=== PATIENT | male | born 1985 | race Caucasian/White ===

== ENCOUNTER 2016-09-19 02:38 | Observation (INO) | payer OTHER ==
[2016-09-19] VITALS (11 sets, daily range): BP systolic 92–140; BP diastolic 59–79
[~2016-09-19] VITALS: Ht 175.3 cm; Wt 128.5 kg
[~2016-09-19 02:38] MED LIST: ALBU8.5H6 INH; ASPI-482 PO; CEPH-263 PO; CEPH500C PO; CYAN10002 IM; CYCL10TA2 PO; DOXY100T PO; FLUT1DIS5 IH; FURO20TA3 PO; HYDR-2666 PO; HYDR-2762 PO; HYDR-965 PO; HYDR-971 PO; IBUP-1060 PO; LEVE250T30 PO; LEVO500T38 PO; LINE600T PO; MECL25TA3 PO; MELO-150 PO; MESA0.37 PO; METOPROLOL PO; MINO100C42 PO; NAPR500T3 PO; NORT25CA PO; NORT75CA PO; ONDA4TAB10 SL; OXYC-323 PO; OXYC10TA32 PO; OXYC5TAB88 PO; PANT40TA3 PO; PREG75CA PO; TOPI100T39 PO; TOPI15CA4 PO; ZOLP5TAB PO
[2016-09-19] MEDS ORDERED: NITROGLYCERIN SUBLINGUAL 0.4 MG BOTTLE OF 25. SL PRN (02:45)
[2016-09-19] MEDS ORDERED: MORPHINE SULFATE 2 MG/ML DISP.SYRIN. IV PRN (02:45)
[2016-09-19] MEDS ORDERED: ASPIRIN 81 MG TAB.CHEW PO ONE (03:00)
[2016-09-19 03:42] LABS: BASO # 0.1 x10^3/uL (0.0-0.2); BASO % 1 % (0-3); EOS % 2 % (0-3); HEMATOCRIT 41.5 % (39.0-53.0); HEMOGLOBIN 13.6 g/dL (13.0-17.5); LYMPH # 3.1 x10^3/uL (1.0-4.8); LYMPH % 21 % (24-48); MEAN CORPUSCULAR HEMOGLOBIN 29 pg (25-35); MEAN CORPUSCULAR HGB CONC 33 g/dL (31-37); MEAN CORPUSCULAR VOLUME 90 fL (79-100); MONO % 6 % (0-9); NEUT % 70 % (31-73); PLATELET COUNT 302 x10^3/uL (140-400); RED BLOOD COUNT 4.62 x10^6/uL (4.30-5.70); WHITE BLOOD COUNT 14.8 x10^3/uL (4.0-11.0)
[2016-09-19 03:53] LABS: ANION GAP 13 (6-14); BLOOD UREA NITROGEN 19 mg/dL (8-26); CALCIUM 8.9 mg/dL (8.5-10.1); CARBON DIOXIDE 22 mmol/L (21-32); CHLORIDE 108 mmol/L (98-107); CREATININE 1.3 mg/dL (0.7-1.3); GFR 64.4; GLUCOSE 95 mg/dL (70-99); POTASSIUM 3.8 mmol/L (3.5-5.1); SODIUM 143 mmol/L (136-145)
[2016-09-19 03:58] LABS: ALBUMIN 3.4 g/dL (3.4-5.0); ALK PHOS 92 U/L (46-116); ALT (SGPT) 26 U/L (16-63); AST (SGOT) 13 U/L (15-37); DIRECT BILIRUBIN < 0.1 mg/dL (0.0-0.2); TOTAL BILIRUBIN 0.2 mg/dL (0.2-1.0); TOTAL PROTEIN 6.7 g/dL (6.4-8.2)
[2016-09-19] MEDS ORDERED: ONDANSETRON PF 4 MG/2 ML VIAL. IV PRN (04:00)
--- NOTE | 2016-09-19 04:04 | PHYS DOC ---
Past Medical History Past Medical History: Anxiety, CHF, COPD, CVA, Depression, GERD, Hypertension, Seizure, TIA Additional Past Medical Histor: pericarditis Crohns partial blind L eye pyloric stenosis Past Surgical History: Other Additional Past Surgical Histo: left knee sx stomach sx Alcohol Use: None Drug Use: None Adult General Chief Complaint Chief Complaint: CHEST PAIN HPI HPI 31-year-old male presenting to the emergency department today with 7 out of 10 sharp sternal chest pain for the last hour. Radiates down left arm. He was given nitroglycerin and aspirin prior to arrival. Mildly alleviated by aspirin and nitroglycerin. He has a history of CHF TIA Crohn's. He denies fevers chills. She denies shortness of breath. Review of Systems Review of Systems ROS negative for abdominal pain nausea vomiting diaphoresis. All other review of systems is negative unless otherwise noted in history of present illness. Current Medications Current Medications Current Medications Medications (Trade) Dose Ordered Sig/Linda Start Time Stop Time Status Last Admin Dose Admin Aspirin (Children'S Aspirin) 324 mg 1X ONCE 09/19/16 03:00 09/19/16 03:01 DC Morphine Sulfate 2 mg PRN Q1HR PRN 09/19/16 02:45 09/19/16 04:04 DC Nitroglycerin (Nitrostat) 0.4 mg PRN Q5MIN PRN 09/19/16 02:45 Allergies Allergies Allergies Coded Allergies Type Severity Reaction Last Updated Verified Penicillins Allergy Intermediate Takes Keflex at home chronically 05/24/16 Yes Sulfa (Sulfonamide Antibiotics) Allergy Intermediate 05/24/16 Yes Physical Exam Physical Exam Constitutional: Well developed, well nourished, no acute distress, non-toxic appearance. HENT: Normocephalic, atraumatic, bilateral external ears normal, oropharynx moist, no oral exudates, nose normal. [] Eyes: PERRLA, EOMI, conjunctiva normal, no discharge. Neck: Normal range of motion, no tenderness, supple, no stridor. [] Cardiovascular:Heart rate regular rhythm, no murmur Lungs & Thorax: Bilateral breath sounds clear to auscultation [] Abdomen: Bowel sounds normal, soft, no tenderness, no masses, no pulsatile masses. Skin: Warm, dry, no erythema, no rash. [] Back: No tenderness, no CVA tenderness. Extremities: No tenderness, no cyanosis, no clubbing, ROM intact, no edema. [] Neurologic: Alert and oriented X 3, normal motor function, normal sensory function, no focal deficits noted. Psychologic: Affect normal, judgement normal, mood normal. [] Current Patient Data Vital Signs Vital Signs Date Time Temp Pulse Resp B/P Pulse Ox O2 Delivery O2 Flow Rate FiO2 09/19/16 03:00 98 18 109/56 95 Nasal Cannula 09/19/16 02:38 98.0 98.0 EKG EKG [] EKG shows sinus tachycardia. Prosser normal. Intervals normal. ST segments congruent. Radiology/Procedures Radiology/Procedures Chest x-ray shows cardiomegaly. No acute obvious infiltrate or pneumothorax present. Course & Med Decision Making Course & Med Decision Making Pertinent Labs and Imaging studies reviewed. (See chart for details) 31-year-old male presenting to the emergency department with chest pain. Aspirin and nitroglycerin given prior to arrival. Vital signs showed tachycardia otherwise unremarkable. Physical exam unremarkable. EKG showed tachycardia. Chest x-ray similar to prior with chronic conditions. Blood work was obtained which showed a increased white blood cell count. Chemistry panel within normal limits. Troponin negative. Patient was then admitted to our hospital for serial blood work and cardiology consultation. Dragon Disclaimer Dragon Disclaimer This electronic medical record was generated, in whole or in part, using a voice recognition dictation system. Departure Departure Impression: Primary Impression: Chest pain Disposition: ADMITTED INPATIENT Admitting Physician: Nicky Higginbotham Condition: STABLE Referrals: SHERRON MALONE MD (PCP) NAOMI MALIK MD Sep 19, 2016 04:04
[2016-09-19] MEDS: MORPHINE SULFATE 2 MG/ML DISP.SYRIN. IV PRN ×2 (04:34→09:17)
--- NOTE | 2016-09-19 06:14 | EKG ---
[facility] [address] [place] [id number] Test Date: 2016-09-19 Test Time: 02:42:36 Pat Name: LAUREANO JONES Department: Room: [facility] Gender: M Studio Director: : 1985 Requested By: NAOMI MALIK Order Number: [id number] Reading MD: Sony Serna Measurements Intervals [place] Rate: 103 P: 38 GA: 150 QRS: 22 QRSD: 96 T: 20 QT: 336 QTc: 442 Interpretive Statements SINUS TACHYCARDIA Electronically Signed On 09-19-2016 15:48:42 MMI TEACHER by Sony Serna
--- NOTE | 2016-09-19 07:58 | RAD ---
EXAM: Chest, single view. HISTORY: Chest pain. COMPARISON: 09/04/2016. FINDINGS: A frontal view of the chest is obtained. There is stable left lower lobe atelectasis or pleural-parenchymal scarring. There is no consolidation, effusion or pneumothorax. The heart is normal in size. IMPRESSION: Stable left lower lobe atelectasis or scarring. No acute pulmonary finding.
--- NOTE | 2016-09-19 09:38 | PDOC2 ---
BRANDY EVANS VESSEL SLAGMAN 09/19/16 0938: CARDIAC CONSULT DATE OF CONSULT Date of Consult DATE: 09/19/16 TIME: 09:27 REASON FOR CONSULT Reason for Consult: Chest Pain REFERRING PHYSICIAN Referring Physician: Dr. Tai SOURCE Source: Chart review, Patient HISTORY OF PRESENT ILLNESS HISTORY OF PRESENT ILLNESS This is a 31 yo male, with a history of CHF, pericarditis, HTN, HLP, hemorrhagic CVA, TIA, seizures, and Crohn's Dx, who presented with complaints of chest pain. Patient reports that pain began yesterday evening when he was watching television. Located in his left chest and radiated to his left shoulder. Stabbing and constant in nature. Improve with nitropaste and morphine. No exacerbating factors. Previous admissions for CP. Underwent MPI in May of 2016, which did not reveal any evidence of ischemia or infarct. Most recently, patient was evaluated in August of 2016 and describes pain was thought to be MSK in origin. Has been chest pain free for the last 2-3 weeks. Reports history of TIA; most recent with left sided weakness that he is receiving PT/OT 5 x per weeks. Additional history of seizures; last 5 days ago. Reports compliance with medications. 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, Seizures, TIA GI: GERD, Other (Crohn's; pyloric stenosis with surgical repair as an infant) Heme/Onc: No pertinent hx Hepatobiliary: No pertinent hx Psych: anxiety, depression Musculoskeletal: Osteoarthritis Rheumatologic: No pertinent hx Infectious disease: Other (MRSA) ENT: No pertinent hx, Other (blind in left eye since stroke) Endocrine: Other (thyroid nodules) Dermatology: Cellulitis PAST SURGICAL HISTORY Past Surgical History left knee arthroscopy; polypectomy FAMILY HISTORY Family History Coronary Artery Disease, HTN, DM, thyroid CA SOCIAL HISTORY Social History Smoke: Quit (2009) ALCOHOL: other (quit 2009) Drugs: None Lives: with Family CURRENT MEDICATIONS CURRENT MEDICATIONS Current Medications Medications (Trade) Dose Ordered Sig/Linda Route PRN Reason Start Time Stop Time Status Last Admin Dose Admin Morphine Sulfate 2 mg PRN Q2HR PRN IV SEVERE PAIN 09/19/16 04:00 09/20/16 03:59 09/19/16 09:17 ALLERGIES ALLERGIES: Coded Allergies: Penicillins (Verified Allergy, Intermediate, Takes Keflex at home chronically, 05/24/16) Sulfa (Sulfonamide Antibiotics) (Verified Allergy, Intermediate, 05/24/16) ROS Review of System 14 point ROS conducted with pertinent positives noted above in HPI PHYSICAL EXAM General: Alert, Oriented X3, Cooperative, No acute distress HEENT: Atraumatic, Mucous membr. moist/pink Lungs: Clear to auscultation, Normal air movement Heart: Regular rate, Normal S1, Normal S2, No murmurs Abdomen: Normal bowel sounds, Soft Extremities: Normal pulses, Other (trace LE edema bilaterally) Skin: No breakdown, No significant lesion Neuro: Normal speech, Sensation intact, Other (left arm strength 4/5) Psych/Mental Status: Mental status NL, Mood NL MUSCULOSKELETAL: Full range of motion without pain VITALS VITALS Vital Signs Date Time Temp Pulse Resp B/P Pulse Ox O2 Delivery O2 Flow Rate FiO2 09/19/16 09:17 20 95 Room Air 09/19/16 07:10 96.4 95 92/59 96.4 LABS Lab: Laboratory Tests Test 09/19/16 03:10 White Blood Count 14.8x10^3/uL (4.0-11.0) Red Blood Count 4.62x10^6/uL (4.30-5.70) Hemoglobin 13.6g/dL (13.0-17.5) Hematocrit 41.5% (39.0-53.0) Mean Corpuscular Volume 90fL (79-100) Mean Corpuscular Hemoglobin 29pg (25-35) Mean Corpuscular Hemoglobin Concent 33g/dL (31-37) Red Cell Distribution Width 13.0% (11.5-14.5) Platelet Count 302x10^3/uL (140-400) Neutrophils (%) (Auto) 70% (31-73) Lymphocytes (%) (Auto) 21% (24-48) Monocytes (%) (Auto) 6% (0-9) Eosinophils (%) (Auto) 2% (0-3) Basophils (%) (Auto) 1% (0-3) Neutrophils # (Auto) 10.3x10^3uL (1.8-7.7) Lymphocytes # (Auto) 3.1x10^3/uL (1.0-4.8) Monocytes # (Auto) 0.9x10^3/uL (0.0-1.1) Eosinophils # (Auto) 0.3x10^3/uL (0.0-0.7) Basophils # (Auto) 0.1x10^3/uL (0.0-0.2) Sodium Level 143mmol/L (136-145) Potassium Level 3.8mmol/L (3.5-5.1) Chloride Level 108mmol/L (98-107) Carbon Dioxide Level 22mmol/L (21-32) Anion Gap 13 (6-14) Blood Urea Nitrogen 19mg/dL (8-26) Creatinine 1.3mg/dL (0.7-1.3) Estimated GFR (Cockcroft-Gault) 64.4 Glucose Level 95mg/dL (70-99) Calcium Level 8.9mg/dL (8.5-10.1) Total Bilirubin 0.2mg/dL (0.2-1.0) Direct Bilirubin < 0.1mg/dL (0.0-0.2) Aspartate Amino Transf (AST/SGOT) 13U/L (15-37) Alanine Aminotransferase (ALT/SGPT) 26U/L (16-63) Alkaline Phosphatase 92U/L (46-116) Troponin I Quantitative < 0.017ng/mL (0.000-0.055) IM-Wvu-G-Type Natriuretic Peptide 6pg/mL (0-124) Total Protein 6.7g/dL (6.4-8.2) Albumin 3.4g/dL (3.4-5.0) Lipase 202U/L (73-393) STRESS TEST STRESS TEST Conclusion 1. Regadenoson cardioisotope stress test did not show any evidence of ischemia or infarct. 2. Normal left ventricular systolic function with ejection fraction calculated at 64%. 3. Low risk for cardiac events. DATE: 05/12/16 1328 ASSESSMENT/PLAN ASSESSMENT/PLAN 1. Chest pain, with typical and atypical features 2. Hyperlipidemia 3. h/o TIA 4. Seizures 5. Crohn's Dx 6. COPD 7. GERD Recommendations ASA, check lipids Given multiple recent admissions for chest pain and history/risk factors, despite having recent normal MPI, will proceed with cardiac catheterization to r /o ischemic etiology. Risks/benefits/alternatives options discussed with patient; would like to proceed with cardiac cath. D/w primary cardiology. GERD possible differential Problems: ISIAH BRIGHT MD 09/19/16 1305: CARDIAC CONSULT ALLERGIES ALLERGIES: Coded Allergies: Penicillins (Verified Allergy, Intermediate, Takes Keflex at home chronically, 05/24/16) Sulfa (Sulfonamide Antibiotics) (Verified Allergy, Intermediate, 05/24/16) ASSESSMENT/PLAN ASSESSMENT/PLAN Pt. seen and examined. Agree with above ROCK BREAKER note. 31 y.o male with now his 4th admission to his facility for chest pain. Previous medical therapy and MPI did not reveal significant pathology. No significant cardiac abn on exam labs wnl Will plan for coronary angiography for definitive evaluation. Problems: BRANDY EVANS APRN Sep 19, 2016 09:38 ISIAH BRIGHT MD Sep 19, 2016 13:05
--- NOTE | 2016-09-19 10:17 | ACF ---
Admission Forms Criteria CARDIOLOGY GRG Clinical Indications for Admission to Inpatient Care ( Place 'X' for any and all applicable criteria): Hospital admission is needed for appropriate care of the patient because of ANY ONE of the following (1): [ ] I. Hemodynamic instability as indicated by ALL of the following (1)(2)(3) (4)(5) [ ]a) Vital signs or other findings not as expected for chronic patient condition or baseline [ ]b) Instability indicated by ANY ONE of the following: [ ]i) Hypotension [ ]ii) Symptomatic Tachycardia unresponsive to treatment ( e.g., analgesia, fluids, sedation as indicated) [ ]iii) Inadequate perfusion indicated by ANY ONE of the following: [ ] 1) Lactic acidosis (> 2 mmol/L) [ ] 2) New abnormal capillary refill (> 3 seconds) [ ] 3) Reduced urine output [ ] 4) New altered mental status [ ]iv) Orthostatic vital sign changes unresponsive to treatment (e.g., fluids) [ ]v) IV inotropic or vasopressor medication required to maintain adequate blood pressure or perfusion [ ] II. Severe heart failure as indicated by ANY ONE of the following(17)(18) [ ]a) Respiratory distress [ ]b) Hypotension [ ]c) Anasarca (refractory to outpatient therapy) [ ]d) Cardiac arrhythmias of immediate concern [ ]e) Myocardial ischemia [ ] III. Cardiac arrhythmias or findings of immediate concern indicated by ANY ONE of the following (19)(20): [ ] a) Heart rhythms that are inherently dangerous or unstable indicated by ANY ONE of the following (21)(22)(23): [ ] i) Resuscitated ventricular fibrillation or cardiac arrest [ ] ii) Ventricular escape rhythm [ ] iii) Sustained ventricular tachycardia (30 seconds or more of ventricular rhythm at greater than 100 beats per minute) [ ] iv) Nonsustained ventricular tachycardia and ANY ONE of the following: [ ] 1) Suspected cardiac ischemia as cause or consequence of ventricular tachycardia [ ] 2) In setting of acute myocarditis [ ] b) Unstable cardiac conduction defects indicated by ANY ONE of the following(23)(24)(25) [ ] i) Type II second-degree atrioventricular block [ ]ii) Third-degree atrioventricular block [ ]iii) New-onset left bundle branch block with suspected myocardial ischemia [ ]c) Any heart rhythm and ANY ONE of the following (21)(22)(26)(27) (28) [ ] i) Continuous long-term ECG monitoring needed (e.g., initiation of drug requiring monitoring for more than 24 hours) [ ] ii) Patient has automatic implanted cardioverter defibrillator that is repeatedly firing, malfunctioning, or in need of immediate adjustment of settings beyond the scope of ambulatory or observation care [ ]d) Heart rhythms of concern due to ANY ONE of the following: [ ] i) Hypotension [ ] ii) Respiratory distress [ ] iii) Association with other significant symptoms (e.g., bradycardia with syncope or ongoing dizziness, supraventricular tachycardia with chest pain (14)(15)(17) [ ] IV. Monitoring for cardiac contusion beyond the scope of observation care needed [A](30)(31)(32) [ ] V. Surgical or device complication (e.g., valve replacement complication , pacemaker dysfunction) (35)(41)(44)(45)(46) [ ] . Inpatient palliative care needed. [B](49) Also use Inpatient Palliative Care Criteria [ ] VII. Nonbacterial thrombotic (marantic) endocarditis (36)(43)(47)(48) [X ] VIII. Cardiology condition, symptom, or finding for which emergency and observation care has failed or are not considered appropriate. [ ] IX. Acute valvular disease requiring inpatient as indicated by ANY ONE of the following (41) [ ]a) Acute valvular regurgitation (42) [ ]b) Noninfectious valvulitis (43) [ ]c) Obstructive valve thrombosis [ ]d) Paravalvular leak [ ]e) Other significant valvular disorder remaining after emergency or observation level of care (as appropriate) [ ]X. Pericardial disease requiring inpatient treatment as indicated by ANY ONE of the following (33)(34)(35)(36)(37) [ ]a) Suspected tamponade (38)(39)(40) [ ]b) Hemopericardium [ ]c) Other significant pericardial disorder remaining after emergency or observation level of care (as appropriate) [ ] XI. Cardiac ischemia beyond scope of emergency and observation care. [ ] XII. Hypertension requiring inpatient treatment as indicated by ANY ONE of the following (6)(7)(8) [ ]a) SBP greater than 220 mm Hg or DBP greater than 120 mmHg despite treatment [ ]b) SBP greater than 140 mm Hg or DBP greater than 100 mm Hg with evidence of acute end organ damage as indicated by ANY ONE of the following [ ] i) Encephalopathy [ ] ii) Acute renal failure as indicated by new onset of ANY ONE of the following (9)(10)(11)(12)(13) [ ]1) 3-fold rise in serum creatinine from baseline [ ]2) Serum creatinine greater than 4 mg/dL ( 354 micromoles/L) with acute rise greater than 0.5 mg/dL (44.2 micromoles/L) [ ]3) Reduction of more than 75% in estimated glomerular filtration rate from baseline [ ]4) Estimated glomerular filtration rate less than 35 mL/min/1.73m2 (0.59 mL/sec/1.73m2) in child up to 18 years of age [ ]5) Cessation of urine output indicated by ALL of the following [ ]A. Adequate volume status [ ]B. Inadequate urine output as indicated by ANY ONE of the following [ ]a. Urine output less than 0.3 mL/kg/hr for 24 hours [ ]b. Anuria (urine output less than 0.1 mL/kg/hr) for 12 hours [ ] iii) Aortic dissection [ ] iv) Myocardial Ischemia [ ] v) Left ventricular heart failure [ ]vi) Retinal Hemorrhage [ ]vii) Other significant finding [ ]c) Hypertension in child requiring inpatient treatment as indicated by ALL of the following(14)(15)(16) [ ] i) Outpatient treatment not effective, not available, or not appropriate [ ]ii) SBP or DBP greater than 95th percentile for age [ ]iii) Evidence of acute end organ damage as indicated by ANY ONE of the following [ ]1) Altered mental status [ ]2) Acute renal failure as indicated by new onset of ANY ONE of the following(9)(10)(11)(12)(13) [ ]A. 3-fold rise in serum creatinine from baseline [ ]B. Serum creatinine greater than 4 mg/dL (354 micromoles/L) with acute rise greater than 0.5 mg/dL (44.2 micromoles/L) [ ]C. Reduction of more than 75% in estimated glomerular filtration rate from baseline [ ]D. Estimated glomerular filtration rate less than 35 mL/min/1.73m2 (0.59 mL/sec/1.73m2) in child up to 18 years of age [ ]E. Cessation of urine output indicated by ALL of the following [ ]a. Adequate volume status [ ]b. Inadequate urine output as indicated by ANY ONE of the following [ ]i) Urine output less than 0.3 mL/kg/hr for 24 hours [ ]ii) Anuria ( urine output less than 0.1 mL/kg/hr) for 12 hours [ ]3) Severe headache [ ]4) Visual disturbance [ ]5) Retinal hemorrhage [ ]6) Other significant finding [ ]XIII. Complications of transplanted heart indicated by ANY ONE of the following(61): [ ]a) Acute graft rejection requiring inpatient management (eg, intravenous immunosuppression)(62)(63) [ ]b) Acute graft heart failure indicated by ANY ONE of the following(64): [ ]i) Hemodynamic instability [ ]ii) Cardiac arrhythmias of immediate concern [ ]iii) Pulmonary edema that is very severe (eg, mechanical ventilation needed, imminent or likely, need for 100% oxygen to keep oxygen saturation above 90%) [ ]iv) Pulmonary edema that is persistent as indicated by ALL of the following: [ ]1) New need for oxygen therapy to keep oxygen saturation above 90% (or increased FiO2 need from baseline) [ ]2) Has not improved sufficiently with emergency department or observation care IV diuretics or other heart failure treatments[E] [ ]v) Altered mental status that is severe or persistent [ ]vi) Increased creatinine (new on laboratory test) with reduction of more than 50% in estimated glomerular filtration rate from baseline [ ]vii) Progressively (ongoing) rising creatinine (known from past laboratory test) with reduction of more than 25% in estimated glomerular filtration rate from baseline [ ]viii) Acute renal failure [ ]ix) Acute peripheral ischemia (eg, examination shows pulseless, cool, mottled, or cyanotic extremity) [ ]x) Pulmonary artery catheter monitoring needed [ ]xi) Other sign or symptom of heart failure requiring inpatient treatment (ie, too severe or not responsive to outpatient and observation care treatment) [ ]c) Infection requiring inpatient management (eg, Hemodynamic instability, need for intravenous antimicrobial treatment)(66)(67)(68)(69)(70) [ ]d) Cardiac allograft vasculopathy requiring inpatient management ( eg evidence of cardiac ischemia)(71) [ ]e) Other complication of transplanted heart (eg, stroke, severe pulmonary hypertension, severe valvular dysfunction) requiring inpatient management(72) The original [facility] content created by [facility] has been revised. The portions of the content which have been revised are identified through the use of italic text or in bold, and [facility] has neither reviewed nor approved the modified material. All other unmodified content is copyright [facility]. Please see references footnoted in the original [facility] edition 2016 Admission Criteria Met?: Yes ALBINO GAMING Sep 19, 2016 10:17
[2016-09-19] MEDS ORDERED: NITROGLYCERIN 200 MCG/2 ML SYRINGE FOR CATH/VASC LAB. ONE (12:43)
[2016-09-19] MEDS ORDERED: LIDOCAINE 2% 20 ML VIAL. ONE (12:44)
[2016-09-19] MEDS ORDERED: MIDAZOLAM HCL 2 MG/2 ML VIAL. ONE (12:44)
[2016-09-19] MEDS ORDERED: FENTANYL PF 100 MCG/2 ML VIAL. ONE (12:44)
[2016-09-19] MEDS ORDERED: VERAPAMIL 5 MG/2 ML VIAL. ONE (12:44)
[2016-09-19] MEDS ORDERED: IODIXANOL 320 MG/ML 100 ML VIAL. ONE (12:44)
[2016-09-19] MEDS ORDERED: HEPARIN for IV BOLUS 10,000 UNIT/10 ML VIAL. ONE (12:44)
--- NOTE | 2016-09-19 12:48 | PDOC1 ---
History and Physical Date of Admission Date of Admission DATE: 09/19/16 TIME: 12:44 Identification/Chief Complaint Chief Complaint chest pain Source Source: Chart review, Patient History of Present Illness History of Present Illness Mr. Rivera is a 31-year-old male admitted with recurrent chest pain, 7 out of 10 sharp sternal chest pain. Radiates down left arm. Prior CV eval here, MPI neg He has Chrons disease, history of prior TIA, with residual left leg weakness, no true hx of CVA documentd nitro helped his pain yesterday Past Medical History Cardiovascular: No pertinent hx, CHF Pulmonary: Asthma GI: GERD, Other Heme/Onc: No pertinent hx Hepatobiliary: No pertinent hx Psych: No pertinent hx Musculoskeletal: Osteoarthritis Rheumatologic: No pertinent hx Infectious disease: Other Renal/: No pertinent hx Endocrine: Other Past Surgical History Past Surgical History: Other Family History Family History: Coronary Artery Disease Social History Smoke: No ALCOHOL: none Drugs: None Current Problem List Problem List Problems Medical Problems: (1) Chest pain Status: Acute Problems: Current Medications Current Medications Current Medications Aspirin (Children'S Aspirin) 324 mg 1X ONCE PO ; Start 09/19/16 at 03:00; Stop 09/19/16 at 03:01; Status DC Nitroglycerin (Nitrostat) 0.4 mg PRN Q5MIN PRN SL CHEST PAIN; Start 09/19/16 at 02:45 Morphine Sulfate 2 mg PRN Q1HR PRN IV SEVERE PAIN; Start 09/19/16 at 02:45; Stop 09/19/16 at 04:04; Status DC Ondansetron HCl (Zofran) 4 mg PRN Q8HRS PRN IV NAUSEA/VOMITING Last administered on 09/19/16 09:41; Start 09/19/16 at 04:00; Stop 09/20/16 at 03:59 Morphine Sulfate 2 mg PRN Q2HR PRN IV SEVERE PAIN Last administered on 09:17; Start 09/19/16 at 04:00; Stop 09/20/16 at 03:59 Nitroglycerin (Nitroglycerin) 200 mcg STK-MED ONCE .ROUTE ; Start 09/19/16 at 12 :43; Stop 09/19/16 at 12:44; Status DC Active Scripts Active Zofran Odt (Ondansetron) 4 Mg Tab.rapdis 1 Tab SL Q8HRS Reported Cephalexin 500 Mg Capsule 1 Cap PO TID Apriso (Mesalamine) 0.375 Gm Cap.er.24h 2 Cap PO HS Keppra (Levetiracetam) 250 Mg Tablet 500 Mg PO BID Cyanocobalamin Injection (Cyanocobalamin (Vitamin B-12)) 1,000 Mcg/1 Ml Vial 1 Ml IM WEEKLY Hydrocodone-Apap 7.5-325 (Hydrocodone Bit/Acetaminophen) 1 Each Tablet 1 Tab PO PRN Q6HRS PRN Topamax (Topiramate) 100 Mg Tablet 1 Tab PO TID Meloxicam 15 Mg Tablet 1 Tab PO DAILY Nortriptyline Hcl 75 Mg Capsule 75 Mg PO HS Cyclobenzaprine Hcl 10 Mg Tablet 10 Mg PO TID Lyrica (Pregabalin) 75 Mg Capsule 1 Cap PO BID Advair 500-50 Diskus (Fluticasone/Salmeterol) 1 Each Disk.w.dev 1 Puff IH BID Albuterol Sulfate Hfa Inhaler (Albuterol Sulfate) 8.5 Gm Hfa.aer.ad 2 Puff INH QID Protonix (Pantoprazole Sodium) 40 Mg Tablet.dr 40 Mg PO Aspir 81 (Aspirin) 81 Mg Tablet.dr 81 Mg PO DAILY Allergies Allergies: Coded Allergies: Penicillins (Verified Allergy, Intermediate, Takes Keflex at home chronically, 05/24/16) Sulfa (Sulfonamide Antibiotics) (Verified Allergy, Intermediate, 05/24/16) ROS General: YES: Fatigue, Malaise, No: Appetite, Chills, Night Sweats, Other PSYCHOLOGICAL ROS: No: Anxiety, Behavioral Disorder, Concentration difficultie , Decreased libido, Depression, Disorientation, Hallucinations, Hostility, Irritablity, Memory difficulties, Mood Swings, Obsessive thoughts, Other, Physical abuse, Sexual abuse, Sleep disturbances, Suicidal ideation Eyes: No Blurry vision, No Decreased vision, No Double vision, No Dry eyes, No Excessive tearing, No Eye Pain, No Itchy Eyes, No Loss of vision, No Other, No Photophobia, No Scotomata, No Uses contacts, No Uses glasses Cardiovascular: yes Chest Pain Gastrointestinal: Yes Constipation, Yes Diarrhea, Yes Nausea, No Abdominal Pain, No Hematochezia, No Melena, No Other, No Vomiting Genitourinary: No , No , No , No , No , No , No , No Discharge, No Dysuria, No Flank Pain, No Frequency, No Hematuria, No Incontinence, No Other, No Pain, No Retention, No Urgency Musculoskeletal: Yes Gait Disturbance, Yes Muscular Weakness, No Joint Pain, No Joint Stiffness, No Joint Swelling, No Muscle Pain, No Other, No Pain In:, No Swelling In: Neurological: Yes Gait Disturbance, Yes Numbness/Tingling, No Behavorial Changes, No Bowel/Bladder ControlChng, No Confusion, No Dizziness, No Headaches, No Impaired Coord/balance, No Memory Loss, No Other, No Seizures, No Speech Problems, No Tremors, No Visual Changes, No Weakness Skin: No Acne, No Dry Skin, No Eczema, No Hair Changes, No Lumps, No Mole Changes, No Mottling, No Nail Changes, No Other, No Pruritus, No Rash, No Skin Lesion Changes Physical Exam General: Alert, Oriented X3, Cooperative HEENT: Atraumatic, PERRLA Lungs: Clear to auscultation Heart: S1S2 Abdomen: Normal bowel sounds, Soft (obese,) Rectal Exam: not examined PELVIC: Nml ext uterus Extremities: No cyanosis, No edema, Normal pulses Neuro: Normal tone, Sensation intact, Other (left leg weakness ) Psych/Mental Status: Mood NL (flat affect) Vitals Vitals Vital Signs Date Time Temp Pulse Resp B/P Pulse Ox O2 Delivery O2 Flow Rate FiO2 09/19/16 11:00 97.7 109 18 140/65 93 Room Air 97.7 Labs Labs Laboratory Tests Test 09/19/16 03:10 09/19/16 10:09 White Blood Count 14.8x10^3/uL (4.0-11.0) Red Blood Count 4.62x10^6/uL (4.30-5.70) Hemoglobin 13.6g/dL (13.0-17.5) Hematocrit 41.5% (39.0-53.0) Mean Corpuscular Volume 90fL (79-100) Mean Corpuscular Hemoglobin 29pg (25-35) Mean Corpuscular Hemoglobin Concent 33g/dL (31-37) Red Cell Distribution Width 13.0% (11.5-14.5) Platelet Count 302x10^3/uL (140-400) Neutrophils (%) (Auto) 70% (31-73) Lymphocytes (%) (Auto) 21% (24-48) Monocytes (%) (Auto) 6% (0-9) Eosinophils (%) (Auto) 2% (0-3) Basophils (%) (Auto) 1% (0-3) Neutrophils # (Auto) 10.3x10^3uL (1.8-7.7) Lymphocytes # (Auto) 3.1x10^3/uL (1.0-4.8) Monocytes # (Auto) 0.9x10^3/uL (0.0-1.1) Eosinophils # (Auto) 0.3x10^3/uL (0.0-0.7) Basophils # (Auto) 0.1x10^3/uL (0.0-0.2) Sodium Level 143mmol/L (136-145) Potassium Level 3.8mmol/L (3.5-5.1) Chloride Level 108mmol/L (98-107) Carbon Dioxide Level 22mmol/L (21-32) Anion Gap 13 (6-14) Blood Urea Nitrogen 19mg/dL (8-26) Creatinine 1.3mg/dL (0.7-1.3) Estimated GFR (Cockcroft-Gault) 64.4 Glucose Level 95mg/dL (70-99) Calcium Level 8.9mg/dL (8.5-10.1) Total Bilirubin 0.2mg/dL (0.2-1.0) Direct Bilirubin < 0.1mg/dL (0.0-0.2) Aspartate Amino Transf (AST/SGOT) 13U/L (15-37) Alanine Aminotransferase (ALT/SGPT) 26U/L (16-63) Alkaline Phosphatase 92U/L (46-116) Troponin I Quantitative < 0.017ng/mL (0.000-0.055) < 0.017ng/mL (0.000-0.055) FI-Snp-B-Type Natriuretic Peptide 6pg/mL (0-124) Total Protein 6.7g/dL (6.4-8.2) Albumin 3.4g/dL (3.4-5.0) Lipase 202U/L (73-393) Laboratory Tests Test 09/19/16 03:10 09/19/16 10:09 White Blood Count 14.8x10^3/uL (4.0-11.0) Red Blood Count 4.62x10^6/uL (4.30-5.70) Hemoglobin 13.6g/dL (13.0-17.5) Hematocrit 41.5% (39.0-53.0) Mean Corpuscular Volume 90fL (79-100) Mean Corpuscular Hemoglobin 29pg (25-35) Mean Corpuscular Hemoglobin Concent 33g/dL (31-37) Red Cell Distribution Width 13.0% (11.5-14.5) Platelet Count 302x10^3/uL (140-400) Neutrophils (%) (Auto) 70% (31-73) Lymphocytes (%) (Auto) 21% (24-48) Monocytes (%) (Auto) 6% (0-9) Eosinophils (%) (Auto) 2% (0-3) Basophils (%) (Auto) 1% (0-3) Neutrophils # (Auto) 10.3x10^3uL (1.8-7.7) Lymphocytes # (Auto) 3.1x10^3/uL (1.0-4.8) Monocytes # (Auto) 0.9x10^3/uL (0.0-1.1) Eosinophils # (Auto) 0.3x10^3/uL (0.0-0.7) Basophils # (Auto) 0.1x10^3/uL (0.0-0.2) Sodium Level 143mmol/L (136-145) Potassium Level 3.8mmol/L (3.5-5.1) Chloride Level 108mmol/L (98-107) Carbon Dioxide Level 22mmol/L (21-32) Anion Gap 13 (6-14) Blood Urea Nitrogen 19mg/dL (8-26) Creatinine 1.3mg/dL (0.7-1.3) Estimated GFR (Cockcroft-Gault) 64.4 Glucose Level 95mg/dL (70-99) Calcium Level 8.9mg/dL (8.5-10.1) Total Bilirubin 0.2mg/dL (0.2-1.0) Direct Bilirubin < 0.1mg/dL (0.0-0.2) Aspartate Amino Transf (AST/SGOT) 13U/L (15-37) Alanine Aminotransferase (ALT/SGPT) 26U/L (16-63) Alkaline Phosphatase 92U/L (46-116) Troponin I Quantitative < 0.017ng/mL (0.000-0.055) < 0.017ng/mL (0.000-0.055) CF-Ryk-I-Type Natriuretic Peptide 6pg/mL (0-124) Total Protein 6.7g/dL (6.4-8.2) Albumin 3.4g/dL (3.4-5.0) Lipase 202U/L (73-393) VTE Prophylaxis Ordered VTE Prophylaxis Devices: Yes VTE Pharmacological Prophylaxi: Yes Assessment/Plan Assessment/Plan chest pain, angina, prior MPI neg, CV consult, eval to do cardiac cath chrons left hemiparesis from prior TIA, unknown why residual persists morbid obesity, BMI 41.8 EMANI DIXON MD Sep 19, 2016 12:48
[2016-09-19] MEDS ORDERED: VERAPAMIL 5 MG/2 ML VIAL. IART ONE (13:30)
[2016-09-19] MEDS ORDERED: HEPARIN for IV BOLUS 10,000 UNIT/10 ML VIAL. IART ONE (13:30)
[2016-09-19] MEDS ORDERED: FENTANYL PF 100 MCG/2 ML VIAL. IV ONE (13:30)
[2016-09-19] MEDS ORDERED: IODIXANOL 320 MG/ML 100 ML VIAL. IART ONE (13:30)
[2016-09-19] MEDS ORDERED: NITROGLYCERIN 200 MCG/2 ML SYRINGE FOR CATH/VASC LAB. IART ONE (13:30)
[2016-09-19] MEDS ORDERED: LIDOCAINE 2% 20 ML VIAL. IJ ONE (13:30)
[2016-09-19] MEDS ORDERED: MIDAZOLAM HCL 2 MG/2 ML VIAL. IV ONE (13:30)
--- NOTE | 2016-09-19 14:00 | CARD ---
APPROVED REPORT Procedure(s) performed: Left Heart Catheterization + Coronary angiography HISTORY The patient is a year-old male with a history of : peripheral vascular disease. 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 . CASE TECHNIQUE During this case, Fluoroscopy and Iso-osmolar contrast were used for imaging. PROCEDURE NARRATIVE The patient was brought electively to the cardiac catheterization lab. A timeout was performed confi rming the patient's name, date of , procedure, and site of procedure. All necessary personnel w ere wearing the appropriate protective equipment and radiation monitor devices. After explaining the risks and benefits of the procedure and alternatives, informed consent was obtained. (See nursing no birgit for medications administered). The right wrist was sterilely prepped and draped in the usual fas hion. The right wrist was infiltrated with 1 mL of 2% lidocaine for subcutaneous anesthesia. A 6 Fr ench Terumo glide sheath was inserted into the right radial artery without difficulty. Right and lef t coronary angiography was performed using a 6Fr TIG 4.0 catheter. Left ventricular end diastolic pr essure was obtained with a pigtail catheter and pullback was performed after left ventriculography. All catheter exchanges and advancements were performed over a guidewire. At case completion the righ t radial sheath was removed and a Terumo radial band was applied with 15 ml of air. The patient tole rated the procedure well and there were no immediate complications. HEMODYNAMICS: LVEDP 25 mm Hg No gradient on LV to aortic pullback. LEFT VENTRICULOGRAM: EF 55% Anterobasal: Normal. Anterolateral: Normal Apical: Normal Diaphragmatic: Normal Posterobasal: Normal *No mitral regurgitation. *No significant aortic insufficiency. CORONARY ANGIOGRAPHY: LM is a large caliber vessel with normal angiographic appearance. LAD is a large caliber vessel with normal angiographic appearance. D1 is a moderate caliber vessel with normal angiographic apeparance. LCx is a moderate caliber non-dominant vessel with normal angiographic appearance. OM1 is a moderate caliber vessel with normal angiographic appearance. RCA is a large caliber dominant vessel with normal angiographic appearance. RPDA and RPL are moderate caliber vessels with normal angiographic appearance. Conclusion 1. Mildly elevated left sided filling pressures. 2. Normal angiographic appearance of the coronary arteries. Recommendations Aggressive Medical Therapy
[2016-09-19] MEDS ORDERED: HYDR-2762 PO (15:12)
--- NOTE | 2016-09-19 22:08 | PDOC3 ---
Discharge Summary Visit Information Date of Admission: Sep 19, 2016 Date of Discharge: Sep 19, 2016 Admitting Diagnosis: chest pain Final Diagnosis CHF, pericarditis, HTN, HLP, hemorrhagic CVA, TIA, seizures, and Crohn's Dx Problems Medical Problems: (1) Chest pain Status: Acute Brief Hospital Course Allergies Allergies Coded Allergies Type Severity Reaction Last Updated Verified Penicillins Allergy Intermediate Takes Keflex at home chronically 05/24/16 Yes Sulfa (Sulfonamide Antibiotics) Allergy Intermediate 05/24/16 Yes Vital Signs Vital Signs Date Time Temp Pulse Resp B/P Pulse Ox O2 Delivery O2 Flow Rate FiO2 09/19/16 15:51 92 09/19/16 15:00 Lab Results Laboratory Tests Test 09/19/16 03:10 09/19/16 10:09 White Blood Count 14.8x10^3/uL (4.0-11.0) Red Blood Count 4.62x10^6/uL (4.30-5.70) Hemoglobin 13.6g/dL (13.0-17.5) Hematocrit 41.5% (39.0-53.0) Mean Corpuscular Volume 90fL (79-100) Mean Corpuscular Hemoglobin 29pg (25-35) Mean Corpuscular Hemoglobin Concent 33g/dL (31-37) Red Cell Distribution Width 13.0% (11.5-14.5) Platelet Count 302x10^3/uL (140-400) Neutrophils (%) (Auto) 70% (31-73) Lymphocytes (%) (Auto) 21% (24-48) Monocytes (%) (Auto) 6% (0-9) Eosinophils (%) (Auto) 2% (0-3) Basophils (%) (Auto) 1% (0-3) Neutrophils # (Auto) 10.3x10^3uL (1.8-7.7) Lymphocytes # (Auto) 3.1x10^3/uL (1.0-4.8) Monocytes # (Auto) 0.9x10^3/uL (0.0-1.1) Eosinophils # (Auto) 0.3x10^3/uL (0.0-0.7) Basophils # (Auto) 0.1x10^3/uL (0.0-0.2) Sodium Level 143mmol/L (136-145) Potassium Level 3.8mmol/L (3.5-5.1) Chloride Level 108mmol/L (98-107) Carbon Dioxide Level 22mmol/L (21-32) Anion Gap 13 (6-14) Blood Urea Nitrogen 19mg/dL (8-26) Creatinine 1.3mg/dL (0.7-1.3) Estimated GFR (Cockcroft-Gault) 64.4 Glucose Level 95mg/dL (70-99) Calcium Level 8.9mg/dL (8.5-10.1) Total Bilirubin 0.2mg/dL (0.2-1.0) Direct Bilirubin < 0.1mg/dL (0.0-0.2) Aspartate Amino Transf (AST/SGOT) 13U/L (15-37) Alanine Aminotransferase (ALT/SGPT) 26U/L (16-63) Alkaline Phosphatase 92U/L (46-116) Troponin I Quantitative < 0.017ng/mL (0.000-0.055) < 0.017ng/mL (0.000-0.055) AN-Riz-Z-Type Natriuretic Peptide 6pg/mL (0-124) Total Protein 6.7g/dL (6.4-8.2) Albumin 3.4g/dL (3.4-5.0) Lipase 202U/L (73-393) Laboratory Tests Test 09/19/16 03:10 09/19/16 10:09 White Blood Count 14.8x10^3/uL (4.0-11.0) Red Blood Count 4.62x10^6/uL (4.30-5.70) Hemoglobin 13.6g/dL (13.0-17.5) Hematocrit 41.5% (39.0-53.0) Mean Corpuscular Volume 90fL (79-100) Mean Corpuscular Hemoglobin 29pg (25-35) Mean Corpuscular Hemoglobin Concent 33g/dL (31-37) Red Cell Distribution Width 13.0% (11.5-14.5) Platelet Count 302x10^3/uL (140-400) Neutrophils (%) (Auto) 70% (31-73) Lymphocytes (%) (Auto) 21% (24-48) Monocytes (%) (Auto) 6% (0-9) Eosinophils (%) (Auto) 2% (0-3) Basophils (%) (Auto) 1% (0-3) Neutrophils # (Auto) 10.3x10^3uL (1.8-7.7) Lymphocytes # (Auto) 3.1x10^3/uL (1.0-4.8) Monocytes # (Auto) 0.9x10^3/uL (0.0-1.1) Eosinophils # (Auto) 0.3x10^3/uL (0.0-0.7) Basophils # (Auto) 0.1x10^3/uL (0.0-0.2) Sodium Level 143mmol/L (136-145) Potassium Level 3.8mmol/L (3.5-5.1) Chloride Level 108mmol/L (98-107) Carbon Dioxide Level 22mmol/L (21-32) Anion Gap 13 (6-14) Blood Urea Nitrogen 19mg/dL (8-26) Creatinine 1.3mg/dL (0.7-1.3) Estimated GFR (Cockcroft-Gault) 64.4 Glucose Level 95mg/dL (70-99) Calcium Level 8.9mg/dL (8.5-10.1) Total Bilirubin 0.2mg/dL (0.2-1.0) Direct Bilirubin < 0.1mg/dL (0.0-0.2) Aspartate Amino Transf (AST/SGOT) 13U/L (15-37) Alanine Aminotransferase (ALT/SGPT) 26U/L (16-63) Alkaline Phosphatase 92U/L (46-116) Troponin I Quantitative < 0.017ng/mL (0.000-0.055) < 0.017ng/mL (0.000-0.055) CR-Jkl-F-Type Natriuretic Peptide 6pg/mL (0-124) Total Protein 6.7g/dL (6.4-8.2) Albumin 3.4g/dL (3.4-5.0) Lipase 202U/L (73-393) Brief Hospital Course Mr. Rivera is a 31 old , who presented with complaints of chest pain. at rest to left shoulder. Stabbing and constant in nature. recent MPI neg, pain better with nitro and morphine taken for cardiac cath 1. Mildly elevated left sided filling pressures. 2. Normal angiographic appearance of the coronary arteries. Discharge Information Condition at Discharge: Improved Follow Up: Weeks Disposition/Orders: D/C to Home Scheduled Albuterol Sulfate (Albuterol Sulfate Hfa Inhaler) 2 PUFF INH QID (Reported) Aspirin (Aspir 81) 81 MG PO DAILY (Reported) Cephalexin (Cephalexin) 1 CAP PO TID (Reported) Cyanocobalamin (Vitamin B-12) (Cyanocobalamin Injection) 1 ML IM WEEKLY ( Reported) Cyclobenzaprine Hcl (Cyclobenzaprine Hcl) 10 MG PO TID (Reported) Fluticasone/Salmeterol (Advair 500-50 Diskus) 1 PUFF IH BID (Reported) Levetiracetam (Keppra) 500 MG PO BID (Reported) Meloxicam (Meloxicam) 1 TAB PO DAILY (Reported) Mesalamine (Apriso) 2 CAP PO HS (Reported) Nortriptyline Hcl (Nortriptyline Hcl) 75 MG PO HS (Reported) Ondansetron (Zofran Odt) 1 TAB SL Q8HRS Pregabalin (Lyrica) 1 CAP PO BID (Reported) Topiramate (Topamax) 1 TAB PO TID (Reported) Scheduled PRN Hydrocodone Bit/Acetaminophen (Hydrocodone-Apap 7.5-325 ) 1 TAB PO PRN Q6HRS PRN PRN PAIN Miscellaneous Medications Pantoprazole Sodium (Protonix) 40 MG PO (Reported) EMANI DIXON MD Sep 19, 2016 22:08
== END 2016-09-19 17:30 | disposition home health service (06) ==
LOC: ER 02:38 → 6 SOUTH 03:02
PROVIDERS: ADMIT Internal Medicine; ATTEND Internal Medicine
DX: R07.9 Chest pain, unspecified (principal); K50.90 Crohn's disease, unspecified, without complications; F41.9 Anxiety disorder, unspecified; J45.909 Unspecified asthma, uncomplicated; K21.9 Gastro-esophageal reflux disease without esophagitis; M19.90 Unspecified osteoarthritis, unspecified site; G81.94 Hemiplegia, unspecified affecting left nondominant side; E66.01 Morbid (severe) obesity due to excess calories; E78.5 Hyperlipidemia, unspecified; I50.9 Heart failure, unspecified; I10 Essential (primary) hypertension; R56.9 Unspecified convulsions; F32.9 Major depressive disorder, single episode, unspecified; J44.9 Chronic obstructive pulmonary disease, unspecified; H54.42 Blindness, left eye, normal vision right eye; Z68.41 Body mass index [BMI] 40.0-44.9, adult; Z86.79 Personal history of other diseases of the circulatory system; Z86.73 Personal history of transient ischemic attack (TIA), and cerebral infarction without residual deficits; Z82.49 Family history of ischemic heart disease and other diseases of the circulatory system; Z83.3 Family history of diabetes mellitus; Z80.8 Family history of malignant neoplasm of other organs or systems
CPT/HCPCS: 36415; 71010; 80048; 80076; 83690; 83880; 84484; 85027; 93005; 93458; 96374; 96375; 96376; 99285; C1769; C1892; G0378; J2250; J2270; J2405; J3010; J3490; C1882; C1895; C1898; G0379

== ENCOUNTER 2016-11-06 14:12 | Emergency (ER) | payer OTHER ==
[~2016-11-06] VITALS: Ht 180.3 cm; Wt 140.6 kg
[2016-11-06] MEDS ORDERED: HYDROCODONE/APAP 5/325MG TABLET. PO ONE (15:00)
--- NOTE | 2016-11-06 15:00 | EKG ---
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 Electronically Signed On 11-13-2016 10:36:19 [employer] by Ravindra Chua
--- NOTE | 2016-11-06 15:18 | PHYS DOC ---
Past Medical History Past Medical History: Anxiety, CHF, COPD, CVA, Depression, GERD, Hypertension, Seizure, TIA Additional Past Medical Histor: pericarditis Crohns partial blind L eye pyloric stenosis Past Surgical History: Other Additional Past Surgical Histo: LEFT KNEE SX, PYLORIC STENOSIS SX Alcohol Use: None Drug Use: None Adult General Chief Complaint Chief Complaint: SYNCOPE HPI HPI Patient is a 31 year old male who presents for right posterior head pain and right lateral neck since episode of syncope just prior to arrival. He bent over and stood up, became lightheaded and passed out. He woke in the bathroom next to the wall. He denies eye pain, vision changes, current dizziness, chest pain, dyspnea, cough, f/c, n/c, diarrhea, numbness, tingling, weakness. Review of Systems Review of Systems Constitutional: Denies fever or chills [] Eyes: Denies change in visual acuity, redness, or eye pain [] HENT: Denies nasal congestion or sore throat [] Respiratory: Denies cough or shortness of breath [] Cardiovascular: No additional information not addressed in HPI [] GI: Denies abdominal pain, nausea, vomiting, bloody stools or diarrhea [] : Denies dysuria or hematuria [] Musculoskeletal: Denies back pain or joint pain [] Integument: Denies rash or skin lesions [] Neurologic: Denies focal weakness or sensory changes [] Endocrine: Denies polyuria or polydipsia [] Current Medications Current Medications Current Medications Medications (Trade) Dose Ordered Sig/Linda Start Time Stop Time Status Last Admin Dose Admin Acetaminophen/ Hydrocodone Bitart (Lortab 5/325) 2 tab 1X ONCE 11/06/16 15:00 11/06/16 15:01 DC 11/06/16 15:11 2 TAB Allergies Allergies Allergies Coded Allergies Type Severity Reaction Last Updated Verified Penicillins Allergy Intermediate Takes Keflex at home chronically 05/24/16 Yes Sulfa (Sulfonamide Antibiotics) Allergy Intermediate 05/24/16 Yes Physical Exam Physical Exam Constitutional: Well developed, well nourished, no acute distress, non-toxic appearance. [] HENT: Normocephalic, atraumatic, bilateral external ears normal, oropharynx moist, no oral exudates, nose normal. Has some right occipital tenderness with no palpable or visual abnormality [] Eyes: PERRLA, EOMI, conjunctiva normal, no discharge. [] Neck: Normal range of motion, no midline spinal tenderness, supple. Has right cervical paraspinal tenderness with no palpable or visual abnormality [] Cardiovascular:Heart rate regular rhythm [] Lungs & Thorax: Bilateral breath sounds clear to auscultation [] Abdomen: Bowel sounds normal, soft, no tenderness. [] Skin: Warm, dry, no erythema, no rash. [] Back: Normal ROM. [] Extremities: No tenderness, ROM intact, no edema. [] Neurologic: Alert and oriented X 3, normal motor function, normal sensory function, no focal deficits noted, cranial nerves II-XII intact. [] Psychologic: Affect normal, judgement normal, mood normal. [] Current Patient Data Vital Signs Vital Signs Date Time Temp Pulse Resp B/P Pulse Ox O2 Delivery O2 Flow Rate FiO2 11/06/16 17:20 78 20 108/76 99 Room Air 11/06/16 14:26 98.6 98.6 Lab Values Laboratory Tests Test 11/06/16 14:59 11/06/16 15:40 Troponin I Quantitative < 0.017ng/mL (0.000-0.055) Sodium Level 146mmol/L (136-145) H Potassium Level 4.1mmol/L (3.5-5.1) Chloride Level 111mmol/L (98-107) H Carbon Dioxide Level 23mmol/L (21-32) Anion Gap 12 (6-14) Blood Urea Nitrogen 10mg/dL (8-26) Creatinine 1.3mg/dL (0.7-1.3) Estimated GFR (Cockcroft-Gault) 64.4 Glucose Level 101mg/dL (70-99) H Calcium Level 8.9mg/dL (8.5-10.1) Laboratory Tests 11/06/16 15:40 EKG EKG EKG as interpreted by me as normal sinus rhythm, rate 91, no ST-T changes, normal intervals, no ectopy Radiology/Procedures Radiology/Procedures CT head and cervical spine without contrast Impression: 1. Normal non-contrast CT of the brain. End impression. CT cervical spine findings: Impression: No acute abnormality seen in the CT scan cervical spine. DICTATED and SIGNED BY: GINO ROBISON MD DATE: 11/06/16 2690 Course & Med Decision Making Course & Med Decision Making Pertinent Labs and Imaging studies reviewed. (See chart for details) Workup is unremarkable. Return precautions given. He and family understand and agree with plan. Dragon Disclaimer Dragon Disclaimer This electronic medical record was generated, in whole or in part, using a voice recognition dictation system. Departure Departure Impression: Primary Impression: Syncope and collapse Additional Impression: Closed head injury Disposition: HOME, SELF-CARE Condition: STABLE Referrals: SHERRON MALONE MD (PCP) Patient Instructions: Syncope, [id number] Additional Instructions: Follow-up with your primary care doctor. Return for any concerns. Problem Qualifiers Additional Impression: Closed head injury Encounter type: initial encounter Qualified Code: S09.90XA - Unspecified injury of head, initial encounter Katherine HENDERSON MD Nov 06, 2016 15:18
[2016-11-06 15:57] LABS: CALCIUM 8.9 mg/dL (8.5-10.1); CREATININE 1.3 mg/dL (0.7-1.3); GFR 64.4; POTASSIUM 4.1 mmol/L (3.5-5.1)
--- NOTE | 2016-11-06 16:26 | RAD ---
Exam performed: CT scan of the head and cervical spine without contrast. Date of Service: 11/06/16 Comparison:CT head and c spine from 09/14/16 Clinical History: Head and neck pain status post fall Technique: Helical acquisitions are obtained from the foramen magnum to the vertex without intravenous administration of contrast. In addition helical acquisitions are obtained through the cervical spine. Sagittal and coronal reformatted images are obtained and reviewed. CT scan head findings: The ventricular system is midline without evidence of dilatation. Normal costa-white differentiation is maintained. There is no extra axial fluid collection, intraparenchymal hemorrhage or mass lesion. The visualized orbits, paranasal sinuses and the mastoid air cells are clear. The calvarium is intact. Impression: 1. Normal non-contrast CT of the brain. End impression. CT cervical spine findings: Straightening of the cervical curvature, likely positional. The vertebral body heights and intravertebral disc spaces are maintained. There is no roosevelt or retrolisthesis. No prevertebral soft tissue swelling is identified. There are no fractures. No definite lymphadenopathy or masses are seen within the neck. The visualized thyroid and salivary glands appears preserved. Impression: No acute abnormality seen in the CT scan cervical spine. PQRS Compliance Statement: One or more of the following individualized dose reduction techniques were utilized for this examination: 1. Automated exposure control 2. Adjustment of the mA and/or kV according to patient size 3. Use of iterative reconstruction technique
[2016-11-06 17:20] VITALS: BP 108/76
== END 2016-11-06 17:23 | disposition home or self-care (01) ==
LOC: ER 14:12
DX: S09.90XA Unspecified injury of head, initial encounter (principal); R55 Syncope and collapse; F41.9 Anxiety disorder, unspecified; I11.0 Hypertensive heart disease with heart failure; I50.9 Heart failure, unspecified; J44.9 Chronic obstructive pulmonary disease, unspecified; K21.9 Gastro-esophageal reflux disease without esophagitis; F32.9 Major depressive disorder, single episode, unspecified; H54.42 Blindness, left eye, normal vision right eye; K31.1 Adult hypertrophic pyloric stenosis; Z88.2 Allergy status to sulfonamides; Z86.73 Personal history of transient ischemic attack (TIA), and cerebral infarction without residual deficits; Z88.0 Allergy status to penicillin; X58.XXXA Exposure to other specified factors, initial encounter; Y93.89 Activity, other specified; Y92.89 Other specified places as the place of occurrence of the external cause; Y99.8 Other external cause status
CPT/HCPCS: 36415; 70450; 72125; 80048; 84484; 93005; 99285-25

== ENCOUNTER 2016-11-13 11:10 | Emergency (ER) | payer OTHER ==
[~2016-11-13] VITALS: Ht 180.3 cm; Wt 139.3 kg
--- NOTE | 2016-11-13 13:22 | PHYS DOC ---
Past Medical History Past Medical History: Anxiety, CHF, COPD, CVA, Depression, GERD, Hypertension, Seizure, TIA, Other Additional Past Medical Histor: pericarditis, Crohns, partial blind L eye, pyloric stenosis,MULT HEAD INJURY Past Surgical History: Other Additional Past Surgical Histo: LEFT KNEE SX, PYLORIC STENOSIS SX Alcohol Use: None Drug Use: None Adult General Chief Complaint Chief Complaint: HEADACHE HPI HPI Patient is a 31 year old male with history of anxiety, hypertension,CVA, CAD, TIA, with head injury after falling. Patient states he was sitting on the toilet stood up and fell face forward, patient denies any loss of consciousness. He states last week he also felt and has had dizziness since last week intermittently. Patient denies any vision less nausea vomiting. Review of Systems Review of Systems Constitutional: Denies fever or chills [] Eyes: Denies change in visual acuity, redness, or eye pain [] HENT: Denies nasal congestion or sore throat [] Respiratory: Denies cough or shortness of breath [] Cardiovascular: No additional information not addressed in HPI [] GI: Denies abdominal pain, nausea, vomiting, bloody stools or diarrhea [] : Denies dysuria or hematuria [] Musculoskeletal: Denies back pain or joint pain [] Integument: Denies rash or skin lesions [] Neurologic: Head injury post falling, dizziness Endocrine: Denies polyuria or polydipsia [] Allergies Allergies Allergies Coded Allergies Type Severity Reaction Last Updated Verified Penicillins Allergy Intermediate Takes Keflex at home chronically 05/24/16 Yes Sulfa (Sulfonamide Antibiotics) Allergy Intermediate 05/24/16 Yes Physical Exam Physical Exam Constitutional: Well developed, well nourished, no acute distress, non-toxic appearance. [] HENT: Normocephalic, atraumatic, bilateral external ears normal, oropharynx moist, no oral exudates, nose normal. [] Eyes: PERRLA, EOMI, conjunctiva normal, no discharge. [] Neck: Normal range of motion, no tenderness, supple, no stridor. [] Cardiovascular:Heart rate regular rhythm, no murmur [] Lungs & Thorax: Bilateral breath sounds clear to auscultation [] Abdomen: Bowel sounds normal, soft, no tenderness, no masses, no pulsatile masses. [] Skin: Warm, dry, no erythema, no rash. [] Back: No tenderness, no CVA tenderness. [] Extremities: No tenderness, no cyanosis, no clubbing, ROM intact, no edema. [] Neurologic: Alert and oriented X 3, normal motor function, normal sensory function, no focal deficits noted. Cranial nerves II through XII intact Psychologic: Affect normal, judgement normal, mood normal. [] Current Patient Data Vital Signs Vital Signs Date Time Temp Pulse Resp B/P Pulse Ox O2 Delivery O2 Flow Rate FiO2 11/13/16 12:44 96 14 147/75 97 Room Air 11/13/16 11:12 98.7 98.7 EKG EKG [] Radiology/Procedures Radiology/Procedures []REASON: pain,fell hit head PROCEDURE: HEAD WO CONTRAST EXAM: CT head without contrast. HISTORY: Headache after a fall. TECHNIQUE: Computed tomography of the head was performed without intravenous contrast. COMPARISON: 11/06/2016. FINDINGS: There is no intracranial hemorrhage. Dolan-white differentiation is preserved. The ventricles are normal in size and position. The visualized paranasal sinuses appear clear. The orbits are unremarkable. The temporal bones are unremarkable. The calvarium reveals no suspicious lesions. IMPRESSION: 1. No acute intracranial findings. *One or more of the following individualized dose reduction techniques were utilized for this examination: 1. Automated exposure control. 2. Adjustment of the mA and/or kV according to patient size. 3. Use of iterative reconstruction technique. DICTATED and SIGNED BY: SETH GREEN MD DATE: 11/13/16 3273 CC: SHERRON MALONE MD; DEION HOWARD APRN ~ Course & Med Decision Making Course & Med Decision Making Pertinent Labs and Imaging studies reviewed. (See chart for details) Patient is in the ED with head injury, is complaining of a headache and dizziness after falling head first from a toilet. Does not loss of consciousness. He did have another head injury last week and has had intermittent dizziness since then. Patient denies any nausea vomiting or vision changes. CT of the head is negative for any acute findings. Patient was discharged with return precautions related to concussion and head injuries. He is to follow-up with his PCP next week. He was discharged in stable condition. Dragon Disclaimer Dragon Disclaimer This electronic medical record was generated, in whole or in part, using a voice recognition dictation system. Departure Departure Impression: Primary Impression: Closed head injury Additional Impression: Concussion Disposition: 01 HOME, SELF-CARE Condition: STABLE Referrals: SHERRON MALONE MD (PCP) Follow-up with your doctor in the next one to 7 days. Patient Instructions: Concussion and Brain Injury, Head Injury, Adult Additional Instructions: You have closed head injury with concussion symptoms. Please return to the ED at any point symptoms worsen, or you have uncontrolled pain, uncontrolled dizziness, uncontrolled nausea vomiting, excessive sleepiness or confusion. Follow-up with your doctor in the next one to 7 days. Problem Qualifiers Primary Impression: Closed head injury Encounter type: initial encounter Qualified Code: S09.90XA - Unspecified injury of head, initial encounter Additional Impression: Concussion Encounter type: initial encounter Loss of consciousness presence/duration: without LOC Qualified Code: S06.0X0A - Concussion without loss of consciousness, initial encounter DEION HOWARD APRN Nov 13, 2016 13:21
--- NOTE | 2016-11-13 13:32 | RAD ---
EXAM: CT head without contrast. HISTORY: Headache after a fall. TECHNIQUE: Computed tomography of the head was performed without intravenous contrast. COMPARISON: 11/06/2016. FINDINGS: There is no intracranial hemorrhage. Dolan-white differentiation is preserved. The ventricles are normal in size and position. The visualized paranasal sinuses appear clear. The orbits are unremarkable. The temporal bones are unremarkable. The calvarium reveals no suspicious lesions. IMPRESSION: 1. No acute intracranial findings. *One or more of the following individualized dose reduction techniques were utilized for this examination: 1. Automated exposure control. 2. Adjustment of the mA and/or kV according to patient size. 3. Use of iterative reconstruction technique.
[2016-11-13 14:35] VITALS: BP 132/86
[2016-11-13] MEDS ORDERED: HYDROCODONE/APAP 5/325MG TABLET. PO ONE (14:45)
== END 2016-11-13 15:02 | disposition home or self-care (01) ==
LOC: ER 11:10
DX: S06.0X0A Concussion without loss of consciousness, initial encounter (principal); F41.9 Anxiety disorder, unspecified; I11.0 Hypertensive heart disease with heart failure; I50.9 Heart failure, unspecified; J44.9 Chronic obstructive pulmonary disease, unspecified; F32.9 Major depressive disorder, single episode, unspecified; K21.9 Gastro-esophageal reflux disease without esophagitis; H54.42 Blindness, left eye, normal vision right eye; I25.10 Atherosclerotic heart disease of native coronary artery without angina pectoris; Z88.0 Allergy status to penicillin; Z88.2 Allergy status to sulfonamides; Z86.73 Personal history of transient ischemic attack (TIA), and cerebral infarction without residual deficits; W18.11XA Fall from or off toilet without subsequent striking against object, initial encounter; Y93.89 Activity, other specified; Y92.89 Other specified places as the place of occurrence of the external cause; Y99.8 Other external cause status
CPT/HCPCS: 70450; 99284-25

== ENCOUNTER 2016-12-03 00:52 | Emergency (ER) | payer OTHER ==
[~2016-12-03] VITALS: Ht 180.3 cm; Wt 137.4 kg
--- NOTE | 2016-12-03 01:20 | PHYS DOC ---
Past Medical History Past Medical History: Anxiety, CHF, COPD, CVA, Depression, GERD, Hypertension, Seizure, TIA, Other Additional Past Medical Histor: pericarditis, Crohns, partial blind L eye, pyloric stenosis,MULT HEAD INJURY Past Surgical History: Other Additional Past Surgical Histo: LEFT KNEE SX, PYLORIC STENOSIS SX Alcohol Use: None Drug Use: None Adult General Chief Complaint Chief Complaint: SEIZURE HPI HPI Patient is a 31 year old male who presents with complaint of head neck pain after suffering a breakthrough seizure. Patient has history of seizures. Patient is currently on Keppra, Lyrica, and Topamax. Patient also Dr. Ovalles of neurology. Patient states his current regimen has lessened his seizures however he still has occasional breakthrough seizures. The patient states that he was standing at the time of the seizure and fell to the ground. Patient states that he may have been unconscious for 5-10 minutes. Patient states he awoke spontaneously and he called his father who found him on the floor. Patient was brought to the emergency department by EMS. Patient was placed in a c-collar prior to arrival. Patient rates his pain as 9 out of 10. Denies any loss of feeling or inability to move his extremities. Patient denies any other injuries. Review of Systems Review of Systems Constitutional: Denies fever or chills [] Eyes: Denies change in visual acuity, redness, or eye pain [] HENT: Denies nasal congestion or sore throat [] Respiratory: Denies cough or shortness of breath [] Cardiovascular: Denies chest pain or edema [] GI: Denies abdominal pain, nausea, vomiting, bloody stools or diarrhea [] : Denies dysuria or hematuria [] Musculoskeletal: Neck pain [] Integument: Denies rash or skin lesions [] Neurologic: Headache, denies focal weakness or sensory changes [] Current Medications Current Medications Current Medications Medications (Trade) Dose Ordered Sig/Linda Start Time Stop Time Status Last Admin Dose Admin Fentanyl Citrate (Fentanyl 2ml Vial) 50 mcg PRN Q15MIN PRN 12/03/16 01:30 12/04/16 01:29 12/03/16 01:56 50 MCG Ondansetron HCl (Zofran) 4 mg 1X ONCE 12/03/16 01:30 12/03/16 01:31 DC 12/03/16 01:55 4 MG Sodium Chloride (Iv Sodium Chloride 0.9% 1000ml Bag) 1,000 ml @ 1,000 mls/hr Q1H 12/03/16 01:30 12/03/16 02:29 12/03/16 02:00 1,000 MLS/HR Allergies Allergies Allergies Coded Allergies Type Severity Reaction Last Updated Verified Penicillins Allergy Intermediate Takes Keflex at home chronically 05/24/16 Yes Sulfa (Sulfonamide Antibiotics) Allergy Intermediate 05/24/16 Yes Physical Exam Physical Exam Constitutional: Alert, afebrile, appears in mild discomfort. [] HENT: Normocephalic, tenderness palpation along right parietal scalp, bilateral external ears normal, oropharynx moist, no oral exudates, nose normal. [] Eyes: PERRLA, EOMI, conjunctiva normal, no discharge. [] Neck: C-collar in place, midline tenderness to palpation, supple, no stridor. [ ] Cardiovascular:Heart rate regular rhythm, no murmur [] Lungs & Thorax: Bilateral breath sounds clear to auscultation [] Abdomen: Bowel sounds normal, soft, no tenderness, no masses, no pulsatile masses. [] Skin: Warm, dry, no erythema, no rash. [] Back: No tenderness, no CVA tenderness. [] Extremities: No tenderness, no cyanosis, no clubbing, ROM intact, no edema. [] Neurologic: Alert and oriented X 3, normal motor function, normal sensory function, no focal deficits noted. [] Current Patient Data Vital Signs Vital Signs Date Time Temp Pulse Resp B/P Pulse Ox O2 Delivery O2 Flow Rate FiO2 12/03/16 01:56 18 96 Room Air 12/03/16 00:52 97.5 91 149/85 97.5 EKG EKG Not performed [] Radiology/Procedures Radiology/Procedures [facility] [address] [place] [address] IMAGING REPORT Signed PATIENT: LAUREANO JONES ACCOUNT: [id number] : 1985 LOCATION: ER AGE: 31 SEX: M EXAM STATUS: REG ER ORD. PHYSICIAN: KAREN KONG MD REASON: fall, head and neck pain PROCEDURE: HEAD AND CERVICAL SPINE WO Examination: CT head and cervical spine without contrast History: History of fall, hit head, neck pain, headache. COMPARISON 09/14/2016. TECHNIQUE Axial CT images of the head was performed without contrast. Axial CT images of the cervical spine was performed without contrast. Exposure: One or more of the following dose reduction technique were utilized for this examination: 1. Automated exposure control. 2.Adjustment of MA and /or KV according to patient size. 3. Use of iterative reconstruction technique. Findings: There is no evidence of midline shift. There is no acute intracranial bleed or extra-axial fluid collection identified. The costa-white matter differentiation is maintained. The visualized lateral ventricles, 3rd ventricle, 4th ventricle appropriate for age. The basal cisterns are not effaced. The visualized paranasal sinuses, mastoid air cells are clear. The vertebral body heights are maintained. No evidence of listhesis identified. The bilateral facets are well aligned. Examination is somewhat limited due to mild motion artifact. No evidence of prevertebral soft tissue swelling identified. The lateral masses of C1 are aligned with C2 vertebra. The C2 dens appears intact. There is no obvious acute fracture identified. The apical lungs grossly appears unremarkable . IMPRESSION 1. No acute intracranial findings. 2. No acute fracture of the cervical spine. Electronically signed by: Yong Alamo (Dec 03, 2016 02:10:09) DICTATED and SIGNED BY: YONG ALAMO MD DATE: 12/03/16209 CC: KAREN KONG MD; SHERRON MALONE MD ~ [] Course & Med Decision Making Course & Med Decision Making Pertinent Labs and Imaging studies reviewed. (See chart for details) Patient's c-collar was cleared after results of CT imaging were negative for intracranial hemorrhage or for fracture. Advised patient follow-up with his primary doctor in 3-5 days for reevaluation. Advised return emergency department for seizures lasting longer than 10 minutes or for continued altered mental status after suffering a seizure. Patient voiced understanding and in agreement with treatment plan. Dragon Disclaimer Dragon Disclaimer This electronic medical record was generated, in whole or in part, using a voice recognition dictation system. Departure Departure Impression: Primary Impression: Seizure Additional Impressions: Closed head injury Neck contusion Disposition: HOME, SELF-CARE Condition: IMPROVED Referrals: SHERRON MALONE MD (PCP) Patient Instructions: Contusion, Head Injury, Adult, Seizure, Adult Additional Instructions: Follow-up with your primary doctor in the next 3-5 days. Return to emergency department for any worsening symptoms. Problem Qualifiers Additional Impressions: Closed head injury Encounter type: initial encounter Qualified Code: S09.90XA - Unspecified injury of head, initial encounter KAREN KONG MD Dec 03, 2016 01:20
[2016-12-03] MEDS ORDERED: IV NORMAL SALINE 1000ML BAG 1,000 ML IV SCH (01:30)
[2016-12-03] MEDS ORDERED: FENTANYL PF 100 MCG/2 ML VIAL. IV PRN (01:30)
[2016-12-03] MEDS ORDERED: ONDANSETRON PF 4 MG/2 ML VIAL. IV ONE (01:30)
--- NOTE | 2016-12-03 02:12 | RAD ---
Examination: CT head and cervical spine without contrast History: History of fall, hit head, neck pain, headache. COMPARISON 09/14/2016. TECHNIQUE Axial CT images of the head was performed without contrast. Axial CT images of the cervical spine was performed without contrast. Exposure: One or more of the following dose reduction technique were utilized for this examination: 1. Automated exposure control. 2.Adjustment of MA and /or KV according to patient size. 3. Use of iterative reconstruction technique. Findings: There is no evidence of midline shift. There is no acute intracranial bleed or extra-axial fluid collection identified. The costa-white matter differentiation is maintained. The visualized lateral ventricles, 3rd ventricle, 4th ventricle appropriate for age. The basal cisterns are not effaced. The visualized paranasal sinuses, mastoid air cells are clear. The vertebral body heights are maintained. No evidence of listhesis identified. The bilateral facets are well aligned. Examination is somewhat limited due to mild motion artifact. No evidence of prevertebral soft tissue swelling identified. The lateral masses of C1 are aligned with C2 vertebra. The C2 dens appears intact. There is no obvious acute fracture identified. The apical lungs grossly appears unremarkable . IMPRESSION 1. No acute intracranial findings. 2. No acute fracture of the cervical spine. Electronically signed by: Yong Alamo (Dec 03, 2016 02:10:09)
[2016-12-03 02:30] VITALS: BP 143/69
--- NOTE | 2016-12-03 12:00 | EKG ---
[facility] [address] [place] [address] Test Date: 2016-12-03 Test Time: 00:53:31 Pat Name: LAUREANO JONES Department: Room: Gender: M [place] Man: : 1985 Requested By: KAREN KONG Order Number: [id number] Reading MD: Measurements Intervals George Rate: 91 P: 47 ND: 156 QRS: 37 QRSD: 98 T: 38 QT: 368 QTc: 454 Interpretive Statements SINUS RHYTHM NO SPECIFIC ECG ABNORMALITIES RI6.01 No previous ECG available for comparison
== END 2016-12-03 03:00 | disposition home or self-care (01) ==
LOC: ER 00:52
DX: R56.9 Unspecified convulsions (principal); S09.90XA Unspecified injury of head, initial encounter; S10.93XA Contusion of unspecified part of neck, initial encounter; J44.9 Chronic obstructive pulmonary disease, unspecified; I11.0 Hypertensive heart disease with heart failure; I50.9 Heart failure, unspecified; K21.9 Gastro-esophageal reflux disease without esophagitis; K50.90 Crohn's disease, unspecified, without complications; Z86.73 Personal history of transient ischemic attack (TIA), and cerebral infarction without residual deficits; Z88.0 Allergy status to penicillin; Z88.2 Allergy status to sulfonamides; W19.XXXA Unspecified fall, initial encounter; Y93.89 Activity, other specified; Y92.89 Other specified places as the place of occurrence of the external cause; Y99.8 Other external cause status
CPT/HCPCS: 70450; 72125; 93005; 96361; 96374; 96375; 99284; J2405; J3010; J7030

== ENCOUNTER 2016-12-10 03:55 | Emergency (ER) | payer OTHER ==
[~2016-12-10] VITALS: Ht 180.3 cm; Wt 139.3 kg
[2016-12-10 03:55] VITALS: BP 123/74
[2016-12-10 04:37] LABS: BASO # 0.1 x10^3/uL (0.0-0.2); BASO % 0 % (0-3); EOS % 2 % (0-3); LYMPH # 2.7 x10^3/uL (1.0-4.8); LYMPH % 21 % (24-48); MEAN CORPUSCULAR HEMOGLOBIN 30 pg (25-35); MEAN CORPUSCULAR HGB CONC 33 g/dL (31-37); MEAN CORPUSCULAR VOLUME 91 fL (79-100); MONO % 7 % (0-9); NEUT % 70 % (31-73); PLATELET COUNT 258 x10^3/uL (140-400); RED BLOOD COUNT 5.06 x10^6/uL (4.30-5.70); RED CELL DISTRIBUTION WIDTH 13.7 % (11.5-14.5); WHITE BLOOD COUNT 12.7 x10^3/uL (4.0-11.0)
[2016-12-10 04:44] LABS: CREATININE 1.5 mg/dL (0.7-1.3); GFR 54.6
[2016-12-10] MEDS ORDERED: FENTANYL PF 100 MCG/2 ML VIAL. IV ONE (05:00)
[2016-12-10] MEDS ORDERED: IV NORMAL SALINE 1000ML BAG 1,000 ML IV ONE (05:00)
--- NOTE | 2016-12-10 05:10 | RAD ---
PROCEDURE CT head and C-spine without contrast HISTORY Head and neck pain TECHNIQUE Noncontrast axial cross sectional CT scanning of the head was performed. Axial helical images the C-spine obtained and axial coronal sagittal reconstruction was performed. COMPARISON December 03, 2016 CT HEAD WITHOUT CONTRAST No acute intracranial hemorrhage or midline shift or mass-effect or hydrocephalus or extra-axial fluid collection is seen. No focal hypodense area is seen to indicate an acute infarct or edema radiographically. No skull fracture or pneumocephalus is seen. No opacification of the mastoid sinuses or the paranasal sinuses is seen. The maxillary sinuses are not completely seen in this study. IMPRESSION No acute intracranial abnormality is seen. CT C-spine without contrast: The vertebral bodies are aligned. There is no loss of vertebral body stature. There is no prevertebral soft tissue swelling. The visualized osseous structures appear intact. Evaluation of the central canal is limited without contrast however there does not appear to be significant central or neural foraminal stenosis. Impression No acute findings. PQRS Statement: One or more of the following individualized dose reduction techniques were utilized for this study: 1. Automated exposure control. 2. Adjustment of the mA and/or kV according to patient size. 3. Use of iterative reconstruction technique. Electronically signed by: Dc Leone MD (Dec 10, 2016 05:08:55)
--- NOTE | 2016-12-10 06:06 | PHYS DOC ---
Past Medical History Past Medical History: Anxiety, CHF, COPD, CVA, Depression, GERD, Hypertension, Seizure, TIA, Other Additional Past Medical Histor: pericarditis, Crohns, partial blind L eye, pyloric stenosis,MULT HEAD INJURY Past Surgical History: Other Additional Past Surgical Histo: LEFT KNEE SX, PYLORIC STENOSIS SX Alcohol Use: None Drug Use: None Adult General Chief Complaint Chief Complaint: MECHANICAL FALL HPI HPI This is a 31-year-old male who has significant past medical history of CHF, seizure disorder and COPD as well as previous stroke that had an episode in the night in which he states he tried to arise from his bed and use the bathroom and had a syncopal episode and laid on the floor for approximately 1 hour. She does not believe he had a seizure and was not confused after his syncopal episode. He is fully alert and oriented this time. He arrives via EMS with a c- collar in place. He has significant neck pain and mild headache. He denies any chest pain or shortness of breath. Review of Systems Review of Systems Constitutional: Denies fever or chills [] Eyes: Denies change in visual acuity, redness, or eye pain [] HENT: Denies nasal congestion or sore throat [] Respiratory: Denies cough or shortness of breath [] Cardiovascular: No additional information not addressed in HPI [] GI: Denies abdominal pain, nausea, vomiting, bloody stools or diarrhea [] : Denies dysuria or hematuria [] Musculoskeletal: Denies back pain or joint pain [] Integument: Denies rash or skin lesions [] Neurologic: Denies headache, focal weakness or sensory changes [] Endocrine: Denies polyuria or polydipsia [] Current Medications Current Medications Current Medications Medications (Trade) Dose Ordered Sig/Linda Start Time Stop Time Status Last Admin Dose Admin Fentanyl Citrate 50 mcg 50 mcg 1X ONCE 12/10/16 05:00 12/10/16 05:01 DC 12/10/16 05:12 50 MCG Sodium Chloride (Iv Sodium Chloride 0.9% 1000ml Bag) 1,000 ml @ 1,000 mls/hr 1X ONCE 12/10/16 05:00 12/10/16 05:59 DC 12/10/16 05:10 1,000 MLS/HR Allergies Allergies Allergies Coded Allergies Type Severity Reaction Last Updated Verified Penicillins Allergy Intermediate Takes Keflex at home chronically 9/14/16 Yes Sulfa (Sulfonamide Antibiotics) Allergy Intermediate 05/24/16 Yes Physical Exam Physical Exam Constitutional: Well developed, well nourished, no acute distress, non-toxic appearance. [] HENT: Normocephalic, atraumatic, bilateral external ears normal, oropharynx moist, no oral exudates, nose normal. [] Eyes: PERRLA, EOMI, conjunctiva normal, no discharge. [] Neck: Normal range of motion, midline tenderness, supple, no stridor, c-collar in place. [] Cardiovascular:Heart rate regular rhythm, no murmur [] Lungs & Thorax: Bilateral breath sounds clear to auscultation [] Abdomen: Bowel sounds normal, soft, no tenderness, no masses, no pulsatile masses. [] Skin: Warm, dry, no erythema, no rash. [] Back: No tenderness, no CVA tenderness. [] Extremities: No tenderness, no cyanosis, no clubbing, ROM intact, no edema. [] Neurologic: Alert and oriented X 3, normal motor function, normal sensory function, no focal deficits noted. [] Psychologic: Affect normal, judgement normal, mood normal. [] Current Patient Data Vital Signs Vital Signs Date Time Temp Pulse Resp B/P Pulse Ox O2 Delivery O2 Flow Rate FiO2 12/10/16 05:12 23 93 Room Air 12/10/16 03:55 97.3 86 123/74 97.3 Lab Values Laboratory Tests Test 12/10/16 04:13 White Blood Count 12.7x10^3/uL (4.0-11.0) H Red Blood Count 5.06x10^6/uL (4.30-5.70) Hemoglobin 15.0g/dL (13.0-17.5) Hematocrit 46.0% (39.0-53.0) Mean Corpuscular Volume 91fL (79-100) Mean Corpuscular Hemoglobin 30pg (25-35) Mean Corpuscular Hemoglobin Concent 33g/dL (31-37) Red Cell Distribution Width 13.7% (11.5-14.5) Platelet Count 258x10^3/uL (140-400) Neutrophils (%) (Auto) 70% (31-73) Lymphocytes (%) (Auto) 21% (24-48) L Monocytes (%) (Auto) 7% (0-9) Eosinophils (%) (Auto) 2% (0-3) Basophils (%) (Auto) 0% (0-3) Neutrophils # (Auto) 8.9x10^3uL (1.8-7.7) H Lymphocytes # (Auto) 2.7x10^3/uL (1.0-4.8) Monocytes # (Auto) 0.9x10^3/uL (0.0-1.1) Eosinophils # (Auto) 0.2x10^3/uL (0.0-0.7) Basophils # (Auto) 0.1x10^3/uL (0.0-0.2) Sodium Level 142mmol/L (136-145) Potassium Level 4.0mmol/L (3.5-5.1) Chloride Level 105mmol/L (98-107) Carbon Dioxide Level 24mmol/L (21-32) Anion Gap 13 (6-14) Blood Urea Nitrogen 19mg/dL (8-26) Creatinine 1.5mg/dL (0.7-1.3) H Estimated GFR (Cockcroft-Gault) 54.6 Glucose Level 97mg/dL (70-99) Calcium Level 9.0mg/dL (8.5-10.1) Troponin I Quantitative < 0.017ng/mL (0.000-0.055) Laboratory Tests 12/10/16 04:13 Laboratory Tests 12/10/16 04:13 EKG EKG EKG as interpreted by ks demonstrates a sinus tachycardia with a rate of 101 bpm. There are no obvious ST findings. Intervals are normal. Radiology/Procedures Radiology/Procedures EXAM: Chest, single view. HISTORY: Chest pain status post fall. COMPARISON: 09/19/2016. FINDINGS: A frontal view of the chest is obtained. There is no infiltrate, effusion or pneumothorax. The heart is normal in size. There is lingular atelectasis or scarring. IMPRESSION: No acute pulmonary finding. Noncontrast axial cross sectional CT scanning of the head was performed. Axial helical images the C-spine obtained and axial coronal sagittal reconstruction was performed. COMPARISON December 03, 2016 CT HEAD WITHOUT CONTRAST No acute intracranial hemorrhage or midline shift or mass-effect or hydrocephalus or extra-axial fluid collection is seen. No focal hypodense area is seen to indicate an acute infarct or edema radiographically. No skull fracture or pneumocephalus is seen. No opacification of the mastoid sinuses or the paranasal sinuses is seen. The maxillary sinuses are not completely seen in this study. IMPRESSION No acute intracranial abnormality is seen. CT C-spine without contrast: The vertebral bodies are aligned. There is no loss of vertebral body stature. There is no prevertebral soft tissue swelling. The visualized osseous structures appear intact. Evaluation of the central canal is limited without contrast however there does not appear to be significant central or neural foraminal stenosis. Impression No acute findings. PQRS Statement: One or more of the following individualized dose reduction techniques were utilized for this study: 1. Automated exposure control. 2. Adjustment of the mA and/or kV according to patient size. 3. Use of iterative reconstruction technique. Electronically signed by: Dc Leone MD (Dec 10, 2016 05:08:55) Course & Med Decision Making Course & Med Decision Making Pertinent Labs and Imaging studies reviewed. (See chart for details) 31-year-old male who's had a syncopal episode at a fluid bolus and a dose of pain control given. A CT of his head and neck was unremarkable. His C-spine was cleared. This EKG laboratory workup was unrevealing. He is observed in the department for several hours without any specific complaints. He states he feels improved. Patient has history of previous syncopal episodes in the past that he states this is similar to those. He does not believe he had a seizure. Patient is fully alert and oriented and feeling improved. There is no indication at this time that he needs to be admitted as he has had syncopal episodes like this before. I counseled him that is to follow closely with his primary care doctor for his ongoing syncopal episodes and return to the ER if he should have another episode. Dragon Disclaimer Dragon Disclaimer This electronic medical record was generated, in whole or in part, using a voice recognition dictation system. Departure Departure Impression: Primary Impression: Syncope and collapse Disposition: 01 HOME, SELF-CARE Admitting Physician: Other Condition: STABLE Referrals: SHERRON MALONE MD (PCP) Patient Instructions: Syncope, [id number] Additional Instructions: Please follow up with your primary doctor in the next 2-3 days for your fall and continue to drink plenty of fluids. Return to the ER if you develop any worsening of your symptoms. Avoid any strenuous activities. AVERY ENGLISH DO Dec 10, 2016 06:06
--- NOTE | 2016-12-10 07:10 | EKG ---
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
--- NOTE | 2016-12-10 07:44 | RAD ---
EXAM: Chest, single view. HISTORY: Chest pain status post fall. COMPARISON: 09/19/2016. FINDINGS: A frontal view of the chest is obtained. There is no infiltrate, effusion or pneumothorax. The heart is normal in size. There is lingular atelectasis or scarring. IMPRESSION: No acute pulmonary finding.
== END 2016-12-10 06:14 | disposition home or self-care (01) ==
LOC: ER 03:55
DX: R55 Syncope and collapse (principal); R51 Headache; M54.2 Cervicalgia; F41.9 Anxiety disorder, unspecified; I11.0 Hypertensive heart disease with heart failure; I50.9 Heart failure, unspecified; F32.9 Major depressive disorder, single episode, unspecified; G40.909 Epilepsy, unspecified, not intractable, without status epilepticus; J44.9 Chronic obstructive pulmonary disease, unspecified; K21.9 Gastro-esophageal reflux disease without esophagitis; Z86.73 Personal history of transient ischemic attack (TIA), and cerebral infarction without residual deficits; Z88.2 Allergy status to sulfonamides; Z88.0 Allergy status to penicillin; W18.39XA Other fall on same level, initial encounter; Y93.89 Activity, other specified; Y92.89 Other specified places as the place of occurrence of the external cause; Y99.8 Other external cause status
CPT/HCPCS: 36415; 70450; 71010; 72125; 80048; 84484; 85027; 93005; 96361; 96374; 99285; J3010; J7030

== ENCOUNTER 2016-12-20 17:52 | Emergency (ER) | payer OTHER ==
[~2016-12-20] VITALS: Ht 180.3 cm; Wt 142.4 kg
[2016-12-20 18:30] VITALS: BP 119/90
--- NOTE | 2016-12-20 21:22 | PHYS DOC ---
Past Medical History Past Medical History: Anxiety, CHF, COPD, CVA, Depression, GERD, Hypertension, [place], Seizure, TIA, Other Additional Past Medical Histor: pericarditis, Crohns, partial blind L eye, pyloric stenosis,MULT HEAD INJURY Past Surgical History: Other Additional Past Surgical Histo: LEFT KNEE SX, PYLORIC STENOSIS SX Alcohol Use: Rarely Drug Use: None Adult General Chief Complaint Chief Complaint: CELLULITIS HPI HPI Patient is a 31 year old male who presents with complaint of swelling and redness to the left lower extremity. Patient states he has history of chronic cellulitis and is on daily Keflex therapy. The patient was recently switched to Levaquin last week due to worsening redness of the lower extremity prior patient states that over the past few days he has had increased swelling to the left lower leg despite being on Levaquin therapy. Patient denies any fevers, fatigue, or shortness of breath. Patient has history of polyneuropathy primarily affecting the bilateral lower extremities. Due to worsening redness patient came to the emergency department for evaluation. Patient denies any prolonged immobilization of the extremity and has been ambulating normally. Review of Systems Review of Systems Constitutional: Denies fever or chills [] Eyes: Denies change in visual acuity, redness, or eye pain [] HENT: Denies nasal congestion or sore throat [] Respiratory: Denies cough or shortness of breath [] Cardiovascular: Denies chest pain or edema [] GI: Denies abdominal pain, nausea, vomiting, bloody stools or diarrhea [] : Denies dysuria or hematuria [] Musculoskeletal: Denies back pain or joint pain [] Integument: Redness and swelling to left lower extremity [] Neurologic: Denies headache, focal weakness or sensory changes [] Allergies Allergies Allergies Coded Allergies Type Severity Reaction Last Updated Verified Penicillins Allergy Intermediate Takes Keflex at home chronically 05/24/16 Yes Sulfa (Sulfonamide Antibiotics) Allergy Intermediate 05/24/16 Yes Physical Exam Physical Exam Constitutional: Alert, afebrile, no acute distress. [] HENT: Normocephalic, atraumatic, bilateral external ears normal, oropharynx moist, no oral exudates, nose normal. [] Eyes: PERRLA, EOMI, conjunctiva normal, no discharge. [] Neck: Normal range of motion, no tenderness, supple, no stridor. [] Cardiovascular:Heart rate regular rhythm, no murmur [] Lungs & Thorax: Bilateral breath sounds clear to auscultation [] Abdomen: Bowel sounds normal, soft, no tenderness, no masses, no pulsatile masses. [] Skin: Warm, dry, no erythema, no rash. [] Back: No tenderness, no CVA tenderness. [] Extremities: Left lower extremity with mild erythema extending to the inferior aspect of the left knee, no induration, no warmth, no tenderness, 2+ pitting edema. [] Neurologic: Alert and oriented X 3, normal motor function, normal sensory function, no focal deficits noted. [] Current Patient Data Vital Signs Vital Signs Date Time Temp Pulse Resp B/P Pulse Ox O2 Delivery O2 Flow Rate FiO2 12/20/16 18:30 97.9 109 20 119/90 98 Room Air 97.9 Lab Values Laboratory Tests Test 12/20/16 21:20 White Blood Count 10.0x10^3/uL (4.0-11.0) Red Blood Count 4.63x10^6/uL (4.30-5.70) Hemoglobin 13.8g/dL (13.0-17.5) Hematocrit 42.3% (39.0-53.0) Mean Corpuscular Volume 91fL (79-100) Mean Corpuscular Hemoglobin 30pg (25-35) Mean Corpuscular Hemoglobin Concent 33g/dL (31-37) Red Cell Distribution Width 14.1% (11.5-14.5) Platelet Count 231x10^3/uL (140-400) Neutrophils (%) (Auto) 67% (31-73) Lymphocytes (%) (Auto) 23% (24-48) L Monocytes (%) (Auto) 6% (0-9) Eosinophils (%) (Auto) 3% (0-3) Basophils (%) (Auto) 1% (0-3) Neutrophils # (Auto) 6.7x10^3uL (1.8-7.7) Lymphocytes # (Auto) 2.3x10^3/uL (1.0-4.8) Monocytes # (Auto) 0.6x10^3/uL (0.0-1.1) Eosinophils # (Auto) 0.3x10^3/uL (0.0-0.7) Basophils # (Auto) 0.1x10^3/uL (0.0-0.2) Sodium Level 143mmol/L (136-145) Potassium Level 3.9mmol/L (3.5-5.1) Chloride Level 108mmol/L (98-107) H Carbon Dioxide Level 27mmol/L (21-32) Anion Gap 8 (6-14) Blood Urea Nitrogen 16mg/dL (8-26) Creatinine 1.3mg/dL (0.7-1.3) Estimated GFR (Cockcroft-Gault) 64.4 BUN/Creatinine Ratio 12 (6-20) Glucose Level 87mg/dL (70-99) Calcium Level 8.6mg/dL (8.5-10.1) Total Bilirubin 0.3mg/dL (0.2-1.0) Aspartate Amino Transferase (AST) 15U/L (15-37) Alanine Aminotransferase (ALT) 35U/L (16-63) Alkaline Phosphatase 91U/L (46-116) Total Protein 7.3g/dL (6.4-8.2) Albumin 3.6g/dL (3.4-5.0) Albumin/Globulin Ratio 1.0 (1.0-1.7) Laboratory Tests 12/20/16 21:20 Laboratory Tests 12/20/16 21:20 EKG EKG Not performed [] Radiology/Procedures Radiology/Procedures Not performed [] Course & Med Decision Making Course & Med Decision Making Pertinent Labs and Imaging studies reviewed. (See chart for details) Patient's blood work unremarkable. I consult to Dr. Zamora of infectious disease. The patient's clinical signs for active cellulitis are indeterminate at this time. He stated that the patient could be switched to doxycycline at this time. The patient states that he has an appointment with an infectious disease specialist at [facility] next week. Advised to continue with doxycycline as outpatient and advised return to the emergency department for any worsening symptoms. Patient voiced understanding and in agreement with treatment plan. Dragon Disclaimer Dragon Disclaimer This electronic medical record was generated, in whole or in part, using a voice recognition dictation system. Departure Departure Impression: Primary Impression: Cellulitis Disposition: 01 HOME, SELF-CARE Condition: STABLE Referrals: SHERRON MALNOE MD (PCP) Patient Instructions: Cellulitis Additional Instructions: Follow-up with your infectious disease specialist as scheduled next week. Discontinue use of Levaquin and started on doxycycline as prescribed. Return to the emergency department for any worsening symptoms. Scripts Doxycycline Hyclate 100 Mg Capsule1 Cap PO BID #20 CAP Prov:KAREN KONG MD 12/20/16 Problem Qualifiers Primary Impression: Cellulitis Site of cellulitis: extremity Site of cellulitis of extremity: lower extremity Laterality: left Qualified Code: L03.116 - Cellulitis of left lower limb KAREN KONG MD Dec 20, 2016 21:22
[2016-12-20 21:34] LABS: BASO # 0.1 x10^3/uL (0.0-0.2); BASO % 1 % (0-3); EOS % 3 % (0-3); HEMATOCRIT 42.3 % (39.0-53.0); HEMOGLOBIN 13.8 g/dL (13.0-17.5); LYMPH # 2.3 x10^3/uL (1.0-4.8); LYMPH % 23 % (24-48); MEAN CORPUSCULAR HEMOGLOBIN 30 pg (25-35); MEAN CORPUSCULAR HGB CONC 33 g/dL (31-37); MEAN CORPUSCULAR VOLUME 91 fL (79-100); MONO % 6 % (0-9); NEUT % 67 % (31-73); PLATELET COUNT 231 x10^3/uL (140-400); RED BLOOD COUNT 4.63 x10^6/uL (4.30-5.70); RED CELL DISTRIBUTION WIDTH 14.1 % (11.5-14.5)
[2016-12-20 21:48] LABS: CALCIUM 8.6 mg/dL (8.5-10.1); CREATININE 1.3 mg/dL (0.7-1.3); GFR 64.4; POTASSIUM 3.9 mmol/L (3.5-5.1)
[2016-12-20 21:54] LABS: ALBUMIN 3.6 g/dL (3.4-5.0); TOTAL BILIRUBIN 0.3 mg/dL (0.2-1.0); TOTAL PROTEIN 7.3 g/dL (6.4-8.2)
[2016-12-20] MEDS ORDERED: DOXY100C2 PO (22:43)
[2016-12-20] MEDS ORDERED: HYDROCODONE/APAP 7.5/325MG TABLET. PO ONE (23:15)
== END 2016-12-20 23:10 | disposition home or self-care (01) ==
LOC: ER 17:52
DX: L03.116 Cellulitis of left lower limb (principal); F41.9 Anxiety disorder, unspecified; I25.2 Old myocardial infarction; I11.0 Hypertensive heart disease with heart failure; I50.9 Heart failure, unspecified; K21.9 Gastro-esophageal reflux disease without esophagitis; F32.9 Major depressive disorder, single episode, unspecified; J44.9 Chronic obstructive pulmonary disease, unspecified; Z86.73 Personal history of transient ischemic attack (TIA), and cerebral infarction without residual deficits; Z88.0 Allergy status to penicillin; Z88.2 Allergy status to sulfonamides
CPT/HCPCS: 36415; 80053; 85027; 99284

== ENCOUNTER 2016-12-26 12:49 | Emergency (ER) | payer OTHER ==
[~2016-12-26 12:49] MED LIST changes: +DOXY100C2 PO
--- NOTE | 2016-12-26 13:24 | PHYS DOC ---
Past Medical History Past Medical History: Anxiety, CHF, COPD, CVA, Depression, GERD, Hypertension, [place], Seizure, TIA, Other Additional Past Medical Histor: pericarditis, Crohns, partial blind L eye, pyloric stenosis,MULT HEAD INJURY Past Surgical History: Other Additional Past Surgical Histo: LEFT KNEE SX, PYLORIC STENOSIS SX Alcohol Use: Rarely Drug Use: None Adult General Chief Complaint Chief Complaint: SYNCOPE HPI HPI Patient is a 31 year old male with history of hypertension diabetes type 2, CVA , [place], anxiety, COPD, depression, who presents today post syncope. Patient states he was ambulating when he fell hitting his head on the ground. He is complaining of posterior headache mild in nature as well as posterior neck pain. Patient states she was out for 10 minutes. This was unwitnessed fall. This patient has history of multiple syncope and fall episodes. Review of Systems Review of Systems Constitutional: Denies fever or chills [] Eyes: Denies change in visual acuity, redness, or eye pain [] HENT: Denies nasal congestion or sore throat [] Respiratory: Denies cough or shortness of breath [] Cardiovascular: No additional information not addressed in HPI [] GI: Denies abdominal pain, nausea, vomiting, bloody stools or diarrhea [] : Denies dysuria or hematuria [] Musculoskeletal: Neck pain Integument: Denies rash or skin lesions [] Neurologic: Headache, syncope Endocrine: Denies polyuria or polydipsia [] Current Medications Current Medications Current Medications Medications (Trade) Dose Ordered Sig/Linda Start Time Stop Time Status Last Admin Dose Admin Acetaminophen/ Hydrocodone Bitart (Lortab 5/325) 1 tab 1X ONCE 12/26/16 13:30 12/26/16 13:31 DC 12/26/16 14:19 1 TAB Allergies Allergies Allergies Coded Allergies Type Severity Reaction Last Updated Verified Penicillins Allergy Intermediate Takes Keflex at home chronically 05/24/16 Yes Sulfa (Sulfonamide Antibiotics) Allergy Intermediate 05/24/16 Yes Physical Exam Physical Exam Constitutional: Well developed, well nourished, no acute distress, non-toxic appearance. [] HENT: Normocephalic, atraumatic, bilateral external ears normal, oropharynx moist, no oral exudates, nose normal. [] Eyes: PERRLA, EOMI, conjunctiva normal, no discharge. [] Neck: Patient is in a cervical collar, Normal range of motion, diffuse paraspinal muscle tenderness to posterior cervical spine, no midline tenderness , supple, no stridor. [] Cardiovascular:Heart rate regular rhythm, no murmur [] Lungs & Thorax: Bilateral breath sounds clear to auscultation [] Abdomen: Bowel sounds normal, soft, no tenderness, no masses, no pulsatile masses. [] Skin: Warm, dry, no erythema, no rash. [] Back: No tenderness, no CVA tenderness. [] Extremities: No tenderness, no cyanosis, no clubbing, ROM intact, no edema. [] Neurologic: Alert and oriented X 3, normal motor function, normal sensory function, no focal deficits noted. Cranial nerves II through XII intact Psychologic: Affect normal, judgement normal, mood normal. [] Current Patient Data Vital Signs Vital Signs Date Time Temp Pulse Resp B/P Pulse Ox O2 Delivery O2 Flow Rate FiO2 12/26/16 14:19 12 12/26/16 13:23 97.4 99 119/90 99 Room Air 97.4 Lab Values Laboratory Tests Test 12/26/16 13:50 White Blood Count 11.5x10^3/uL (4.0-11.0) H Red Blood Count 5.22x10^6/uL (4.30-5.70) Hemoglobin 15.5g/dL (13.0-17.5) Hematocrit 47.8% (39.0-53.0) Mean Corpuscular Volume 92fL (79-100) Mean Corpuscular Hemoglobin 30pg (25-35) Mean Corpuscular Hemoglobin Concent 32g/dL (31-37) Red Cell Distribution Width 14.3% (11.5-14.5) Platelet Count 236x10^3/uL (140-400) Neutrophils (%) (Auto) 79% (31-73) H Lymphocytes (%) (Auto) 15% (24-48) L Monocytes (%) (Auto) 5% (0-9) Eosinophils (%) (Auto) 1% (0-3) Basophils (%) (Auto) 0% (0-3) Neutrophils # (Auto) 9.1x10^3uL (1.8-7.7) H Lymphocytes # (Auto) 1.7x10^3/uL (1.0-4.8) Monocytes # (Auto) 0.6x10^3/uL (0.0-1.1) Eosinophils # (Auto) 0.2x10^3/uL (0.0-0.7) Basophils # (Auto) 0.1x10^3/uL (0.0-0.2) Sodium Level 143mmol/L (136-145) Potassium Level 4.4mmol/L (3.5-5.1) Chloride Level 108mmol/L (98-107) H Carbon Dioxide Level 25mmol/L (21-32) Anion Gap 10 (6-14) Blood Urea Nitrogen 16mg/dL (8-26) Creatinine 1.3mg/dL (0.7-1.3) Estimated GFR (Cockcroft-Gault) 64.4 Glucose Level 112mg/dL (70-99) H Calcium Level 9.4mg/dL (8.5-10.1) Creatine Kinase 60U/L (39-308) Creatine Kinase MB (Mass) < 0.5ng/mL (0.0-3.6) Creatine Kinase MB Relative Index 0.8% (0-4) Troponin I Quantitative < 0.017ng/mL (0.000-0.055) Ethyl Alcohol Level < 10mg/dL (0-10) Laboratory Tests 12/26/16 13:50 Laboratory Tests 12/26/16 13:50 EKG EKG Interpreted by Dr. Lowery, Sinus rhythm, HR 98 no STEMI[] Course & Med Decision Making Course & Med Decision Making Pertinent Labs and Imaging studies reviewed. (See chart for details) This is a 31-year-old male patient who presents today post syncope. He states he fell down and passed out. He reports he was passed out for 10 minutes. This was unwitnessed Fall. Patient has been seen in the ED multiple times with fall and syncope episodes. CT of the head and cervical spine are negative for any acute findings. Labs are negative. His workup today is reassuring. He was discharged, he is to follow-up with his own PCP in one to three days. Dragon Disclaimer Dragon Disclaimer This electronic medical record was generated, in whole or in part, using a voice recognition dictation system. Departure Departure Impression: Primary Impression: Syncope and collapse Additional Impressions: Head contusion Cervical sprain Disposition: HOME, SELF-CARE Condition: STABLE Referrals: SHERRON MALONE MD (PCP) Follow-up with your doctor in 1-3 days Patient Instructions: Cervical Strain and Sprain with Rehab-SportsMed, Syncope , [id number] Additional Instructions: Your workup today was negative. Please follow-up with the primary care doctor as soon as he can Come back to the ED for any concerning symptoms. Problem Qualifiers Additional Impressions: Head contusion Encounter type: initial encounter Contusion of head detail: other part of head Qualified Code: S00.83XA - Contusion of other part of head, initial encounter Cervical sprain Encounter type: initial encounter Qualified Code: S13.9XXA - Sprain of joints and ligaments of unspecified parts of neck, initial encounter DEION HOWARD APRN Dec 26, 2016 13:24
[2016-12-26] MEDS ORDERED: HYDROCODONE/APAP 5/325MG TABLET. PO ONE (13:30)
--- NOTE | 2016-12-26 13:37 | RAD ---
Indication generalized weakness. Syncopal episode. Passed out at home. A single view of the chest was obtained. Comparison is made to an exam 12/10/2016. Heart size is normal. The lungs are clear. There is no pleural fluid or pneumothorax. Bony structures appear grossly intact. A significant change compared to the previous exam is not seen. IMPRESSION: No acute or focal process. No significant change
[2016-12-26 14:00] LABS: BASO # 0.1 x10^3/uL (0.0-0.2); BASO % 0 % (0-3); EOS % 1 % (0-3); HEMATOCRIT 47.8 % (39.0-53.0); HEMOGLOBIN 15.5 g/dL (13.0-17.5); LYMPH # 1.7 x10^3/uL (1.0-4.8); LYMPH % 15 % (24-48); MEAN CORPUSCULAR HEMOGLOBIN 30 pg (25-35); MEAN CORPUSCULAR HGB CONC 32 g/dL (31-37); MEAN CORPUSCULAR VOLUME 92 fL (79-100); MONO % 5 % (0-9); NEUT % 79 % (31-73); PLATELET COUNT 236 x10^3/uL (140-400); RED BLOOD COUNT 5.22 x10^6/uL (4.30-5.70); RED CELL DISTRIBUTION WIDTH 14.3 % (11.5-14.5); WHITE BLOOD COUNT 11.5 x10^3/uL (4.0-11.0)
--- NOTE | 2016-12-26 14:11 | RAD ---
CT of the head without contrast, 12/26/2016: History: Syncope, head trauma Comparison is made to a study from 12/10/2016. The ventricles are small but unchanged. There is no shift of the midline structures. There is no evidence of acute intracranial hemorrhage or mass effect. IMPRESSION: No acute intracranial abnormality is detected. CT of the cervical spine without contrast, 12/26/2016: Noncontrast scans were obtained with multiplanar reconstructions produced. No fracture or dislocation is identified. No significant canal narrowing is seen. The paraspinous soft tissues are unremarkable. There is an unchanged sclerotic focus in the C2 vertebral body. IMPRESSION: No acute cervical spine abnormality is detected. PQRS Compliance Statement: One or more of the following individualized dose reduction techniques were utilized for this examination: 1. Automated exposure control 2. Adjustment of the mA and/or kV according to patient size 3. Use of iterative reconstruction technique
[2016-12-26 14:16] LABS: CALCIUM 9.4 mg/dL (8.5-10.1); CREATININE 1.3 mg/dL (0.7-1.3); GFR 64.4; POTASSIUM 4.4 mmol/L (3.5-5.1)
[2016-12-26 14:31] LABS: CKMB INDEX 0.8 % (0-4); CKMB MASS < 0.5 ng/mL (0.0-3.6); CREATINE KINASE 60 U/L (39-308)
--- NOTE | 2016-12-26 15:13 | EKG ---
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
[2016-12-26 15:46] VITALS: BP 117/65
== END 2016-12-26 16:00 | disposition home or self-care (01) ==
LOC: ER 12:49
DX: S13.4XXA Sprain of ligaments of cervical spine, initial encounter (principal); S00.83XA Contusion of other part of head, initial encounter; R55 Syncope and collapse; J44.9 Chronic obstructive pulmonary disease, unspecified; K21.9 Gastro-esophageal reflux disease without esophagitis; K50.90 Crohn's disease, unspecified, without complications; I11.0 Hypertensive heart disease with heart failure; I50.9 Heart failure, unspecified; E11.9 Type 2 diabetes mellitus without complications; K31.1 Adult hypertrophic pyloric stenosis; Z86.73 Personal history of transient ischemic attack (TIA), and cerebral infarction without residual deficits; I25.2 Old myocardial infarction; F32.9 Major depressive disorder, single episode, unspecified; F41.9 Anxiety disorder, unspecified; Z88.0 Allergy status to penicillin; Z88.2 Allergy status to sulfonamides; W18.39XA Other fall on same level, initial encounter; Y93.89 Activity, other specified; Y99.8 Other external cause status; Y92.89 Other specified places as the place of occurrence of the external cause
CPT/HCPCS: 36415; 70450; 71010; 72125; 80048; 80320; 82553; 82947; 84484; 85027; 93005; G0480; 99285-25

== ENCOUNTER 2016-12-28 01:50 | Inpatient (IN) | payer OTHER ==
[~2016-12-28] VITALS: Ht 180.3 cm; Wt 137.4 kg
[2016-12-28 02:23] LABS: BASO # 0.1 x10^3/uL (0.0-0.2); BASO % 1 % (0-3); EOS % 1 % (0-3); HEMATOCRIT 43.6 % (39.0-53.0); HEMOGLOBIN 14.4 g/dL (13.0-17.5); LYMPH # 2.6 x10^3/uL (1.0-4.8); LYMPH % 20 % (24-48); MEAN CORPUSCULAR HEMOGLOBIN 30 pg (25-35); MEAN CORPUSCULAR HGB CONC 33 g/dL (31-37); MEAN CORPUSCULAR VOLUME 91 fL (79-100); MONO % 7 % (0-9); NEUT % 72 % (31-73); PLATELET COUNT 245 x10^3/uL (140-400); RED BLOOD COUNT 4.79 x10^6/uL (4.30-5.70); RED CELL DISTRIBUTION WIDTH 13.9 % (11.5-14.5); WHITE BLOOD COUNT 12.8 x10^3/uL (4.0-11.0)
[2016-12-28 02:28] LABS: CALCIUM 8.8 mg/dL (8.5-10.1); CREATININE 1.3 mg/dL (0.7-1.3); GFR 64.4; POTASSIUM 3.9 mmol/L (3.5-5.1)
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
[2016-12-28] MEDS ORDERED: ONDANSETRON PF 4 MG/2 ML VIAL. IV PRN (02:45)
[2016-12-28] MEDS ORDERED: IV NORMAL SALINE 1000ML BAG 1,000 ML IV SCH (02:45)
[2016-12-28] MEDS ORDERED: FENTANYL PF 100 MCG/2 ML VIAL. IV ONE (03:15)
[2016-12-28] MEDS: FENTANYL PF 100 MCG/2 ML VIAL. IV PRN ×2 (05:27→08:47)
--- NOTE | 2016-12-28 06:14 | ACF ---
Admit Criteria Forms Admit Criteria Forms Admit Criteria Forms SEIZURE Clinical Indications for Admission to Inpatient Care (Place 'X' for any and all applicable criteria): Admission is indicated for seizure and ANY ONE of the following(1)(2)(3)(4)(5): [X]I. Inpatient admission required rather than observation care (Also use Seizure: Observation Care Criteria as appropriate) because of ANY ONE of the following: [ ]a) Altered mental status that is severe or persistent [ ]b) New focal neurologic deficit that is severe or persistent [ ]c) Metabolic disorder (eg, hypoglycemia, hyponatremia) that is severe or persistent [X]d) Recurrent seizure [ ]e) Outpatient antiseizure regimen cannot be established (eg , patient cannot tolerate medication, initiation requires inpatient care) [ ]f) Need for ongoing intravenous infusion of antiseizure medication [ ]g) Cardiac arrhythmias of immediate concern [ ]h) Cerebral bleeding, hydrocephalus, or vasospasm monitoring (14) [ ]i) Increased intracranial pressure or cerebral edema monitoring (15) [ ]j) Other treatment or monitoring requiring inpatient admission [ ]II. Status epilepticus [A] or repetitive seizures not controlled with emergent treatment (6)(8) [ ]III. Brain disorder (eg, tumor, edema, and hydrocephalus) that requiring monitoring or intervention available only at inpatient level of care. [ ]IV. Brain insult (eg, severe trauma, stroke, drug toxicity, or withdrawal) that requires monitoring or intervention available only at inpatient level of care (10)(11) Extended stay beyond goal length of stay may be needed for (22) [ ]a) Complications of status epilepticus [ ]b) Refractory status epilepticus [ ]c) Etiology-specific therapy for conditions such as PANEL BUILDER infection, head injury,eclampsia, severe metabolic abnormalities, and brain tumor [ ]d) Residual neurologic damage, [ ]e) Initiation of significant change to anticonvulsant treatment [ ]f) Older patients (65 years or older) [ ]g) Patient requiring intubation (eg, to protect airway) The original [facility] content created by [facility] has been revised. The portions of the content which have been revised are identified through the use of italic text or in bold, and [facility] has neither reviewed nor approved the modified material. All other unmodified content is copyright [facility]. Please see references footnoted in the original [facility] edition 2016 CHRISS BOBO Dec 28, 2016 06:14
--- NOTE | 2016-12-28 06:28 | EKG ---
[facility] [address] [place] [address] Test Date: 2016-12-28 Test Time: 02:40:22 Pat Name: LAUREANO JONES Department: Room: [facility] Gender: M Fieldwork Coordinator: : 1985 Requested By: AVERY ENGLISH Order Number: [id number] Reading MD: Jenny Sherwood Measurements Intervals [place] Rate: 86 P: 47 AL: 154 QRS: 42 QRSD: 100 T: 36 QT: 360 QTc: 434 Interpretive Statements SINUS RHYTHM NO SPECIFIC ECG ABNORMALITIES RI6.01 Compared to ECG 12/10/2016 04:05:50 Sinus tachycardia no longer present Electronically Signed On 12-31-2016 15:46:03 CDT by Jenny Sherwood
[2016-12-28 07:00] VITALS: BP 108/63
[2016-12-28] MEDS ORDERED: HYDROCODONE/APAP 7.5/325MG TABLET. PO PRN (08:45)
[2016-12-28] MEDS ORDERED: ONDANSETRON ODT 4 MG TAB.RAPDIS. PO PRN (08:45)
[2016-12-28] MEDS ORDERED: ALBUTEROL SULFATE 8GM INHALER. INH SCH (09:00)
[2016-12-28] MEDS ORDERED: NON FORMULARY ITEM (Fluticasone/Salmeterol (Advair 500-50 Diskus) 1 PUFF) IH SCH (09:00)
[2016-12-28] MEDS ORDERED: PANTOPRAZOLE 40 MG TABLET.DR. PO SCH (09:30)
[2016-12-28] MEDS ORDERED: CYANOCOBALAMIN (VITAMIN B-12) 1,000 MCG/ML VIAL IM SCH (09:30)
[2016-12-28] MEDS ORDERED: ASPIRIN ENTERIC COATED 81 MG TABLET.DR. PO SCH (09:30)
[2016-12-28] MEDS ORDERED: CYCLOBENZAPRINE 10 MG TABLET. PO SCH (09:30)
[2016-12-28] MEDS ORDERED: LEVETIRACETAM 500 MG TABLET. PO SCH (09:30)
[2016-12-28] MEDS ORDERED: PREGABALIN 75 MG CAPSULE PO SCH (09:30)
[2016-12-28] MEDS ORDERED: BUDESONIDE 0.5 MG/2 ML NEBU. NEB SCH (09:30)
[2016-12-28] MEDS ORDERED: ALBUTEROL SULFATE 2.5 MG/3 ML NEBU. NEB SCH (09:30)
[2016-12-28] MEDS ORDERED: MELOXICAM 7.5 MG TABLET PO SCH (09:30)
[2016-12-28] MEDS ORDERED: TOPIRAMATE 100 MG TABLET. PO SCH (09:30)
[2016-12-28] MEDS ORDERED: DOXYCYCLINE HYCLATE 100 MG TABLET PO SCH (09:30)
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
[2016-12-28 10:57] VITALS: BP 111/69
[2016-12-28] MEDS ORDERED: LEVE100020 PO (11:42)
--- NOTE | 2016-12-28 11:47 | PDOC ---
Provider Note Provider Note 23 hr admit and dc summ done, JOb # [id number] DEE LEAL MD Dec 28, 2016 11:47
--- NOTE | 2016-12-28 14:32 | SSS ---
ADMIT DATE: 12/28/2016 A 23-HOUR ADMISSION AND DISCHARGE SUMMARY SUBJECTIVE: Seizures. HISTORY OF PRESENT ILLNESS: The patient is a 31-year-old male, who has history of seizures, on medication, had a seizure yesterday, fell, hit his head, witnessed by the father. He thinks he lost consciousness 15 minutes. He hit his head on the bed rail. Known to our Neurology group. EEG done at few days ago was told to have nonepileptic seizures. EEG at [facility] as well has been normal. Dr. Phelps did an EEG, which was also normal. He has had MRIs of the brain, neck, and cervical spine, in the past, which was also normal. Also saw an film printer, found nonorganic findings on automated visual field testing. The father described this as tongue biting, upward rolling of the eyes, but no incontinence. The Neurology has seen the patient, increased Keppra to 1000 mg p.o. b.i.d. The rest of the stay is unremarkable. He will go back home, follow up with Neurology with that increase in medication dose. PAST MEDICAL HISTORY: AFib; CHF; hypertension; pericarditis; asthma; COPD; seizure; inflammatory bowel disease, Crohn's by documentation; anemia, NOS; anxiety; depression; low back pain; MRSA; left tibial patellar fracture. doxycycline for left leg cellulitis and that is very well improved. PAST SURGICAL HISTORY: Left knee pyloric stenosis surgery as a child. FAMILY HISTORY: Negative for epilepsy. SOCIAL HISTORY: Single, disheveled. Lives with parents. MEDICATIONS: Please see MAR. REVIEW OF SYSTEMS: All 14-point systems reviewed; otherwise, denies everything. ALLERGIES: PENICILLIN AND SULFA. PHYSICAL EXAMINATION: GENERAL APPEARANCE: Normal, not in acute distress. HEENT: Normocephalic, nontraumatic. No head trauma. NECK: Supple. No lymphadenopathy. No bruits. LUNGS: Clear to auscultation bilaterally. HEART: Normal rate and rhythm. No murmurs, rubs, or gallops. ABDOMEN: Soft, flabby, nontender, normoactive bowel sounds. GENITALIA: Appropriate for age. EXTREMITIES: Negative edema. Pulses full and equal. No pallor or cyanosis of nailbeds. NEUROLOGIC: Alert and oriented x 3. GCS 15. No focal neuro deficits. Muscle manual testing 5/5 in all 4 extremities. No sensory deficit. DTRs +2. ASSESSMENT: Seizure disorder. PLAN: Increase Keppra to 1000 mg p.o. b.i.d. HOSPITAL COURSE: The patient was admitted overnight, observation, and Neurology consulted. No more imaging or EEG needed as he just had recently one. Keppra was increased to 1000 mg p.o. b.i.d. and stable to go home. Discussed with the patient. DISPOSITION: Home. CONSULTS PERFORMED: Neurology. PROCEDURES PERFORMED: None. DEE LEAL MD DR: /nts JOB#: [id number] / [id number]
[2016-12-28] MEDS ORDERED: MESALAMINE PO SCH (21:00)
== END 2016-12-28 14:10 | disposition home or self-care (01) | DRG 101 ==
LOC: ER 01:50 → 6 SOUTH 02:37
PROVIDERS: ADMIT Internal Medicine; ATTEND Internal Medicine
DX: G40.909 Epilepsy, unspecified, not intractable, without status epilepticus (principal); K50.90 Crohn's disease, unspecified, without complications; H54.0 Blindness, both eyes; I11.0 Hypertensive heart disease with heart failure; I48.91 Unspecified atrial fibrillation; J44.9 Chronic obstructive pulmonary disease, unspecified; K21.9 Gastro-esophageal reflux disease without esophagitis; I50.9 Heart failure, unspecified; F41.9 Anxiety disorder, unspecified; M54.5 Low back pain; F32.9 Major depressive disorder, single episode, unspecified; S09.90XA Unspecified injury of head, initial encounter; W22.09XA Striking against other stationary object, initial encounter; W06.XXXA Fall from bed, initial encounter; Y93.89 Activity, other specified; Z88.0 Allergy status to penicillin; Z86.73 Personal history of transient ischemic attack (TIA), and cerebral infarction without residual deficits; Z88.2 Allergy status to sulfonamides; Y92.89 Other specified places as the place of occurrence of the external cause; Y99.8 Other external cause status; Z79.82 Long term (current) use of aspirin; M19.90 Unspecified osteoarthritis, unspecified site; I25.2 Old myocardial infarction
CPT/HCPCS: 36415; 70450; 72125; 80048; 80177; 85027; 87641; 93005; 94640; 96374; 96375; J2405; J3010; J3420; J7030; 99285-25

== ENCOUNTER 2017-01-03 16:22 | Inpatient (IN) | payer OTHER ==
[~2017-01-03] VITALS: Ht 175.3 cm; Wt 137.0 kg
[~2017-01-03 16:22] MED LIST changes: +LEVE100020 PO
--- NOTE | 2017-01-03 17:01 | PHYS DOC ---
Past Medical History Past Medical History: Anxiety, CHF, COPD, CVA, Depression, GERD, Hypertension, [place], Seizure, TIA, Other Additional Past Medical Histor: pericarditis, Crohns, partial blind L eye, pyloric stenosis,MULT HEAD INJURY Past Surgical History: Other Additional Past Surgical Histo: LEFT KNEE SX, PYLORIC STENOSIS SX Additional Information: chewing tobacco Alcohol Use: Rarely Drug Use: None Adult General Chief Complaint Chief Complaint: SLURRED SPEECH HPI HPI Patient is a 31 year old male who presents with sided weakness. According to patient he has a history of seizure disorder and traumatic brain injury and earlier today he had a seizure and became unresponsive. It was noticed that he was having troubles responding by his mom and stated that he didn't know what day of the week it was and he wouldn't move anything except for his toes. These symptoms have resolved except for his left upper extremity still feels slightly weaker than the rest of his extremities. He denies headache , neck stiffness, shortness of breath fevers chills nausea or vomiting. He stated that his seizure happened around 1:00 that's when his mom noticed around 3:00 that he was having this weakness and inability to respond however that's when she arrived at home. He states the tingling in his right side of his face started last night. Review of Systems Review of Systems Constitutional: Denies fever or chills [] Eyes: Denies change in visual acuity, redness, or eye pain [] HENT: Denies nasal congestion or sore throat [] Respiratory: Denies cough or shortness of breath [] Cardiovascular: No additional information not addressed in HPI [] GI: Denies abdominal pain, nausea, vomiting, bloody stools or diarrhea [] : Denies dysuria or hematuria [] Musculoskeletal: Denies back pain or joint pain [] Integument: Denies rash or skin lesions [] Neurologic: Denies headache or sensory changes, complains of left-sided weakness in his arm [] Endocrine: Denies polyuria or polydipsia [] Current Medications Current Medications Current Medications Medications (Trade) Dose Ordered Sig/Linda Start Time Stop Time Status Last Admin Dose Admin Acetaminophen (Tylenol) 1,000 mg 1X ONCE 01/03/17 19:00 01/03/17 19:01 DC Aspirin (Williams Aspirin) 325 mg 1X ONCE 01/03/17 19:00 01/03/17 19:01 DC Sodium Chloride (Iv Sodium Chloride 0.9% 1000ml Bag) 1,000 ml @ 1,000 mls/hr 1X ONCE 01/03/17 17:15 01/03/17 18:14 DC 01/03/17 17:19 1,000 MLS/HR Allergies Allergies Allergies Coded Allergies Type Severity Reaction Last Updated Verified Penicillins Allergy Intermediate Takes Keflex at home chronically 05/24/16 Yes Sulfa (Sulfonamide Antibiotics) Allergy Intermediate 05/24/16 Yes Physical Exam Physical Exam Constitutional: Well developed, well nourished, no acute distress, non-toxic appearance. [] HENT: Normocephalic, atraumatic, bilateral external ears normal, oropharynx moist, no oral exudates, nose normal. [] Eyes: PERRLA, EOMI, conjunctiva normal, no discharge. [] Neck: Normal range of motion, no tenderness, supple, no stridor. [] Cardiovascular:Heart rate regular rhythm, no murmur [] Lungs & Thorax: Bilateral breath sounds clear to auscultation [] Abdomen: Bowel sounds normal, soft, no tenderness, no masses, no pulsatile masses. [] Skin: Warm, dry, no erythema, no rash. [] Back: No tenderness, no CVA tenderness. [] Extremities: No tenderness, no cyanosis, no clubbing, ROM intact, no edema. [] Neurologic: Alert and oriented X 3,decreased sensation on the right side of his face, left arm 4/5 drink, remaining chimneys 5 out of 5 [] Psychologic: Affect normal, judgement normal, mood normal. [] Current Patient Data Vital Signs Vital Signs Date Time Temp Pulse Resp B/P Pulse Ox O2 Delivery O2 Flow Rate FiO2 01/03/17 18:48 102 20 128/80 99 Room Air 01/03/17 16:36 98.6 98.6 Lab Values Laboratory Tests Test 01/03/17 17:05 01/03/17 17:15 White Blood Count 12.8x10^3/uL (4.0-11.0) H Red Blood Count 4.78x10^6/uL (4.30-5.70) Hemoglobin 14.6g/dL (13.0-17.5) Hematocrit 42.7% (39.0-53.0) Mean Corpuscular Volume 89fL (79-100) Mean Corpuscular Hemoglobin 31pg (25-35) Mean Corpuscular Hemoglobin Concent 34g/dL (31-37) Red Cell Distribution Width 13.9% (11.5-14.5) Platelet Count 286x10^3/uL (140-400) Neutrophils (%) (Auto) 74% (31-73) H Lymphocytes (%) (Auto) 19% (24-48) L Monocytes (%) (Auto) 5% (0-9) Eosinophils (%) (Auto) 1% (0-3) Basophils (%) (Auto) 1% (0-3) Neutrophils # (Auto) 9.5x10^3uL (1.8-7.7) H Lymphocytes # (Auto) 2.5x10^3/uL (1.0-4.8) Monocytes # (Auto) 0.7x10^3/uL (0.0-1.1) Eosinophils # (Auto) 0.1x10^3/uL (0.0-0.7) Basophils # (Auto) 0.1x10^3/uL (0.0-0.2) Prothrombin Time 12.9SEC (11.7-14.0) Prothrombin Time INR 1.0 (0.8-1.1) PTT 31SEC (24-38) Sodium Level 142mmol/L (136-145) Potassium Level 4.2mmol/L (3.5-5.1) Chloride Level 108mmol/L (98-107) H Carbon Dioxide Level 24mmol/L (21-32) Anion Gap 10 (6-14) Blood Urea Nitrogen 23mg/dL (8-26) Creatinine 1.4mg/dL (0.7-1.3) H Estimated GFR (Cockcroft-Gault) 59.1 BUN/Creatinine Ratio 16 (6-20) Glucose Level 106mg/dL (70-99) H Lactic Acid Level 1.5mmol/L (0.4-2.0) Calcium Level 8.9mg/dL (8.5-10.1) Magnesium Level 2.0mg/dL (1.8-2.4) Total Bilirubin 0.2mg/dL (0.2-1.0) Aspartate Amino Transferase (AST) 12U/L (15-37) L Alanine Aminotransferase (ALT) 25U/L (16-63) Alkaline Phosphatase 101U/L (46-116) Ammonia 13mcmol/L (11-34) Creatine Kinase 44U/L (39-308) Creatine Kinase MB (Mass) < 0.5ng/mL (0.0-3.6) Creatine Kinase MB Relative Index % (0-4) Troponin I Quantitative < 0.017ng/mL (0.000-0.055) VY-Caf-K-Type Natriuretic Peptide 7pg/mL (0-124) Total Protein 7.3g/dL (6.4-8.2) Albumin 3.6g/dL (3.4-5.0) Albumin/Globulin Ratio 1.0 (1.0-1.7) Urine Collection Type Unknown Urine Color Yellow Urine Clarity Clear Urine pH 7.0 Urine Specific [place] 1.015 Urine Protein Negativemg/dL (NEG-TRACE) Urine Glucose (UA) Negativemg/dL (NEG) Urine Ketones (Stick) Negativemg/dL (NEG) Urine Blood Negative (NEG) Urine Nitrite Negative (NEG) Urine Bilirubin Negative (NEG) Urine Urobilinogen Dipstick 0.2mg/dL (0.2 mg/dL) Urine Leukocyte Esterase Negative (NEG) Urine RBC Rare/HPF (0-2) Urine WBC 0/HPF (0-4) Urine Squamous Epithelial Cells Few/LPF Urine Bacteria 0/HPF (0-FEW) Urine Mucus Slight/LPF Urine Opiates Screen Neg (NEG) Urine Methadone Screen Neg (NEG) Urine Barbiturates Neg (NEG) Urine Phencyclidine Screen Neg (NEG) Urine Amphetamine/Methamphetamine Neg (NEG) Urine Benzodiazepines Screen Neg (NEG) Urine Cocaine Screen Neg (NEG) Urine Cannabinoids Screen Neg (NEG) Urine Ethyl Alcohol Neg (NEG) Laboratory Tests 01/03/17 17:05 Laboratory Tests 01/03/17 17:05 EKG EKG KG shows sinus tachycardia 309 beats were without any ST elevations or T-wave inversions, normal axis, QTC 432 ms, as interpreted by me. Radiology/Procedures Radiology/Procedures [facility] [address] [place], [place] [id number] IMAGING REPORT Signed PATIENT: LAUREANO JONES ACCOUNT: [id number] : 1985 LOCATION: ER AGE: 31 SEX: M EXAM STATUS: REG ER ORD. PHYSICIAN: JENS UNDERWOOD MD REASON: left side weakness-MRI NOTIFIED PROCEDURE: BRAIN W/O CONTRAST Examination: MRI brain without contrast. HISTORY History of syncope, left-sided weakness COMPARISON 09/04/2016. TECHNIQUE Multiplanar, multisequence MR imaging of the brain was performed without contrast. FINDINGS The ventricles are within normal limits. There is no evidence of midline shift. There is no acute intracranial bleed or extra-axial fluid collection identified. The white-matter differentiation is maintained. No evidence of restricted diffusion identified. IMPRESSION No acute intracranial findings. Electronically signed by: Yong Alamo (Jan 03, 2017 18:24:52) DICTATED and SIGNED BY: YONG ALAMO MD DATE: 01/03/17 182 CC: JENS UNDERWOOD MD; SHERRON MALONE MD ~ Impressions: Left arm weakness Tachycardic Seizure disorder Course & Med Decision Making Course & Med Decision Making Pertinent Labs and Imaging studies reviewed. (See chart for details) Patient is outside of any window for TPA. His symptoms started last night with his numbness on his right side of his face and then has progressed. He presents to the ER at around 3 to half hours after his mom found him with left arm weakness. MRI did not show acute abnormalities. He did receive aspirin. He is being admitted for his resolving symptoms. We'll place neurology consult. Spoke with Dr. Rivas who is agreeable plan. Patient is in stable condition at this time being admitted with interim orders and neuro checks. Dragon Disclaimer Dragon Disclaimer This electronic medical record was generated, in whole or in part, using a voice recognition dictation system. Departure Departure Impression: Primary Impression: Left arm weakness Disposition: ADMITTED INPATIENT Admitting Physician: Clinton Gao Condition: STABLE Referrals: SHERRON MALONE MD (PCP) JENS UNDERWOOD MD Jan 03, 2017 17:01
[2017-01-03 17:15] LABS: BASO # 0.1 x10^3/uL (0.0-0.2); BASO % 1 % (0-3); EOS % 1 % (0-3); HEMATOCRIT 42.7 % (39.0-53.0); HEMOGLOBIN 14.6 g/dL (13.0-17.5); LYMPH # 2.5 x10^3/uL (1.0-4.8); LYMPH % 19 % (24-48); MEAN CORPUSCULAR HEMOGLOBIN 31 pg (25-35); MEAN CORPUSCULAR HGB CONC 34 g/dL (31-37); MEAN CORPUSCULAR VOLUME 89 fL (79-100); MONO % 5 % (0-9); NEUT % 74 % (31-73); PLATELET COUNT 286 x10^3/uL (140-400); RED BLOOD COUNT 4.78 x10^6/uL (4.30-5.70); RED CELL DISTRIBUTION WIDTH 13.9 % (11.5-14.5); WHITE BLOOD COUNT 12.8 x10^3/uL (4.0-11.0)
[2017-01-03] MEDS ORDERED: IV NORMAL SALINE 1000ML BAG 1,000 ML IV ONE (17:15)
[2017-01-03 17:26] LABS: BILIRUBIN,URINE NEGATIVE (NEG); GLUCOSE,URINE NEGATIVE (NEG); NITRITE,URINE NEGATIVE (NEG); PROTEIN,URINE NEGATIVE (NEG-TRACE); UROBILINOGEN,URINE 0.2 mg/dL (0.2 mg/dL)
[2017-01-03 17:27] LABS: PROTHROMBIN TIME PATIENT 12.9 SEC (11.7-14.0)
[2017-01-03 17:29] LABS: CALCIUM 8.9 mg/dL (8.5-10.1); CREATININE 1.4 mg/dL (0.7-1.3); GFR 59.1; POTASSIUM 4.2 mmol/L (3.5-5.1)
[2017-01-03 17:34] LABS: ALBUMIN 3.6 g/dL (3.4-5.0); TOTAL BILIRUBIN 0.2 mg/dL (0.2-1.0); TOTAL PROTEIN 7.3 g/dL (6.4-8.2)
[2017-01-03 17:34] LABS: BACTERIA,URINE 0 /HPF (0-FEW); RBC,URINE RARE /HPF (0-2); SQUAMOUS EPITHELIAL CELL,UR FEW /LPF; WBC,URINE 0 /HPF (0-4)
[2017-01-03 17:42] LABS: BARBITURATES NEG (NEG); BENZODIAZEPINES NEG (NEG); CANNABINOIDS NEG (NEG); COCAINE NEG (NEG); ETHANOL, URINE NEG (NEG); METHADONE NEG (NEG); OPIATES NEG (NEG); PHENCYCLIDINE NEG (NEG)
[2017-01-03 17:57] LABS: CKMB MASS < 0.5 ng/mL (0.0-3.6); CREATINE KINASE 44 U/L (39-308)
--- NOTE | 2017-01-03 18:26 | RAD ---
Examination: MRI brain without contrast. HISTORY History of syncope, left-sided weakness COMPARISON 09/04/2016. TECHNIQUE Multiplanar, multisequence MR imaging of the brain was performed without contrast. FINDINGS The ventricles are within normal limits. There is no evidence of midline shift. There is no acute intracranial bleed or extra-axial fluid collection identified. The white-matter differentiation is maintained. No evidence of restricted diffusion identified. IMPRESSION No acute intracranial findings. Electronically signed by: Yong Alamo (Jan 03, 2017 18:24:52)
[2017-01-03] MEDS ORDERED: ACETAMINOPHEN 500 MG TABLET PO ONE (19:00)
[2017-01-03] MEDS ORDERED: ASPIRIN 325 MG TABLET PO ONE (19:00)
[2017-01-03] MEDS ORDERED: ONDANSETRON PF 4 MG/2 ML VIAL. IV PRN (19:15)
--- NOTE | 2017-01-03 20:41 | PDOC1 ---
History and Physical Past Medical History Cardiovascular: AFIB, CHF, HTN, Other Pulmonary: Asthma, COPD CENTRAL NERVOUS SYSTEM: Seizure GI: GERD, Inflam bowel disease Heme/Onc: Anemia NOS Hepatobiliary: No pertinent hx Psych: Anxiety, Depression Rheumatologic: No pertinent hx Infectious disease: Other Renal/: No pertinent hx Endocrine: Other Past Surgical History Past Surgical History: Other Family History Family History: Coronary Artery Disease Social History ALCOHOL: none Drugs: None Current Problem List Problem List Problems Medical Problems: (1) Left arm weakness Status: Acute Current Medications Current Medications Current Medications Medications (Trade) Dose Ordered Sig/Linda Start Time Stop Time Status Last Admin Dose Admin Acetaminophen (Tylenol) 1,000 mg 1X ONCE 01/03/17 19:00 01/03/17 19:01 DC 01/03/17 19:08 1,000 MG Aspirin (Williams Aspirin) 325 mg 1X ONCE 01/03/17 19:00 01/03/17 19:01 DC 01/03/17 19:08 325 MG Ondansetron HCl (Zofran) 4 mg PRN Q8HRS PRN 01/03/17 19:15 01/04/17 19:14 Sodium Chloride (Iv Sodium Chloride 0.9% 1000ml Bag) 1,000 ml @ 1,000 mls/hr 1X ONCE 01/03/17 17:15 01/03/17 18:14 DC 01/03/17 17:19 1,000 MLS/HR Allergies Allergies Allergies Coded Allergies Type Severity Reaction Last Updated Verified Penicillins Allergy Intermediate Takes Keflex at home chronically 05/24/16 Yes Sulfa (Sulfonamide Antibiotics) Allergy Intermediate 05/24/16 Yes ROS Review of System CONSTITUTIONAL: No fever or chills EYES: No recent changes SKIN: No rash or itching CARDIOVASCULAR: No chest pain, syncope, palpitations, or edema RESPIRATORY: No SOB or cough GASTROINTESTINAL: No nausea, vomiting or abdominal pain NEUROLOGICAL: seizures. drowsiness ENDOCRINE: No cold or heat intolerance GENITOURINARY: No urgency or frequency of urination MUSCULOSKELETAL: No back pain or joint pain LYMPHATICS: No enlarged lymph nodes PSYCHIATRIC: No anxiety or depression Physical Exam Physical Exam GEN.: No apparent distress. Alert and oriented.but drowsy HEENT: Head is normocephalic, atraumatic NECK: Supple. no jvd LUNGS: Clear to auscultation. HEART: RRR, S1, S2 present. Peripheral pulses intact ABDOMEN: Soft, nontender. Positive bowel sounds. EXTREMITIES: Without any cyanosis. NEUROLOGIC: Normal speech, PSYCHIATRIC: SKIN: dry Vitals Vitals Vital Signs Date Time Temp Pulse Resp B/P Pulse Ox O2 Delivery O2 Flow Rate FiO2 01/03/17 19:31 102 20 127/71 99 Room Air 01/03/17 16:36 98.6 98.6 Labs Labs Laboratory Tests Test 01/03/17 17:05 01/03/17 17:15 White Blood Count 12.8x10^3/uL (4.0-11.0) Red Blood Count 4.78x10^6/uL (4.30-5.70) Hemoglobin 14.6g/dL (13.0-17.5) Hematocrit 42.7% (39.0-53.0) Mean Corpuscular Volume 89fL (79-100) Mean Corpuscular Hemoglobin 31pg (25-35) Mean Corpuscular Hemoglobin Concent 34g/dL (31-37) Red Cell Distribution Width 13.9% (11.5-14.5) Platelet Count 286x10^3/uL (140-400) Neutrophils (%) (Auto) 74% (31-73) Lymphocytes (%) (Auto) 19% (24-48) Monocytes (%) (Auto) 5% (0-9) Eosinophils (%) (Auto) 1% (0-3) Basophils (%) (Auto) 1% (0-3) Neutrophils # (Auto) 9.5x10^3uL (1.8-7.7) Lymphocytes # (Auto) 2.5x10^3/uL (1.0-4.8) Monocytes # (Auto) 0.7x10^3/uL (0.0-1.1) Eosinophils # (Auto) 0.1x10^3/uL (0.0-0.7) Basophils # (Auto) 0.1x10^3/uL (0.0-0.2) Prothrombin Time 12.9SEC (11.7-14.0) Prothromb Time International Ratio 1.0 (0.8-1.1) Activated Partial Thromboplast Time 31SEC (24-38) Sodium Level 142mmol/L (136-145) Potassium Level 4.2mmol/L (3.5-5.1) Chloride Level 108mmol/L (98-107) Carbon Dioxide Level 24mmol/L (21-32) Anion Gap 10 (6-14) Blood Urea Nitrogen 23mg/dL (8-26) Creatinine 1.4mg/dL (0.7-1.3) Estimated GFR (Cockcroft-Gault) 59.1 BUN/Creatinine Ratio 16 (6-20) Glucose Level 106mg/dL (70-99) Lactic Acid Level 1.5mmol/L (0.4-2.0) Calcium Level 8.9mg/dL (8.5-10.1) Magnesium Level 2.0mg/dL (1.8-2.4) Total Bilirubin 0.2mg/dL (0.2-1.0) Aspartate Amino Transf (AST/SGOT) 12U/L (15-37) Alanine Aminotransferase (ALT/SGPT) 25U/L (16-63) Alkaline Phosphatase 101U/L (46-116) Ammonia 13mcmol/L (11-34) Creatine Kinase 44U/L (39-308) Creatine Kinase MB (Mass) < 0.5ng/mL (0.0-3.6) Creatine Kinase MB Relative Index % (0-4) Troponin I Quantitative < 0.017ng/mL (0.000-0.055) TM-Opr-V-Type Natriuretic Peptide 7pg/mL (0-124) Total Protein 7.3g/dL (6.4-8.2) Albumin 3.6g/dL (3.4-5.0) Albumin/Globulin Ratio 1.0 (1.0-1.7) Urine Collection Type Unknown Urine Color Yellow Urine Clarity Clear Urine pH 7.0 Urine Specific [place] 1.015 Urine Protein Negativemg/dL (NEG-TRACE) Urine Glucose (UA) Negativemg/dL (NEG) Urine Ketones (Stick) Negativemg/dL (NEG) Urine Blood Negative (NEG) Urine Nitrite Negative (NEG) Urine Bilirubin Negative (NEG) Urine Urobilinogen Dipstick 0.2mg/dL (0.2 mg/dL) Urine Leukocyte Esterase Negative (NEG) Urine RBC Rare/HPF (0-2) Urine WBC 0/HPF (0-4) Urine Squamous Epithelial Cells Few/LPF Urine Bacteria 0/HPF (0-FEW) Urine Mucus Slight/LPF Urine Opiates Screen Neg (NEG) Urine Methadone Screen Neg (NEG) Urine Barbiturates Neg (NEG) Urine Phencyclidine Screen Neg (NEG) Urine Amphetamine/Methamphetamine Neg (NEG) Urine Benzodiazepines Screen Neg (NEG) Urine Cocaine Screen Neg (NEG) Urine Cannabinoids Screen Neg (NEG) Urine Ethyl Alcohol Neg (NEG) Laboratory Tests Test 01/03/17 17:05 01/03/17 17:15 White Blood Count 12.8x10^3/uL (4.0-11.0) Red Blood Count 4.78x10^6/uL (4.30-5.70) Hemoglobin 14.6g/dL (13.0-17.5) Hematocrit 42.7% (39.0-53.0) Mean Corpuscular Volume 89fL (79-100) Mean Corpuscular Hemoglobin 31pg (25-35) Mean Corpuscular Hemoglobin Concent 34g/dL (31-37) Red Cell Distribution Width 13.9% (11.5-14.5) Platelet Count 286x10^3/uL (140-400) Neutrophils (%) (Auto) 74% (31-73) Lymphocytes (%) (Auto) 19% (24-48) Monocytes (%) (Auto) 5% (0-9) Eosinophils (%) (Auto) 1% (0-3) Basophils (%) (Auto) 1% (0-3) Neutrophils # (Auto) 9.5x10^3uL (1.8-7.7) Lymphocytes # (Auto) 2.5x10^3/uL (1.0-4.8) Monocytes # (Auto) 0.7x10^3/uL (0.0-1.1) Eosinophils # (Auto) 0.1x10^3/uL (0.0-0.7) Basophils # (Auto) 0.1x10^3/uL (0.0-0.2) Prothrombin Time 12.9SEC (11.7-14.0) Prothromb Time International Ratio 1.0 (0.8-1.1) Activated Partial Thromboplast Time 31SEC (24-38) Sodium Level 142mmol/L (136-145) Potassium Level 4.2mmol/L (3.5-5.1) Chloride Level 108mmol/L (98-107) Carbon Dioxide Level 24mmol/L (21-32) Anion Gap 10 (6-14) Blood Urea Nitrogen 23mg/dL (8-26) Creatinine 1.4mg/dL (0.7-1.3) Estimated GFR (Cockcroft-Gault) 59.1 BUN/Creatinine Ratio 16 (6-20) Glucose Level 106mg/dL (70-99) Lactic Acid Level 1.5mmol/L (0.4-2.0) Calcium Level 8.9mg/dL (8.5-10.1) Magnesium Level 2.0mg/dL (1.8-2.4) Total Bilirubin 0.2mg/dL (0.2-1.0) Aspartate Amino Transf (AST/SGOT) 12U/L (15-37) Alanine Aminotransferase (ALT/SGPT) 25U/L (16-63) Alkaline Phosphatase 101U/L (46-116) Ammonia 13mcmol/L (11-34) Creatine Kinase 44U/L (39-308) Creatine Kinase MB (Mass) < 0.5ng/mL (0.0-3.6) Creatine Kinase MB Relative Index % (0-4) Troponin I Quantitative < 0.017ng/mL (0.000-0.055) DR-Jxy-T-Type Natriuretic Peptide 7pg/mL (0-124) Total Protein 7.3g/dL (6.4-8.2) Albumin 3.6g/dL (3.4-5.0) Albumin/Globulin Ratio 1.0 (1.0-1.7) Urine Collection Type Unknown Urine Color Yellow Urine Clarity Clear Urine pH 7.0 Urine Specific [place] 1.015 Urine Protein Negativemg/dL (NEG-TRACE) Urine Glucose (UA) Negativemg/dL (NEG) Urine Ketones (Stick) Negativemg/dL (NEG) Urine Blood Negative (NEG) Urine Nitrite Negative (NEG) Urine Bilirubin Negative (NEG) Urine Urobilinogen Dipstick 0.2mg/dL (0.2 mg/dL) Urine Leukocyte Esterase Negative (NEG) Urine RBC Rare/HPF (0-2) Urine WBC 0/HPF (0-4) Urine Squamous Epithelial Cells Few/LPF Urine Bacteria 0/HPF (0-FEW) Urine Mucus Slight/LPF Urine Opiates Screen Neg (NEG) Urine Methadone Screen Neg (NEG) Urine Barbiturates Neg (NEG) Urine Phencyclidine Screen Neg (NEG) Urine Amphetamine/Methamphetamine Neg (NEG) Urine Benzodiazepines Screen Neg (NEG) Urine Cocaine Screen Neg (NEG) Urine Cannabinoids Screen Neg (NEG) Urine Ethyl Alcohol Neg (NEG) VTE Prophylaxis Ordered VTE Prophylaxis Devices: No VTE Pharmacological Prophylaxi: Yes NICOLE ARGUETA MD Jan 03, 2017 20:41
[2017-01-03] MEDS ORDERED: LEVETIRACETAM 1,000 MG in IV NORMAL SALINE 100ML 100 ML IV ONE (20:45)
--- NOTE | 2017-01-03 20:54 | ACF ---
Admission Forms Criteria NEUROLOGY GRG Clinical Indications for Admission to Inpatient Care (Place ' X' for any and all applicable criteria): Hospital admission is needed for appropriate care of the patient because of 1 or more of the following: [ ]I. Encephalitis [ ]II. Severe [employer] infections indicated by 1 or more of the following(1)(2)(3) : [ ]a) Intracranial abscess [ ]b) Spinal abscess or myelitis [ ]c) Tuberculous or other nonbacterial, nonviral [employer] infection(8) [ ]III. Vasculitis and 1 or more of the following(14)(15): []a) Altered mental status that is severe or persistent or other acute neurologic change []b) Psychosis []c) Seizure [ ]IV. Status epilepticus or repetitive seizures not controlled with emergent treatment [A] (7)(8) [ ]V. Altered mental status that is severe or persistent [ ]. Transient alteration in consciousness with high-risk etiology; examples include (12)(13): [ ]a) Cardiovascular source [ ]b) Cataplexy [ ]VII. Cerebral aneurysm requiring ANY ONE of the following(14): [ ]a) IV antihypertensives or vasoactive agents [ ]b) Sedation and analgesia for suspected leak [ ]c) Need for external ventricular drainage and cerebral perfusion pressure monitoring [ ]d) Emergent evaluation to determine need for surgical clipping or endovascular coiling by interventional radiology. If surgery is required ( Also use Craniotomy, Supratentorial, for Surgery of Bleeding Intracranial Aneurysm (for bleeding aneurysm) or Craniotomy, Supratentorial (for nonbleeding aneurysm) as appropriate. [X]VIII. New-onset severe neurologic symptom requiring inpatient care indicated by ANY ONE of the following: [ ]a) Aphasia(15) [X]b) Weakness (grade 3 or less) [ ]c) Paralysis (eg, hemiplegia) [ ]d) Spasticity(16) [ ]e) Dystonia [ ]e) Ataxia(17) [ ]f) Amnesia(18) [ ]g) Involuntary movements(19) [ ]h) Vertigo [ ] Visual loss [ ]i) Other severe neurologic finding (eg, papilledema, mass effect on imaging, myoclonus not treatable at alternative level of care (eg, observation care) [ ]IX. Guillain-[place] syndrome(20) [ ]X. Myasthenia gravis crisis or inpatient monitoring need as indicated by 1 or more of the following(21): [ ]a) Intensive treatment (eg, course of plasmapheresis) with inadequate outpatient situation to monitor patients status [ ]b) Inadequate airway protection [ ]c) Respiratory insufficiency requiring intubation or inpatient. monitoring [ ]d) Progressive dysphagia with failure to thrive [ ]XI. Multiple sclerosis or other acute demyelinating disease requiring inpatient care as indicated by 1 or more of the following (22)(23): [ ]a) Acute severe deterioration requiring inpatient treatment (eg, IV steroids, plasmapheresis, close observation) [ ]b) Acute complication requiring inpatient care (eg, sepsis, severe decubitus, aspiration) [ ]XII.Parkinson disease requiring inpatient care (Also use Optimal Recovery Care Criteria or General Recovery Criteria as appropriate) indicated by 1 or more of the following(25): [ ]a) Infection (eg, aspiration pneumonia) not treatable at alternative level of care [ ]b Dehydration that is severe or persistent [ ]c) Life-threatening agitation or psychotic behavior not treatable on emergency, observation care, or alternative level (eg, residential) basis [ ]d) Severe medication withdrawal effects (eg, freezing, neuroleptic malignant syndrome) not responsive to emergency and observation care treatment ( as appropriate) [ ]e) Other severe manifestation not treatable at alternative level of care [ ]XII. Amyotrophic lateral sclerosis with inpatient care needs as indicated by ANY ONE of the following(26): [ ]a) Acute complications (eg, aspiration pneumonia, sepsis ) requiring inpatient care ( see other optimal Recovery Guideline as appropriate) [ ]b) Dehydration that is severe persistent AND artificial support desired [ ]c) Inadequate airway protection AND artificial support desired [ ]d) Severe ventilatory insufficiency AND artificial support desired [ ]XIII. Myasthenia gravis crisis or inpatient monitoring need as indicated by 1 or more of the following(21): [] a) Inadequate airway protection []b) Respiratory insufficiency requiring intubation or inpatient monitoring []c) Progressive dysphagia with failure to thrive []d) Intensive treatment (e.g., course of plasmapheresis) with inadequate outpatient situation to monitor patients status [ ]XIV. Multiple sclerosis or other acute demyelinating disease requiring inpatient care indicated by 1 or more of the following[C](36)(43)(44)(45)(46): []a) Acute severe deterioration requiring inpatient treatment (eg, IV steroids, plasmapheresis, close observation) []b) Acute complication requiring inpatient care (eg, sepsis, severe decubitus, aspiration) [ ]XV. Intracranial hypertension (e.g., pseudotumor cerebri) requiring inpatient care (e.g., acute visual loss, inadequate oral intake) (47)(48)(49) [ ]XVI. Parkinson disease requiring inpatient care (Also use Optimal Recovery Care Criteria or General Recovery Criteria as appropriate) indicated by 1 or more of the following(25): [] a) Infection (e.g., aspiration pneumonia) not treatable at alternative level of care []b) Volume depletion not responsive to emergency and observation care treatment (as appropriate) []c) Life-threatening agitation or psychotic behavior not treatable on emergency, observation care, or alternative level (e.g., residential) basis []d) Severe medication withdrawal effects (e.g., freezing, neuroleptic malignant syndrome) not responsive to emergency and observation care treatment (as appropriate) []e) Other severe manifestation not treatable at alternative level of care [ ]XVII. Amyotrophic lateral sclerosis with inpatient care needs as indicated by1 or more of the following(42): []a) Acute complications (eg, aspiration pneumonia, sepsis) requiring inpatient care (see other Optimal Recovery Guideline or General Recovery Guideline as appropriate) []b) Dehydration that is severe or persistent AND artificial support desired []c) Inadequate airway protection AND artificial support desired []d) Severe ventilatory insufficiency AND artificial support desired [ ]XVIII. Severe myopathy, neuropathy, or other neuromuscular disease indicated by 1 or more of the following(42)(52)(53)(54): []a ) New-onset severe diffuse weakness (eg, strength 3/5 or less) []b) Severe dysphagia []c) Dyspnea at rest or with minimal exertion (new) []d) Inadequate airway protection []e) Inadequate ventilation indicated by 1 or more of the following : i) Partial pressure of carbon dioxide greater than 44 mm Hg ( 5.9 kPa) (new) ii) Reduced peak expiratory flow rate (new) iii) Vital capacity less than 50% of predicted (less than 15 mL/kg) iv) Peak inspiratory force less negative than -30 cm H2O (- 2942 Pa) [ ]XVII.Complications of congenital or degenerative disease (eg, infection, seizures, dehydration, injury) not responsive to emergency and observation care treatment (as appropriate ) [C](16)(29)(30) [ ]XVIII.Suspected or confirmed nerve or muscle toxic injury, including ANY ONE of the following: [ ]a) Rhabdomyolysis(31) i) Acute renal failure ii) Dehydration that is severe or persistent iii) Altered mental status that is severe or persistent iv) Electrolyte abnormality that remains after emergency or observation level care ( as appropriate) [ ]b) Botulism(32) [ ]c) Other severe toxin-induced sign or symptom [ ]XIX. Neurologic trauma requiring inpatient treatment (medical) indicated by ANY ONE of the following(33)(34): [ ]a) Vital signs or neurologic signs more frequently than every 4 hours [ ]b) Hyperosmolar therapy [ ]c) Respiratory monitoring [ ]d) Intracranial pressure monitoring and treatment [ ]e) Stabilization and immobilization device placement (eg, braces, body jacket) [ ]f) Intubation & mechanical ventilation for airway protection or therapeutic hyperventilation [ ]g) Other treatment or monitoring needed that requires inpatient level of care [ ]XX.Complications of neurologic devices (eg, ventricular shunt, neurostimulator) requiring 1 or more of the following(35)(36): [ ]a) IV antibiotics with monitoring while awaiting culture results [ ]b) Monitoring for hydrocephalus [ ]XXI. Neurology condition symptom, or finding for which emergency and observation care have failed or are not considered appropriate. See General Criteria: Observation Care ISC, General Admission Criteria GRG, or Pediatric General Admission Criteria GRG guideline as appropriate. The original [facility] content created by [facility] has been revised. The portions of the content which have been revised are identified through the use of italic text or in bold, and [facility] has neither reviewed nor approved the modified material. All other unmodified content is copyright [facility] Please see references footnoted in the original [facility] edition 2016 Admission Criteria Met?: Yes VADIM RICH Jan 03, 2017 20:54
[2017-01-03] MEDS ORDERED: IBUPROFEN 800 MG TABLET. PO ONE (21:00)
[2017-01-03] MEDS: IV NORMAL SALINE 1000ML BAG 1,000 ML IV SCH (22:03)
[2017-01-03 23:00] VITALS: BP 148/91
[2017-01-03] MEDS ORDERED: CEPH500C PO (23:23)
[2017-01-03] MEDS ORDERED: MELO15TA6 PO (23:23)
[2017-01-03] MEDS ORDERED: NORT75CA PO (23:23)
[2017-01-04 03:00] VITALS: BP 137/80
--- NOTE | 2017-01-04 06:31 | EKG ---
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
[2017-01-04 07:06] VITALS: BP 122/72
[2017-01-04] MEDS: ALBUTEROL SULFATE 2.5 MG/3 ML NEBU. NEB SCH ×4 (08:03→20:49)
[2017-01-04] MEDS: BUDESONIDE 0.5 MG/2 ML NEBU. NEB SCH ×2 (08:03→20:48)
[2017-01-04] MEDS: CYCLOBENZAPRINE 10 MG TABLET. PO SCH ×3 (08:50→20:14)
[2017-01-04] MEDS: LEVETIRACETAM 500 MG TABLET. PO SCH ×2 (08:50→20:15)
[2017-01-04] MEDS: ASPIRIN ENTERIC COATED 81 MG TABLET.DR. PO SCH (08:51)
[2017-01-04] MEDS: TOPIRAMATE 100 MG TABLET. PO SCH ×3 (08:51→20:14)
[2017-01-04] MEDS: PREGABALIN 75 MG CAPSULE PO SCH ×2 (08:51→20:15)
[2017-01-04] MEDS: CEPHALEXIN 250 MG CAPSULE. PO SCH ×3 (08:51→20:15)
[2017-01-04] MEDS: PANTOPRAZOLE 40 MG TABLET.DR. PO SCH (08:51)
[2017-01-04] MEDS: MELOXICAM 7.5 MG TABLET PO SCH (08:51)
[2017-01-04] MEDS: IV NORMAL SALINE 1000ML BAG 1,000 ML IV SCH ×2 (08:53→20:16)
[2017-01-04] MEDS ORDERED: ALBUTEROL SULFATE 8GM INHALER. INH SCH (09:00)
[2017-01-04] MEDS ORDERED: NON FORMULARY ITEM (Fluticasone/Salmeterol (Advair 500-50 Diskus) 1 PUFF) IH SCH (09:00)
--- NOTE | 2017-01-04 10:28 | PDOC ---
PROGRESS NOTES Chief Complaint Chief Complaint cc: slurring of speech A/P Possible recurrent seizers hx CHF, COPD, CVA, Depression, GERD, Hypertension, obesity Plan MRI negative EEG today neuro consulted continence home medication seizure precautions labs reviwed, continue current care chronic conditions stable History of Present Illness History of Present Illness no new weakness no seizures Vitals Vitals Vital Signs Date Time Temp Pulse Resp B/P Pulse Ox O2 Delivery O2 Flow Rate FiO2 01/04/17 08:06 98 Room Air 01/04/17 07:06 97.9 75 20 122/72 97.9 Physical Exam General: Alert, Oriented X3 Heart: Normal S1, Normal S2 Lungs: Clear Abdomen: Normal bowel sounds Extremities: No clubbing Labs LABS Laboratory Tests Test 01/03/17 17:05 01/03/17 17:15 01/04/17 00:00 White Blood Count 12.8x10^3/uL (4.0-11.0) Red Blood Count 4.78x10^6/uL (4.30-5.70) Hemoglobin 14.6g/dL (13.0-17.5) Hematocrit 42.7% (39.0-53.0) Mean Corpuscular Volume 89fL (79-100) Mean Corpuscular Hemoglobin 31pg (25-35) Mean Corpuscular Hemoglobin Concent 34g/dL (31-37) Red Cell Distribution Width 13.9% (11.5-14.5) Platelet Count 286x10^3/uL (140-400) Neutrophils (%) (Auto) 74% (31-73) Lymphocytes (%) (Auto) 19% (24-48) Monocytes (%) (Auto) 5% (0-9) Eosinophils (%) (Auto) 1% (0-3) Basophils (%) (Auto) 1% (0-3) Neutrophils # (Auto) 9.5x10^3uL (1.8-7.7) Lymphocytes # (Auto) 2.5x10^3/uL (1.0-4.8) Monocytes # (Auto) 0.7x10^3/uL (0.0-1.1) Eosinophils # (Auto) 0.1x10^3/uL (0.0-0.7) Basophils # (Auto) 0.1x10^3/uL (0.0-0.2) Prothrombin Time 12.9SEC (11.7-14.0) Prothromb Time International Ratio 1.0 (0.8-1.1) Activated Partial Thromboplast Time 31SEC (24-38) Sodium Level 142mmol/L (136-145) Potassium Level 4.2mmol/L (3.5-5.1) Chloride Level 108mmol/L (98-107) Carbon Dioxide Level 24mmol/L (21-32) Anion Gap 10 (6-14) Blood Urea Nitrogen 23mg/dL (8-26) Creatinine 1.4mg/dL (0.7-1.3) Estimated GFR (Cockcroft-Gault) 59.1 BUN/Creatinine Ratio 16 (6-20) Glucose Level 106mg/dL (70-99) Lactic Acid Level 1.5mmol/L (0.4-2.0) Calcium Level 8.9mg/dL (8.5-10.1) Magnesium Level 2.0mg/dL (1.8-2.4) Total Bilirubin 0.2mg/dL (0.2-1.0) Aspartate Amino Transf (AST/SGOT) 12U/L (15-37) Alanine Aminotransferase (ALT/SGPT) 25U/L (16-63) Alkaline Phosphatase 101U/L (46-116) Ammonia 13mcmol/L (11-34) Creatine Kinase 44U/L (39-308) Creatine Kinase MB (Mass) < 0.5ng/mL (0.0-3.6) Creatine Kinase MB Relative Index % (0-4) Troponin I Quantitative < 0.017ng/mL (0.000-0.055) < 0.017ng/mL (0.000-0.055) QJ-Raj-[id number]-Type Natriuretic Peptide 7pg/mL (0-124) Total Protein 7.3g/dL (6.4-8.2) Albumin 3.6g/dL (3.4-5.0) Albumin/Globulin Ratio 1.0 (1.0-1.7) Urine Collection Type Unknown Urine Color Yellow Urine Clarity Clear Urine pH 7.0 Urine Specific [place]en 1.015 Urine Protein Negativemg/dL (NEG-TRACE) Urine Glucose (UA) Negativemg/dL (NEG) Urine Ketones (Stick) Negativemg/dL (NEG) Urine Blood Negative (NEG) Urine Nitrite Negative (NEG) Urine Bilirubin Negative (NEG) Urine Urobilinogen Dipstick 0.2mg/dL (0.2 mg/dL) Urine Leukocyte Esterase Negative (NEG) Urine RBC Rare/HPF (0-2) Urine WBC 0/HPF (0-4) Urine Squamous Epithelial Cells Few/LPF Urine Bacteria 0/HPF (0-FEW) Urine Mucus Slight/LPF Urine Opiates Screen Neg (NEG) Urine Methadone Screen Neg (NEG) Urine Barbiturates Neg (NEG) Urine Phencyclidine Screen Neg (NEG) Urine Amphetamine/Methamphetamine Neg (NEG) Urine Benzodiazepines Screen Neg (NEG) Urine Cocaine Screen Neg (NEG) Urine Cannabinoids Screen Neg (NEG) Urine Ethyl Alcohol Neg (NEG) Assessment and Plan Assessmemt and Plan Problems Medical Problems: (1) Left arm weakness Status: Acute Problems: Comment Review of Relevant I have reviewed the following items ganesh (where applicable) has been applied. Labs Laboratory Tests Test 01/03/17 17:05 01/03/17 17:15 01/04/17 00:00 White Blood Count 12.8x10^3/uL (4.0-11.0) Red Blood Count 4.78x10^6/uL (4.30-5.70) Hemoglobin 14.6g/dL (13.0-17.5) Hematocrit 42.7% (39.0-53.0) Mean Corpuscular Volume 89fL (79-100) Mean Corpuscular Hemoglobin 31pg (25-35) Mean Corpuscular Hemoglobin Concent 34g/dL (31-37) Red Cell Distribution Width 13.9% (11.5-14.5) Platelet Count 286x10^3/uL (140-400) Neutrophils (%) (Auto) 74% (31-73) Lymphocytes (%) (Auto) 19% (24-48) Monocytes (%) (Auto) 5% (0-9) Eosinophils (%) (Auto) 1% (0-3) Basophils (%) (Auto) 1% (0-3) Neutrophils # (Auto) 9.5x10^3uL (1.8-7.7) Lymphocytes # (Auto) 2.5x10^3/uL (1.0-4.8) Monocytes # (Auto) 0.7x10^3/uL (0.0-1.1) Eosinophils # (Auto) 0.1x10^3/uL (0.0-0.7) Basophils # (Auto) 0.1x10^3/uL (0.0-0.2) Prothrombin Time 12.9SEC (11.7-14.0) Prothromb Time International Ratio 1.0 (0.8-1.1) Activated Partial Thromboplast Time 31SEC (24-38) Sodium Level 142mmol/L (136-145) Potassium Level 4.2mmol/L (3.5-5.1) Chloride Level 108mmol/L (98-107) Carbon Dioxide Level 24mmol/L (21-32) Anion Gap 10 (6-14) Blood Urea Nitrogen 23mg/dL (8-26) Creatinine 1.4mg/dL (0.7-1.3) Estimated GFR (Cockcroft-Gault) 59.1 BUN/Creatinine Ratio 16 (6-20) Glucose Level 106mg/dL (70-99) Lactic Acid Level 1.5mmol/L (0.4-2.0) Calcium Level 8.9mg/dL (8.5-10.1) Magnesium Level 2.0mg/dL (1.8-2.4) Total Bilirubin 0.2mg/dL (0.2-1.0) Aspartate Amino Transf (AST/SGOT) 12U/L (15-37) Alanine Aminotransferase (ALT/SGPT) 25U/L (16-63) Alkaline Phosphatase 101U/L (46-116) Ammonia 13mcmol/L (11-34) Creatine Kinase 44U/L (39-308) Creatine Kinase MB (Mass) < 0.5ng/mL (0.0-3.6) Creatine Kinase MB Relative Index % (0-4) Troponin I Quantitative < 0.017ng/mL (0.000-0.055) < 0.017ng/mL (0.000-0.055) EH-Hhv-F-Type Natriuretic Peptide 7pg/mL (0-124) Total Protein 7.3g/dL (6.4-8.2) Albumin 3.6g/dL (3.4-5.0) Albumin/Globulin Ratio 1.0 (1.0-1.7) Urine Collection Type Unknown Urine Color Yellow Urine Clarity Clear Urine pH 7.0 Urine Specific [place] 1.015 Urine Protein Negativemg/dL (NEG-TRACE) Urine Glucose (UA) Negativemg/dL (NEG) Urine Ketones (Stick) Negativemg/dL (NEG) Urine Blood Negative (NEG) Urine Nitrite Negative (NEG) Urine Bilirubin Negative (NEG) Urine Urobilinogen Dipstick 0.2mg/dL (0.2 mg/dL) Urine Leukocyte Esterase Negative (NEG) Urine RBC Rare/HPF (0-2) Urine WBC 0/HPF (0-4) Urine Squamous Epithelial Cells Few/LPF Urine Bacteria 0/HPF (0-FEW) Urine Mucus Slight/LPF Urine Opiates Screen Neg (NEG) Urine Methadone Screen Neg (NEG) Urine Barbiturates Neg (NEG) Urine Phencyclidine Screen Neg (NEG) Urine Amphetamine/Methamphetamine Neg (NEG) Urine Benzodiazepines Screen Neg (NEG) Urine Cocaine Screen Neg (NEG) Urine Cannabinoids Screen Neg (NEG) Urine Ethyl Alcohol Neg (NEG) Laboratory Tests Test 01/03/17 17:05 01/03/17 17:15 01/04/17 00:00 White Blood Count 12.8x10^3/uL (4.0-11.0) Red Blood Count 4.78x10^6/uL (4.30-5.70) Hemoglobin 14.6g/dL (13.0-17.5) Hematocrit 42.7% (39.0-53.0) Mean Corpuscular Volume 89fL (79-100) Mean Corpuscular Hemoglobin 31pg (25-35) Mean Corpuscular Hemoglobin Concent 34g/dL (31-37) Red Cell Distribution Width 13.9% (11.5-14.5) Platelet Count 286x10^3/uL (140-400) Neutrophils (%) (Auto) 74% (31-73) Lymphocytes (%) (Auto) 19% (24-48) Monocytes (%) (Auto) 5% (0-9) Eosinophils (%) (Auto) 1% (0-3) Basophils (%) (Auto) 1% (0-3) Neutrophils # (Auto) 9.5x10^3uL (1.8-7.7) Lymphocytes # (Auto) 2.5x10^3/uL (1.0-4.8) Monocytes # (Auto) 0.7x10^3/uL (0.0-1.1) Eosinophils # (Auto) 0.1x10^3/uL (0.0-0.7) Basophils # (Auto) 0.1x10^3/uL (0.0-0.2) Prothrombin Time 12.9SEC (11.7-14.0) Prothromb Time International Ratio 1.0 (0.8-1.1) Activated Partial Thromboplast Time 31SEC (24-38) Sodium Level 142mmol/L (136-145) Potassium Level 4.2mmol/L (3.5-5.1) Chloride Level 108mmol/L (98-107) Carbon Dioxide Level 24mmol/L (21-32) Anion Gap 10 (6-14) Blood Urea Nitrogen 23mg/dL (8-26) Creatinine 1.4mg/dL (0.7-1.3) Estimated GFR (Cockcroft-Gault) 59.1 BUN/Creatinine Ratio 16 (6-20) Glucose Level 106mg/dL (70-99) Lactic Acid Level 1.5mmol/L (0.4-2.0) Calcium Level 8.9mg/dL (8.5-10.1) Magnesium Level 2.0mg/dL (1.8-2.4) Total Bilirubin 0.2mg/dL (0.2-1.0) Aspartate Amino Transf (AST/SGOT) 12U/L (15-37) Alanine Aminotransferase (ALT/SGPT) 25U/L (16-63) Alkaline Phosphatase 101U/L (46-116) Ammonia 13mcmol/L (11-34) Creatine Kinase 44U/L (39-308) Creatine Kinase MB (Mass) < 0.5ng/mL (0.0-3.6) Creatine Kinase MB Relative Index % (0-4) Troponin I Quantitative < 0.017ng/mL (0.000-0.055) < 0.017ng/mL (0.000-0.055) PE-Ehi-Q-Type Natriuretic Peptide 7pg/mL (0-124) Total Protein 7.3g/dL (6.4-8.2) Albumin 3.6g/dL (3.4-5.0) Albumin/Globulin Ratio 1.0 (1.0-1.7) Urine Collection Type Unknown Urine Color Yellow Urine Clarity Clear Urine pH 7.0 Urine Specific [place] 1.015 Urine Protein Negativemg/dL (NEG-TRACE) Urine Glucose (UA) Negativemg/dL (NEG) Urine Ketones (Stick) Negativemg/dL (NEG) Urine Blood Negative (NEG) Urine Nitrite Negative (NEG) Urine Bilirubin Negative (NEG) Urine Urobilinogen Dipstick 0.2mg/dL (0.2 mg/dL) Urine Leukocyte Esterase Negative (NEG) Urine RBC Rare/HPF (0-2) Urine WBC 0/HPF (0-4) Urine Squamous Epithelial Cells Few/LPF Urine Bacteria 0/HPF (0-FEW) Urine Mucus Slight/LPF Urine Opiates Screen Neg (NEG) Urine Methadone Screen Neg (NEG) Urine Barbiturates Neg (NEG) Urine Phencyclidine Screen Neg (NEG) Urine Amphetamine/Methamphetamine Neg (NEG) Urine Benzodiazepines Screen Neg (NEG) Urine Cocaine Screen Neg (NEG) Urine Cannabinoids Screen Neg (NEG) Urine Ethyl Alcohol Neg (NEG) Medications Current Medications Sodium Chloride (Iv Sodium Chloride 0.9% 1000ml Bag) 1,000 ml @ 1,000 mls/hr 1X ONCE IV Last administered on 01/03/17 17:19; Start 01/03/17 at 17:15; Stop 01/03/17 at 18:14; Status DC Aspirin (Williams Aspirin) 325 mg 1X ONCE PO Last administered on 01/03/17 19:08 ; Start 01/03/17 at 19:00; Stop 01/03/17 at 19:01; Status DC Acetaminophen (Tylenol) 1,000 mg 1X ONCE PO Last administered on 01/03/17 19: 08; Start 01/03/17 at 19:00; Stop 01/03/17 at 19:01; Status DC Ondansetron HCl 4 mg 4 mg PRN Q8HRS PRN IV NAUSEA/VOMITING; Start 01/03/17 at 19:15; Stop 01/04/17 at 19:14 Levetiracetam 1000 mg/Sodium Chloride 110 ml @ 440 mls/hr 1X ONCE IV Last administered on 01/03/17 22:04; Start 01/03/17 at 20:45; Stop 01/03/17 at 20:59 ; Status DC Sodium Chloride (Iv Sodium Chloride 0.9% 1000ml Bag) 1,000 ml @ 100 mls/hr Q10H IV Last administered on 01/04/17 08:53; Start 01/03/17 at 20:45 Ibuprofen (Motrin) 800 mg 1X ONCE PO Last administered on 01/03/17 21:24; Start 01/03/17 at 21:00; Stop 01/03/17 at 21:06; Status DC Albuterol Sulfate (Ventolin Hfa) 2 puff QID INH ; Start 01/04/17 at 09:00; Status UNV Aspirin (Ecotrin) 81 mg DAILY PO Last administered on 01/04/17 08:51; Start at 09:00 Cyanocobalamin (Vitamin B-12) 1,000 mcg WEEKLY IM ; Start 01/10/17 at 09:00 Cyclobenzaprine HCl (Flexeril) 10 mg TID PO Last administered on 01/04/17 08: 50; Start 01/04/17 at 09:00 Acetaminophen/ Hydrocodone Bitart (Lortab 7.5/325) 1 tab PRN Q6HRS PRN PO SEVERE PAIN; Start 01/04/17 at 02:00 Pantoprazole Sodium (Protonix) 40 mg DAILYAC PO Last administered on 01/04/17 08:51; Start 01/04/17 at 07:30 Pregabalin (Lyrica) 75 mg BID PO Last administered on 01/04/17 08:51; Start at 09:00 Topiramate (Topamax) 100 mg TID PO Last administered on 01/04/17 08:51; Start 01/04/17 at 09:00 Cephalexin HCl (Keflex) 500 mg TID PO Last administered on 01/04/17 08:51; Start 01/04/17 at 09:00 Non-Formulary Medication 1 puff BID IH asthma; Start 01/04/17 at 09:00; Status UNV Levetiracetam (Keppra) 1,000 mg BID PO Last administered on 01/04/17 08:50; Start 01/04/17 at 09:00 Meloxicam (Mobic) 15 mg DAILY PO Last administered on 01/04/17 08:51; Start at 09:00 Mesalamine (Pentasa) 750 mg QHS PO ; Start 01/04/17 at 21:00 Nortriptyline HCl (Pamelor) 75 mg QHS PO ; Start 01/04/17 at 21:00 Albuterol Sulfate (Ventolin Neb Soln) 2.5 mg RTQID NEB Last administered on 08:03; Start 01/04/17 at 08:00 Budesonide (Pulmicort) 0.5 mg RTBID NEB Last administered on 01/04/17 08:03; Start 01/04/17 at 08:00 Active Scripts Active Keppra (Levetiracetam) 1,000 Mg Tablet 1 Tab PO BID Doxycycline Hyclate 100 Mg Capsule 1 Cap PO BID Hydrocodone-Apap 7.5-325 (Hydrocodone Bit/Acetaminophen) 1 Each Tablet 1 Tab PO PRN Q6HRS PRN Zofran Odt (Ondansetron) 4 Mg Tab.rapdis 1 Tab SL Q8HRS Reported Cephalexin 500 Mg Capsule 1 Cap PO TID Nortriptyline Hcl 75 Mg Capsule 75 Mg PO HS Mobic (Meloxicam) 15 Mg Tablet 1 Tab PO DAILY Apriso (Mesalamine) 0.375 Gm Cap.er.24h 2 Cap PO HS Cyanocobalamin Injection (Cyanocobalamin (Vitamin B-12)) 1,000 Mcg/1 Ml Vial 1 Ml IM WEEKLY Topamax (Topiramate) 100 Mg Tablet 1 Tab PO TID Meloxicam 15 Mg Tablet 1 Tab PO DAILY Cyclobenzaprine Hcl 10 Mg Tablet 10 Mg PO TID Lyrica (Pregabalin) 75 Mg Capsule 1 Cap PO BID Advair 500-50 Diskus (Fluticasone/Salmeterol) 1 Each Disk.w.dev 1 Puff IH BID Albuterol Sulfate Hfa Inhaler (Albuterol Sulfate) 8.5 Gm Hfa.aer.ad 2 Puff INH QID Protonix (Pantoprazole Sodium) 40 Mg Tablet.dr 40 Mg PO Aspir 81 (Aspirin) 81 Mg Tablet.dr 81 Mg PO DAILY Vitals/I & O Vital Sign - Last 24 Hours 01/03/17 01/03/17 01/03/17 01/03/17 16:36 17:36 18:48 19:31 Temp 98.6 98.6 Pulse 108 104 102 102 Resp 18 18 20 B/P 132/75 125/88 128/80 127/71 Pulse Ox 98 98 99 99 O2 Delivery Room Air Room Air 01/03/17 01/03/17 01/03/17 01/03/17 21:01 22:00 23:00 23:00 Temp 97.5 97.5 97.5 97.5 Pulse 100 74 74 Resp 21 B/P 121/61 148/91 148/91 Pulse Ox 99 96 96 O2 Delivery Room Air Room Air Room Air Room Air 01/04/17 01/04/17 01/04/17 01/04/17 03:00 07:06 08:00 08:06 Temp 97.7 97.9 97.7 97.9 Pulse 93 75 Resp 20 B/P 137/80 122/72 Pulse Ox 96 98 98 O2 Delivery Room Air Room Air Room Air Room Air Intake and Output 01/03/17 01/03/17 01/04/17 15:00 23:00 07:00 Intake Total 1300 ml 800 ml Balance 1300 ml 800 ml NICOLE ARGUETA MD Jan 04, 2017 10:28
[2017-01-04] MEDS: HYDROCODONE/APAP 7.5/325MG TABLET. PO PRN ×2 (11:30→17:50)
[2017-01-04 11:40] VITALS: BP 126/71
[2017-01-04 11:50] LABS: BASO % 0 % (0-3); EOS % 1 % (0-3); HEMATOCRIT 43.9 % (39.0-53.0); LYMPH # 2.6 x10^3/uL (1.0-4.8); LYMPH % 25 % (24-48); MEAN CORPUSCULAR HEMOGLOBIN 31 pg (25-35); MEAN CORPUSCULAR HGB CONC 34 g/dL (31-37); MEAN CORPUSCULAR VOLUME 90 fL (79-100); MONO % 4 % (0-9); NEUT % 69 % (31-73); PLATELET COUNT 265 x10^3/uL (140-400); RED BLOOD COUNT 4.89 x10^6/uL (4.30-5.70); WHITE BLOOD COUNT 10.3 x10^3/uL (4.0-11.0)
[2017-01-04 12:03] LABS: CALCIUM 8.5 mg/dL (8.5-10.1); CREATININE 1.1 mg/dL (0.7-1.3); GFR 78.1; POTASSIUM 4.1 mmol/L (3.5-5.1)
[2017-01-04 15:38] VITALS: BP 133/79
--- NOTE | 2017-01-04 15:44 | HP ---
ADMIT DATE: 01/03/2017 CHIEF COMPLAINT: Seizure-like activity, confusion, slurring of speech. HISTORY OF PRESENT ILLNESS: A 31-year-old male patient with prior history of several comorbid conditions, brought to the hospital by family members with left-sided weakness and slurring of speech. Most of the history obtained from the ER note and family members. Father and mother at bedside. As per the mother, the patient was not responding and noted to have some weakness in the left upper extremity and also his speech has been slurring. A seizure-like activity started around 1 o'clock yesterday and mom saw him around 3:00 p.m. At the time of my examination, he still has some drowsiness; however, he is able to answer questions. He did past medical history. He says he has some tingling sensation in extremities, especially in the left upper extremity and lower extremity. PAST MEDICAL HISTORY, REVIEW OF SYSTEMS, PHYSICAL EXAMINATION: Please see my electronic H and P. LABORATORY FINDINGS: CBC within normal limits. Chemistry within normal limits. Coagulation panel within normal limits. Toxicology, no substance identified. Urinalysis, urine, protein negative, nitrites negative, leukocyte esterase negative. IMAGING STUDIES: Brain MRI, no acute process seen. ASSESSMENT: 1. Suspected recurrent seizures. 2. Left upper extremity weakness with slurring of speech. 3. Prior history of chronic obstructive pulmonary disease. 4. Chronic congestive heart failure. 5. Acute kidney injury due to vasomotor nephropathy. 6. Left upper extremity pain. PLAN: 1. The patient has been admitted to the hospital for seizure prevention and treatment. Currently, I will give him Keppra 1000 mg x 1 and Neurology has been consulted as to seizure precautions. 2. We will get two sets of troponins. EKG not able to review, but as per the ER report, no acute ST-T wave changes seen. 3. Home medications reviewed and reconciled. Continue home medications. 4. Anticipated EEG in the morning. 5. Mild IV hydration, monitor renal functions. 6. Plan discussed with both parents at bedside, they agree with current management. NICOLE ARGUETA MD DR: XU/cecilio JOB#: [id number] / [id number]
--- NOTE | 2017-01-04 16:36 | PDOC2 ---
NEUROLOGY CONSULT Date of Admission Date of Admission DATE: 01/04/17 TIME: 16:22 Reason for Consult Reason for Consult: IMPRESSION: Left UE numbness and weakness and slurred speech. Seizure, non epileptic seizures combine likley. HTN COPD Crohn's disease Hx of TBI Obesity. No evidence of acute CVA this time. RECOMMENDATIONS/PLAN: EEG LTM VEEG maybe needed if has seizures. Lab: see orders. Seizure protocol. Treat medical diseases. Brain MRI: negative for acute CVA. HISTORY OF THE PRESENT ILLNESS: 31-y-ols male patient with above medical diseases developed symptoms of left UE numbness and weakness and slurred speech for 1 day before admission. His speech is at his baseline normal on 01/04, but he stated he still has numbness in his left UE. He siad he has more than 20 seizures a months and AEDs not help. He is not able to privide detailed information about the descriptions of his seizures. PAST MEDICAL HISTORY: Please see above. PAST SURGERY HISTORY: Left Knee surgery. ALLERGY: Reviewed. MEDICATIONS: Refer to [facility] FAMILY HISTORY: CAD SOCIAL HISTORY: Lives at home. Denies current smoking, drinking, and illicit drug use. REVIEW OF SYSTEMS: Constitutional: Obese. Head: Traumatic head injury. Skin: No edema, or rash. Ear: No infection, tinnitus. Eyes: Left eye partial blindness? Nose: No bleeding or purulent discharges. Hearing: No hearing decrease. Neck: No injury. Cardiac: HTN, HLD. Pulmonary: No COPD. GI: Crohn's disease.. Urinary/genital: No dysuria, urinary retention. Endocrinologic: No cousin face, craniofacial dysmorphism, polydactyly. Skeletomuscular: No muscular atrophy, deformity. Neurological: see HP. Psychiatric: Denies drug use/abuse. Otherwise, not [id number] review of systems. PHYSICAL EXAMINATION: General appearance is in no acute distress. HEENT: Normocephalic and nontraumatic. Eyes, nose, ears, and throat are unremarkable. Neck is supple. No lymphadenopathy. No crepitus. Cardiovascular: S1, S2, regular rate and rhythm. Pulmonary: Clear to auscultation bilaterally. Abdomen: Bowel sounds are positive. Extremities: No rash, lesions, or edema. No restriction of range of motion NEUROLOGICAL EXAMINATION: Awake. Oriented to time, place and person. PERRL. EOMI. CN: no focal findings. Muscle tone: within normal. Muscle strength: 5 DTR: 2 Plantar reflex: Flexor response bilaterally Gait: not examined in bed. Sensory exam: no abnormal findings. No acute cerebellar signs elicited. F-T-N test fine. Current Medications Current Medications Current Medications Sodium Chloride (Iv Sodium Chloride 0.9% 1000ml Bag) 1,000 ml @ 1,000 mls/hr 1X ONCE IV Last administered on 01/03/17 17:19; Start 01/03/17 at 17:15; Stop 01/03/17 at 18:14; Status DC Aspirin (Williams Aspirin) 325 mg 1X ONCE PO Last administered on 01/03/17 19:08 ; Start 01/03/17 at 19:00; Stop 01/03/17 at 19:01; Status DC Acetaminophen (Tylenol) 1,000 mg 1X ONCE PO Last administered on 01/03/17 19: 08; Start 01/03/17 at 19:00; Stop 01/03/17 at 19:01; Status DC Ondansetron HCl 4 mg 4 mg PRN Q8HRS PRN IV NAUSEA/VOMITING; Start 01/03/17 at 19:15; Stop 01/04/17 at 19:14 Levetiracetam 1000 mg/Sodium Chloride 110 ml @ 440 mls/hr 1X ONCE IV Last administered on 01/03/17 22:04; Start 01/03/17 at 20:45; Stop 01/03/17 at 20:59 ; Status DC Sodium Chloride (Iv Sodium Chloride 0.9% 1000ml Bag) 1,000 ml @ 100 mls/hr Q10H IV Last administered on 01/04/17 08:53; Start 01/03/17 at 20:45 Ibuprofen (Motrin) 800 mg 1X ONCE PO Last administered on 01/03/17 21:24; Start 01/03/17 at 21:00; Stop 01/03/17 at 21:06; Status DC Albuterol Sulfate (Ventolin Hfa) 2 puff QID INH ; Start 01/04/17 at 09:00; Status UNV Aspirin (Ecotrin) 81 mg DAILY PO Last administered on 01/04/17 08:51; Start at 09:00 Cyanocobalamin (Vitamin B-12) 1,000 mcg WEEKLY IM ; Start 01/10/17 at 09:00 Cyclobenzaprine HCl (Flexeril) 10 mg TID PO Last administered on 01/04/17 16: 18; Start 01/04/17 at 09:00 Acetaminophen/ Hydrocodone Bitart (Lortab 7.5/325) 1 tab PRN Q6HRS PRN PO SEVERE PAIN Last administered on 01/04/17 11:30; Start 01/04/17 at 02:00 Pantoprazole Sodium (Protonix) 40 mg DAILYAC PO Last administered on 01/04/17 08:51; Start 01/04/17 at 07:30 Pregabalin (Lyrica) 75 mg BID PO Last administered on 01/04/17 08:51; Start at 09:00 Topiramate (Topamax) 100 mg TID PO Last administered on 01/04/17 16:18; Start 01/04/17 at 09:00 Cephalexin HCl (Keflex) 500 mg TID PO Last administered on 01/04/17 16:17; Start 01/04/17 at 09:00 Non-Formulary Medication 1 puff BID IH asthma; Start 01/04/17 at 09:00; Status UNV Levetiracetam (Keppra) 1,000 mg BID PO Last administered on 01/04/17 08:50; Start 01/04/17 at 09:00 Meloxicam (Mobic) 15 mg DAILY PO Last administered on 01/04/17 08:51; Start at 09:00 Mesalamine (Pentasa) 750 mg QHS PO ; Start 01/04/17 at 21:00 Nortriptyline HCl (Pamelor) 75 mg QHS PO ; Start 01/04/17 at 21:00 Albuterol Sulfate (Ventolin Neb Soln) 2.5 mg RTQID NEB Last administered on 15:04; Start 01/04/17 at 08:00 Budesonide (Pulmicort) 0.5 mg RTBID NEB Last administered on 01/04/17 08:03; Start 01/04/17 at 08:00 Active Scripts Active Keppra (Levetiracetam) 1,000 Mg Tablet 1 Tab PO BID Doxycycline Hyclate 100 Mg Capsule 1 Cap PO BID Hydrocodone-Apap 7.5-325 (Hydrocodone Bit/Acetaminophen) 1 Each Tablet 1 Tab PO PRN Q6HRS PRN Zofran Odt (Ondansetron) 4 Mg Tab.rapdis 1 Tab SL Q8HRS Reported Cephalexin 500 Mg Capsule 1 Cap PO TID Nortriptyline Hcl 75 Mg Capsule 75 Mg PO HS Mobic (Meloxicam) 15 Mg Tablet 1 Tab PO DAILY Apriso (Mesalamine) 0.375 Gm Cap.er.24h 2 Cap PO HS Cyanocobalamin Injection (Cyanocobalamin (Vitamin B-12)) 1,000 Mcg/1 Ml Vial 1 Ml IM WEEKLY Topamax (Topiramate) 100 Mg Tablet 1 Tab PO TID Meloxicam 15 Mg Tablet 1 Tab PO DAILY Cyclobenzaprine Hcl 10 Mg Tablet 10 Mg PO TID Lyrica (Pregabalin) 75 Mg Capsule 1 Cap PO BID Advair 500-50 Diskus (Fluticasone/Salmeterol) 1 Each Disk.w.dev 1 Puff IH BID Albuterol Sulfate Hfa Inhaler (Albuterol Sulfate) 8.5 Gm Hfa.aer.ad 2 Puff INH QID Protonix (Pantoprazole Sodium) 40 Mg Tablet. 40 Mg PO Aspir 81 (Aspirin) 81 Mg Tablet. 81 Mg PO DAILY Allergies Allergies: Coded Allergies: Penicillins (Verified Allergy, Intermediate, Takes Keflex at home chronically, 05/24/16) Sulfa (Sulfonamide Antibiotics) (Verified Allergy, Intermediate, 05/24/16) Vitals VITALS Vital Signs Date Time Temp Pulse Resp B/P Pulse Ox O2 Delivery O2 Flow Rate FiO2 01/04/17 15:38 97.7 107 20 133/79 95 Room Air 97.7 Labs Labs Laboratory Tests Test 01/03/17 17:05 01/03/17 17:15 01/04/17 00:00 01/04/17 11:11 White Blood Count 12.8x10^3/uL (4.0-11.0) 10.3x10^3/uL (4.0-11.0) Red Blood Count 4.78x10^6/uL (4.30-5.70) 4.89x10^6/uL (4.30-5.70) Hemoglobin 14.6g/dL (13.0-17.5) 15.0g/dL (13.0-17.5) Hematocrit 42.7% (39.0-53.0) 43.9% (39.0-53.0) Mean Corpuscular Volume 89fL (79-100) 90fL (79-100) Mean Corpuscular Hemoglobin 31pg (25-35) 31pg (25-35) Mean Corpuscular Hemoglobin Concent 34g/dL (31-37) 34g/dL (31-37) Red Cell Distribution Width 13.9% (11.5-14.5) 14.0% (11.5-14.5) Platelet Count 286x10^3/uL (140-400) 265x10^3/uL (140-400) Neutrophils (%) (Auto) 74% (31-73) 69% (31-73) Lymphocytes (%) (Auto) 19% (24-48) 25% (24-48) Monocytes (%) (Auto) 5% (0-9) 4% (0-9) Eosinophils (%) (Auto) 1% (0-3) 1% (0-3) Basophils (%) (Auto) 1% (0-3) 0% (0-3) Neutrophils # (Auto) 9.5x10^3uL (1.8-7.7) 7.1x10^3uL (1.8-7.7) Lymphocytes # (Auto) 2.5x10^3/uL (1.0-4.8) 2.6x10^3/uL (1.0-4.8) Monocytes # (Auto) 0.7x10^3/uL (0.0-1.1) 0.4x10^3/uL (0.0-1.1) Eosinophils # (Auto) 0.1x10^3/uL (0.0-0.7) 0.1x10^3/uL (0.0-0.7) Basophils # (Auto) 0.1x10^3/uL (0.0-0.2) 0.0x10^3/uL (0.0-0.2) Prothrombin Time 12.9SEC (11.7-14.0) Prothromb Time International Ratio 1.0 (0.8-1.1) Activated Partial Thromboplast Time 31SEC (24-38) Sodium Level 142mmol/L (136-145) Potassium Level 4.2mmol/L (3.5-5.1) Chloride Level 108mmol/L (98-107) Carbon Dioxide Level 24mmol/L (21-32) Anion Gap 10 (6-14) Blood Urea Nitrogen 23mg/dL (8-26) Creatinine 1.4mg/dL (0.7-1.3) Estimated GFR (Cockcroft-Gault) 59.1 BUN/Creatinine Ratio 16 (6-20) Glucose Level 106mg/dL (70-99) Lactic Acid Level 1.5mmol/L (0.4-2.0) Calcium Level 8.9mg/dL (8.5-10.1) Magnesium Level 2.0mg/dL (1.8-2.4) Total Bilirubin 0.2mg/dL (0.2-1.0) Aspartate Amino Transf (AST/SGOT) 12U/L (15-37) Alanine Aminotransferase (ALT/SGPT) 25U/L (16-63) Alkaline Phosphatase 101U/L (46-116) Ammonia 13mcmol/L (11-34) Creatine Kinase 44U/L (39-308) Creatine Kinase MB (Mass) < 0.5ng/mL (0.0-3.6) Creatine Kinase MB Relative Index % (0-4) Troponin I Quantitative < 0.017ng/mL (0.000-0.055) < 0.017ng/mL (0.000-0.055) XU-Ofe-D-Type Natriuretic Peptide 7pg/mL (0-124) Total Protein 7.3g/dL (6.4-8.2) Albumin 3.6g/dL (3.4-5.0) Albumin/Globulin Ratio 1.0 (1.0-1.7) Urine Collection Type Unknown Urine Color Yellow Urine Clarity Clear Urine pH 7.0 Urine Specific [place] 1.015 Urine Protein Negativemg/dL (NEG-TRACE) Urine Glucose (UA) Negativemg/dL (NEG) Urine Ketones (Stick) Negativemg/dL (NEG) Urine Blood Negative (NEG) Urine Nitrite Negative (NEG) Urine Bilirubin Negative (NEG) Urine Urobilinogen Dipstick 0.2mg/dL (0.2 mg/dL) Urine Leukocyte Esterase Negative (NEG) Urine RBC Rare/HPF (0-2) Urine WBC 0/HPF (0-4) Urine Squamous Epithelial Cells Few/LPF Urine Bacteria 0/HPF (0-FEW) Urine Mucus Slight/LPF Urine Opiates Screen Neg (NEG) Urine Methadone Screen Neg (NEG) Urine Barbiturates Neg (NEG) Urine Phencyclidine Screen Neg (NEG) Urine Amphetamine/Methamphetamine Neg (NEG) Urine Benzodiazepines Screen Neg (NEG) Urine Cocaine Screen Neg (NEG) Urine Cannabinoids Screen Neg (NEG) Urine Ethyl Alcohol Neg (NEG) Test 01/04/17 11:12 Sodium Level 141mmol/L (136-145) Potassium Level 4.1mmol/L (3.5-5.1) Chloride Level 108mmol/L (98-107) Carbon Dioxide Level 22mmol/L (21-32) Anion Gap 11 (6-14) Blood Urea Nitrogen 20mg/dL (8-26) Creatinine 1.1mg/dL (0.7-1.3) Estimated GFR (Cockcroft-Gault) 78.1 Glucose Level 85mg/dL (70-99) Calcium Level 8.5mg/dL (8.5-10.1) Troponin I Quantitative < 0.017ng/mL (0.000-0.055) Thyroid Stimulating Hormone (TSH) 1.079uIU/mL (0.358-3.74) Laboratory Tests Test 01/03/17 17:05 01/03/17 17:15 01/04/17 00:00 01/04/17 11:11 White Blood Count 12.8x10^3/uL (4.0-11.0) 10.3x10^3/uL (4.0-11.0) Red Blood Count 4.78x10^6/uL (4.30-5.70) 4.89x10^6/uL (4.30-5.70) Hemoglobin 14.6g/dL (13.0-17.5) 15.0g/dL (13.0-17.5) Hematocrit 42.7% (39.0-53.0) 43.9% (39.0-53.0) Mean Corpuscular Volume 89fL (79-100) 90fL (79-100) Mean Corpuscular Hemoglobin 31pg (25-35) 31pg (25-35) Mean Corpuscular Hemoglobin Concent 34g/dL (31-37) 34g/dL (31-37) Red Cell Distribution Width 13.9% (11.5-14.5) 14.0% (11.5-14.5) Platelet Count 286x10^3/uL (140-400) 265x10^3/uL (140-400) Neutrophils (%) (Auto) 74% (31-73) 69% (31-73) Lymphocytes (%) (Auto) 19% (24-48) 25% (24-48) Monocytes (%) (Auto) 5% (0-9) 4% (0-9) Eosinophils (%) (Auto) 1% (0-3) 1% (0-3) Basophils (%) (Auto) 1% (0-3) 0% (0-3) Neutrophils # (Auto) 9.5x10^3uL (1.8-7.7) 7.1x10^3uL (1.8-7.7) Lymphocytes # (Auto) 2.5x10^3/uL (1.0-4.8) 2.6x10^3/uL (1.0-4.8) Monocytes # (Auto) 0.7x10^3/uL (0.0-1.1) 0.4x10^3/uL (0.0-1.1) Eosinophils # (Auto) 0.1x10^3/uL (0.0-0.7) 0.1x10^3/uL (0.0-0.7) Basophils # (Auto) 0.1x10^3/uL (0.0-0.2) 0.0x10^3/uL (0.0-0.2) Prothrombin Time 12.9SEC (11.7-14.0) Prothromb Time International Ratio 1.0 (0.8-1.1) Activated Partial Thromboplast Time 31SEC (24-38) Sodium Level 142mmol/L (136-145) Potassium Level 4.2mmol/L (3.5-5.1) Chloride Level 108mmol/L (98-107) Carbon Dioxide Level 24mmol/L (21-32) Anion Gap 10 (6-14) Blood Urea Nitrogen 23mg/dL (8-26) Creatinine 1.4mg/dL (0.7-1.3) Estimated GFR (Cockcroft-Gault) 59.1 BUN/Creatinine Ratio 16 (6-20) Glucose Level 106mg/dL (70-99) Lactic Acid Level 1.5mmol/L (0.4-2.0) Calcium Level 8.9mg/dL (8.5-10.1) Magnesium Level 2.0mg/dL (1.8-2.4) Total Bilirubin 0.2mg/dL (0.2-1.0) Aspartate Amino Transf (AST/SGOT) 12U/L (15-37) Alanine Aminotransferase (ALT/SGPT) 25U/L (16-63) Alkaline Phosphatase 101U/L (46-116) Ammonia 13mcmol/L (11-34) Creatine Kinase 44U/L (39-308) Creatine Kinase MB (Mass) < 0.5ng/mL (0.0-3.6) Creatine Kinase MB Relative Index % (0-4) Troponin I Quantitative < 0.017ng/mL (0.000-0.055) < 0.017ng/mL (0.000-0.055) TB-Uff-T-Type Natriuretic Peptide 7pg/mL (0-124) Total Protein 7.3g/dL (6.4-8.2) Albumin 3.6g/dL (3.4-5.0) Albumin/Globulin Ratio 1.0 (1.0-1.7) Urine Collection Type Unknown Urine Color Yellow Urine Clarity Clear Urine pH 7.0 Urine Specific [place] 1.015 Urine Protein Negativemg/dL (NEG-TRACE) Urine Glucose (UA) Negativemg/dL (NEG) Urine Ketones (Stick) Negativemg/dL (NEG) Urine Blood Negative (NEG) Urine Nitrite Negative (NEG) Urine Bilirubin Negative (NEG) Urine Urobilinogen Dipstick 0.2mg/dL (0.2 mg/dL) Urine Leukocyte Esterase Negative (NEG) Urine RBC Rare/HPF (0-2) Urine WBC 0/HPF (0-4) Urine Squamous Epithelial Cells Few/LPF Urine Bacteria 0/HPF (0-FEW) Urine Mucus Slight/LPF Urine Opiates Screen Neg (NEG) Urine Methadone Screen Neg (NEG) Urine Barbiturates Neg (NEG) Urine Phencyclidine Screen Neg (NEG) Urine Amphetamine/Methamphetamine Neg (NEG) Urine Benzodiazepines Screen Neg (NEG) Urine Cocaine Screen Neg (NEG) Urine Cannabinoids Screen Neg (NEG) Urine Ethyl Alcohol Neg (NEG) Test 01/04/17 11:12 Sodium Level 141mmol/L (136-145) Potassium Level 4.1mmol/L (3.5-5.1) Chloride Level 108mmol/L (98-107) Carbon Dioxide Level 22mmol/L (21-32) Anion Gap 11 (6-14) Blood Urea Nitrogen 20mg/dL (8-26) Creatinine 1.1mg/dL (0.7-1.3) Estimated GFR (Cockcroft-Gault) 78.1 Glucose Level 85mg/dL (70-99) Calcium Level 8.5mg/dL (8.5-10.1) Troponin I Quantitative < 0.017ng/mL (0.000-0.055) Thyroid Stimulating Hormone (TSH) 1.079uIU/mL (0.358-3.74) KATARZYNA SCHULTE MD Jan 04, 2017 16:36
--- NOTE | 2017-01-04 17:49 | EEG ---
DATE OF SERVICE: 01/04/2017 EEG NUMBER: [id number]. OBJECTIVE: This is a 31-year-old male patient with history of seizure. He stated that he had frequent seizures more than 20 seizures a month. EEG was requested to evaluate seizure activity. METHODS: Twenty electrodes were applied according to the international 10-20 electrode placement system. EKG monitoring, hyperventilation, intermittent photic stimulation, and monopolar and bipolar montages are routinely utilized. The record was obtained on a digital system with video monitoring. FINDINGS: 1. Background: The patient was recorded in the awake, drowsy, and sleep states. The overall background amplitude is 10-20 microvolts. A posterior dominant rhythm of 8-10 Hz is observed. 2. Abnormalities: No specific epileptiform discharge or electrographic seizure is seen. No diffuse slowing. 3. Activation: Hyperventilation was performed with good efforts and normal response. Intermittent photic stimulation was performed with photic driving. No specific epileptiform discharge or electrographic seizure induced. IMPRESSION: This EEG is within the broad normal limits of the study for the awake, drowsy, and sleep states. No focal, lateralizing, specific epileptiform discharge, or electrographic seizure is seen. However, a normal EEG does not rule out seizure. KATARZYNA SCHULTE MD DR: BLAS/cecilio JOB#: [id number] / [id number] JACE
[2017-01-04 19:00] VITALS: BP 117/73
[2017-01-04] MEDS ORDERED: NORTRIPTYLINE 25 MG CAPSULE PO SCH (21:00)
[2017-01-04] MEDS ORDERED: MESALAMINE ER 250 MG CAPSULE.ER PO SCH (21:00)
[2017-01-04 22:51] VITALS: BP 129/72
[2017-01-05] MEDS: HYDROCODONE/APAP 7.5/325MG TABLET. PO PRN ×2 (00:45→09:19)
[2017-01-05] MEDS: IV NORMAL SALINE 1000ML BAG 1,000 ML IV SCH ×2 (02:45→12:50)
[2017-01-05 03:00] VITALS: BP 123/76
[2017-01-05] MEDS: ALBUTEROL SULFATE 2.5 MG/3 ML NEBU. NEB SCH ×3 (06:17→15:41)
[2017-01-05] MEDS: BUDESONIDE 0.5 MG/2 ML NEBU. NEB SCH (06:17)
[2017-01-05 07:32] VITALS: BP 119/69
[2017-01-05] MEDS: CEPHALEXIN 250 MG CAPSULE. PO SCH ×2 (07:37→15:27)
[2017-01-05] MEDS: CYCLOBENZAPRINE 10 MG TABLET. PO SCH ×2 (07:38→15:27)
[2017-01-05] MEDS: PANTOPRAZOLE 40 MG TABLET.DR. PO SCH (07:38)
[2017-01-05] MEDS: PREGABALIN 75 MG CAPSULE PO SCH (07:38)
[2017-01-05] MEDS: TOPIRAMATE 100 MG TABLET. PO SCH ×2 (07:38→15:27)
[2017-01-05] MEDS: ASPIRIN ENTERIC COATED 81 MG TABLET.DR. PO SCH (07:38)
[2017-01-05] MEDS: LEVETIRACETAM 500 MG TABLET. PO SCH (07:39)
[2017-01-05] MEDS: MELOXICAM 7.5 MG TABLET PO SCH (07:39)
[2017-01-05 11:02] VITALS: BP 118/69
[2017-01-05 14:59] VITALS: BP 129/67
--- NOTE | 2017-01-05 16:05 | PDOC ---
PROGRESS NOTES Assessment Assessment Left UE numbness and weakness and slurred speech. Seizure, non epileptic seizures combined likely. HTN COPD Crohn's disease Hx of TBI Obesity. No evidence of acute CVA this time. RECOMMENDATIONS/PLAN: Continue his current AEDs Keppra and Topamax. Seizure protocol. Treat medical diseases. FU with PCP. No deriving x 6 months any time if has seizure or seizure like episodes. LTM VEEG as outpatient basis. Brain MRI: negative for acute CVA. EEG on 01/04: Normal. No seizure activity. HISTORY OF THE PRESENT ILLNESS: 31-y-old male patient with above medical diseases developed symptoms of left UE numbness and weakness and slurred speech for 1 day before admission. His speech is at his baseline normal on 01/04, but he stated he still has numbness in his left UE. He said he has more than 20 seizures a months and AEDs not help. He is not able to privide detailed information about the descriptions of his seizures. No seizure since in the hospital. PAST MEDICAL HISTORY: Please see above. PAST SURGERY HISTORY: Left Knee surgery. ALLERGY: Reviewed. MEDICATIONS: Refer to [facility] FAMILY HISTORY: CAD SOCIAL HISTORY: Lives at home. Denies current smoking, drinking, and illicit drug use. REVIEW OF SYSTEMS: Constitutional: Obese. Head: Traumatic head injury. Skin: No edema, or rash. Ear: No infection, tinnitus. Eyes: Left eye partial blindness? Nose: No bleeding or purulent discharges. Hearing: No hearing decrease. Neck: No injury. Cardiac: HTN, HLD. Pulmonary: No COPD. GI: Crohn's disease.. Urinary/genital: No dysuria, urinary retention. Endocrinologic: No cousin face, craniofacial dysmorphism, polydactyly. Skeletomuscular: No muscular atrophy, deformity. Neurological: see HP. Psychiatric: Denies drug use/abuse. Otherwise, not [id number] review of systems. PHYSICAL EXAMINATION: General appearance is in no acute distress. HEENT: Normocephalic and nontraumatic. Eyes, nose, ears, and throat are unremarkable. Neck is supple. No lymphadenopathy. No crepitus. Cardiovascular: S1, S2, regular rate and rhythm. Pulmonary: Clear to auscultation bilaterally. Abdomen: Bowel sounds are positive. Extremities: No rash, lesions, or edema. No restriction of range of motion NEUROLOGICAL EXAMINATION: Awake. Oriented to time, place and person. PERRL. EOMI. CN: no focal findings. Muscle tone: within normal. Muscle strength: 5 DTR: 2 Plantar reflex: Flexor response bilaterally Gait: not examined in bed. Sensory exam: no abnormal findings. No acute cerebellar signs elicited. F-T-N test fine. Objective Objective Vital Signs Date Time Temp Pulse Resp B/P Pulse Ox O2 Delivery O2 Flow Rate FiO2 01/05/17 15:41 99 Room Air 01/05/17 14:59 98.3 109 20 129/67 98.3 Intake and Output 01/05/17 07:00 Intake Total 1500 ml Output Total 4900 ml Balance -3400 ml Intake Oral 1500 ml Output Urine Total 4900 ml Vitals Signs Vitals VS - Last 72 Hours, by Label Date Time Temp Pulse Resp B/P Pulse Ox O2 Delivery O2 Flow Rate FiO2 01/05/17 15:41 99 Room Air 01/05/17 14:59 98.3 109 20 129/67 96 Room Air 98.3 01/05/17 12:43 93 Room Air 01/05/17 11:08 95 Room Air 01/05/17 11:02 98.2 91 20 118/69 95 Room Air 98.2 01/05/17 09:19 Room Air 01/05/17 07:41 Room Air 01/05/17 07:32 98.1 91 20 119/69 98 Room Air 98.1 01/05/17 06:25 99 Room Air 01/05/17 06:24 99 Room Air 01/05/17 03:00 98.0 102 20 123/76 95 Room Air 98.0 01/05/17 00:45 Room Air 01/04/17 22:51 98.9 118 21 129/72 94 Room Air 98.9 01/04/17 20:49 99 Room Air 01/04/17 20:00 Room Air 01/04/17 19:00 97.9 116 21 117/73 96 Nasal Cannula 97.9 01/04/17 17:50 20 Room Air 01/04/17 15:38 97.7 107 20 133/79 95 Room Air 97.7 01/04/17 15:05 Room Air 01/04/17 12:30 20 01/04/17 11:40 97.5 105 20 126/71 97 Room Air 97.5 01/04/17 11:30 20 Room Air 01/04/17 11:00 Room Air 01/04/17 08:06 98 Room Air 01/04/17 08:00 Room Air 01/04/17 07:06 97.9 75 20 122/72 98 Room Air 97.9 Medication Medications Current Medications Cyanocobalamin (Vitamin B-12) 1,000 mcg WEEKLY IM ; Start 01/10/17 at 09:00 Mesalamine (Pentasa) 750 mg QHS PO Last administered on 01/04/17 20:15; Start 01/04/17 at 21:00 Nortriptyline HCl (Pamelor) 75 mg QHS PO Last administered on 01/04/17 20:15; Start 01/04/17 at 21:00 Comment Review of Relevant I have reviewed the following items ganesh (where applicable) has been applied. KATARZYNA SCHULTE MD Jan 05, 2017 16:05
[2017-01-10] MEDS ORDERED: CYANOCOBALAMIN (VITAMIN B-12) 1,000 MCG/ML VIAL IM SCH (09:00)
== END 2017-01-05 16:40 | disposition home or self-care (01) | DRG 100 ==
LOC: ER 16:22 → 6 SOUTH 18:00
PROVIDERS: ADMIT Internal Medicine; ATTEND Internal Medicine
DX: G40.409 Other generalized epilepsy and epileptic syndromes, not intractable, without status epilepticus (principal); N17.0 Acute kidney failure with tubular necrosis; K50.90 Crohn's disease, unspecified, without complications; Z68.41 Body mass index [BMI] 40.0-44.9, adult; E66.9 Obesity, unspecified; F32.9 Major depressive disorder, single episode, unspecified; H54.42 Blindness, left eye, normal vision right eye; I11.0 Hypertensive heart disease with heart failure; I48.91 Unspecified atrial fibrillation; I50.9 Heart failure, unspecified; D64.9 Anemia, unspecified; F41.9 Anxiety disorder, unspecified; F17.220 Nicotine dependence, chewing tobacco, uncomplicated; R47.81 Slurred speech; J44.9 Chronic obstructive pulmonary disease, unspecified; K21.9 Gastro-esophageal reflux disease without esophagitis; Z82.49 Family history of ischemic heart disease and other diseases of the circulatory system; Z86.73 Personal history of transient ischemic attack (TIA), and cerebral infarction without residual deficits; I25.2 Old myocardial infarction; Z88.1 Allergy status to other antibiotic agents; Z88.0 Allergy status to penicillin; Z88.2 Allergy status to sulfonamides
CPT/HCPCS: 36415; 70551; 80048; 80053; 81001; 82140; 82553; 82607; 83605; 83735; 83880; 84443; 84484; 85027; 85610; 85730; 93005; 94250; 94640; 94760; 95816; 96360; 96361; G0481; J1953; J7030; 99285-25

== ENCOUNTER 2017-01-28 04:14 | Inpatient (IN) | payer SELFPAY ==
[~2017-01-28] VITALS: Ht 180.3 cm; Wt 133.8 kg
[~2017-01-28 04:14] MED LIST changes: +MELO15TA6 PO
[2017-01-28] MEDS ORDERED: IV NORMAL SALINE 1000ML BAG 1,000 ML IV ONE (04:45)
[2017-01-28 05:04] LABS: BASO # 0.1 x10^3/uL (0.0-0.2); BASO % 1 % (0-3); EOS % 2 % (0-3); HEMATOCRIT 42.7 % (39.0-53.0); LYMPH # 3.1 x10^3/uL (1.0-4.8); LYMPH % 24 % (24-48); MEAN CORPUSCULAR HEMOGLOBIN 32 pg (25-35); MEAN CORPUSCULAR HGB CONC 35 g/dL (31-37); MEAN CORPUSCULAR VOLUME 90 fL (79-100); MONO % 7 % (0-9); NEUT % 67 % (31-73); PLATELET COUNT 262 x10^3/uL (140-400); RED BLOOD COUNT 4.75 x10^6/uL (4.30-5.70); WHITE BLOOD COUNT 13.1 x10^3/uL (4.0-11.0)
[2017-01-28 05:24] LABS: CALCIUM 9.2 mg/dL (8.5-10.1); CREATININE 1.3 mg/dL (0.7-1.3); GFR 64.4
[2017-01-28 05:26] LABS: BARBITURATES NEG (NEG); BENZODIAZEPINES NEG (NEG); CANNABINOIDS NEG (NEG); COCAINE NEG (NEG); METHADONE NEG (NEG); OPIATES NEG (NEG); PHENCYCLIDINE NEG (NEG)
--- NOTE | 2017-01-28 05:27 | ED.ADGEN ---
Past Medical History Past Medical History: Anxiety, CHF, COPD, CVA, Depression, GERD, Hypertension, VA, Seizure, TIA, Other Additional Past Medical Histor: pericarditis, Crohns, partial blind L eye, pyloric stenosis,MULT HEAD INJURY Past Surgical History: Other Additional Past Surgical Histo: LEFT KNEE SX, PYLORIC STENOSIS SX Alcohol Use: Rarely Drug Use: None Adult General Chief Complaint Chief Complaint: SEIZURE HPI HPI Patient is a 31 year old man, history of seizure disorder, hypertension, CHF, CAD, VA, CVA, who presents presents to the emergency department with a complaint of 10 grand mal seizures that occurred since yesterday morning. Patient states that he struck his head against the chest of drawers in his room twice, the second time was shortly before arrival in the emergency department via EMS, per report he was experiencing loss of consciousness for an unclear amount of time, he is complaining of headache and neck pain. Denies any focal weakness, numbness or tingling, complaining of mild nausea but no vomiting, states he also is expressing intermittent chest pain, and cough. States he has been compliant with all of his antiseizure medications. He follows with Dr. Jauregui neurology but has not informed her of these multiple seizures experienced today. He states previously he had been experiencing good control of his seizures. Cannot name any possible inciting factors, no recent injuries, no drugs, alcohol or cigarettes, no recent travel or increased stress. No recent travel or surgery, history of DVT or PE, no fevers or chills. Review of Systems Review of Systems Constitutional: Denies fever or chills. [] Eyes: Denies change in visual acuity. [] HENT: Denies nasal congestion or sore throat. [] Respiratory: Denies cough or shortness of breath. [] Cardiovascular: Denies chest pain or edema. [] GI: Denies abdominal pain, nausea, vomiting, bloody stools or diarrhea. [] : Denies dysuria. [] Musculoskeletal: Denies back pain or joint pain. [] Neck pain. Integument: Denies rash. [] Neurologic: Denies focal weakness or sensory changes. Headache. Recurrent seizures. Endocrine: Denies polyuria or polydipsia. [] Lymphatic: Denies swollen glands. [] Psychiatric: Denies depression or anxiety. [] Current Medications Current Medications Current Medications Medications (Trade) Dose Ordered Sig/Linda Start Time Stop Time Status Last Admin Dose Admin Acetaminophen (Tylenol) 650 mg 1X ONCE 01/28/17 05:45 01/28/17 05:46 DC 01/28/17 05:46 650 MG Sodium Chloride 1,000 ml @ 1,000 mls/hr 1X ONCE 01/28/17 04:45 01/28/17 05:44 DC 01/28/17 04:56 1,000 MLS/HR Allergies Allergies Allergies Coded Allergies Type Severity Reaction Last Updated Verified Penicillins Allergy Intermediate Takes Keflex at home chronically 05/24/16 Yes Sulfa (Sulfonamide Antibiotics) Allergy Intermediate 05/24/16 Yes Physical Exam Physical Exam Constitutional: Well developed, well nourished, no acute distress, non-toxic appearance. [] C-collar in place. HENT: Normocephalic, atraumatic, bilateral external ears normal, oropharynx moist, no oral exudates, nose normal. [] Eyes: PERRLA, EOMI, conjunctiva normal, no discharge. [] Neck: Normal range of motion, no tenderness, supple, no stridor. [] Cardiovascular:Heart rate regular rhythm, no murmur, S1, S2, rubs or gallops. [] Lungs & Thorax: Bilateral breath sounds clear to auscultation, no wheezing, rhonchi, rales. No chest or crepitus or tenderness. [] Abdomen: Bowel sounds normal, soft, mild initial patient in the epigastric region, no rebound, rigidity, no guarding, no masses, no pulsatile masses. [] Skin: Warm, dry, no erythema, no rash. [] Back: No tenderness, no CVA tenderness. [] Extremities: No tenderness, no cyanosis, no clubbing, ROM intact, no edema. [] Neurologic: Alert and oriented X 3, normal motor function, normal sensory function, no focal deficits noted. [] Psychologic: Affect normal, judgement normal, mood normal. [] Current Patient Data Vital Signs Vital Signs Date Time Temp Pulse Resp B/P (MAP) Pulse Ox O2 Delivery O2 Flow Rate FiO2 01/28/17 06:00 86 15 124/76 (92) 94 Room Air 01/28/17 04:25 97.9 97.9 Lab Values Laboratory Tests Test 01/28/17 04:40 01/28/17 05:10 White Blood Count 13.1 x10^3/uL (4.0-11.0) H Red Blood Count 4.75 x10^6/uL (4.30-5.70) Hemoglobin 15.0 g/dL (13.0-17.5) Hematocrit 42.7 % (39.0-53.0) Mean Corpuscular Volume 90 fL (79-100) Mean Corpuscular Hemoglobin 32 pg (25-35) Mean Corpuscular Hemoglobin Concent 35 g/dL (31-37) Red Cell Distribution Width 14.0 % (11.5-14.5) Platelet Count 262 x10^3/uL (140-400) Neutrophils (%) (Auto) 67 % (31-73) Lymphocytes (%) (Auto) 24 % (24-48) Monocytes (%) (Auto) 7 % (0-9) Eosinophils (%) (Auto) 2 % (0-3) Basophils (%) (Auto) 1 % (0-3) Neutrophils # (Auto) 8.8 x10^3uL (1.8-7.7) H Lymphocytes # (Auto) 3.1 x10^3/uL (1.0-4.8) Monocytes # (Auto) 0.9 x10^3/uL (0.0-1.1) Eosinophils # (Auto) 0.3 x10^3/uL (0.0-0.7) Basophils # (Auto) 0.1 x10^3/uL (0.0-0.2) Sodium Level 141 mmol/L (136-145) Potassium Level 4.0 mmol/L (3.5-5.1) Chloride Level 105 mmol/L (98-107) Carbon Dioxide Level 24 mmol/L (21-32) Anion Gap 12 (6-14) Blood Urea Nitrogen 23 mg/dL (8-26) Creatinine 1.3 mg/dL (0.7-1.3) Estimated GFR (Cockcroft-Gault) 64.4 BUN/Creatinine Ratio 18 (6-20) Glucose Level 90 mg/dL (70-99) Lactic Acid Level 1.1 mmol/L (0.4-2.0) Calcium Level 9.2 mg/dL (8.5-10.1) Total Bilirubin 0.3 mg/dL (0.2-1.0) Aspartate Amino Transferase (AST) 18 U/L (15-37) Alanine Aminotransferase (ALT) 37 U/L (16-63) Alkaline Phosphatase 95 U/L (46-116) Troponin I Quantitative < 0.017 ng/mL (0.000-0.055) JJ-Nmg-A-Type Natriuretic Peptide < 5 pg/mL (0-124) Total Protein 7.3 g/dL (6.4-8.2) Albumin 3.7 g/dL (3.4-5.0) Albumin/Globulin Ratio 1.0 (1.0-1.7) Urine Opiates Screen Neg (NEG) Urine Methadone Screen Neg (NEG) Urine Barbiturates Neg (NEG) Urine Phencyclidine Screen Neg (NEG) Urine Amphetamine/Methamphetamine Neg (NEG) Urine Benzodiazepines Screen Neg (NEG) Urine Cocaine Screen Neg (NEG) Urine Cannabinoids Screen Neg (NEG) Urine Ethyl Alcohol Neg (NEG) Laboratory Tests 01/28/17 04:40 Laboratory Tests 01/28/17 04:40 EKG EKG EC: Sinus rhythm, heart rate 80 beats minute, upright axis, QTC of 437, KS 140, QRS of 98, no ST elevations or depressions, moderate baseline artifact noted, does not meet STEMI criteria. As interpreted by me. [] Radiology/Procedures Radiology/Procedures [][facility] [address] [address] IMAGING REPORT Signed PATIENT: LAUREANO JONES ACCOUNT: [id number] : 1985 LOCATION: ER AGE: 31 SEX: M EXAM STATUS: REG ER ORD. PHYSICIAN: AMANDA HIDALGO DO REASON: SZ/LOC/fall/AMRIEE/Neck pain PROCEDURE: CT HEAD AND CERVICAL SPINE WO PROCEDURE CT head without contrast. CT cervical spine without contrast. HISTORY Seizure, loss of consciousness, syncope, headache, neck pain, fall trauma TECHNIQUE Exposure: One or more of the following individualized dose reduction techniques were utilized for this exam: 1. Automated exposure control. 2. Adjustment of the mA and/or kV according to patient size. 3. Use of iterative reconstruction technique. [address] imaging skullbase to vertex. Helical noncontrast CT imaging of the cervical spine. COMPARISON CT head and cervical spine December 28, [address] Head: No intracranial hemorrhage, mass, hydrocephalus, extra-axial fluid collections or infarction. No acute ischemic changes evident. No brain atrophy or brain swelling evident, the brain volume is stable to the prior study. Orbits, mastoids, paranasal sinuses and bones are unremarkable. CT cervical spine: Sub centimeter sclerotic lesion at the C2 body likely a bone island. Craniocervical junction intact. Cervical vertebral body height and alignment intact. No fracture of the cervical spine. Lung apices and paraspinal tissues are unremarkable. IMPRESSION CT Head: No acute intracranial CT abnormality. CT cervical spine: No acute osseous injury of the cervical spine. Electronically signed by: Noel Arnold MD (January 28, 2017 05:36:07) DICTATED and SIGNED BY: NOEL ARNOLD MD DATE: 01/28/17 0536 CC: AMANDA HIDALGO DO; LOBO WILLIAMSON PA ~ Chest x-ray: One view: Suboptimal respiratory effort, patient with top normal cardia silhouette with straightening left heart border, no discrete infiltrates , effusions, pneumothorax, soft tissue or bony abnormalities identified. As interpreted by me. Course & Med Decision Making Course & Med Decision Making Pertinent Labs and Imaging studies reviewed. (See chart for details) With patient's reported sudden change in seizure activity, and type of headache , with multiple head injuries yesterday, and neck pain, collar was placed and patient received imaging of the head and neck after discussion with patient and family at bedside. Imaging did not reveal any evidence of concerning findings, and c-collar was cleared without issue. Patient received Tylenol for his headache. Laboratory studies were unremarkable. Findings as above were discussed with the patient's neurologist, Dr. Jauregui, as stated patient states she' s been compliant with his medications. Dr. camejo states that she will see him in the hospital for continued evaluation of a seizure disorder. Patient was ordered his oral medications, as he is swallowing without difficulty, and neurologic status is at baseline. He is agreeable for admission to the hospital for continued evaluation as stated. Findings as above discussed with Dr. Swan of internal medicine, patient accepted to her service as a full admission to the medical telemetry floor with neurology consultation as stated. Bridge orders entered per discussion. Dragon Disclaimer Dragon Disclaimer This electronic medical record was generated, in whole or in part, using a voice recognition dictation system. Departure Impression: Primary Impression: Seizure Additional Impression: Headache Disposition: ADMITTED INPATIENT Admitting Physician: Anthony Swan Condition: IMPROVED Problem Qualifiers AMANDA HIDALGO DO January 28, 2017 05:27
[2017-01-28 05:30] LABS: ALBUMIN 3.7 g/dL (3.4-5.0); TOTAL BILIRUBIN 0.3 mg/dL (0.2-1.0); TOTAL PROTEIN 7.3 g/dL (6.4-8.2)
--- NOTE | 2017-01-28 05:37 | RAD ---
PROCEDURE CT head without contrast. CT cervical spine without contrast. HISTORY Seizure, loss of consciousness, syncope, headache, neck pain, fall trauma TECHNIQUE Exposure: One or more of the following individualized dose reduction techniques were utilized for this exam: 1. Automated exposure control. 2. Adjustment of the mA and/or kV according to patient size. 3. Use of iterative reconstruction technique. [address] imaging skullbase to vertex. Helical noncontrast CT imaging of the cervical spine. COMPARISON CT head and cervical spine December 28, [address] Head: No intracranial hemorrhage, mass, hydrocephalus, extra-axial fluid collections or infarction. No acute ischemic changes evident. No brain atrophy or brain swelling evident, the brain volume is stable to the prior study. Orbits, mastoids, paranasal sinuses and bones are unremarkable. CT cervical spine: Sub centimeter sclerotic lesion at the C2 body likely a bone island. Craniocervical junction intact. Cervical vertebral body height and alignment intact. No fracture of the cervical spine. Lung apices and paraspinal tissues are unremarkable. IMPRESSION CT Head: No acute intracranial CT abnormality. CT cervical spine: No acute osseous injury of the cervical spine. Electronically signed by: Nino Arnold MD (January 28, 2017 05:36:07)
[2017-01-28] MEDS ORDERED: ACETAMINOPHEN 325 MG TABLET. PO ONE (05:45)
--- NOTE | 2017-01-28 06:22 | ACF ---
Admission Forms Criteria SEIZURE Clinical Indications for Admission to Inpatient Care (Place 'X' for any and all applicable criteria): Admission is indicated for seizure and ANY ONE of the following(1)(2)(3)(4)(5): [X]I. Inpatient admission required rather than observation care (Also use Seizure: Observation Care Criteria as appropriate) because of ANY ONE of the following: [ ]a) Altered mental status that is severe or persistent [ ]b) New focal neurologic deficit that is severe or persistent [ ]c) Metabolic disorder (eg, hypoglycemia, hyponatremia) that is severe or persistent [X]d) Recurrent seizure [ ]e) Outpatient antiseizure regimen cannot be established (eg , patient cannot tolerate medication, initiation requires inpatient care) [ ]f) Need for ongoing intravenous infusion of antiseizure medication [ ]g) Cardiac arrhythmias of immediate concern [ ]h) Cerebral bleeding, hydrocephalus, or vasospasm monitoring (14) [ ]i) Increased intracranial pressure or cerebral edema monitoring (15) [ ]j) Other treatment or monitoring requiring inpatient admission [ ]II. Status epilepticus [A] or repetitive seizures not controlled with emergent treatment (6)(8) [ ]III. Brain disorder (eg, tumor, edema, and hydrocephalus) that requiring monitoring or intervention available only at inpatient level of care. [ ]IV. Brain insult (eg, severe trauma, stroke, drug toxicity, or withdrawal) that requires monitoring or intervention available only at inpatient level of care (10)(11) Extended stay beyond goal length of stay may be needed for (22) [ ]a) Complications of status epilepticus [ ]b) Refractory status epilepticus [ ]c) Etiology-specific therapy for conditions such as [employer] infection, head injury,eclampsia, severe metabolic abnormalities, and brain tumor [ ]d) Residual neurologic damage, [ ]e) Initiation of significant change to anticonvulsant treatment [ ]f) Older patients (65 years or older) [ ]g) Patient requiring intubation (eg, to protect airway) The original [employer] [facility] content created by [employer] has been revised. The portions of the content which have been revised are identified through the use of italic text or in bold, and [facility] [employer] has neither reviewed nor approved the modified material. All other unmodified content is copyright [facility] [employer] Please see references footnoted in the original [facility] edition 2016 Admission Criteria Met?: Yes VADIM RICH January 28, 2017 06:22
[2017-01-28] MEDS ORDERED: ACETAMINOPHEN 325 MG TABLET. PO PRN (06:45)
[2017-01-28 07:00] VITALS: BP 108/74
[2017-01-28] MEDS ORDERED: ONDANSETRON PF 4 MG/2 ML VIAL. IV PRN ×2 (07:00→09:29)
--- NOTE | 2017-01-28 07:50 | RAD ---
Indication: Chest pain, seizure Technique: Upright portable chest radiograph was obtained. Comparison is from December 26, 2016. Findings: There is minimal atelectasis in the left lung base. The lungs otherwise are clear. The cardiopulmonary silhouette is within normal limits. The bony structures are intact. Impression: Minimal atelectasis in the left lung base.
[2017-01-28] MEDS: levETIRAcetam 500 MG TABLET PO SCH ×2 (08:08→21:20)
[2017-01-28] MEDS: PANTOPRAZOLE 40 MG TABLET.DR. PO SCH (08:08)
[2017-01-28] MEDS: TOPIRAMATE 100 MG TABLET. PO SCH ×3 (08:09→21:20)
[2017-01-28] MEDS: PREGABALIN 75 MG CAPSULE PO SCH ×2 (08:09→21:20)
[2017-01-28] MEDS: IV NORMAL SALINE 1000ML BAG 1,000 ML IV SCH ×2 (08:10→15:00)
[2017-01-28] MEDS ORDERED: ONDANSETRON ODT 4 MG TAB.RAPDIS. PO PRN (09:30)
--- NOTE | 2017-01-28 09:38 | PDOC1 ---
History and Physical Date of Admission Date of Admission DATE: 01/28/17 TIME: 09:32 Identification/Chief Complaint Chief Complaint sz, 10 episodes in 24-30 hr period Problems: Source Source: Caregiver, Chart review, Patient History of Present Illness History of Present Illness 31 y.o [place] male who has had sz x 3 yrs now, started when he went septic from recurrent R LE cellulitis. HAd sz, 10 episodes in 24-30 hr period, yesterday, hence the admit. HIt his head in a chest of drawers, no obvious injury. SZ described as GTC, claims compliance to AEDs, follows with Shania Larsen, Headache now, slightly drowsy likely from BZ at ER, no extra AED given at ER, just his home meds continued. Sounds like his SZ is not controlled, last episode prior to this one was last month. CT head and CT c spine is neg Past Medical History Cardiovascular: AFIB, CHF, HTN, Other Pulmonary: Asthma, COPD CENTRAL NERVOUS SYSTEM: Seizure GI: GERD, Inflam bowel disease Heme/Onc: Anemia NOS Hepatobiliary: No pertinent hx Psych: Anxiety, Depression Musculoskeletal: low back pain, Osteoarthritis, Other Rheumatologic: No pertinent hx Infectious disease: Other Renal/: No pertinent hx Endocrine: Other Past Surgical History Past Surgical History: Other (left leg.knee sx - cellulitis?) Family History Family History: Coronary Artery Disease Social History Smoke: No ALCOHOL: none Drugs: None Current Problem List Problem List Problems Medical Problems: (1) Headache Status: Acute (2) Seizure Status: Acute Problems: Current Medications Current Medications Current Medications Sodium Chloride 1,000 ml @ 1,000 mls/hr 1X ONCE IV Last administered on 04:56; Start 01/28/17 at 04:45; Stop 01/28/17 at 05:44; Status DC Acetaminophen (Tylenol) 650 mg 1X ONCE PO Last administered on 01/28/17 05:46 ; Start 01/28/17 at 05:45; Stop 01/28/17 at 05:46; Status DC Ondansetron HCl (Zofran) 4 mg PRN Q8HRS PRN IV NAUSEA/VOMITING; Start 01/28/17 at 07:00; Stop 01/29/17 at 06:59 Sodium Chloride 1,000 ml @ 125 mls/hr Q8H IV Last administered on 01/28/17 08 :10; Start 01/28/17 at 07:00; Stop 01/29/17 at 06:59 Acetaminophen (Tylenol) 650 mg PRN Q4HRS PRN PO FEVER; Start 01/28/17 at 06:45 ; Stop 01/29/17 at 06:44 Levetiracetam (Keppra) 1,000 mg BID PO Last administered on 01/28/17 08:08; Start 01/28/17 at 09:00 Topiramate (Topamax) 100 mg TID PO Last administered on 01/28/17 08:09; Start 01/28/17 at 09:00 Pregabalin (Lyrica) 75 mg BID PO Last administered on 01/28/17 08:09; Start at 09:00 Pantoprazole Sodium (Protonix) 40 mg DAILYAC PO Last administered on 01/28/17 08:08; Start 01/28/17 at 07:30 Active Scripts Active Keppra (Levetiracetam) 1,000 Mg Tablet 1 Tab PO BID Doxycycline Hyclate 100 Mg Capsule 1 Cap PO BID Hydrocodone-Apap 7.5-325 (Hydrocodone Bit/Acetaminophen) 1 Each Tablet 1 Tab PO PRN Q6HRS PRN Zofran Odt (Ondansetron) 4 Mg Tab.rapdis 1 Tab SL Q8HRS Reported Cephalexin 500 Mg Capsule 1 Cap PO TID Nortriptyline Hcl 75 Mg Capsule 75 Mg PO HS Mobic (Meloxicam) 15 Mg Tablet 1 Tab PO DAILY Apriso (Mesalamine) 0.375 Gm Cap.er.24h 2 Cap PO HS Cyanocobalamin Injection (Cyanocobalamin (Vitamin B-12)) 1,000 Mcg/1 Ml Vial 1 Ml IM WEEKLY Topamax (Topiramate) 100 Mg Tablet 1 Tab PO TID Meloxicam 15 Mg Tablet 1 Tab PO DAILY Cyclobenzaprine Hcl 10 Mg Tablet 10 Mg PO TID Lyrica (Pregabalin) 75 Mg Capsule 1 Cap PO BID Advair 500-50 Diskus (Fluticasone/Salmeterol) 1 Each Disk.w.dev 1 Puff IH BID Albuterol Sulfate Hfa Inhaler (Albuterol Sulfate) 8.5 Gm Hfa.aer.ad 2 Puff INH QID Protonix (Pantoprazole Sodium) 40 Mg Tablet.dr 40 Mg PO Aspir 81 (Aspirin) 81 Mg Tablet.dr 81 Mg PO DAILY Allergies Allergies: Coded Allergies: Penicillins (Verified Allergy, Intermediate, Takes Keflex at home chronically, 05/24/16) Sulfa (Sulfonamide Antibiotics) (Verified Allergy, Intermediate, 05/24/16) ROS General: YES: Other (headachem weak, sore all over, exhausted) PSYCHOLOGICAL ROS: No: Anxiety, Behavioral Disorder, Concentration difficultie , Decreased libido, Depression, Disorientation, Hallucinations, Hostility, Irritablity, Memory difficulties, Mood Swings, Obsessive thoughts, Physical abuse, Sexual abuse, Sleep disturbances, Suicidal ideation, Other Eyes: No Blurry vision, No Decreased vision, No Double vision, No Dry eyes, No Excessive tearing, No Eye Pain, No Itchy Eyes, No Loss of vision, No Photophobia , No Scotomata, No Uses contacts, No Uses glasses, No Other HEENT: YES: Heacaches, No: Visual Changes, Hearing change, Nasal congestion, Nasal discharge, Oral lesions, Sinus pain, Sore Throat, Epistaxis, Sneezing, Snoring, Tinnitus, Vertigo, Vocal changes, Other ALLERGY AND IMMUNOLOGY: No: Hives, Insect Bite Sensitivity, Itchy/Watery Eyes, Nasal Congestion, Post Nasal Drip, Seasonal Allergies, Other Hematological and Lymphatic: No: Bleeding Problems, Blood Clots, Blood Transfusions, Brusing, Night Sweats, Pallor, Swollen Lymph Nodes, Other ENDOCRINE: No: Breast Changes, Galactorrhea, Hair Pattern Changes, Hot Flashes , Malaise/lethargy, Mood Swings, Palpitations, Polydipsia/polyuria, Skin Changes , Temperature Intolerance, Unexpected Weight Changes, Other Breast: No New/Changing Breast Lumps, No Nipple changes, No Nipple discharge, No Other Respiratory: No: Cough, Hemoptysis, Orthopnea, Pleuritic Pain, Shortness of breath, SOB with excertion, Sputum Changes, Stridor, Tachypnea, Wheezing, Other Cardiovascular: No Chest Pain, No Palpitations, No Orthopnea, No Paroxysmal Noc. Dyspnea, No Edema, No Lt Headedness, No Other Gastrointestinal: No Nausea, No Vomiting, No Abdominal Pain, No Diarrhea, No Constipation, No Melena, No Hematochezia, No Other Genitourinary: No Dysuria, No Frequency, No Incontinence, No Hematuria, No Retention, No Discharge, No Urgency, No Pain, No Flank Pain, No Other, No , No , No , No , No , No , No Musculoskeletal: No Gait Disturbance, No Joint Pain, No Joint Stiffness, No Joint Swelling, No Muscle Pain, No Muscular Weakness, No Pain In:, No Swelling In:, No Other Neurological: No Behavorial Changes, No Bowel/Bladder ControlChng, No Confusion , No Dizziness, No Gait Disturbance, No Headaches, No Impaired Coord/balance, No Memory Loss, No Numbness/Tingling, No Seizures, No Speech Problems, No Tremors, No Visual Changes, No Weakness, No Other Skin: No Dry Skin, No Eczema, No Hair Changes, No Lumps, No Mole Changes, No Mottling, No Nail Changes, No Pruritus, No Rash, No Skin Lesion Changes, No Other, No Acne Physical Exam General: Alert, Oriented X3, Cooperative, Other (mildly drowsy from meds) HEENT: PERRLA Lungs: Clear to auscultation, Normal air movement Heart: S1S2, RRR, no thrills, no rubs, no gallops Cardiovascular: S1, S2 Breasts: Normal, Rt breast nml w/o mass, Lt breast nml w/o mass, Nipples normal Abdomen: Normal bowel sounds, Soft, No tenderness, No hepatosplenomegaly, No masses Male Genitals Exam: normal genitalia, normal prostate Rectal Exam: not examined, mass PELVIC: Nml ext genitalia Extremities: No clubbing, No cyanosis, No edema, Normal pulses, No tenderness/ swelling Skin: No rashes, No breakdown, No significant lesion Neuro: Normal gait, Normal speech, Strength at 5/5 X4 ext, Normal tone, Sensation intact, Cranial nerves 3-12 NL, Reflexes 2+ Psych/Mental Status: Mental status NL, Mood NL Vitals Vitals Vital Signs Date Time Temp Pulse Resp B/P (MAP) Pulse Ox O2 Delivery O2 Flow Rate FiO2 01/28/17 07:00 97.7 88 16 108/74 (85) 98 Room Air 97.7 Labs Labs Laboratory Tests Test 01/28/17 04:40 01/28/17 05:10 White Blood Count 13.1 x10^3/uL (4.0-11.0) Red Blood Count 4.75 x10^6/uL (4.30-5.70) Hemoglobin 15.0 g/dL (13.0-17.5) Hematocrit 42.7 % (39.0-53.0) Mean Corpuscular Volume 90 fL (79-100) Mean Corpuscular Hemoglobin 32 pg (25-35) Mean Corpuscular Hemoglobin Concent 35 g/dL (31-37) Red Cell Distribution Width 14.0 % (11.5-14.5) Platelet Count 262 x10^3/uL (140-400) Neutrophils (%) (Auto) 67 % (31-73) Lymphocytes (%) (Auto) 24 % (24-48) Monocytes (%) (Auto) 7 % (0-9) Eosinophils (%) (Auto) 2 % (0-3) Basophils (%) (Auto) 1 % (0-3) Neutrophils # (Auto) 8.8 x10^3uL (1.8-7.7) Lymphocytes # (Auto) 3.1 x10^3/uL (1.0-4.8) Monocytes # (Auto) 0.9 x10^3/uL (0.0-1.1) Eosinophils # (Auto) 0.3 x10^3/uL (0.0-0.7) Basophils # (Auto) 0.1 x10^3/uL (0.0-0.2) Sodium Level 141 mmol/L (136-145) Potassium Level 4.0 mmol/L (3.5-5.1) Chloride Level 105 mmol/L (98-107) Carbon Dioxide Level 24 mmol/L (21-32) Anion Gap 12 (6-14) Blood Urea Nitrogen 23 mg/dL (8-26) Creatinine 1.3 mg/dL (0.7-1.3) Estimated GFR (Cockcroft-Gault) 64.4 BUN/Creatinine Ratio 18 (6-20) Glucose Level 90 mg/dL (70-99) Lactic Acid Level 1.1 mmol/L (0.4-2.0) Calcium Level 9.2 mg/dL (8.5-10.1) Total Bilirubin 0.3 mg/dL (0.2-1.0) Aspartate Amino Transf (AST/SGOT) 18 U/L (15-37) Alanine Aminotransferase (ALT/SGPT) 37 U/L (16-63) Alkaline Phosphatase 95 U/L (46-116) Troponin I Quantitative < 0.017 ng/mL (0.000-0.055) AP-Kqd-O-Type Natriuretic Peptide < 5 pg/mL (0-124) Total Protein 7.3 g/dL (6.4-8.2) Albumin 3.7 g/dL (3.4-5.0) Albumin/Globulin Ratio 1.0 (1.0-1.7) Urine Opiates Screen Neg (NEG) Urine Methadone Screen Neg (NEG) Urine Barbiturates Neg (NEG) Urine Phencyclidine Screen Neg (NEG) Urine Amphetamine/Methamphetamine Neg (NEG) Urine Benzodiazepines Screen Neg (NEG) Urine Cocaine Screen Neg (NEG) Urine Cannabinoids Screen Neg (NEG) Urine Ethyl Alcohol Neg (NEG) Laboratory Tests Test 01/28/17 04:40 01/28/17 05:10 White Blood Count 13.1 x10^3/uL (4.0-11.0) Red Blood Count 4.75 x10^6/uL (4.30-5.70) Hemoglobin 15.0 g/dL (13.0-17.5) Hematocrit 42.7 % (39.0-53.0) Mean Corpuscular Volume 90 fL (79-100) Mean Corpuscular Hemoglobin 32 pg (25-35) Mean Corpuscular Hemoglobin Concent 35 g/dL (31-37) Red Cell Distribution Width 14.0 % (11.5-14.5) Platelet Count 262 x10^3/uL (140-400) Neutrophils (%) (Auto) 67 % (31-73) Lymphocytes (%) (Auto) 24 % (24-48) Monocytes (%) (Auto) 7 % (0-9) Eosinophils (%) (Auto) 2 % (0-3) Basophils (%) (Auto) 1 % (0-3) Neutrophils # (Auto) 8.8 x10^3uL (1.8-7.7) Lymphocytes # (Auto) 3.1 x10^3/uL (1.0-4.8) Monocytes # (Auto) 0.9 x10^3/uL (0.0-1.1) Eosinophils # (Auto) 0.3 x10^3/uL (0.0-0.7) Basophils # (Auto) 0.1 x10^3/uL (0.0-0.2) Sodium Level 141 mmol/L (136-145) Potassium Level 4.0 mmol/L (3.5-5.1) Chloride Level 105 mmol/L (98-107) Carbon Dioxide Level 24 mmol/L (21-32) Anion Gap 12 (6-14) Blood Urea Nitrogen 23 mg/dL (8-26) Creatinine 1.3 mg/dL (0.7-1.3) Estimated GFR (Cockcroft-Gault) 64.4 BUN/Creatinine Ratio 18 (6-20) Glucose Level 90 mg/dL (70-99) Lactic Acid Level 1.1 mmol/L (0.4-2.0) Calcium Level 9.2 mg/dL (8.5-10.1) Total Bilirubin 0.3 mg/dL (0.2-1.0) Aspartate Amino Transf (AST/SGOT) 18 U/L (15-37) Alanine Aminotransferase (ALT/SGPT) 37 U/L (16-63) Alkaline Phosphatase 95 U/L (46-116) Troponin I Quantitative < 0.017 ng/mL (0.000-0.055) QV-Klw-P-Type Natriuretic Peptide < 5 pg/mL (0-124) Total Protein 7.3 g/dL (6.4-8.2) Albumin 3.7 g/dL (3.4-5.0) Albumin/Globulin Ratio 1.0 (1.0-1.7) Urine Opiates Screen Neg (NEG) Urine Methadone Screen Neg (NEG) Urine Barbiturates Neg (NEG) Urine Phencyclidine Screen Neg (NEG) Urine Amphetamine/Methamphetamine Neg (NEG) Urine Benzodiazepines Screen Neg (NEG) Urine Cocaine Screen Neg (NEG) Urine Cannabinoids Screen Neg (NEG) Urine Ethyl Alcohol Neg (NEG) VTE Prophylaxis Ordered VTE Prophylaxis Devices: Yes VTE Pharmacological Prophylaxi: Yes Assessment/Plan Assessment/Plan 1. Status epilepticus 2. Astham stable 3. Obesity 4. HTN 5. Recurrent hx LE cellulitis, R 6. Hx sepsis PLAN: Admit 2 [place] Neuro consult SZ prec BZ prn Fall prec Admit to a room close to RN station Ny for diet Resume home meds Can check Keppra levels Follow neuro recs Ibuprofen for headache Dw pt and RN DEE LEAL MD January 28, 2017 09:38
[2017-01-28 10:00] VITALS: BP 140/54
[2017-01-28] MEDS: CEPHALEXIN 250 MG CAPSULE. PO SCH ×2 (11:37→17:32)
[2017-01-28] MEDS: IBUPROFEN 600 MG TABLET. PO PRN ×2 (11:37→17:59)
[2017-01-28] MEDS ORDERED: ALBUTEROL SULFATE 2.5 MG/3 ML NEBU. NEB SCH (12:00)
[2017-01-28] MEDS ORDERED: ALBUTEROL SULFATE 8GM INHALER. INH SCH (13:00)
[2017-01-28] MEDS: CYCLOBENZAPRINE 10 MG TABLET. PO SCH ×2 (13:28→21:20)
[2017-01-28] MEDS ORDERED: NON FORMULARY ITEM (Cephalexin 1 CAP) PO SCH (14:00)
--- NOTE | 2017-01-28 14:46 | EKG ---
[facility] [address] [place] [address] Test Date: 2017-01-28 Test Time: 04:58:05 Pat Name: LAUREANO JONES Department: Room: 534 1 Gender: M Skin Grader: TY : 1985 Requested By: AMANDA HIDALGO Order Number: [id number] Reading MD: Jenny Sherwood Measurements Intervals Hulbert Rate: 88 P: 31 WY: 148 QRS: 21 QRSD: 98 T: 31 QT: 358 QTc: 437 Interpretive Statements SINUS RHYTHM NORMAL EKG Electronically Signed On 01-29-2017 21:29:32 CDT by Jenny Sherwood
[2017-01-28 15:00] VITALS: BP 128/77
[2017-01-28 19:00] VITALS: BP 130/83
[2017-01-28] MEDS ORDERED: BUDESONIDE 0.5 MG/2 ML NEBU. NEB SCH (20:00)
[2017-01-28] MEDS ORDERED: MESALAMINE ER 250 MG CAPSULE.ER PO SCH (21:00)
[2017-01-28] MEDS ORDERED: NON FORMULARY ITEM (Fluticasone/Salmeterol (Advair 500-50 Diskus) 1 PUFF) IH SCH (21:00)
[2017-01-28] MEDS ORDERED: NORTRIPTYLINE 25 MG CAPSULE PO SCH (21:00)
[2017-01-28] MEDS ORDERED: NON FORMULARY ITEM (Doxycycline Hyclate 1 CAP) PO SCH (21:00)
[2017-01-28] MEDS: HYDROcodone/APAP 7.5/325MG 1 TAB TABLET PO PRN (21:23)
[2017-01-28 23:00] VITALS: BP 101/70
[2017-01-29] MEDS: CEPHALEXIN 250 MG CAPSULE. PO SCH ×3 (00:12→11:00)
[2017-01-29] MEDS: IV NORMAL SALINE 1000ML BAG 1,000 ML IV SCH (01:48)
[2017-01-29 03:00] VITALS: BP 104/52
[2017-01-29] MEDS: HYDROcodone/APAP 7.5/325MG 1 TAB TABLET PO PRN (04:41)
[2017-01-29 07:15] VITALS: BP 121/70
[2017-01-29] MEDS: CYCLOBENZAPRINE 10 MG TABLET. PO SCH (08:23)
[2017-01-29] MEDS: PREGABALIN 75 MG CAPSULE PO SCH (08:23)
[2017-01-29] MEDS: levETIRAcetam 500 MG TABLET PO SCH (08:23)
[2017-01-29] MEDS: PANTOPRAZOLE 40 MG TABLET.DR. PO SCH (08:23)
[2017-01-29] MEDS: TOPIRAMATE 100 MG TABLET. PO SCH (08:23)
[2017-01-29] MEDS ORDERED: ASPIRIN ENTERIC COATED 81 MG TABLET.DR. PO SCH (09:00)
[2017-01-29 11:00] VITALS: BP 137/74
[2017-01-29] MEDS: IBUPROFEN 600 MG TABLET. PO PRN (11:01)
--- NOTE | 2017-01-29 12:14 | PDOC ---
PROGRESS NOTES Chief Complaint Chief Complaint 1. Seizure 2. AFIB 3. CHF 4. HTN, 5. Asthma 6. COPD 7. GERD 8. Inflam bowel disease 9. Anemia NOS 10. Anxiety/Depression 11. Osteoarthritis/low back pain History of Present Illness History of Present Illness Patient seen this am in NAD. Patient mentioned that Neuro wanted to do a 24 hr EEG. Discussed with patient if Neuro agrees, we can D/C. Patient understands plan of action. Vitals Vitals Vital Signs Date Time Temp Pulse Resp B/P (MAP) Pulse Ox O2 Delivery O2 Flow Rate FiO2 01/29/17 08:00 Room Air 01/29/17 07:15 97.5 97 18 121/70 (87) 98 97.5 Physical Exam General: Alert, Oriented X3, Cooperative, Other (mildly drowsy from meds) Heart: Regular rate, Normal S1, Normal S2 Lungs: Clear Abdomen: Normal bowel sounds, Soft, No tenderness, No hepatosplenomegaly, No masses Extremities: No clubbing, No cyanosis, No edema, Normal pulses, No tenderness/ swelling Skin: No rashes, No breakdown, No significant lesion Labs LABS Laboratory Tests Test 01/28/17 14:48 Troponin I Quantitative < 0.017 ng/mL (0.000-0.055) Review of Systems Review of Systems No fever No rashes No diarrhea/vomiting Assessment and Plan Assessmemt and Plan Problems Medical Problems: (1) Headache Status: Acute (2) Seizure Status: Acute 3. AFIB 4. CHF 5. HTN, 6. Asthma 7. COPD 8. GERD 9. Inflam bowel disease 10. Anemia NOS 11. Anxiety/Depression 12. Osteoarthritis/low back pain Plan: -Continue current medications and adjust accordingly as needed. -Continue speciality consultation. -Outpatient EEG. -Poss. D/C today (01/29/17) if specialities agree. -If not D/C today (01/29/17), begin PT/OT. Problems: Comment Review of Relevant I have reviewed the following items ganesh (where applicable) has been applied. Labs Laboratory Tests Test 01/28/17 04:40 01/28/17 05:10 01/28/17 10:45 01/28/17 14:48 White Blood Count 13.1 x10^3/uL (4.0-11.0) Red Blood Count 4.75 x10^6/uL (4.30-5.70) Hemoglobin 15.0 g/dL (13.0-17.5) Hematocrit 42.7 % (39.0-53.0) Mean Corpuscular Volume 90 fL (79-100) Mean Corpuscular Hemoglobin 32 pg (25-35) Mean Corpuscular Hemoglobin Concent 35 g/dL (31-37) Red Cell Distribution Width 14.0 % (11.5-14.5) Platelet Count 262 x10^3/uL (140-400) Neutrophils (%) (Auto) 67 % (31-73) Lymphocytes (%) (Auto) 24 % (24-48) Monocytes (%) (Auto) 7 % (0-9) Eosinophils (%) (Auto) 2 % (0-3) Basophils (%) (Auto) 1 % (0-3) Neutrophils # (Auto) 8.8 x10^3uL (1.8-7.7) Lymphocytes # (Auto) 3.1 x10^3/uL (1.0-4.8) Monocytes # (Auto) 0.9 x10^3/uL (0.0-1.1) Eosinophils # (Auto) 0.3 x10^3/uL (0.0-0.7) Basophils # (Auto) 0.1 x10^3/uL (0.0-0.2) Sodium Level 141 mmol/L (136-145) Potassium Level 4.0 mmol/L (3.5-5.1) Chloride Level 105 mmol/L (98-107) Carbon Dioxide Level 24 mmol/L (21-32) Anion Gap 12 (6-14) Blood Urea Nitrogen 23 mg/dL (8-26) Creatinine 1.3 mg/dL (0.7-1.3) Estimated GFR (Cockcroft-Gault) 64.4 BUN/Creatinine Ratio 18 (6-20) Glucose Level 90 mg/dL (70-99) Lactic Acid Level 1.1 mmol/L (0.4-2.0) Calcium Level 9.2 mg/dL (8.5-10.1) Total Bilirubin 0.3 mg/dL (0.2-1.0) Aspartate Amino Transf (AST/SGOT) 18 U/L (15-37) Alanine Aminotransferase (ALT/SGPT) 37 U/L (16-63) Alkaline Phosphatase 95 U/L (46-116) Troponin I Quantitative < 0.017 ng/mL (0.000-0.055) < 0.017 ng/mL (0.000-0.055) < 0.017 ng/mL (0.000-0.055) XD-Cus-N-Type Natriuretic Peptide < 5 pg/mL (0-124) Total Protein 7.3 g/dL (6.4-8.2) Albumin 3.7 g/dL (3.4-5.0) Albumin/Globulin Ratio 1.0 (1.0-1.7) Urine Opiates Screen Neg (NEG) Urine Methadone Screen Neg (NEG) Urine Barbiturates Neg (NEG) Urine Phencyclidine Screen Neg (NEG) Urine Amphetamine/Methamphetamine Neg (NEG) Urine Benzodiazepines Screen Neg (NEG) Urine Cocaine Screen Neg (NEG) Urine Cannabinoids Screen Neg (NEG) Urine Ethyl Alcohol Neg (NEG) Laboratory Tests Test 01/28/17 14:48 Troponin I Quantitative < 0.017 ng/mL (0.000-0.055) Medications Current Medications Sodium Chloride 1,000 ml @ 1,000 mls/hr 1X ONCE IV Last administered on 04:56; Start 01/28/17 at 04:45; Stop 01/28/17 at 05:44; Status DC Acetaminophen (Tylenol) 650 mg 1X ONCE PO Last administered on 01/28/17 05:46 ; Start 01/28/17 at 05:45; Stop 01/28/17 at 05:46; Status DC Ondansetron HCl (Zofran) 4 mg PRN Q8HRS PRN IV NAUSEA/VOMITING; Start 01/28/17 at 07:00; Stop 01/28/17 at 09:31; Status DC Sodium Chloride 1,000 ml @ 125 mls/hr Q8H IV Last administered on 01/29/17 01 :48; Start 01/28/17 at 07:00; Stop 01/29/17 at 06:59; Status DC Acetaminophen (Tylenol) 650 mg PRN Q4HRS PRN PO FEVER; Start 01/28/17 at 06:45 ; Stop 01/29/17 at 06:44; Status DC Levetiracetam (Keppra) 1,000 mg BID PO Last administered on 01/29/17 08:23; Start 01/28/17 at 09:00 Topiramate (Topamax) 100 mg TID PO Last administered on 01/29/17 08:23; Start 01/28/17 at 09:00 Pregabalin (Lyrica) 75 mg BID PO Last administered on 01/29/17 08:23; Start at 09:00 Pantoprazole Sodium (Protonix) 40 mg DAILYAC PO Last administered on 01/29/17 08:23; Start 01/28/17 at 07:30 Ondansetron HCl (Zofran) 4 mg PRN Q6HRS PRN IV NAUSEA/VOMITING; Start 01/28/17 at 09:29; Stop 01/29/17 at 09:28; Status DC Ibuprofen (Motrin) 600 mg PRN Q6HRS PRN PO INFLAMMATION Last administered on 11:01; Start 01/28/17 at 09:30 Albuterol Sulfate (Ventolin Hfa) 2 puff QID INH ; Start 01/28/17 at 13:00; Stop 01/28/17 at 13:00; Status DC Aspirin (Ecotrin) 81 mg DAILY PO Last administered on 01/29/17 08:22; Start at 09:00 Cyanocobalamin (Vitamin B-12) 1,000 mcg WEEKLY IM ; Start 02/04/17 at 09:00 Cyclobenzaprine HCl (Flexeril) 10 mg TID PO Last administered on 01/29/17 08: 23; Start 01/28/17 at 14:00 Acetaminophen/ Hydrocodone Bitart (Lortab 7.5/325) 1 tab PRN Q6HRS PRN PO PAIN Last administered on 01/29/17 04:41; Start 01/28/17 at 09:30 Ondansetron HCl (Zofran Odt) 4 mg PRN Q8HRS PRN PO n/v; Start 01/28/17 at 09:30 Non-Formulary Medication 1 cap TID PO ; Start 01/28/17 at 14:00; Stop 01/28/17 at 14:00; Status DC Non-Formulary Medication 1 cap BID PO ; Start 01/28/17 at 21:00; Stop 01/28/17 at 21:00; Status DC Non-Formulary Medication 1 puff BID IH ; Start 01/28/17 at 21:00; Stop 01/28/17 at 21:00; Status DC Mesalamine (Pentasa) 750 mg QHS PO Last administered on 01/28/17 21:20; Start 01/28/17 at 21:00 Nortriptyline HCl (Pamelor) 75 mg QHS PO Last administered on 01/28/17 21:19; Start 01/28/17 at 21:00 Cephalexin HCl (Keflex) 1,000 mg Q6HRS PO Last administered on 01/29/17 11:00 ; Start 01/28/17 at 12:00 Albuterol Sulfate (Ventolin Neb Soln) 2.5 mg Q6HRS NEB ; Start 01/28/17 at 12:00 Budesonide (Pulmicort) 0.5 mg RTBID NEB ; Start 01/28/17 at 20:00 Active Scripts Active Keppra (Levetiracetam) 1,000 Mg Tablet 1 Tab PO BID Doxycycline Hyclate 100 Mg Capsule 1 Cap PO BID Hydrocodone-Apap 7.5-325 (Hydrocodone Bit/Acetaminophen) 1 Each Tablet 1 Tab PO PRN Q6HRS PRN Zofran Odt (Ondansetron) 4 Mg Tab.rapdis 1 Tab SL Q8HRS Reported Cephalexin 500 Mg Capsule 1 Cap PO TID Nortriptyline Hcl 75 Mg Capsule 75 Mg PO HS Mobic (Meloxicam) 15 Mg Tablet 1 Tab PO DAILY Apriso (Mesalamine) 0.375 Gm Cap.er.24h 2 Cap PO HS Cyanocobalamin Injection (Cyanocobalamin (Vitamin B-12)) 1,000 Mcg/1 Ml Vial 1 Ml IM WEEKLY Topamax (Topiramate) 100 Mg Tablet 1 Tab PO TID Meloxicam 15 Mg Tablet 1 Tab PO DAILY Cyclobenzaprine Hcl 10 Mg Tablet 10 Mg PO TID Lyrica (Pregabalin) 75 Mg Capsule 1 Cap PO BID Advair 500-50 Diskus (Fluticasone/Salmeterol) 1 Each Disk.w.dev 1 Puff IH BID Albuterol Sulfate Hfa Inhaler (Albuterol Sulfate) 8.5 Gm Hfa.aer.ad 2 Puff INH QID Protonix (Pantoprazole Sodium) 40 Mg Tablet.dr 40 Mg PO Aspir 81 (Aspirin) 81 Mg Tablet.dr 81 Mg PO DAILY Vitals/I & O Vital Sign - Last 24 Hours 01/28/17 01/28/17 01/28/17 01/28/17 15:00 19:00 21:23 22:20 Temp 97.7 97.7 97.7 97.7 Pulse 98 90 Resp 18 18 20 20 B/P (MAP) 128/77 (94) 130/83 (99) Pulse Ox 95 95 O2 Delivery Room Air Room Air Room Air Room Air 01/28/17 01/29/17 01/29/17 01/29/17 23:00 03:00 04:41 07:15 Temp 97.7 97.5 97.5 97.7 97.5 97.5 Pulse 60 94 97 Resp 18 18 B/P (MAP) 101/70 (80) 104/52 (69) 121/70 (87) Pulse Ox 96 97 98 O2 Delivery Room Air Room Air Room Air Room Air 01/29/17 08:00 O2 Delivery Room Air Intake and Output 01/28/17 01/28/17 01/29/17 15:00 23:00 07:00 Intake Total 250 ml 250 ml 1192 ml Output Total 600 ml 1900 ml Balance 250 ml -350 ml -708 ml MARIE NUÑEZ III DO January 29, 2017 12:14
--- NOTE | 2017-01-29 14:39 | PDOC ---
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 HTN HLD Obesity. RECOMMENDATIONS/PLAN: LTM VEEG. He has been taken Keppra and Topamax. His MRI on 09/04/16 was negative. Normal EEG in previous hospitalization. FU with PCP. FU with Psychiatry. FU with Dr. Ovalles or Dr. Vazquez ( He was seen by Dr. Hurtado in past). No driving x 6 months anytime after a seizure or seizure like episode. EEG on 09/14/16: Normal. HISTORY OF THE PRESENT ILLNESS: 31-y-old male patient with Hx of seizure or seizure like episodes was previously evaluated at [facility]. He had LTM VEEG for 9 days about 3 to 4 years ago in [facility] and he had several seizure or seizure like episodes captured on LTM VEEG , but no epileptiform discharge or electrographic seizure shown. He stated he has been treated with Keppra and Topamax and he though Topamax helped his shaking like movements in hands. No detailed information is available about why he has been on AEDs, but he was told after 9 days LTM VEEG monitoring in [facility] that he was not thought to have epileptic seizure, except he had seizure like events. His seizures were described as shaking like movements can be multiple times a day or free for weeks. PAST MEDICAL HISTORY: Please see above. PAST SURGERY HISTORY: Knee surgery ALLERGY: Unknown MEDICATIONS: Refer to [facility] HISTORY: Non contributory. SOCIAL HISTORY: Lives at home. He was a former smoker and drinker but quit about 6 years ago REVIEW OF SYSTEMS: Constitutional: No malnutrition, weight loss, cachexia. Head: No traumatic brain or head injury. Skin: No edema, or rash. Ear: No infection, tinnitus. Eyes: No vision loss or color blindness. Nose: No bleeding or purulent discharges. Hearing: No hearing decrease. Neck: No injury. Breast: No history of cancer, masses,or discharges. Cardiac: HTN, HLD. Pulmonary: No COPD. GI: No GI ulcer, GI bleeding. Urinary/genital: No dysuria, hematuria, incontinence, urinary retention. Endocrinologic: obesity. Skeletomuscular: No muscular atrophy, deformity. Neurological: see HP. Psychiatric: Denies drug use/abuse. Otherwise, not [id number] review of systems. PHYSICAL EXAMINATION: General appearance is in no acute distress. HEENT: Normocephalic and nontraumatic. Eyes, nose, ears, and throat are unremarkable. Neck is supple. No lymphadenopathy. No bruits are heard over the carotid artery. No crepitus. Cardiovascular: S1, S2, regular rate and rhythm. Pulmonary: Clear to auscultation bilaterally. Abdomen: Bowel sounds are positive. Abdomen is soft, nontender, and nondistended. Extremities: No rash, lesions, or edema. No restriction of range of motion NEUROLOGICAL EXAMINATION: Alert Oriented to time, place and person. PERRL. EOMI. CN: no focal findings. Muscle tone: within normal. Muscle strength: 5 DTR: 2 Plantar reflex: Flexor response bilaterally Gait: At baseline normal. Sensory exam: no abnormal findings. No cerebellar signs elicited. F-T-N test accurate. Objective Objective Vital Signs Date Time Temp Pulse Resp B/P (MAP) Pulse Ox O2 Delivery O2 Flow Rate FiO2 01/29/17 11:00 97.5 95 19 137/74 (95) 97 Room Air 97.5 Intake and Output 01/29/17 06:59 Intake Total 1692 ml Output Total 2500 ml Balance -808 ml Intake Oral 500 ml IV Total 1192 ml Output Urine Total 2500 ml Vitals Signs Vitals VS - Last 72 Hours, by Label Date Time Temp Pulse Resp B/P (MAP) Pulse Ox O2 Delivery O2 Flow Rate FiO2 01/29/17 11:00 97.5 95 19 137/74 (95) 97 Room Air 97.5 01/29/17 08:00 Room Air 01/29/17 07:15 97.5 97 18 121/70 (87) 98 Room Air 97.5 01/29/17 04:41 20 Room Air 01/29/17 03:00 97.5 94 18 104/52 (69) 97 Room Air 97.5 01/28/17 23:00 97.7 60 18 101/70 (80) 96 Room Air 97.7 01/28/17 22:20 20 Room Air 01/28/17 21:23 20 Room Air 01/28/17 19:00 97.7 90 18 130/83 (99) 95 Room Air 97.7 01/28/17 15:00 97.7 98 18 128/77 (94) 95 Room Air 97.7 01/28/17 10:00 97.9 95 17 140/54 (82) 98 Room Air 97.9 01/28/17 07:00 97.7 88 16 108/74 (85) 98 Room Air 97.7 Laboratory Laboratory Laboratory Tests Test 01/28/17 14:48 Troponin I Quantitative < 0.017 ng/mL (0.000-0.055) Medication Medications Current Medications Aspirin (Ecotrin) 81 mg DAILY PO Last administered on 01/29/17 08:22; Start at 09:00; Stop 01/29/17 at 13:21; Status DC Budesonide (Pulmicort) 0.5 mg RTBID NEB ; Start 01/28/17 at 20:00; Stop at 13:21; Status DC Cyanocobalamin (Vitamin B-12) 1,000 mcg WEEKLY IM ; Start 02/04/17 at 09:00; Stop 02/04/17 at 09:00; Status DC Mesalamine (Pentasa) 750 mg QHS PO Last administered on 01/28/17 21:20; Start 01/28/17 at 21:00; Stop 01/29/17 at 13:21; Status DC Non-Formulary Medication 1 cap BID PO ; Start 01/28/17 at 21:00; Stop 01/28/17 at 21:00; Status DC Non-Formulary Medication 1 puff BID IH ; Start 01/28/17 at 21:00; Stop 01/28/17 at 21:00; Status DC Nortriptyline HCl (Pamelor) 75 mg QHS PO Last administered on 01/28/17 21:19; Start 01/28/17 at 21:00; Stop 01/29/17 at 13:21; Status DC Comment Review of Relevant I have reviewed the following items ganesh (where applicable) has been applied. KATARZYNA SCHULTE MD January 29, 2017 14:39
[2017-02-04] MEDS ORDERED: CYANOCOBALAMIN (VITAMIN B-12) 1,000 MCG/ML VIAL IM SCH (09:00)
== END 2017-01-29 13:21 | disposition home or self-care (01) | DRG 101 ==
LOC: ER 04:14 → 5 NORTH 06:00
PROVIDERS: ADMIT Internal Medicine; ATTEND Internal Medicine
DX: G40.89 Other seizures (principal); Z68.41 Body mass index [BMI] 40.0-44.9, adult; K21.9 Gastro-esophageal reflux disease without esophagitis; I50.9 Heart failure, unspecified; I11.0 Hypertensive heart disease with heart failure; E66.9 Obesity, unspecified; F41.9 Anxiety disorder, unspecified; F32.9 Major depressive disorder, single episode, unspecified; J45.909 Unspecified asthma, uncomplicated; I48.91 Unspecified atrial fibrillation; D64.9 Anemia, unspecified; E78.5 Hyperlipidemia, unspecified; I25.10 Atherosclerotic heart disease of native coronary artery without angina pectoris; M19.90 Unspecified osteoarthritis, unspecified site; H54.42 Blindness, left eye, normal vision right eye; I25.2 Old myocardial infarction; Z86.73 Personal history of transient ischemic attack (TIA), and cerebral infarction without residual deficits; Z88.0 Allergy status to penicillin; Z88.2 Allergy status to sulfonamides; Z82.49 Family history of ischemic heart disease and other diseases of the circulatory system; Z87.891 Personal history of nicotine dependence
CPT/HCPCS: 36415; 70450; 71010; 72125; 80053; 80177; 83605; 83880; 84484; 85027; 93005; 96360; 96361; G0481; J7030; 99285-25

== ENCOUNTER 2017-02-21 23:51 | Inpatient (IN) | payer OTHER ==
[~2017-02-21] VITALS: Ht 180.3 cm; Wt 146.1 kg
[~2017-02-21 23:51] MED LIST changes: -HYDR-2666 PO; +HYDR-2758 PO; -LEVO500T38 PO; +LEVO500T59 PO; -MELO-150 PO; +MELO15TA23 PO; -MESA0.37 PO; +MESA0.372 PO; -OXYC10TA32 PO; +OXYC10TA45 PO; -TOPI100T39 PO; +TOPI100T42 PO
[2017-02-22 00:19] LABS: BASO # 0.1 x10^3/uL (0.0-0.2); BASO % 1 % (0-3); EOS % 3 % (0-3); HEMATOCRIT 41.2 % (39.0-53.0); HEMOGLOBIN 13.8 g/dL (13.0-17.5); LYMPH # 2.9 x10^3/uL (1.0-4.8); LYMPH % 28 % (24-48); MEAN CORPUSCULAR HEMOGLOBIN 31 pg (25-35); MEAN CORPUSCULAR HGB CONC 34 g/dL (31-37); MEAN CORPUSCULAR VOLUME 92 fL (79-100); MONO % 6 % (0-9); NEUT % 62 % (31-73); PLATELET COUNT 223 x10^3/uL (140-400); RED BLOOD COUNT 4.49 x10^6/uL (4.30-5.70); RED CELL DISTRIBUTION WIDTH 13.9 % (11.5-14.5); WHITE BLOOD COUNT 10.1 x10^3/uL (4.0-11.0)
[2017-02-22 00:32] LABS: CREATININE 1.3 mg/dL (0.7-1.3); GFR 64.4; POTASSIUM 3.6 mmol/L (3.5-5.1)
[2017-02-22 00:39] LABS: ALBUMIN 3.7 g/dL (3.4-5.0); TOTAL BILIRUBIN 0.2 mg/dL (0.2-1.0); TOTAL PROTEIN 7.3 g/dL (6.4-8.2)
[2017-02-22] MEDS ORDERED: ASPIRIN CHEWABLE 81 MG TABLET. PO ONE (01:30)
[2017-02-22] MEDS ORDERED: ONDANSETRON PF 4 MG/2 ML VIAL. IV ONE (01:30)
[2017-02-22] MEDS ORDERED: MORPHINE SULFATE 10 MG/ML VIAL. IV ONE (01:30)
--- NOTE | 2017-02-22 02:04 | PHYS DOC ---
Past Medical History Past Medical History: Anxiety, CHF, COPD, CVA, Depression, GERD, Hypertension, MO, Seizure, TIA, Other Additional Past Medical Histor: pericarditis, Crohns, partial blind L eye, pyloric stenosis,MULT HEAD INJURY Past Surgical History: Other Additional Past Surgical Histo: LEFT KNEE SX, PYLORIC STENOSIS SX Alcohol Use: Rarely Drug Use: None Adult General Chief Complaint Chief Complaint: CHEST PAIN HPI HPI Patient is a 31 year old gentleman with a history significant for pulmonary hypertension, CHF, COPD, presents here today complaining of left-sided chest pressure that's been on and off for 1 day. Patient reports the pain radiates his left arm he had associated shortness of breath with it. Patient has a nausea vomiting. Patient has any diaphoresis. Patient reports that the pain and shortness of breath increased with any exertion. Patient denies any history of coronary disease, hypertension, diabetes. Patient does have a history of CHF and COPD. Patient has had abdominal surgeries in the past for pyloric stenosis however his gallbladder and appendix are still intact. Patient denies any tobacco alcohol or drugs. Patient reports he had a cardiac catheter in July 2016 which was reportedly normal per him. Patient's physical exam the ER was unremarkable. He is alert awake oriented 3. Heart was regular rate and rhythm. Lungs were clear without any wheezing rales or rhonchi. Patient has no reproducible tenderness to palpation to his anterior chest wall. Patient's ER workup has been unremarkable. Patient's CBC chemistry and troponin chest x-ray and EKG have all been unremarkable and within normal limits. Patient be given aspirin and morphine in the ER to assist with his discomfort. Assessment and plan 31-year-old gentleman with a history significant for pulmonary hypertension presents here today with chest pain is concerning for cardiac etiology. Patient did have a cardiac catheter approximately 7 months ago which was reportedly negative per the patient however given his history his symptoms I believe the patient is at moderate risk for cardiac etiology of his pain. Patient will be admitted for cardiac evaluation. Review of Systems Review of Systems Constitutional: Denies fever or chills [] Eyes: Denies change in visual acuity, redness, or eye pain [] All other review systems are negative except as documented in the history of present illness portion. Allergies Allergies Allergies Coded Allergies Type Severity Reaction Last Updated Verified Penicillins Allergy Intermediate Takes Keflex at home chronically 05/24/16 Yes Sulfa (Sulfonamide Antibiotics) Allergy Intermediate 05/24/16 Yes Physical Exam Physical Exam Constitutional: Well developed, well nourished, no acute distress, non-toxic appearance. [] HENT: Normocephalic, atraumatic, bilateral external ears normal, oropharynx moist, no oral exudates, nose normal. [] Eyes: PERRLA, EOMI, conjunctiva normal, no discharge. [] Neck: Normal range of motion, no tenderness, supple, no stridor. [] Cardiovascular:Heart rate regular rhythm Lungs & Thorax: Bilateral breath sounds clear to auscultation [] Abdomen: Bowel sounds normal, soft, no tenderness, no masses, no pulsatile masses. [] Skin: Warm, dry, no erythema, no rash. [] Back: No tenderness, no CVA tenderness. [] Extremities: No tenderness, no cyanosis, Neurologic: Alert and oriented X 3, normal motor function, normal sensory function, no focal deficits noted. [] Psychologic: Affect normal, judgement normal, mood normal. [] Current Patient Data Vital Signs Vital Signs Date Time Temp Pulse Resp B/P (MAP) Pulse Ox O2 Delivery O2 Flow Rate FiO2 02/22/17 00:04 97.7 90 16 145/83 (103) 97 Room Air 97.7 Lab Values Laboratory Tests Test 02/22/17 00:09 White Blood Count 10.1 x10^3/uL (4.0-11.0) Red Blood Count 4.49 x10^6/uL (4.30-5.70) Hemoglobin 13.8 g/dL (13.0-17.5) Hematocrit 41.2 % (39.0-53.0) Mean Corpuscular Volume 92 fL (79-100) Mean Corpuscular Hemoglobin 31 pg (25-35) Mean Corpuscular Hemoglobin Concent 34 g/dL (31-37) Red Cell Distribution Width 13.9 % (11.5-14.5) Platelet Count 223 x10^3/uL (140-400) Neutrophils (%) (Auto) 62 % (31-73) Lymphocytes (%) (Auto) 28 % (24-48) Monocytes (%) (Auto) 6 % (0-9) Eosinophils (%) (Auto) 3 % (0-3) Basophils (%) (Auto) 1 % (0-3) Neutrophils # (Auto) 6.2 x10^3uL (1.8-7.7) Lymphocytes # (Auto) 2.9 x10^3/uL (1.0-4.8) Monocytes # (Auto) 0.6 x10^3/uL (0.0-1.1) Eosinophils # (Auto) 0.3 x10^3/uL (0.0-0.7) Basophils # (Auto) 0.1 x10^3/uL (0.0-0.2) D-Dimer (Leeann) 0.34 ug/mlFEU (0.00-0.50) Sodium Level 140 mmol/L (136-145) Potassium Level 3.6 mmol/L (3.5-5.1) Chloride Level 106 mmol/L (98-107) Carbon Dioxide Level 23 mmol/L (21-32) Anion Gap 11 (6-14) Blood Urea Nitrogen 21 mg/dL (8-26) Creatinine 1.3 mg/dL (0.7-1.3) Estimated GFR (Cockcroft-Gault) 64.4 BUN/Creatinine Ratio 16 (6-20) Glucose Level 102 mg/dL (70-99) H Calcium Level 9.0 mg/dL (8.5-10.1) Total Bilirubin 0.2 mg/dL (0.2-1.0) Aspartate Amino Transferase (AST) 15 U/L (15-37) Alanine Aminotransferase (ALT) 31 U/L (16-63) Alkaline Phosphatase 93 U/L (46-116) Troponin I Quantitative < 0.017 ng/mL (0.000-0.055) Total Protein 7.3 g/dL (6.4-8.2) Albumin 3.7 g/dL (3.4-5.0) Albumin/Globulin Ratio 1.0 (1.0-1.7) Laboratory Tests 02/22/17 00:09 Laboratory Tests 02/22/17 00:09 EKG EKG [] Radiology/Procedures Radiology/Procedures [] Course & Med Decision Making Course & Med Decision Making Pertinent Labs and Imaging studies reviewed. (See chart for details) [] Dragon Disclaimer Dragon Disclaimer This electronic medical record was generated, in whole or in part, using a voice recognition dictation system. Departure Departure Impression: Primary Impression: Chest pain Disposition: ADMITTED INPATIENT Admitting Physician: Ira Ruelas Condition: IMPROVED Referrals: LOBO WILLIAMSON (PCP) JASMINA HAUSER MD Feb 22, 2017 02:04
[2017-02-22] MEDS ORDERED: ACETAMINOPHEN 325 MG TABLET. PO PRN ×2 (02:15→11:45)
[2017-02-22] MEDS ORDERED: ONDANSETRON PF 4 MG/2 ML VIAL. IV PRN ×2 (02:15→11:45)
[2017-02-22] MEDS ORDERED: NITROGLYCERIN SUBLINGUAL 0.4 MG BOTTLE OF 25. SL PRN (02:15)
[2017-02-22 02:30] VITALS: BP 115/71
[2017-02-22] MEDS: MORPHINE SULFATE 4 MG/ML DISP.SYRIN. IV PRN ×3 (06:17→19:56)
[2017-02-22 07:00] VITALS: BP 146/83
--- NOTE | 2017-02-22 07:23 | RAD ---
Portable chest, 02/22/2017: History: Chest pain Comparison is made to a study from 01/28/2017. The heart size and pulmonary vascularity are normal. There is minimal linear scarring in the left base laterally. No acute infiltrates are seen. There is no evidence of pleural fluid. IMPRESSION: No acute cardiopulmonary abnormality is detected.
--- NOTE | 2017-02-22 08:42 | ACF ---
Admission Forms Criteria CARDIOLOGY GRG Clinical Indications for Admission to Inpatient Care ( Place 'X' for any and all applicable criteria): Hospital admission is needed for appropriate care of the patient because of ANY ONE of the following (1): [ ] I. Hemodynamic instability as indicated by ALL of the following (1)(2)(3) (4)(5) [ ]a) Vital signs or other findings not as expected for chronic patient condition or baseline [ ]b) Instability indicated by ANY ONE of the following: [ ]i) Hypotension [ ]ii) Symptomatic Tachycardia unresponsive to treatment ( e.g., analgesia, fluids, sedation as indicated) [ ]iii) Inadequate perfusion indicated by ANY ONE of the following: [ ] 1) Lactic acidosis (> 2 mmol/L) [ ] 2) New abnormal capillary refill (> 3 seconds) [ ] 3) Reduced urine output [ ] 4) New altered mental status [ ]iv) Orthostatic vital sign changes unresponsive to treatment (e.g., fluids) [ ]v) IV inotropic or vasopressor medication required to maintain adequate blood pressure or perfusion [ ] II. Severe heart failure as indicated by ANY ONE of the following(17)(18) [ ]a) Respiratory distress [ ]b) Hypotension [ ]c) Anasarca (refractory to outpatient therapy) [ ]d) Cardiac arrhythmias of immediate concern [ ]e) Myocardial ischemia [ ] III. Cardiac arrhythmias or findings of immediate concern indicated by ANY ONE of the following (19)(20): [ ] a) Heart rhythms that are inherently dangerous or unstable indicated by ANY ONE of the following (21)(22)(23): [ ] i) Resuscitated ventricular fibrillation or cardiac arrest [ ] ii) Ventricular escape rhythm [ ] iii) Sustained ventricular tachycardia (30 seconds or more of ventricular rhythm at greater than 100 beats per minute) [ ] iv) Nonsustained ventricular tachycardia and ANY ONE of the following: [ ] 1) Suspected cardiac ischemia as cause or consequence of ventricular tachycardia [ ] 2) In setting of acute myocarditis [ ] b) Unstable cardiac conduction defects indicated by ANY ONE of the following(23)(24)(25) [ ] i) Type II second-degree atrioventricular block [ ]ii) Third-degree atrioventricular block [ ]iii) New-onset left bundle branch block with suspected myocardial ischemia [ ]c) Any heart rhythm and ANY ONE of the following (21)(22)(26)(27) (28) [ ] i) Continuous long-term ECG monitoring needed (e.g., initiation of drug requiring monitoring for more than 24 hours) [ ] ii) Patient has automatic implanted cardioverter defibrillator that is repeatedly firing, malfunctioning, or in need of immediate adjustment of settings beyond the scope of ambulatory or observation care [ ]d) Heart rhythms of concern due to ANY ONE of the following: [ ] i) Hypotension [ ] ii) Respiratory distress [ ] iii) Association with other significant symptoms (e.g., bradycardia with syncope or ongoing dizziness, supraventricular tachycardia with chest pain (14)(15)(17) [ ] IV. Monitoring for cardiac contusion beyond the scope of observation care needed [A](30)(31)(32) [ ] V. Surgical or device complication (e.g., valve replacement complication , pacemaker dysfunction) (35)(41)(44)(45)(46) [ ] . Inpatient palliative care needed. [B](49) Also use Inpatient Palliative Care Criteria [ ] VII. Nonbacterial thrombotic (marantic) endocarditis (36)(43)(47)(48) [X] VIII. Cardiology condition, symptom, or finding for which emergency and observation care has failed or are not considered appropriate. [ ] IX. Acute valvular disease requiring inpatient as indicated by ANY ONE of the following (41) [ ]a) Acute valvular regurgitation (42) [ ]b) Noninfectious valvulitis (43) [ ]c) Obstructive valve thrombosis [ ]d) Paravalvular leak [ ]e) Other significant valvular disorder remaining after emergency or observation level of care (as appropriate) [ ]X. Pericardial disease requiring inpatient treatment as indicated by ANY ONE of the following (33)(34)(35)(36)(37) [ ]a) Suspected tamponade (38)(39)(40) [ ]b) Hemopericardium [ ]c) Other significant pericardial disorder remaining after emergency or observation level of care (as appropriate) [ ] XI. Cardiac ischemia beyond scope of emergency and observation care. [ ] XII. Hypertension requiring inpatient treatment as indicated by ANY ONE of the following (6)(7)(8) [ ]a) SBP greater than 220 mm Hg or DBP greater than 120 mmHg despite treatment [ ]b) SBP greater than 140 mm Hg or DBP greater than 100 mm Hg with evidence of acute end organ damage as indicated by ANY ONE of the following [ ] i) Encephalopathy [ ] ii) Acute renal failure as indicated by new onset of ANY ONE of the following (9)(10)(11)(12)(13) [ ]1) 3-fold rise in serum creatinine from baseline [ ]2) Serum creatinine greater than 4 mg/dL ( 354 micromoles/L) with acute rise greater than 0.5 mg/dL (44.2 micromoles/L) [ ]3) Reduction of more than 75% in estimated glomerular filtration rate from baseline [ ]4) Estimated glomerular filtration rate less than 35 mL/min/1.73m2 (0.59 mL/sec/1.73m2) in child up to 18 years of age [ ]5) Cessation of urine output indicated by ALL of the following [ ]A. Adequate volume status [ ]B. Inadequate urine output as indicated by ANY ONE of the following [ ]a. Urine output less than 0.3 mL/kg/hr for 24 hours [ ]b. Anuria (urine output less than 0.1 mL/kg/hr) for 12 hours [ ] iii) Aortic dissection [ ] iv) Myocardial Ischemia [ ] v) Left ventricular heart failure [ ]vi) Retinal Hemorrhage [ ]vii) Other significant finding [ ]c) Hypertension in child requiring inpatient treatment as indicated by ALL of the following(14)(15)(16) [ ] i) Outpatient treatment not effective, not available, or not appropriate [ ]ii) SBP or DBP greater than 95th percentile for age [ ]iii) Evidence of acute end organ damage as indicated by ANY ONE of the following [ ]1) Altered mental status [ ]2) Acute renal failure as indicated by new onset of ANY ONE of the following(9)(10)(11)(12)(13) [ ]A. 3-fold rise in serum creatinine from baseline [ ]B. Serum creatinine greater than 4 mg/dL (354 micromoles/L) with acute rise greater than 0.5 mg/dL (44.2 micromoles/L) [ ]C. Reduction of more than 75% in estimated glomerular filtration rate from baseline [ ]D. Estimated glomerular filtration rate less than 35 mL/min/1.73m2 (0.59 mL/sec/1.73m2) in child up to 18 years of age [ ]E. Cessation of urine output indicated by ALL of the following [ ]a. Adequate volume status [ ]b. Inadequate urine output as indicated by ANY ONE of the following [ ]i) Urine output less than 0.3 mL/kg/hr for 24 hours [ ]ii) Anuria ( urine output less than 0.1 mL/kg/hr) for 12 hours [ ]3) Severe headache [ ]4) Visual disturbance [ ]5) Retinal hemorrhage [ ]6) Other significant finding [ ]XIII. Complications of transplanted heart indicated by ANY ONE of the following(61): [ ]a) Acute graft rejection requiring inpatient management (eg, intravenous immunosuppression)(62)(63) [ ]b) Acute graft heart failure indicated by ANY ONE of the following(64): [ ]i) Hemodynamic instability [ ]ii) Cardiac arrhythmias of immediate concern [ ]iii) Pulmonary edema that is very severe (eg, mechanical ventilation needed, imminent or likely, need for 100% oxygen to keep oxygen saturation above 90%) [ ]iv) Pulmonary edema that is persistent as indicated by ALL of the following: [ ]1) New need for oxygen therapy to keep oxygen saturation above 90% (or increased FiO2 need from baseline) [ ]2) Has not improved sufficiently with emergency department or observation care IV diuretics or other heart failure treatments[E] [ ]v) Altered mental status that is severe or persistent [ ]vi) Increased creatinine (new on laboratory test) with reduction of more than 50% in estimated glomerular filtration rate from baseline [ ]vii) Progressively (ongoing) rising creatinine (known from past laboratory test) with reduction of more than 25% in estimated glomerular filtration rate from baseline [ ]viii) Acute renal failure [ ]ix) Acute peripheral ischemia (eg, examination shows pulseless, cool, mottled, or cyanotic extremity) [ ]x) Pulmonary artery catheter monitoring needed [ ]xi) Other sign or symptom of heart failure requiring inpatient treatment (ie, too severe or not responsive to outpatient and observation care treatment) [ ]c) Infection requiring inpatient management (eg, Hemodynamic instability, need for intravenous antimicrobial treatment)(66)(67)(68)(69)(70) [ ]d) Cardiac allograft vasculopathy requiring inpatient management ( eg evidence of cardiac ischemia)(71) [ ]e) Other complication of transplanted heart (eg, stroke, severe pulmonary hypertension, severe valvular dysfunction) requiring inpatient management(72) The original [facility] content created by [facility] has been revised. The portions of the content which have been revised are identified through the use of italic text or in bold, and [facility] has neither reviewed nor approved the modified material. All other unmodified content is copyright [facility]. Please see references footnoted in the original [facility] edition 2016 Admission Criteria Met?: Yes VADIM RICH Feb 22, 2017 08:42
--- NOTE | 2017-02-22 10:07 | PDOC2 ---
BOB BRAN SUPERVISOR COMMUNICATIONS AND SIGNALS 02/22/17 1007: CARDIAC CONSULT DATE OF CONSULT Date of Consult DATE: 02/22/17 TIME: 09:41 REASON FOR CONSULT Reason for Consult: Chest pain REFERRING PHYSICIAN Referring Physician: Chan SOURCE Source: Chart review, Patient HISTORY OF PRESENT ILLNESS HISTORY OF PRESENT ILLNESS This is a pleasant 31 yo male admitted for complains of chest pain. Reports that this happened mid chest pressure nonradiating on and off yesterday. Although no recent falls or injury, this is reproducible with gentle palpation on midchest. Also associated BECKHAM and has gained wt recently and does not have any form of routine exercise. Denies any nausea, diaphoresis or palpitations. He was at 2 wks due to weight gain and BECKHAM and was told that he has pulmonary HTN but denies having echocardiogram. He was advised to go to by his ID who is treating him for leg cellulitis. Currently he displays no symptoms. 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) Endocrine: Other (thyroid nodules) Dermatology: Cellulitis PAST SURGICAL HISTORY Past Surgical History left knee arthroscopy; polypectomy, C 09/2016 FAMILY HISTORY Family History Coronary Artery Disease, HTN, DM, thyroid CA SOCIAL HISTORY Social History Smoke: Quit (2009) ALCOHOL: other (quit 2009) Drugs: None Lives: with Family CURRENT MEDICATIONS CURRENT MEDICATIONS Current Medications Medications (Trade) Dose Ordered Sig/Linda Route PRN Reason Start Time Stop Time Status Last Admin Dose Admin Morphine Sulfate 5 mg 1X ONCE IV 02/22/17 01:30 02/22/17 01:31 DC 02/22/17 02:19 Ondansetron HCl (Zofran) 4 mg 1X ONCE IV 02/22/17 01:30 02/22/17 01:31 DC 02/22/17 02:19 Aspirin (Children'S Aspirin) 324 mg 1X ONCE PO 02/22/17 01:30 02/22/17 01:31 DC 02/22/17 02:19 Morphine Sulfate 4 mg PRN Q2HR PRN IV PAIN 02/22/17 02:15 02/23/17 02:14 02/22/17 06:17 ALLERGIES ALLERGIES: Coded Allergies: Penicillins (Verified Allergy, Intermediate, Takes Keflex at home chronically, 05/24/16) Sulfa (Sulfonamide Antibiotics) (Verified Allergy, Intermediate, 05/24/16) ROS Review of System 14 point ROS evaluated with pertinent positive noted per HPI PHYSICAL EXAM General: Alert, Oriented X3, Cooperative, No acute distress HEENT: Atraumatic, Mucous membr. moist/pink Lungs: Clear to auscultation, Normal air movement Heart: Regular rate (SR; no significant ectopies overnight), Normal S1, Normal S2 Abdomen: Soft, No tenderness, Other (morbid obesity) Extremities: No cyanosis, No edema Skin: No breakdown, No significant lesion Neuro: Sensation intact Psych/Mental Status: Mental status NL, Mood NL MUSCULOSKELETAL: Full range of motion without pain VITALS VITALS Vital Signs Date Time Temp Pulse Resp B/P (MAP) Pulse Ox O2 Delivery O2 Flow Rate FiO2 02/22/17 07:00 97.7 81 20 146/83 (104) 95 Room Air 97.7 LABS Lab: Laboratory Tests Test 02/22/17 00:09 02/22/17 08:00 White Blood Count 10.1 x10^3/uL (4.0-11.0) Red Blood Count 4.49 x10^6/uL (4.30-5.70) Hemoglobin 13.8 g/dL (13.0-17.5) Hematocrit 41.2 % (39.0-53.0) Mean Corpuscular Volume 92 fL (79-100) Mean Corpuscular Hemoglobin 31 pg (25-35) Mean Corpuscular Hemoglobin Concent 34 g/dL (31-37) Red Cell Distribution Width 13.9 % (11.5-14.5) Platelet Count 223 x10^3/uL (140-400) Neutrophils (%) (Auto) 62 % (31-73) Lymphocytes (%) (Auto) 28 % (24-48) Monocytes (%) (Auto) 6 % (0-9) Eosinophils (%) (Auto) 3 % (0-3) Basophils (%) (Auto) 1 % (0-3) Neutrophils # (Auto) 6.2 x10^3uL (1.8-7.7) Lymphocytes # (Auto) 2.9 x10^3/uL (1.0-4.8) Monocytes # (Auto) 0.6 x10^3/uL (0.0-1.1) Eosinophils # (Auto) 0.3 x10^3/uL (0.0-0.7) Basophils # (Auto) 0.1 x10^3/uL (0.0-0.2) D-Dimer (Leeann) 0.34 ug/mlFEU (0.00-0.50) Sodium Level 140 mmol/L (136-145) Potassium Level 3.6 mmol/L (3.5-5.1) Chloride Level 106 mmol/L (98-107) Carbon Dioxide Level 23 mmol/L (21-32) Anion Gap 11 (6-14) Blood Urea Nitrogen 21 mg/dL (8-26) Creatinine 1.3 mg/dL (0.7-1.3) Estimated GFR (Cockcroft-Gault) 64.4 BUN/Creatinine Ratio 16 (6-20) Glucose Level 102 mg/dL (70-99) Calcium Level 9.0 mg/dL (8.5-10.1) Total Bilirubin 0.2 mg/dL (0.2-1.0) Aspartate Amino Transf (AST/SGOT) 15 U/L (15-37) Alanine Aminotransferase (ALT/SGPT) 31 U/L (16-63) Alkaline Phosphatase 93 U/L (46-116) Troponin I Quantitative < 0.017 ng/mL (0.000-0.055) < 0.017 ng/mL (0.000-0.055) Total Protein 7.3 g/dL (6.4-8.2) Albumin 3.7 g/dL (3.4-5.0) Albumin/Globulin Ratio 1.0 (1.0-1.7) STRESS TEST STRESS TEST Conclusion 1. Regadenoson cardioisotope stress test did not show any evidence of ischemia or infarct. 2. Normal left ventricular systolic function with ejection fraction calculated at 64%. 3. Low risk for cardiac events. DATE: 05/12/16 1328 HEART CATH HEART CATH CORONARY ANGIOGRAPHY: LM is a large caliber vessel with normal angiographic appearance. LAD is a large caliber vessel with normal angiographic appearance. D1 is a moderate caliber vessel with normal angiographic apeparance. LCx is a moderate caliber non-dominant vessel with normal angiographic appearance. OM1 is a moderate caliber vessel with normal angiographic appearance. RCA is a large caliber dominant vessel with normal angiographic appearance. RPDA and RPL are moderate caliber vessels with normal angiographic appearance. Conclusion 1. Mildly elevated left sided filling pressures. 2. Normal angiographic appearance of the coronary arteries. Recommendations Aggressive Medical Therapy DATE: 09/19/16 3789 ASSESSMENT/PLAN ASSESSMENT/PLAN 1. Chest pain: noncardiac. DDIMER normal Reproducible with palpation. Suspect MSK, Bronchospasm? 2. Dyspnea with exertion: likely from deconditioning/weight gain with associated COPD/asthma Recommendations 1. Was told of pulmonary HTN in but verbalized no TTE done. Will obtain today. 2. No further ischemic w/u warranted with recent normal coronaries noted as above [facility]. 3. Continue with present regimen otherwise nothing further at this time. Problems: ISIAH BRIGHT MD 02/22/17 1212: CARDIAC CONSULT ALLERGIES ALLERGIES: Coded Allergies: Penicillins (Verified Allergy, Intermediate, Takes Keflex at home chronically, 05/24/16) Sulfa (Sulfonamide Antibiotics) (Verified Allergy, Intermediate, 05/24/16) ASSESSMENT/PLAN ASSESSMENT/PLAN Pt. seen and examined. AGree with above [employer]ARTER STITCHER Note. Known to us from prior visits. Normal cardiac exam. Normal cath this year. Supportive care. Thanks for consult. Problems: BOB BRAN APRN Feb 22, 2017 10:07 ISIAH BRIGHT MD Feb 22, 2017 12:12
--- NOTE | 2017-02-22 10:33 | EKG ---
[facility] [address] [place] [address] Test Date: 2017-02-21 Test Time: 23:57:42 Pat Name: LAUREANO JONES Department: Room: 524 1 Gender: M Header Boss: : 1985 Requested By: JASMINA HAUSER Order Number: [id number] Reading MD: Sony Serna Measurements Intervals [place] Rate: 87 P: 49 TN: 156 QRS: 28 QRSD: 102 T: 39 QT: 364 QTc: 439 Interpretive Statements SINUS RHYTHM Electronically Signed On 02-22-2017 11:15:57 CDT by Sony Serna
[2017-02-22 11:00] VITALS: BP 123/79
[2017-02-22] MEDS ORDERED: HYDROcodone/APAP 7.5/325MG 1 TAB TABLET PO PRN (11:45)
[2017-02-22] MEDS ORDERED: hydrALAZINE 20 MG/ML VIAL. IVP PRN (11:45)
[2017-02-22] MEDS ORDERED: DOCUSATE SODIUM 100 MG CAPSULE. PO PRN (11:45)
[2017-02-22] MEDS: ALBUTEROL SULFATE 2.5 MG/3 ML NEBU. NEB SCH ×2 (12:15→16:00)
[2017-02-22] MEDS: MELOXICAM 7.5 MG TABLET PO SCH (12:25)
[2017-02-22] MEDS: MORPHINE SULFATE 2 MG/ML DISP.SYRIN. IV PRN ×4 (12:25→22:53)
[2017-02-22] MEDS: PREGABALIN 75 MG CAPSULE PO SCH ×2 (12:25→21:08)
[2017-02-22] MEDS: levETIRAcetam 500 MG TABLET PO SCH ×2 (12:25→21:09)
[2017-02-22] MEDS: PANTOPRAZOLE 40 MG TABLET.DR. PO SCH (12:25)
[2017-02-22] MEDS: BUDESONIDE 0.5 MG/2 ML NEBU. NEB SCH ×2 (12:30→20:00)
--- NOTE | 2017-02-22 12:48 | PDOC ---
Provider Note Provider Note dictated NINI STONE MD Feb 22, 2017 12:48
--- NOTE | 2017-02-22 13:31 | CONS ---
DATE OF CONSULTATION: 02/22/2017 PULMONARY CONSULTATION ATTENDING PHYSICIAN: Dr. Ira Ruelas. REASON FOR CONSULTATION: Pulmonary hypertension. HISTORY OF PRESENT ILLNESS: The patient is a 31-year-old morbidly obese male with a BMI of 45. 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 He came into the hospital with chest pain. It was midsternal and also radiating to the right side. He had some subjective shortness of breath, although he is currently on room air and saturations are 98%. The patient was seen by Cardiology at recently and he was told that he has pulmonary hypertension, although I do not have any records of echo to assess the severity of his pulmonary hypertension. He had a cardiac catheter[facility] 09/2016 and was found to have no significant coronary artery disease. The patient did have mildly elevated left-sided filling pressures. There was no right heart catheterization performed. He was advised medical management. He has a sedentary lifestyle. He has history of chronic knee pains and does not ambulate much. The patient denies any cough. He denies any headaches. No leg edema. No history of deep vein thrombosis or pulmonary embolism. He had a CT angiogram in 11/2013, which was negative for PE and then had another CT angiogram on 10/09/2014, which was also negative for pulmonary embolism. He has never been tested for sleep apnea. He does take pain medications. He denies any daytime somnolence. His chest x-ray was clear. Consultation requested for further evaluation and management. PAST MEDICAL HISTORY: 1. Significant for history of questionable pulmonary hypertension, not sure about the severity. 2. Previous cardiac catheterization with normal coronaries and mildly elevated left-sided filling pressures. 3. History of questionable COPD. He smoked only for 6 years. History of cerebrovascular accident, depression, GERD, hypertension, [place], seizures, TIA, history of pericarditis, Crohn's, partial blind, history of pyloric stenosis. PAST SURGICAL HISTORY: Multiple head injuries surgery, left knee surgeries, and pyloric stenosis surgery. ALLERGIES: PENICILLIN AND SULFA. CURRENT MEDICATIONS: All reviewed as listed in the MRAD. He is on bronchodilators. REVIEW OF SYSTEMS: Twelve-point system were obtained. Pertinent positives discussed in history of present illness, otherwise noncontributory. All systems that were negative were reviewed as well. SOCIAL HISTORY: Smoked for 6 years. PHYSICAL EXAMINATION: VITAL SIGNS: Stable. Pulse ox 98% on room air. NECK: Supple. LUNGS: Clear. CARDIOVASCULAR: Regular rate and rhythm. ABDOMEN: Soft, morbidly obese. EXTREMITIES: With trace pitting edema. LABORATORY DATA: Reviewed. White cell count 10.1, hemoglobin 13.8, platelets are 223. BUN is 21, creatinine 1.3. Albumin is 3.7. D-dimer is 0.34. IMPRESSION: 1. Chest pain with mild subjective shortness of breath, although his saturations are 98% on room air. Cardiology has seen the patient. He had previous cardiac catheterization in 09/2016 and had no significant coronary artery disease. He had mildly elevated left-sided filling pressures. His chest x-ray is clear. I do not think that we are dealing with any thromboembolic disease contributing to this chest pain. His D-Dimer is normal. 2. History of pulmonary hypertension, reportedly told to him at . I do not have any records of his echo. I will obtain records from . He has twice been ruled out for thromboembolic disease based on CT angiograms done in 2013 and 2014. His CXR is clear .His D-dimer is normal and I do not see need for any further workup for thromboembolic disease. 3. Morbid obesity, suspected obstructive sleep apnea. He also is narcotic dependent as well. 4. Questionable chronic obstructive pulmonary disease. RECOMMENDATIONS: 1. We will obtain records from regarding pulmonary hypertension. 2. We will consider doing outpatient PFTs. 3. Consider polysomnogram as an outpatient, although the patient denies symptoms of obstructive sleep apnea. With his body habitus, he certainly carries risk for sleep apnea. 4. No further workup for thromboembolic disease. His D-dimer is normal. 5. If patient's echo shows pulmonary hypertension, he can be followed up at [facility]. NINI STONE MD DR: ESHA/cecilio JOB#: [id number] / [id number] JACE
--- NOTE | 2017-02-22 14:06 | PDOC1 ---
History and Physical Date of Admission Date of Admission 02/21/17 Identification/Chief Complaint Chief Complaint chest pain, sob Problems: Source Source: Chart review, Patient History of Present Illness History of Present Illness HPI HPI Patient is a 31 year old gentleman with new diagnosed PHTN from , chf ( recent echo , cath neg 09/2016), possible COPD with previous smoking, anxiety, bl leg chronic abx, comes for chest pain. h/o CAD? but no stents ever. h/o pseudoseizure, on keppra. Pt said he went to 2 weeks for sob, echo done and showed PHTN, supposed to fu with income tax analyst but appt is in 04/2017, no specific treatment yet. He said dr. Coley saw him before with copd. He said the chest pain is at substernal, pressure feeling, moderate, radiating to left arm, worse with deep breath. Had N/V, sob , diaphoresis. Pt looks very calm to me, but feels mild sob now, sat 98% on RA. still takes keflex for bl lower leg cellulitis, fu with ID [id number]. Past Medical History Cardiovascular: AFIB, CHF, HTN, Other Pulmonary: Asthma, COPD CENTRAL NERVOUS SYSTEM: Seizure GI: GERD, Inflam bowel disease Heme/Onc: Anemia NOS Hepatobiliary: No pertinent hx Psych: Anxiety, Depression Rheumatologic: No pertinent hx Infectious disease: Other Renal/: No pertinent hx Endocrine: Other Past Surgical History Past Surgical History: Other Family History Family History: Coronary Artery Disease Social History Smoke: Quit ALCOHOL: none Drugs: None Current Problem List Problem List Problems Medical Problems: (1) Chest pain Status: Acute Current Medications Current Medications Current Medications Medications (Trade) Dose Ordered Sig/Linda Start Time Stop Time Status Last Admin Dose Admin Acetaminophen (Tylenol) 650 mg PRN Q6HRS PRN 02/22/17 11:45 Acetaminophen/ Hydrocodone Bitart (Lortab 7.5/325) 1 tab PRN Q6HRS PRN 02/22/17 11:45 Albuterol Sulfate (Ventolin Neb Soln) 2.5 mg RTQID 02/22/17 12:15 Aspirin (Children'S Aspirin) 324 mg 1X ONCE 02/22/17 01:30 02/22/17 01:31 DC 02/22/17 02:19 324 MG Aspirin (Ecotrin) 81 mg DAILY 02/23/17 09:00 Budesonide (Pulmicort) 0.5 mg RTBID 02/22/17 12:30 Cephalexin HCl (Keflex) 1,000 mg QID 02/22/17 13:00 Cyanocobalamin (Vitamin B-12) 1,000 mcg WEEKLY 02/28/17 09:00 Cyclobenzaprine HCl (Flexeril) 10 mg TID 02/22/17 14:00 Docusate Sodium (Colace) 100 mg PRN DAILY PRN 02/22/17 11:45 Hydralazine HCl (Apresoline) 10 mg PRN Q4HRS PRN 02/22/17 11:45 Levetiracetam (Keppra) 1,000 mg BID 02/22/17 12:30 02/22/17 12:25 1,000 MG Meloxicam (Mobic) 15 mg DAILY 02/22/17 12:30 02/22/17 12:25 15 MG Mesalamine (Pentasa) 750 mg QHS 02/22/17 21:00 Morphine Sulfate 2 mg PRN Q2HR PRN 02/22/17 11:45 02/22/17 12:25 2 MG Nitroglycerin (Nitrostat) 0.4 mg PRN Q5MIN PRN 02/22/17 02:15 02/23/17 02:14 Non-Formulary Medication 1 tab DAILY 02/23/17 09:00 UNV Ondansetron HCl (Zofran) 4 mg PRN Q6HRS PRN 02/22/17 11:45 Pantoprazole Sodium (Protonix) 40 mg DAILY07 02/22/17 12:30 02/22/17 12:25 40 MG Pregabalin (Lyrica) 75 mg BID 02/22/17 12:30 02/22/17 12:25 75 MG Topiramate (Topamax) 100 mg TID 02/22/17 14:00 Tramadol HCl (Ultram) 50 mg PRN Q6HRS PRN 02/22/17 11:45 Allergies Allergies Allergies Coded Allergies Type Severity Reaction Last Updated Verified Penicillins Allergy Intermediate Takes Keflex at home chronically 05/24/16 Yes Sulfa (Sulfonamide Antibiotics) Allergy Intermediate 05/24/16 Yes ROS Review of System CONSTITUTIONAL: No fever or chills EYES: No recent changes SKIN: No rash or itching CARDIOVASCULAR: No chest pain, syncope, palpitations, or edema RESPIRATORY: No SOB or cough GASTROINTESTINAL: No nausea, vomiting or abdominal pain NEUROLOGICAL: No headaches or weakness ENDOCRINE: No cold or heat intolerance GENITOURINARY: No urgency or frequency of urination MUSCULOSKELETAL: No back pain or joint pain LYMPHATICS: No enlarged lymph nodes PSYCHIATRIC: No anxiety or depression Physical Exam Physical Exam GEN.: No apparent distress. Alert and oriented. obese. HEENT: Head is normocephalic, atraumatic NECK: Supple. LUNGS: Clear to auscultation. HEART: RRR, S1, S2 present. Peripheral pulses intact ABDOMEN: Soft, nontender. Positive bowel sounds. EXTREMITIES: Without any cyanosis. NEUROLOGIC: Normal speech, normal tone PSYCHIATRIC: Normal affect, normal mood. SKIN: No ulcerations Vitals Vitals Vital Signs Date Time Temp Pulse Resp B/P (MAP) Pulse Ox O2 Delivery O2 Flow Rate FiO2 02/22/17 12:25 16 Room Air 02/22/17 11:00 97.5 86 123/79 (94) 98 97.5 Labs Labs Laboratory Tests Test 02/22/17 00:09 02/22/17 08:00 White Blood Count 10.1 x10^3/uL (4.0-11.0) Red Blood Count 4.49 x10^6/uL (4.30-5.70) Hemoglobin 13.8 g/dL (13.0-17.5) Hematocrit 41.2 % (39.0-53.0) Mean Corpuscular Volume 92 fL (79-100) Mean Corpuscular Hemoglobin 31 pg (25-35) Mean Corpuscular Hemoglobin Concent 34 g/dL (31-37) Red Cell Distribution Width 13.9 % (11.5-14.5) Platelet Count 223 x10^3/uL (140-400) Neutrophils (%) (Auto) 62 % (31-73) Lymphocytes (%) (Auto) 28 % (24-48) Monocytes (%) (Auto) 6 % (0-9) Eosinophils (%) (Auto) 3 % (0-3) Basophils (%) (Auto) 1 % (0-3) Neutrophils # (Auto) 6.2 x10^3uL (1.8-7.7) Lymphocytes # (Auto) 2.9 x10^3/uL (1.0-4.8) Monocytes # (Auto) 0.6 x10^3/uL (0.0-1.1) Eosinophils # (Auto) 0.3 x10^3/uL (0.0-0.7) Basophils # (Auto) 0.1 x10^3/uL (0.0-0.2) D-Dimer (Leeann) 0.34 ug/mlFEU (0.00-0.50) Sodium Level 140 mmol/L (136-145) Potassium Level 3.6 mmol/L (3.5-5.1) Chloride Level 106 mmol/L (98-107) Carbon Dioxide Level 23 mmol/L (21-32) Anion Gap 11 (6-14) Blood Urea Nitrogen 21 mg/dL (8-26) Creatinine 1.3 mg/dL (0.7-1.3) Estimated GFR (Cockcroft-Gault) 64.4 BUN/Creatinine Ratio 16 (6-20) Glucose Level 102 mg/dL (70-99) Calcium Level 9.0 mg/dL (8.5-10.1) Total Bilirubin 0.2 mg/dL (0.2-1.0) Aspartate Amino Transf (AST/SGOT) 15 U/L (15-37) Alanine Aminotransferase (ALT/SGPT) 31 U/L (16-63) Alkaline Phosphatase 93 U/L (46-116) Troponin I Quantitative < 0.017 ng/mL (0.000-0.055) < 0.017 ng/mL (0.000-0.055) Total Protein 7.3 g/dL (6.4-8.2) Albumin 3.7 g/dL (3.4-5.0) Albumin/Globulin Ratio 1.0 (1.0-1.7) Laboratory Tests Test 02/22/17 00:09 02/22/17 08:00 White Blood Count 10.1 x10^3/uL (4.0-11.0) Red Blood Count 4.49 x10^6/uL (4.30-5.70) Hemoglobin 13.8 g/dL (13.0-17.5) Hematocrit 41.2 % (39.0-53.0) Mean Corpuscular Volume 92 fL (79-100) Mean Corpuscular Hemoglobin 31 pg (25-35) Mean Corpuscular Hemoglobin Concent 34 g/dL (31-37) Red Cell Distribution Width 13.9 % (11.5-14.5) Platelet Count 223 x10^3/uL (140-400) Neutrophils (%) (Auto) 62 % (31-73) Lymphocytes (%) (Auto) 28 % (24-48) Monocytes (%) (Auto) 6 % (0-9) Eosinophils (%) (Auto) 3 % (0-3) Basophils (%) (Auto) 1 % (0-3) Neutrophils # (Auto) 6.2 x10^3uL (1.8-7.7) Lymphocytes # (Auto) 2.9 x10^3/uL (1.0-4.8) Monocytes # (Auto) 0.6 x10^3/uL (0.0-1.1) Eosinophils # (Auto) 0.3 x10^3/uL (0.0-0.7) Basophils # (Auto) 0.1 x10^3/uL (0.0-0.2) D-Dimer (Leeann) 0.34 ug/mlFEU (0.00-0.50) Sodium Level 140 mmol/L (136-145) Potassium Level 3.6 mmol/L (3.5-5.1) Chloride Level 106 mmol/L (98-107) Carbon Dioxide Level 23 mmol/L (21-32) Anion Gap 11 (6-14) Blood Urea Nitrogen 21 mg/dL (8-26) Creatinine 1.3 mg/dL (0.7-1.3) Estimated GFR (Cockcroft-Gault) 64.4 BUN/Creatinine Ratio 16 (6-20) Glucose Level 102 mg/dL (70-99) Calcium Level 9.0 mg/dL (8.5-10.1) Total Bilirubin 0.2 mg/dL (0.2-1.0) Aspartate Amino Transf (AST/SGOT) 15 U/L (15-37) Alanine Aminotransferase (ALT/SGPT) 31 U/L (16-63) Alkaline Phosphatase 93 U/L (46-116) Troponin I Quantitative < 0.017 ng/mL (0.000-0.055) < 0.017 ng/mL (0.000-0.055) Total Protein 7.3 g/dL (6.4-8.2) Albumin 3.7 g/dL (3.4-5.0) Albumin/Globulin Ratio 1.0 (1.0-1.7) VTE Prophylaxis Ordered VTE Prophylaxis Devices: Yes VTE Pharmacological Prophylaxi: Yes Assessment/Plan Assessment/Plan 1. chest pain, sob, 2/2 PHTN vs, anxiety, possible hypoventilation syndrome with obesity 2. bl leg chronic cellulitis on keflex daily 3. PCN allergy but on chronic keflex/Sulfa allergy 4. CKD 2-3 5. 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 h/o CAD?, CHF? 7. H/O MILD CVA 8. GERD 9. depression, anxiety 10 HTN 11. H/O TIA 12. h/o COPD 13. seizure like activity with h/o non epileptic seizures 14. morbid obesity plan: card, pulm consult will try to get records from [facility] home meds for now dvt ppx PTOT FLORY HAMMOND MD Feb 22, 2017 14:05
[2017-02-22 15:00] VITALS: BP 135/77
[2017-02-22] MEDS: CYCLOBENZAPRINE 10 MG TABLET. PO SCH ×2 (15:29→21:09)
[2017-02-22] MEDS: CEPHALEXIN 250 MG CAPSULE. PO SCH ×3 (15:29→21:09)
[2017-02-22] MEDS: TOPIRAMATE 100 MG TABLET. PO SCH ×2 (15:29→21:08)
--- NOTE | 2017-02-22 15:58 | CARD ---
APPROVED REPORT EXAM: Two-dimensional and M-mode echocardiogram with Doppler and color Doppler. Other Information Quality : GoodHR: 81bpm Rhythm : NSR INDICATION Chest Pain BECKHAM RISK FACTORS Obesity 2D DIMENSIONS RVDd3.2 (2.9-3.5cm)Left Atrium(2D)3.5 (1.6-4.0cm) IVSd1.3 (0.7-1.1cm)Aortic Root(2D)3.1 (2.0-3.7cm) LVDd4.7 (3.9-5.9cm)LVOT Diameter2.3 (1.8-2.4cm) PWd1.1 (0.7-1.1cm)LVDs3.2 (2.5-4.0cm) FS (%) 32.4 %SV63.1 ml LVEF(%)60.7 (>50%) Aortic Valve AoV Peak Demetrius.96.6cm/sAoV VTI18.4cm AO Peak GR.3.7mmHgLVOT Peak Demetrius.81.1cm/s AO Mean GR.2mmHgAVA (VMAX)3.42cm2 Mitral Valve MV E Qnwwyntp43.0cm/sMV DECEL MXRZ500xk MV A Cbtrkvji79.2cm/sE/A Ratio1.1 MV A Jmgyvqui09hu Pulmonary Valve PV Peak Tgfgtpkw57.7cm/s Tricuspid Valve TR P. Qlwrfrlv486te/sTR Peak Gr.35mmHg Pulmonary Vein S1 Ecloutdq71.2cm/sD2 Wtdfdrvf21.8cm/s PVa dnpwmtct33yics LEFT VENTRICLE The left ventricle is normal size. There is mild concentric left ventricular hypertrophy. The left ve ntricular systolic function is normal. The Ejection Fraction is 55-60%. There is normal LV segmental wall motion. The left ventricular diastolic function and filling is normal for age. RIGHT VENTRICLE The right ventricle is normal size. There is normal right ventricular wall thickness. The right ventr icular systolic function is normal. ATRIA The left atrium size is normal. The right atrium size is normal. The interatrial septum is intact wit h no evidence for an atrial septal defect or patent foramen ovale as noted on 2-D or Doppler imaging. AORTIC VALVE The aortic valve is normal in structure and function. The aortic valve is trileaflet. Doppler and Col or Flow revealed no significant aortic regurgitation. There is no significant aortic valvular stenosi s. MITRAL VALVE The mitral valve is normal in structure and function. There is no evidence of mitral valve prolapse. There is no mitral valve stenosis. Doppler and Color Flow revealed no mitral valve regurgitation note d. TRICUSPID VALVE Doppler and Color Flow revealed trace tricuspid regurgitation. The pulmonary artery systolic pressure is estimated at 38 mmHg. There is mild pulmonary hypertension. PULMONIC VALVE Doppler and Color Flow revealed trace pulmonic valvular regurgitation. There is no pulmonic valvular stenosis. GREAT VESSELS The aortic root is normal in size. The ascending aorta is normal in size. The pulmonary artery is nor mal. The IVC is normal in size and collapses >50% with inspiration. PERICARDIAL EFFUSION There is no evidence of significant pericardial effusion. Critical Notification Critical Value: No <Conclusion> The left ventricular systolic function is normal. The Ejection Fraction is 55-60%. There is normal LV segmental wall motion. Doppler and Color Flow revealed trace tricuspid regurgitation. The pulmonary artery systolic pressure is estimated at 38 mmHg. There is no evidence of significant pericardial effusion.
[2017-02-22 19:00] VITALS: BP 126/76
[2017-02-22] MEDS ORDERED: NON FORMULARY ITEM (Fluticasone/Salmeterol (Advair 500-50 Diskus) 1 PUFF) IH SCH (21:00)
[2017-02-22] MEDS ORDERED: MESALAMINE ER 250 MG CAPSULE.ER PO SCH (21:00)
[2017-02-22] MEDS: ENOXAPARIN 40 MG/0.4 ML SYRINGE. SQ SCH (21:08)
[2017-02-22 23:00] VITALS: BP 124/72
[2017-02-22] MEDS: traMADol 50 MG TABLET PO PRN (23:51)
[2017-02-23] MEDS: MORPHINE SULFATE 2 MG/ML DISP.SYRIN. IV PRN ×3 (02:53→12:12)
[2017-02-23 03:00] VITALS: BP 111/64
[2017-02-23 06:36] LABS: BASO # 0.1 x10^3/uL (0.0-0.2); BASO % 1 % (0-3); EOS % 3 % (0-3); HEMATOCRIT 40.5 % (39.0-53.0); LYMPH # 2.6 x10^3/uL (1.0-4.8); LYMPH % 26 % (24-48); MEAN CORPUSCULAR HEMOGLOBIN 31 pg (25-35); MEAN CORPUSCULAR HGB CONC 35 g/dL (31-37); MEAN CORPUSCULAR VOLUME 90 fL (79-100); MONO % 6 % (0-9); NEUT % 64 % (31-73); PLATELET COUNT 255 x10^3/uL (140-400); RED BLOOD COUNT 4.49 x10^6/uL (4.30-5.70); RED CELL DISTRIBUTION WIDTH 13.5 % (11.5-14.5); WHITE BLOOD COUNT 10.4 x10^3/uL (4.0-11.0)
[2017-02-23] MEDS: PANTOPRAZOLE 40 MG TABLET.DR. PO SCH (06:44)
[2017-02-23 06:56] LABS: CALCIUM 8.3 mg/dL (8.5-10.1); CREATININE 1.3 mg/dL (0.7-1.3); GFR 64.4; POTASSIUM 4.1 mmol/L (3.5-5.1)
[2017-02-23 07:00] VITALS: BP 111/66
[2017-02-23] MEDS: ALBUTEROL SULFATE 2.5 MG/3 ML NEBU. NEB SCH ×2 (08:00→10:59)
[2017-02-23] MEDS: MELOXICAM 7.5 MG TABLET PO SCH (08:48)
[2017-02-23] MEDS: TOPIRAMATE 100 MG TABLET. PO SCH ×2 (08:49→13:42)
[2017-02-23] MEDS: ENOXAPARIN 40 MG/0.4 ML SYRINGE. SQ SCH (08:49)
[2017-02-23] MEDS: levETIRAcetam 500 MG TABLET PO SCH (08:49)
[2017-02-23] MEDS: CYCLOBENZAPRINE 10 MG TABLET. PO SCH ×2 (08:49→13:42)
[2017-02-23] MEDS: PREGABALIN 75 MG CAPSULE PO SCH (08:50)
[2017-02-23] MEDS ORDERED: ASPIRIN ENTERIC COATED 81 MG TABLET.DR. PO SCH (09:00)
[2017-02-23] MEDS ORDERED: MELOXICAM PO SCH (09:00)
[2017-02-23] MEDS: BUDESONIDE 0.5 MG/2 ML NEBU. NEB SCH (10:59)
[2017-02-23 11:00] VITALS: BP 117/70
[2017-02-23] MEDS: CEPHALEXIN 250 MG CAPSULE. PO SCH ×3 (11:22→17:02)
--- NOTE | 2017-02-23 12:16 | EKG ---
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 RI6.01 Compared to ECG 02/21/2017 23:57:42 No significant changes Electronically Signed On 02-26-2017 10:43:43 CDT by Ravindra Chua
--- NOTE | 2017-02-23 12:42 | PDOC ---
PROGRESS NOTES Chief Complaint Chief Complaint 1. chest pain, sob, 2/2 possible PHTN vs, anxiety, possible hypoventilation syndrome with obesity 2. bl leg chronic cellulitis on keflex daily 3. PCN allergy but on chronic keflex/Sulfa allergy 4. CKD 2-3 5. 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 h/o CAD?, CHF? 7. H/O MILD CVA 8. GERD 9. depression, anxiety 10 HTN 11. H/O TIA 12. h/o COPD 13. seizure like activity with h/o non epileptic seizures 14. morbid obesity plan: card, pulm consult will try to get records from [facility] home meds for now echo is normal, no PHTN dvt ppx PTOT dc tmr History of Present Illness History of Present Illness still feels some chest pressure pain Vitals Vitals Vital Signs Date Time Temp Pulse Resp B/P (MAP) Pulse Ox O2 Delivery O2 Flow Rate FiO2 02/23/17 12:12 18 Room Air 02/23/17 11:22 96 02/23/17 11:00 97.7 92 117/70 (86) 97.7 Physical Exam General: Alert, Oriented X3, Cooperative, No acute distress Heart: Regular rate (SR; no significant ectopies overnight), Normal S1, Normal S2 Lungs: Clear Abdomen: Soft, No tenderness, Other (morbid obesity) Extremities: No cyanosis, No edema Skin: No breakdown, No significant lesion Labs LABS Laboratory Tests Test 02/22/17 13:40 02/23/17 06:10 Troponin I Quantitative < 0.017 ng/mL (0.000-0.055) White Blood Count 10.4 x10^3/uL (4.0-11.0) Red Blood Count 4.49 x10^6/uL (4.30-5.70) Hemoglobin 14.0 g/dL (13.0-17.5) Hematocrit 40.5 % (39.0-53.0) Mean Corpuscular Volume 90 fL (79-100) Mean Corpuscular Hemoglobin 31 pg (25-35) Mean Corpuscular Hemoglobin Concent 35 g/dL (31-37) Red Cell Distribution Width 13.5 % (11.5-14.5) Platelet Count 255 x10^3/uL (140-400) Neutrophils (%) (Auto) 64 % (31-73) Lymphocytes (%) (Auto) 26 % (24-48) Monocytes (%) (Auto) 6 % (0-9) Eosinophils (%) (Auto) 3 % (0-3) Basophils (%) (Auto) 1 % (0-3) Neutrophils # (Auto) 6.7 x10^3uL (1.8-7.7) Lymphocytes # (Auto) 2.6 x10^3/uL (1.0-4.8) Monocytes # (Auto) 0.6 x10^3/uL (0.0-1.1) Eosinophils # (Auto) 0.3 x10^3/uL (0.0-0.7) Basophils # (Auto) 0.1 x10^3/uL (0.0-0.2) Sodium Level 140 mmol/L (136-145) Potassium Level 4.1 mmol/L (3.5-5.1) Chloride Level 106 mmol/L (98-107) Carbon Dioxide Level 25 mmol/L (21-32) Anion Gap 9 (6-14) Blood Urea Nitrogen 20 mg/dL (8-26) Creatinine 1.3 mg/dL (0.7-1.3) Estimated GFR (Cockcroft-Gault) 64.4 Glucose Level 97 mg/dL (70-99) Calcium Level 8.3 mg/dL (8.5-10.1) Review of Systems Review of Systems no fever, chills, sob or chest pain Assessment and Plan Assessmemt and Plan Problems Medical Problems: (1) Chest pain Status: Acute Problems: Comment Review of Relevant I have reviewed the following items ganesh (where applicable) has been applied. Labs Laboratory Tests Test 02/22/17 00:09 02/22/17 08:00 02/22/17 13:40 02/23/17 06:10 White Blood Count 10.1 x10^3/uL (4.0-11.0) 10.4 x10^3/uL (4.0-11.0) Red Blood Count 4.49 x10^6/uL (4.30-5.70) 4.49 x10^6/uL (4.30-5.70) Hemoglobin 13.8 g/dL (13.0-17.5) 14.0 g/dL (13.0-17.5) Hematocrit 41.2 % (39.0-53.0) 40.5 % (39.0-53.0) Mean Corpuscular Volume 92 fL (79-100) 90 fL (79-100) Mean Corpuscular Hemoglobin 31 pg (25-35) 31 pg (25-35) Mean Corpuscular Hemoglobin Concent 34 g/dL (31-37) 35 g/dL (31-37) Red Cell Distribution Width 13.9 % (11.5-14.5) 13.5 % (11.5-14.5) Platelet Count 223 x10^3/uL (140-400) 255 x10^3/uL (140-400) Neutrophils (%) (Auto) 62 % (31-73) 64 % (31-73) Lymphocytes (%) (Auto) 28 % (24-48) 26 % (24-48) Monocytes (%) (Auto) 6 % (0-9) 6 % (0-9) Eosinophils (%) (Auto) 3 % (0-3) 3 % (0-3) Basophils (%) (Auto) 1 % (0-3) 1 % (0-3) Neutrophils # (Auto) 6.2 x10^3uL (1.8-7.7) 6.7 x10^3uL (1.8-7.7) Lymphocytes # (Auto) 2.9 x10^3/uL (1.0-4.8) 2.6 x10^3/uL (1.0-4.8) Monocytes # (Auto) 0.6 x10^3/uL (0.0-1.1) 0.6 x10^3/uL (0.0-1.1) Eosinophils # (Auto) 0.3 x10^3/uL (0.0-0.7) 0.3 x10^3/uL (0.0-0.7) Basophils # (Auto) 0.1 x10^3/uL (0.0-0.2) 0.1 x10^3/uL (0.0-0.2) D-Dimer (Leeann) 0.34 ug/mlFEU (0.00-0.50) Sodium Level 140 mmol/L (136-145) 140 mmol/L (136-145) Potassium Level 3.6 mmol/L (3.5-5.1) 4.1 mmol/L (3.5-5.1) Chloride Level 106 mmol/L (98-107) 106 mmol/L (98-107) Carbon Dioxide Level 23 mmol/L (21-32) 25 mmol/L (21-32) Anion Gap 11 (6-14) 9 (6-14) Blood Urea Nitrogen 21 mg/dL (8-26) 20 mg/dL (8-26) Creatinine 1.3 mg/dL (0.7-1.3) 1.3 mg/dL (0.7-1.3) Estimated GFR (Cockcroft-Gault) 64.4 64.4 BUN/Creatinine Ratio 16 (6-20) Glucose Level 102 mg/dL (70-99) 97 mg/dL (70-99) Calcium Level 9.0 mg/dL (8.5-10.1) 8.3 mg/dL (8.5-10.1) Total Bilirubin 0.2 mg/dL (0.2-1.0) Aspartate Amino Transf (AST/SGOT) 15 U/L (15-37) Alanine Aminotransferase (ALT/SGPT) 31 U/L (16-63) Alkaline Phosphatase 93 U/L (46-116) Troponin I Quantitative < 0.017 ng/mL (0.000-0.055) < 0.017 ng/mL (0.000-0.055) < 0.017 ng/mL (0.000-0.055) Total Protein 7.3 g/dL (6.4-8.2) Albumin 3.7 g/dL (3.4-5.0) Albumin/Globulin Ratio 1.0 (1.0-1.7) Nasal Screen MRSA (PCR) Negative (Negative) Laboratory Tests Test 02/22/17 13:40 02/23/17 06:10 Troponin I Quantitative < 0.017 ng/mL (0.000-0.055) White Blood Count 10.4 x10^3/uL (4.0-11.0) Red Blood Count 4.49 x10^6/uL (4.30-5.70) Hemoglobin 14.0 g/dL (13.0-17.5) Hematocrit 40.5 % (39.0-53.0) Mean Corpuscular Volume 90 fL (79-100) Mean Corpuscular Hemoglobin 31 pg (25-35) Mean Corpuscular Hemoglobin Concent 35 g/dL (31-37) Red Cell Distribution Width 13.5 % (11.5-14.5) Platelet Count 255 x10^3/uL (140-400) Neutrophils (%) (Auto) 64 % (31-73) Lymphocytes (%) (Auto) 26 % (24-48) Monocytes (%) (Auto) 6 % (0-9) Eosinophils (%) (Auto) 3 % (0-3) Basophils (%) (Auto) 1 % (0-3) Neutrophils # (Auto) 6.7 x10^3uL (1.8-7.7) Lymphocytes # (Auto) 2.6 x10^3/uL (1.0-4.8) Monocytes # (Auto) 0.6 x10^3/uL (0.0-1.1) Eosinophils # (Auto) 0.3 x10^3/uL (0.0-0.7) Basophils # (Auto) 0.1 x10^3/uL (0.0-0.2) Sodium Level 140 mmol/L (136-145) Potassium Level 4.1 mmol/L (3.5-5.1) Chloride Level 106 mmol/L (98-107) Carbon Dioxide Level 25 mmol/L (21-32) Anion Gap 9 (6-14) Blood Urea Nitrogen 20 mg/dL (8-26) Creatinine 1.3 mg/dL (0.7-1.3) Estimated GFR (Cockcroft-Gault) 64.4 Glucose Level 97 mg/dL (70-99) Calcium Level 8.3 mg/dL (8.5-10.1) Medications Current Medications Morphine Sulfate 5 mg 1X ONCE IV Last administered on 02/22/17 02:19; Start 02/22/17 at 01:30; Stop 02/22/17 at 01:31; Status DC Ondansetron HCl (Zofran) 4 mg 1X ONCE IV Last administered on 02/22/17 02:19 ; Start 02/22/17 at 01:30; Stop 02/22/17 at 01:31; Status DC Aspirin (Children'S Aspirin) 324 mg 1X ONCE PO Last administered on 02/22/17 02:19; Start 02/22/17 at 01:30; Stop 02/22/17 at 01:31; Status DC Ondansetron HCl (Zofran) 4 mg PRN Q8HRS PRN IV NAUSEA/VOMITING; Start 02/22/17 at 02:15; Stop 02/23/17 at 02:14; Status DC Morphine Sulfate 4 mg PRN Q2HR PRN IV PAIN Last administered on 02/22/17 19:56 ; Start 02/22/17 at 02:15; Stop 02/23/17 at 02:14; Status DC Acetaminophen (Tylenol) 650 mg PRN Q4HRS PRN PO FEVER; Start 02/22/17 at 02:15 ; Stop 02/23/17 at 02:14; Status DC Nitroglycerin (Nitrostat) 0.4 mg PRN Q5MIN PRN SL CHEST PAIN; Start 02/22/17 at 02:15; Stop 02/23/17 at 02:14; Status DC Albuterol Sulfate (Ventolin Neb Soln) 2.5 mg RTQID NEB Last administered on 10:59; Start 02/22/17 at 12:15 Aspirin (Ecotrin) 81 mg DAILY PO Last administered on 02/23/17 08:49; Start at 09:00 Cyanocobalamin (Vitamin B-12) 1,000 mcg WEEKLY IM ; Start 02/28/17 at 09:00 Cyclobenzaprine HCl (Flexeril) 10 mg TID PO Last administered on 02/23/17 08: 49; Start 02/22/17 at 14:00 Acetaminophen/ Hydrocodone Bitart (Lortab 7.5/325) 1 tab PRN Q6HRS PRN PO PAIN MILD TO MOD Last administered on 02/23/17 11:22; Start 02/22/17 at 11:45 Pantoprazole Sodium (Protonix) 40 mg DAILY07 PO Last administered on 02/23/17 06:44; Start 02/22/17 at 12:30 Pregabalin (Lyrica) 75 mg BID PO Last administered on 02/23/17 08:50; Start at 12:30 Topiramate (Topamax) 100 mg TID PO Last administered on 02/23/17 08:49; Start 02/22/17 at 14:00 Cephalexin HCl (Keflex) 1,000 mg QID PO Last administered on 02/23/17 11:22; Start 02/22/17 at 13:00 Non-Formulary Medication 1 puff BID IH ; Start 02/22/17 at 21:00; Stop 02/22/17 at 21:00; Status DC Levetiracetam (Keppra) 1,000 mg BID PO Last administered on 02/23/17 08:49; Start 02/22/17 at 12:30 Meloxicam (Mobic) 15 mg DAILY PO Last administered on 02/23/17 08:48; Start at 12:30 Non-Formulary Medication 1 tab DAILY PO ; Start 02/23/17 at 09:00; Status UNV Mesalamine (Pentasa) 750 mg QHS PO Last administered on 02/22/17 21:09; Start 02/22/17 at 21:00 Acetaminophen (Tylenol) 650 mg PRN Q6HRS PRN PO FEVER; Start 02/22/17 at 11:45 Ondansetron HCl (Zofran) 4 mg PRN Q6HRS PRN IV NAUSEA/VOMITING; Start 02/22/17 at 11:45 Morphine Sulfate 2 mg PRN Q2HR PRN IV PAIN Last administered on 02/23/17 12:12 ; Start 02/22/17 at 11:45 Tramadol HCl (Ultram) 50 mg PRN Q6HRS PRN PO PAIN Last administered on 23:51; Start 02/22/17 at 11:45 Hydralazine HCl (Apresoline) 10 mg PRN Q4HRS PRN IVP ELEVATED BP, SEE COMMENTS ; Start 02/22/17 at 11:45 Docusate Sodium (Colace) 100 mg PRN DAILY PRN PO CONSTIPATION; Start 02/22/17 at 11:45 Budesonide (Pulmicort) 0.5 mg RTBID NEB Last administered on 02/23/17 10:59; Start 02/22/17 at 12:30 Enoxaparin Sodium (Lovenox 40mg Syringe) 40 mg BID SQ Last administered on 02/23t 08:49; Start 02/22/17 at 21:00 Active Scripts Active Keppra (Levetiracetam) 1,000 Mg Tablet 1 Tab PO BID Hydrocodone-Apap 7.5-325 (Hydrocodone Bit/Acetaminophen) 1 Each Tablet 1 Tab PO PRN Q6HRS PRN Zofran Odt (Ondansetron) 4 Mg Tab.rapdis 1 Tab SL Q8HRS Reported Cephalexin 500 Mg Capsule 2 Cap PO QID Mobic (Meloxicam) 15 Mg Tablet 1 Tab PO DAILY Apriso (Mesalamine) 0.375 Gm Cap.er.24h 2 Cap PO HS Cyanocobalamin Injection (Cyanocobalamin (Vitamin B-12)) 1,000 Mcg/1 Ml Vial 1 Ml IM WEEKLY Topamax (Topiramate) 100 Mg Tablet 1 Tab PO TID Meloxicam 15 Mg Tablet 1 Tab PO DAILY Cyclobenzaprine Hcl 10 Mg Tablet 10 Mg PO TID Lyrica (Pregabalin) 75 Mg Capsule 1 Cap PO BID Advair 500-50 Diskus (Fluticasone/Salmeterol) 1 Each Disk.w.dev 1 Puff IH BID Albuterol Sulfate Hfa Inhaler (Albuterol Sulfate) 8.5 Gm Hfa.aer.ad 2 Puff INH QID Protonix (Pantoprazole Sodium) 40 Mg Tablet.dr 40 Mg PO Aspir 81 (Aspirin) 81 Mg Tablet. 81 Mg PO DAILY Vitals/I & O Vital Sign - Last 24 Hours 02/22/17 02/22/17 02/22/17 02/22/17 15:00 15:28 17:55 19:00 Temp 97.7 97.9 97.7 97.9 Pulse 82 89 Resp 20 16 16 20 B/P (MAP) 135/77 (96) 126/76 (93) Pulse Ox 98 97 O2 Delivery Room Air Room Air Room Air Room Air 02/22/17 02/22/17 02/22/17 02/22/17 19:56 20:00 20:26 22:53 Resp 20 18 20 Pulse Ox 98 98 98 O2 Delivery Room Air Room Air Room Air Room Air 02/22/17 02/22/17 02/23/17 02/23/17 23:00 23:51 00:51 02:53 Temp 97.5 97.5 Pulse 88 Resp 20 20 20 16 B/P (MAP) 124/72 (89) Pulse Ox 94 94 95 94 O2 Delivery Room Air Room Air Room Air Room Air 02/23/17 02/23/17 02/23/17 02/23/17 03:00 03:23 06:45 07:00 Temp 98.6 97.5 98.6 97.5 Pulse 73 75 Resp 16 16 20 20 B/P (MAP) 111/64 (80) 111/66 (81) Pulse Ox 95 95 98 O2 Delivery Room Air Room Air Room Air 02/23/17 02/23/17 02/23/17 02/23/17 07:15 08:00 11:00 11:02 Temp 97.7 97.7 Pulse 92 Resp 18 B/P (MAP) 117/70 (86) Pulse Ox 95 95 96 O2 Delivery Room Air Room Air Room Air Room Air 02/23/17 02/23/17 11:22 12:12 Resp 18 Pulse Ox 96 O2 Delivery Room Air Room Air Intake and Output 02/22/17 02/22/17 02/23/17 15:00 23:00 07:00 Intake Total 120 ml 3500 ml 480 ml Output Total 2650 ml 500 ml Balance 120 ml 850 ml -20 ml FLORY HAMMOND MD Feb 23, 2017 12:41
--- NOTE | 2017-02-23 13:46 | PDOC ---
PULMONARY PROGRESS NOTES Subjective no soa Vitals Vital Signs Date Time Temp Pulse Resp B/P (MAP) Pulse Ox O2 Delivery O2 Flow Rate FiO2 02/23/17 12:42 18 96 Room Air 02/23/17 11:00 97.7 92 117/70 (86) 97.7 General: Alert, No acute distress Lungs: Clear Cardiovascular: S1, S2 Abdomen: Soft Neuro Exam: Alert Extremities: No Edema Skin: Warm Labs Laboratory Tests Test 02/22/17 00:09 02/22/17 08:00 02/22/17 13:40 02/23/17 06:10 White Blood Count 10.1 x10^3/uL (4.0-11.0) 10.4 x10^3/uL (4.0-11.0) Red Blood Count 4.49 x10^6/uL (4.30-5.70) 4.49 x10^6/uL (4.30-5.70) Hemoglobin 13.8 g/dL (13.0-17.5) 14.0 g/dL (13.0-17.5) Hematocrit 41.2 % (39.0-53.0) 40.5 % (39.0-53.0) Mean Corpuscular Volume 92 fL (79-100) 90 fL (79-100) Mean Corpuscular Hemoglobin 31 pg (25-35) 31 pg (25-35) Mean Corpuscular Hemoglobin Concent 34 g/dL (31-37) 35 g/dL (31-37) Red Cell Distribution Width 13.9 % (11.5-14.5) 13.5 % (11.5-14.5) Platelet Count 223 x10^3/uL (140-400) 255 x10^3/uL (140-400) Neutrophils (%) (Auto) 62 % (31-73) 64 % (31-73) Lymphocytes (%) (Auto) 28 % (24-48) 26 % (24-48) Monocytes (%) (Auto) 6 % (0-9) 6 % (0-9) Eosinophils (%) (Auto) 3 % (0-3) 3 % (0-3) Basophils (%) (Auto) 1 % (0-3) 1 % (0-3) Neutrophils # (Auto) 6.2 x10^3uL (1.8-7.7) 6.7 x10^3uL (1.8-7.7) Lymphocytes # (Auto) 2.9 x10^3/uL (1.0-4.8) 2.6 x10^3/uL (1.0-4.8) Monocytes # (Auto) 0.6 x10^3/uL (0.0-1.1) 0.6 x10^3/uL (0.0-1.1) Eosinophils # (Auto) 0.3 x10^3/uL (0.0-0.7) 0.3 x10^3/uL (0.0-0.7) Basophils # (Auto) 0.1 x10^3/uL (0.0-0.2) 0.1 x10^3/uL (0.0-0.2) D-Dimer (Leeann) 0.34 ug/mlFEU (0.00-0.50) Sodium Level 140 mmol/L (136-145) 140 mmol/L (136-145) Potassium Level 3.6 mmol/L (3.5-5.1) 4.1 mmol/L (3.5-5.1) Chloride Level 106 mmol/L (98-107) 106 mmol/L (98-107) Carbon Dioxide Level 23 mmol/L (21-32) 25 mmol/L (21-32) Anion Gap 11 (6-14) 9 (6-14) Blood Urea Nitrogen 21 mg/dL (8-26) 20 mg/dL (8-26) Creatinine 1.3 mg/dL (0.7-1.3) 1.3 mg/dL (0.7-1.3) Estimated GFR (Cockcroft-Gault) 64.4 64.4 BUN/Creatinine Ratio 16 (6-20) Glucose Level 102 mg/dL (70-99) 97 mg/dL (70-99) Calcium Level 9.0 mg/dL (8.5-10.1) 8.3 mg/dL (8.5-10.1) Total Bilirubin 0.2 mg/dL (0.2-1.0) Aspartate Amino Transf (AST/SGOT) 15 U/L (15-37) Alanine Aminotransferase (ALT/SGPT) 31 U/L (16-63) Alkaline Phosphatase 93 U/L (46-116) Troponin I Quantitative < 0.017 ng/mL (0.000-0.055) < 0.017 ng/mL (0.000-0.055) < 0.017 ng/mL (0.000-0.055) Total Protein 7.3 g/dL (6.4-8.2) Albumin 3.7 g/dL (3.4-5.0) Albumin/Globulin Ratio 1.0 (1.0-1.7) Nasal Screen MRSA (PCR) Negative (Negative) Test 02/23/17 13:00 Magnesium Level 1.9 mg/dL (1.8-2.4) Troponin I Quantitative < 0.017 ng/mL (0.000-0.055) Laboratory Tests Test 02/23/17 06:10 02/23/17 13:00 White Blood Count 10.4 x10^3/uL (4.0-11.0) Red Blood Count 4.49 x10^6/uL (4.30-5.70) Hemoglobin 14.0 g/dL (13.0-17.5) Hematocrit 40.5 % (39.0-53.0) Mean Corpuscular Volume 90 fL (79-100) Mean Corpuscular Hemoglobin 31 pg (25-35) Mean Corpuscular Hemoglobin Concent 35 g/dL (31-37) Red Cell Distribution Width 13.5 % (11.5-14.5) Platelet Count 255 x10^3/uL (140-400) Neutrophils (%) (Auto) 64 % (31-73) Lymphocytes (%) (Auto) 26 % (24-48) Monocytes (%) (Auto) 6 % (0-9) Eosinophils (%) (Auto) 3 % (0-3) Basophils (%) (Auto) 1 % (0-3) Neutrophils # (Auto) 6.7 x10^3uL (1.8-7.7) Lymphocytes # (Auto) 2.6 x10^3/uL (1.0-4.8) Monocytes # (Auto) 0.6 x10^3/uL (0.0-1.1) Eosinophils # (Auto) 0.3 x10^3/uL (0.0-0.7) Basophils # (Auto) 0.1 x10^3/uL (0.0-0.2) Sodium Level 140 mmol/L (136-145) Potassium Level 4.1 mmol/L (3.5-5.1) Chloride Level 106 mmol/L (98-107) Carbon Dioxide Level 25 mmol/L (21-32) Anion Gap 9 (6-14) Blood Urea Nitrogen 20 mg/dL (8-26) Creatinine 1.3 mg/dL (0.7-1.3) Estimated GFR (Cockcroft-Gault) 64.4 Glucose Level 97 mg/dL (70-99) Calcium Level 8.3 mg/dL (8.5-10.1) Magnesium Level 1.9 mg/dL (1.8-2.4) Troponin I Quantitative < 0.017 ng/mL (0.000-0.055) Medications Active Scripts Medications Dose Route/Sig Max Daily Dose Days Date Category Cephalexin 500 Mg Capsule 2 Cap PO QID 01/03/17 Reported Mobic (Meloxicam) 15 Mg Tablet 1 Tab PO DAILY 01/03/17 Reported Keppra (Levetiracetam) 1,000 Mg Tablet 1 Tab PO BID 12/28/16 Rx Hydrocodone-Apap 7.5-325 (Hydrocodone Bit/Acetaminophen) 1 Each Tablet 1 Tab PO PRN Q6HRS PRN 09/19/16 Rx Apriso (Mesalamine) 0.375 Gm Cap.er.24h 2 Cap PO HS 09/04/16 Reported Zofran Odt (Ondansetron) 4 Mg Tab.rapdis 1 Tab SL Q8HRS 05/03/16 Rx Cyanocobalamin Injection (Cyanocobalamin (Vitamin B-12)) 1,000 Mcg/1 Ml Vial 1 Ml IM WEEKLY 03/05/16 Reported Topamax (Topiramate) 100 Mg Tablet 1 Tab PO TID 07/07/15 Reported Meloxicam 15 Mg Tablet 1 Tab PO DAILY 06/28/15 Reported Cyclobenzaprine Hcl 10 Mg Tablet 10 Mg PO TID 06/28/15 Reported Lyrica (Pregabalin) 75 Mg Capsule 1 Cap PO BID 06/28/15 Reported Advair 500-50 Diskus (Fluticasone/Salmeterol) 1 Each Disk.w.dev 1 Puff IH BID 05/06/15 Reported Albuterol Sulfate Hfa Inhaler (Albuterol Sulfate) 8.5 Gm Hfa.aer.ad 2 Puff INH QID 05/06/15 Reported Protonix (Pantoprazole Sodium) 40 Mg Tablet. 40 Mg PO 08/17/13 Reported Aspir 81 (Aspirin) 81 Mg Tablet. 81 Mg PO DAILY 08/17/13 Reported Impression . 1. Chest pain with mild subjective shortness of breath, although his saturations are 98% on room air. Cardiology has seen the patient. He had previous cardiac catheterization in 09/2016 and had no significant coronary artery disease. He had mildly elevated left-sided filling pressures. His chest x-ray is clear. I do not think that we are dealing with any thromboembolic disease contributing to this chest pain. His D-Dimer is normal. 2. History of pulmonary hypertension, reportedly told to him at . I do not have any records of his echo.. He has twice been ruled out for thromboembolic disease based on CT angiograms done in 2013 and 2014. His CXR is clear .His D-dimer is normal and I do not see need for any further workup for thromboembolic disease. repeat echo 02/22 with PA 38 3. Morbid obesity, suspected obstructive sleep apnea. He also is narcotic dependent as well. 4. Questionable chronic obstructive pulmonary disease. Plan . 1. No sig pulmonary HTN on recent echo 2. We will consider doing outpatient PFTs. 3. Consider polysomnogram as an outpatient, although the patient denies symptoms of obstructive sleep apnea. With his body habitus, he certainly carries risk for sleep apnea. 4. No further workup for thromboembolic disease. His D-dimer is normal. 5. ok with [facility] NINI STONE MD Feb 23, 2017 13:46
--- NOTE | 2017-02-23 13:55 | PDOC ---
CARDIO Progress Notes Date and Time Date of Service 02/23/2017 Time of Evaluation 1340 Subjective Subjective: No Chest Pain, No shortness of breath, No Palpitations, No Dizziness, Other (sitting up in chair without complaints) Vitals Vitals Vital Signs Date Time Temp Pulse Resp B/P (MAP) Pulse Ox O2 Delivery O2 Flow Rate FiO2 02/23/17 12:42 18 96 Room Air 02/23/17 11:00 97.7 92 117/70 (86) 97.7 Weight Weight [ ] Input and Output Intake and Output Intake and Output 02/23/17 07:00 Intake Total 4100 ml Output Total 3150 ml Balance 950 ml Intake Oral 4100 ml Output Urine Total 3150 ml Laboratory Labs Laboratory Tests Test 02/23/17 06:10 02/23/17 13:00 White Blood Count 10.4 x10^3/uL (4.0-11.0) Red Blood Count 4.49 x10^6/uL (4.30-5.70) Hemoglobin 14.0 g/dL (13.0-17.5) Hematocrit 40.5 % (39.0-53.0) Mean Corpuscular Volume 90 fL (79-100) Mean Corpuscular Hemoglobin 31 pg (25-35) Mean Corpuscular Hemoglobin Concent 35 g/dL (31-37) Red Cell Distribution Width 13.5 % (11.5-14.5) Platelet Count 255 x10^3/uL (140-400) Neutrophils (%) (Auto) 64 % (31-73) Lymphocytes (%) (Auto) 26 % (24-48) Monocytes (%) (Auto) 6 % (0-9) Eosinophils (%) (Auto) 3 % (0-3) Basophils (%) (Auto) 1 % (0-3) Neutrophils # (Auto) 6.7 x10^3uL (1.8-7.7) Lymphocytes # (Auto) 2.6 x10^3/uL (1.0-4.8) Monocytes # (Auto) 0.6 x10^3/uL (0.0-1.1) Eosinophils # (Auto) 0.3 x10^3/uL (0.0-0.7) Basophils # (Auto) 0.1 x10^3/uL (0.0-0.2) Sodium Level 140 mmol/L (136-145) Potassium Level 4.1 mmol/L (3.5-5.1) Chloride Level 106 mmol/L (98-107) Carbon Dioxide Level 25 mmol/L (21-32) Anion Gap 9 (6-14) Blood Urea Nitrogen 20 mg/dL (8-26) Creatinine 1.3 mg/dL (0.7-1.3) Estimated GFR (Cockcroft-Gault) 64.4 Glucose Level 97 mg/dL (70-99) Calcium Level 8.3 mg/dL (8.5-10.1) Magnesium Level 1.9 mg/dL (1.8-2.4) Troponin I Quantitative < 0.017 ng/mL (0.000-0.055) Physical Exam HEENT: Neck Supple W Full Motion Chest: Symmetric LUNGS: Clear to Auscultation Heart: S1S2, RRR Abdomen: Soft N/T Extremities: No Calf Tenderness Neurology: alert, oriented, follow commands Assessment Assessment 1. Chest pain: I was called in today for localized CP episode today and [employer] was activated. This is noncardiac. Troponin normal, EKG SR without acute changes. No arrhythmias. Likely anxiety/panic Recommendations 1. Recent LHC with normal coronaries. TTE with normal wall motion/EF. No further cardiac w/u. Recommend SSRI. B[employer] Feb 23, 2017 13:55
[2017-02-23 15:00] VITALS: BP 111/56
[2017-02-23] MEDS: traMADol 50 MG TABLET PO PRN (15:23)
[2017-02-23] MEDS ORDERED: Escitalopram PO (16:33)
--- NOTE | 2017-02-23 16:34 | PDOC3 ---
Discharge Summary [facility] Date of Admission: Feb 22, 2017 Discharge Date: Feb 23, 2017 Admitting Diagnosis 1. chest pain, sob, 2/2 anxiety, possible hypoventilation syndrome with obesity 2. bl leg chronic cellulitis on keflex daily 3. PCN allergy but on chronic keflex/Sulfa allergy 4. CKD 2-3 5. 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 no CAD nor CHF 7. H/O MILD CVA 8. GERD 9. depression, anxiety 10 HTN 11. H/O TIA 12. h/o COPD 13. seizure like activity with h/o non epileptic seizures 14. morbid obesity Problems: Final Diagnosis CONSULTS pulm card Brief Hospital Course Patient is a 31 year old gentleman with new diagnosed PHTN from , chf ( recent echo , cath neg 09/2016), possible COPD with previous smoking, anxiety, bl leg chronic abx, comes for chest pain. h/o CAD? but no stents ever. h/o pseudoseizure, on keppra. Pt said he went to 2 weeks for sob, echo done and showed PHTN, supposed to fu with travel counselor but appt is in 04/2017, no specific treatment yet. He said dr. Coley saw him before with copd. He said the chest pain is at substernal, pressure feeling, moderate, radiating to left arm, worse with deep breath. Had N/V, sob , diaphoresis. Pt looks very calm to me, but feels mild sob now, sat 98% on RA. still takes keflex for bl lower leg cellulitis, fu with ID [id number]. not sure if pt lies or someone told him that he has PHTN in , the echo from is normal and echo repeated here is normal. pt has NO PHTN, chest pain/sob is likely 2/2 anxiety. Pt was suppossed to fu with psychiatrist for his pseudoseizure, not sure why not. add lexapro, and asked him to find a psychiatrist debra. fu with pulm for sleep study for likely KAUSHIK. dc time 40min Patient History: Family history: Asthma G8 BROTHER Family history: Cardiovascular disease (situation) 33 FATHER 32 MOTHER Family history: Diabetes mellitus (situation) G8 BROTHER 33 FATHER 32 MOTHER Family history: Diabetes mellitus (situation) G8 BROTHER 33 FATHER 32 MOTHER Family history: Hypertension (situation) 33 FATHER 32 MOTHER Problems: Disposition home CONDITION AT DISCHARGE: Improved Diet regular Scheduled Albuterol Sulfate (Albuterol Sulfate Hfa Inhaler), 2 PUFF INH QID, (Reported) Aspirin (Aspir 81), 81 MG PO DAILY, (Reported) Cephalexin (Cephalexin), 2 CAP PO QID, (Reported) Cyanocobalamin (Vitamin B-12) (Cyanocobalamin Injection), 1 ML IM WEEKLY, ( Reported) Cyclobenzaprine Hcl (Cyclobenzaprine Hcl), 10 MG PO TID, (Reported) Fluticasone/Salmeterol (Advair 500-50 Diskus), 1 PUFF IH BID, (Reported) Levetiracetam (Keppra), 1 TAB PO BID Meloxicam (Meloxicam), 1 TAB PO DAILY, (Reported) Meloxicam (Mobic), 1 TAB PO DAILY, (Reported) Mesalamine (Apriso), 2 CAP PO HS, (Reported) Ondansetron (Zofran Odt), 1 TAB SL Q8HRS Pregabalin (Lyrica), 1 CAP PO BID, (Reported) Topiramate (Topamax), 1 TAB PO TID, (Reported) [Escitalopram], 10 MG PO DAILY Scheduled PRN Hydrocodone Bit/Acetaminophen (Hydrocodone-Apap 7.5-325 ), 1 TAB PO PRN Q6HRS PRN for PAIN Miscellaneous Medications Pantoprazole Sodium (Protonix), 40 MG PO, (Reported) Follow Up pcp and psych debra FLORY HAMMOND MD Feb 23, 2017 16:34
[2017-02-23] MEDS ORDERED: ESCITALOPRAM 10 MG TABLET. PO SCH (17:00)
[2017-02-28] MEDS ORDERED: CYANOCOBALAMIN (VITAMIN B-12) 1,000 MCG/ML VIAL IM SCH (09:00)
== END 2017-02-23 17:44 | disposition home or self-care (01) | DRG 880 ==
LOC: ER 23:51 → 5 NORTH 02-22 01:00
PROVIDERS: ADMIT Internal Medicine; ATTEND Internal Medicine
DX: F41.9 Anxiety disorder, unspecified (principal); I13.0 Hypertensive heart and chronic kidney disease with heart failure and stage 1 through stage 4 chronic kidney disease, or unspecified chronic kidney disease; Z68.41 Body mass index [BMI] 40.0-44.9, adult; E66.2 Morbid (severe) obesity with alveolar hypoventilation; L03.116 Cellulitis of left lower limb; L03.115 Cellulitis of right lower limb; F11.20 Opioid dependence, uncomplicated; K50.90 Crohn's disease, unspecified, without complications; I31.9 Disease of pericardium, unspecified; F32.9 Major depressive disorder, single episode, unspecified; D64.9 Anemia, unspecified; M19.90 Unspecified osteoarthritis, unspecified site; F44.5 Conversion disorder with seizures or convulsions; I48.91 Unspecified atrial fibrillation; E78.5 Hyperlipidemia, unspecified; J44.9 Chronic obstructive pulmonary disease, unspecified; K21.9 Gastro-esophageal reflux disease without esophagitis; I50.9 Heart failure, unspecified; N18.3 Chronic kidney disease, stage 3 (moderate); H54.0 Blindness, both eyes; Z88.2 Allergy status to sulfonamides; Z87.891 Personal history of nicotine dependence; Z88.0 Allergy status to penicillin; Z86.73 Personal history of transient ischemic attack (TIA), and cerebral infarction without residual deficits; Z86.14 Personal history of Methicillin resistant Staphylococcus aureus infection; Z79.1 Long term (current) use of non-steroidal anti-inflammatories (NSAID); Z83.3 Family history of diabetes mellitus; Z82.5 Family history of asthma and other chronic lower respiratory diseases; Z82.49 Family history of ischemic heart disease and other diseases of the circulatory system; Z80.8 Family history of malignant neoplasm of other organs or systems; Z79.899 Other long term (current) drug therapy; I25.2 Old myocardial infarction
CPT/HCPCS: 36415; 71010; 80048; 80053; 83735; 84484; 85027; 85379; 87641; 93005; 93306; 94250; 94640; 96374; 96375; J1650; J2270; J2405; 99285-25

== ENCOUNTER 2017-05-08 13:12 | Inpatient (IN) | payer OTHER ==
[~2017-05-08] VITALS: Ht 180.3 cm; Wt 137.0 kg
[~2017-05-08 13:12] MED LIST changes: +Escitalopram PO
[2017-05-08 14:39] LABS: BASO # 0.2 x10^3/uL (0.0-0.2); BASO % 1 % (0-3); EOS % 0 % (0-3); HEMATOCRIT 42.3 % (39.0-53.0); HEMOGLOBIN 13.9 g/dL (13.0-17.5); LYMPH # 2.2 x10^3/uL (1.0-4.8); LYMPH % 13 % (24-48); MEAN CORPUSCULAR HEMOGLOBIN 30 pg (25-35); MEAN CORPUSCULAR HGB CONC 33 g/dL (31-37); MEAN CORPUSCULAR VOLUME 92 fL (79-100); MONO % 5 % (0-9); NEUT % 81 % (31-73); PLATELET COUNT 236 x10^3/uL (140-400); RED BLOOD COUNT 4.59 x10^6/uL (4.30-5.70); RED CELL DISTRIBUTION WIDTH 13.1 % (11.5-14.5); WHITE BLOOD COUNT 17.4 x10^3/uL (4.0-11.0)
[2017-05-08 14:41] LABS: BILIRUBIN,URINE NEGATIVE (NEG); GLUCOSE,URINE NEGATIVE (NEG); NITRITE,URINE NEGATIVE (NEG); PH,URINE 6.5; PROTEIN,URINE NEGATIVE (NEG-TRACE); UROBILINOGEN,URINE 0.2 mg/dL (0.2 mg/dL)
[2017-05-08 14:54] LABS: BACTERIA,URINE 0 /HPF (0-FEW); RBC,URINE 0 /HPF (0-2); SQUAMOUS EPITHELIAL CELL,UR OCC /LPF; WBC,URINE 0 /HPF (0-4)
[2017-05-08 14:56] LABS: CALCIUM 9.1 mg/dL (8.5-10.1); CREATININE 1.3 mg/dL (0.7-1.3); POTASSIUM 4.4 mmol/L (3.5-5.1)
[2017-05-08] MEDS ORDERED: MORPHINE SULFATE 10 MG/ML VIAL. IV ONE (15:00)
--- NOTE | 2017-05-08 15:00 | PHYS DOC ---
Past Medical History Past Medical History: CHF, COPD, Seizure, TIA Additional Past Medical Histor: CROHN'S DZ, C-DIFF, CELLULITIS, MRSA, PERICARDITIS Past Surgical History: Other Additional Past Surgical Histo: L KNEE SX X 2, PYLORIC STENOSIS SX Alcohol Use: None Drug Use: None Adult General Chief Complaint Chief Complaint: ABDOMINAL PAIN HPI HPI Patient is a 32 year old male who presents with abdominal pain and bloody stools. Pt reports he's had abdominal pain for several weeks, somewhat improved since onset but now with increased blood stools. Pt recently treated with vancomycin for c diff diagnosed on 04/19. Continues to have loose stools. Pt has h/o chrohns and follows with Dr. Lennon. pt took hydrocodone at noon for pain, no known fevers, no nausea or vomiting. PCP is Jamison Khalil, pt sees infectious disease at , h/o sepsis x 2. Review of Systems Review of Systems Constitutional: Denies fever or chills [] Eyes: Denies change in visual acuity, redness, or eye pain [] HENT: Denies nasal congestion or sore throat [] Respiratory: Denies cough or shortness of breath [] Cardiovascular: Denies chest pain GI: per hpi : Denies dysuria or hematuria [] Musculoskeletal: Denies back pain or joint pain [] Integument: Denies rash or skin lesions [] Current Medications Current Medications Current Medications Medications (Trade) Dose Ordered Sig/Linda Start Time Stop Time Status Last Admin Dose Admin Morphine Sulfate 5 mg 1X ONCE 05/08/17 15:00 05/08/17 15:01 DC 05/08/17 15:55 5 MG Allergies Allergies Allergies Coded Allergies Type Severity Reaction Last Updated Verified Penicillins Allergy Intermediate Takes Keflex at home chronically 05/24/16 Yes Sulfa (Sulfonamide Antibiotics) Allergy Intermediate 05/24/16 Yes Physical Exam Physical Exam Constitutional: Well developed, well nourished, no acute distress, appears uncomfortable, obese HENT: Normocephalic, atraumatic, bilateral external ears normal, oropharynx moist, no oral exudates, nose normal. [] Eyes: PERRLA, EOMI, conjunctiva normal, no discharge. [] Neck: Normal range of motion, no tenderness, supple, no stridor. [] Cardiovascular:Heart rate regular with regular rhythm, no murmur [] Lungs & Thorax: Bilateral breath sounds clear to auscultation, no wheeze or crackles Abdomen: Bowel sounds normal, protuberant, diffuse nonfocal ttp in upper abdomen without guarding or peritoneal signs. Skin: Warm, dry, no erythema, no rash. [] Back: No tenderness, no CVA tenderness. [] Extremities: No tenderness, no cyanosis, no clubbing, ROM intact Neurologic: Alert and oriented X 3, normal motor function, normal sensory function, no focal deficits noted. [] Psychologic: Affect normal, judgement normal, mood normal. [] Current Patient Data Vital Signs Vital Signs Date Time Temp Pulse Resp B/P (MAP) Pulse Ox O2 Delivery O2 Flow Rate FiO2 05/08/17 16:00 88 24 131/75 (93) 98 Room Air 05/08/17 13:28 98.3 98.3 Lab Values Laboratory Tests Test 05/08/17 14:30 05/08/17 14:45 White Blood Count 17.4 x10^3/uL (4.0-11.0) H Red Blood Count 4.59 x10^6/uL (4.30-5.70) Hemoglobin 13.9 g/dL (13.0-17.5) Hematocrit 42.3 % (39.0-53.0) Mean Corpuscular Volume 92 fL (79-100) Mean Corpuscular Hemoglobin 30 pg (25-35) Mean Corpuscular Hemoglobin Concent 33 g/dL (31-37) Red Cell Distribution Width 13.1 % (11.5-14.5) Platelet Count 236 x10^3/uL (140-400) Neutrophils (%) (Auto) 81 % (31-73) H Lymphocytes (%) (Auto) 13 % (24-48) L Monocytes (%) (Auto) 5 % (0-9) Eosinophils (%) (Auto) 0 % (0-3) Basophils (%) (Auto) 1 % (0-3) Neutrophils # (Auto) 14.1 x10^3uL (1.8-7.7) H Lymphocytes # (Auto) 2.2 x10^3/uL (1.0-4.8) Monocytes # (Auto) 0.8 x10^3/uL (0.0-1.1) Eosinophils # (Auto) 0.0 x10^3/uL (0.0-0.7) Basophils # (Auto) 0.2 x10^3/uL (0.0-0.2) Segmented Neutrophils % 81 % (35-66) H Band Neutrophils % 3 % (0-9) Lymphocytes % 15 % (24-48) L Monocytes % 1 % (0-10) Platelet Estimate Adequate (ADEQUATE) Urine Collection Type Void Urine Color Straw Urine Clarity Clear Urine pH 6.5 Urine Specific [place] 1.010 Urine Protein Negative mg/dL (NEG-TRACE) Urine Glucose (UA) Negative mg/dL (NEG) Urine Ketones (Stick) Negative mg/dL (NEG) Urine Blood Negative (NEG) Urine Nitrite Negative (NEG) Urine Bilirubin Negative (NEG) Urine Urobilinogen Dipstick 0.2 mg/dL (0.2 mg/dL) Urine Leukocyte Esterase Negative (NEG) Urine RBC 0 /HPF (0-2) Urine WBC 0 /HPF (0-4) Urine Squamous Epithelial Cells Occ /LPF Urine Bacteria 0 /HPF (0-FEW) Sodium Level 144 mmol/L (136-145) Potassium Level 4.4 mmol/L (3.5-5.1) Chloride Level 107 mmol/L (98-107) Carbon Dioxide Level 24 mmol/L (21-32) Anion Gap 13 (6-14) 16 mmol/L (6-14) H Blood Urea Nitrogen 24 mg/dL (8-26) Creatinine 1.3 mg/dL (0.7-1.3) Estimated GFR (Cockcroft-Gault) 64.0 BUN/Creatinine Ratio 18 (6-20) Glucose Level 91 mg/dL (70-99) 88 mg/dL (70-99) Calcium Level 9.1 mg/dL (8.5-10.1) Total Bilirubin 0.1 mg/dL (0.2-1.0) L Aspartate Amino Transferase (AST) 10 U/L (15-37) L Alanine Aminotransferase (ALT) 37 U/L (16-63) Alkaline Phosphatase 87 U/L (46-116) Total Protein 6.9 g/dL (6.4-8.2) Albumin 3.7 g/dL (3.4-5.0) Albumin/Globulin Ratio 1.2 (1.0-1.7) POC Hemoglobin 13.9 g/dL (14-18) L POC Hematocrit 41 % (37-52) POC Sodium 143 mmol/L (135-145) POC Potassium 4.1 mmol/L (3.5-5.0) POC Chloride 109 mmol/L (98-110) POC Total CO2 22 mmol/L (23-32) L POC Blood Urea Nitrogen 24 mg/dL (8-26) POC Creatinine 1.3 mg/dL (0.5-1.4) POC Ionized Calcium (Vic) 1.24 mmol/L (1.13-1.32) Laboratory Tests 05/08/17 14:30 Laboratory Tests 05/08/17 14:30 05/08/17 14:45 EKG EKG [] Radiology/Procedures Radiology/Procedures XR abd: Impression: Negative exam. Course & Med Decision Making Course & Med Decision Making Pertinent Labs and Imaging studies reviewed. (See chart for details) Pt given IV morphine. Pt is currently on steroids, has a leukocytosis but no fever. Pt's had abdominal pain for weeks, multiple CT scans in the past. Does not appear toxic, would like to avoid performing CT if possible. Discussed pt with Dr. Taylor, who recommends holding on the antibiotics until c-diff study returns. I disussed with Dr. Lennon who recommends admitting pt for ongoing monitoring. Dr. Bradshaw accepted pt for admission. Pt agreeable to admission. Stool studies pending pt to supply. Dragon Disclaimer Dragon Disclaimer This electronic medical record was generated, in whole or in part, using a voice recognition dictation system. Departure Departure Impression: Primary Impression: Rectal bleeding Additional Impression: Abdominal pain Disposition: ADMITTED INPATIENT Admitting Physician: Other Condition: STABLE Referrals: LOBO WILLIAMSON (PCP) Problem Qualifiers ARIA RANDHAWA MD May 08, 2017 15:00
[2017-05-08 15:02] LABS: ALBUMIN 3.7 g/dL (3.4-5.0); ALBUMIN/GLOBULIN RATIO 1.2 (1.0-1.7); TOTAL BILIRUBIN 0.1 mg/dL (0.2-1.0); TOTAL PROTEIN 6.9 g/dL (6.4-8.2)
[2017-05-08 15:09] LABS: PLT ESTIMATE ADEQUATE (ADEQUATE)
--- NOTE | 2017-05-08 15:41 | RAD ---
Exam performed: Supine upright views of the abdomen. History: Abdominal pain, recent C. difficile colitis. Date of service: 05/08/17. Comparison: Small bowel series from 05/30/16. Findings: Supine and upright views of the abdomen demonstrate nonspecific, nondistended bowel loops. There is no evidence of ileus or obstructive pattern. No abnormal calcification. Bones are normal. Impression: Negative exam.
[2017-05-08 15:45] LABS: POTASSIUM ISTAT 4.1 mmol/L (3.5-5.0)
[2017-05-08] MEDS ORDERED: ONDANSETRON PF 4 MG/2 ML VIAL. IV PRN (16:15)
--- NOTE | 2017-05-08 16:35 | PDOC2 ---
GI CONSULT Reason For Consult: GI Bleed, C Diff HPI: HPI: 32 y/o male who follows w/ Dr. Lennon, seen in ER w/ planned admission. H/o Crohn's diagnosed 17 years ago, last 'scopes ~1 year ago. Currently on Apriso 2 pills QD + prednisone (not sure dose). Additionally recently on vanco for first occurrence of C Diff (last dose 05/06). H/o chronic atbx use for LE cellulitis, was also just discharged from a few days ago for "heart testing" (note extensive PMH as below). Describes 4-6 loose/watery stools daily w/ increasing amount of bright red blood x 2 days and worsening RUQ/periumbilical pain. No n/v, eating okay. H/o GERD controlled w/ PPI. On ASA and I believe Meloxicam. Labs as below, notable for WBC 17, Hgb 13.9. ID consulted, stool tests ordered. 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, seizures, TIA, GERD, pyloric stenosis w/ surgery as , Crohn's, C Diff, MRSA, left eye blindness, cellulitis, left knee arthroscopy, heart cath FH: Family History: Cancer (breast), CAD, DM, Hypertension, Other (colon polyps, Crohn's) Social History: Smoke: Quit (7 years ago) ALCOHOL: none (in 1 year) Drugs: None ROS: GEN: Denies fevers, chills, sweats HEENT: Denies blurred vision, sore throat CV: chest pain RESP: Denies shortness of air, cough GI: Per HPI : Denies hematuria, dysuria ENDO: Denies weight changes NEURO: Denies confusion, dizziness MSK: Denies weakness, joint pain/swelling SKIN: cellulitis Vitals: Vitals: Vital Signs Date Time Temp Pulse Resp B/P (MAP) Pulse Ox O2 Delivery O2 Flow Rate FiO2 05/08/17 15:55 16 97 Room Air 05/08/17 13:28 98.3 90 143/80 (101) 98.3 Labs: Labs: Laboratory Tests Test 05/08/17 14:30 05/08/17 14:45 White Blood Count 17.4 x10^3/uL (4.0-11.0) Red Blood Count 4.59 x10^6/uL (4.30-5.70) Hemoglobin 13.9 g/dL (13.0-17.5) Hematocrit 42.3 % (39.0-53.0) Mean Corpuscular Volume 92 fL (79-100) Mean Corpuscular Hemoglobin 30 pg (25-35) Mean Corpuscular Hemoglobin Concent 33 g/dL (31-37) Red Cell Distribution Width 13.1 % (11.5-14.5) Platelet Count 236 x10^3/uL (140-400) Neutrophils (%) (Auto) 81 % (31-73) Lymphocytes (%) (Auto) 13 % (24-48) Monocytes (%) (Auto) 5 % (0-9) Eosinophils (%) (Auto) 0 % (0-3) Basophils (%) (Auto) 1 % (0-3) Neutrophils # (Auto) 14.1 x10^3uL (1.8-7.7) Lymphocytes # (Auto) 2.2 x10^3/uL (1.0-4.8) Monocytes # (Auto) 0.8 x10^3/uL (0.0-1.1) Eosinophils # (Auto) 0.0 x10^3/uL (0.0-0.7) Basophils # (Auto) 0.2 x10^3/uL (0.0-0.2) Segmented Neutrophils % 81 % (35-66) Band Neutrophils % 3 % (0-9) Lymphocytes % 15 % (24-48) Monocytes % 1 % (0-10) Platelet Estimate Adequate (ADEQUATE) Urine Collection Type Void Urine Color Straw Urine Clarity Clear Urine pH 6.5 Urine Specific [place] 1.010 Urine Protein Negative mg/dL (NEG-TRACE) Urine Glucose (UA) Negative mg/dL (NEG) Urine Ketones (Stick) Negative mg/dL (NEG) Urine Blood Negative (NEG) Urine Nitrite Negative (NEG) Urine Bilirubin Negative (NEG) Urine Urobilinogen Dipstick 0.2 mg/dL (0.2 mg/dL) Urine Leukocyte Esterase Negative (NEG) Urine RBC 0 /HPF (0-2) Urine WBC 0 /HPF (0-4) Urine Squamous Epithelial Cells Occ /LPF Urine Bacteria 0 /HPF (0-FEW) Sodium Level 144 mmol/L (136-145) Potassium Level 4.4 mmol/L (3.5-5.1) Chloride Level 107 mmol/L (98-107) Carbon Dioxide Level 24 mmol/L (21-32) Anion Gap 13 (6-14) 16 mmol/L (6-14) Blood Urea Nitrogen 24 mg/dL (8-26) Creatinine 1.3 mg/dL (0.7-1.3) Estimated GFR (Cockcroft-Gault) 64.0 BUN/Creatinine Ratio 18 (6-20) Glucose Level 91 mg/dL (70-99) 88 mg/dL (70-99) Calcium Level 9.1 mg/dL (8.5-10.1) Total Bilirubin 0.1 mg/dL (0.2-1.0) Aspartate Amino Transf (AST/SGOT) 10 U/L (15-37) Alanine Aminotransferase (ALT/SGPT) 37 U/L (16-63) Alkaline Phosphatase 87 U/L (46-116) Total Protein 6.9 g/dL (6.4-8.2) Albumin 3.7 g/dL (3.4-5.0) Albumin/Globulin Ratio 1.2 (1.0-1.7) Bedside Hemoglobin 13.9 g/dL (14-18) Bedside Hematocrit 41 % (37-52) Bedside Sodium 143 mmol/L (135-145) Bedside Potassium 4.1 mmol/L (3.5-5.0) Bedside Chloride 109 mmol/L (98-110) Bedside Total CO2 22 mmol/L (23-32) Bedside Blood Urea Nitrogen 24 mg/dL (8-26) Bedside Creatinine 1.3 mg/dL (0.5-1.4) Bedside Ionized Calcium (Vic) 1.24 mmol/L (1.13-1.32) Allergies: Coded Allergies: Penicillins (Verified Allergy, Intermediate, Takes Keflex at home chronically, 05/24/16) Sulfa (Sulfonamide Antibiotics) (Verified Allergy, Intermediate, 05/24/16) Medications: Current Medications Medications (Trade) Dose Ordered Sig/Linda Route PRN Reason Start Time Stop Time Status Last Admin Dose Admin Morphine Sulfate 5 mg 1X ONCE IV 05/08/17 15:00 05/08/17 15:01 DC 05/08/17 15:55 Imaging: Imaging: Abdomen Supine & Upright 8/29/17 Impression: Negative exam. PE: GEN: NAD HEENT: Atraumatic, PERRL LUNGS: CTAB HEART: RRR ABD: overweight, discomfort RUQ to epigastrium to periumbilical region, BS+ EXTREMITY: trace BLE edema SKIN: mild erythema lateral LLE NEURO/PSYCH: A & O 3 A/P: A/P: Bloody diarrhea w/ h/o Crohn's and recent C Diff infection Leukocytosis -- Will review office records. Restart vanc, mesalamine, and PPI. Await stool studies. Will review prednisone dosing (?continue mesalamine) w/ Dr. Lennon. UPDATE - no EGD on file at the office, last colonoscopy 05/24/16: internal hemorrhoids. DERRELL AGUIRRE May 08, 2017 16:35
[2017-05-08] MEDS ORDERED: VANCOMYCIN 125 MG/2.5 ML ORAL SOLUTION. PO ONE (16:45)
[2017-05-08] MEDS ORDERED: PANTOPRAZOLE 40 MG TABLET.DR. PO SCH (17:00)
[2017-05-08] MEDS: MORPHINE SULFATE 4 MG/ML DISP.SYRIN. IV PRN ×2 (18:15→20:35)
[2017-05-08 18:46] VITALS: BP 139/73
[2017-05-08 18:47] VITALS: BP 139/73
[2017-05-08 19:40] VITALS: BP 121/73
[2017-05-08] MEDS ORDERED: VANCOMYCIN 125 MG/2.5 ML ORAL SOLUTION. PO SCH (21:00)
[2017-05-08] MEDS ORDERED: PRED-220 PO (21:26)
[2017-05-08] MEDS ORDERED: ALBU2.5V5 NEB (21:26)
[2017-05-08] MEDS ORDERED: methylPREDNISolone SOD SUCC PF 125 MG/2 ML VIAL. IV ONE (22:00)
[2017-05-08] MEDS ORDERED: ONDANSETRON ODT 4 MG TAB.RAPDIS. PO PRN (22:00)
--- NOTE | 2017-05-08 22:14 | HP ---
ADMIT DATE: 05/08/2017 CHIEF COMPLAINT: Rectal bleeding. HISTORY OF PRESENT ILLNESS: The patient is a 32-year-old gentleman with history of Crohn's disease, under care of Dr. Lennon, who presented to the Emergency Room with rectal bleeding for the past few days. He relates that about 2 weeks ago, he had been diagnosed with C. diff by Dr. Lennon's office and had been prescribed p.o. vancomycin for 2 weeks, which he completed this past Sunday, 2 days ago. He also is on steroid taper, currently taken 10 mg b.i.d. 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 The patient also relates that he recently has spent a few days at for CHF. He knows an echo was done showing an EF of 60%. Diastolic function, however, is unknown. PAST MEDICAL HISTORY: Crohn's disease, recent C. diff colitis, longstanding history of pericarditis, CHF, hypertension, hyperlipidemia, asthma, hemorrhagic infarct in the right hemisphere in 10/2015 resulted in seizures, right eye blindness. FAMILY HISTORY: CAD, diabetes, Crohn's. SOCIAL HISTORY: Quit smoking 7 years ago. Denies any alcohol or drugs. ALLERGIES: PENICILLINS AND SULFA. HOME MEDICATIONS: MAR reconciled with home meds. REVIEW OF SYSTEMS: Positive for abdominal pain, diffuse, worsening over the past few days, rectal bleed as well. Positive for anorexia and despite this still has weight gain. Rest of organ system review is negative. PHYSICAL EXAMINATION: VITAL SIGNS: From today show a blood pressure of 121/73, heart rate of 82, respiratory rate at 18. He is afebrile. GENERAL: This is an overweight 32-year-old gentleman, alert and oriented, in no acute distress. Affect is flat. HEENT: Shows no scleral icterus. NECK: Supple. LUNGS: Clear. HEART: Regular rate and rhythm. ABDOMEN: Diffusely tender, mild distention, abnormal bowel sounds. EXTREMITIES: Show no edema. SKIN: Warm, soft and dry. LABORATORY DATA: CBC from today shows a WBC of 17.4, hemoglobin 13.9, platelets of 236. Of note, differential includes 81% neutrophils, 3 bands. Chemistries with a BUN and creatinine of 24 and 1.3. Electrolytes within normal limits. LFTs within normal, albumin at 3.7. Urine is negative for infectious signs. IMAGING STUDIES: Abdomen supine and upright shows nonspecific nondistended bowel loops. No evidence of ileus or obstructive pattern. ASSESSMENT AND PLAN: The patient is a 32-year-old gentleman with increasing rectal bleed. Suspicion for Crohn's would be higher than for C. diff persisting. We will give him empiric high dose steroids. Hold on antibiotics for now. 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 Lennon, is following in the morning. We will continue all his other home medications for the time being, including mesalamine. He will be continued on antiepileptics and inhalers as needed as well. FRANKLYN CORREA MD DR: UR/nts JOB#: [id number] / [id number] AVERY Gaston MD MTDD
[2017-05-08] MEDS: CYCLOBENZAPRINE 10 MG TABLET. PO SCH (22:35)
[2017-05-08] MEDS: PREGABALIN 75 MG CAPSULE PO SCH (22:35)
[2017-05-08] MEDS: levETIRAcetam 500 MG TABLET PO SCH (22:35)
[2017-05-08] MEDS: TOPIRAMATE 100 MG TABLET. PO SCH (22:35)
[2017-05-08 22:40] VITALS: BP 121/75
--- NOTE | 2017-05-09 00:43 | ACF ---
Admission Forms Criteria GASTROINTESTINAL BLEEDING Clinical Indications for Inpatient Care (Place 'X' for any and all applicable criteria): Ongoing inpatient care may be indicated for gastrointestinal bleeding with ANY ONE of the following (4)(20)(21)(22)(23)(24): [X]I. Active bleeding (eg, fresh voluminous blood in emesis or nasogastric aspirate, or per rectum) [ ]II. Hemodynamic instability [ ]III. Anticoagulation therapy or coagulopathy ((eg, advanced liver disease, irreversible anticoagulation) [ ]IV. Ischemic colitis (22) [ ]V. Endoscopy showing arterial bleeding, adherent clot, nonbleeding visible vessel, varices, flat red spots, ulcer size greater than 2 cm, or portal hypertensive gastropathy [ ]. High-risk low platelet count [ ]VII. Anemia requiring inpatient care as indicated by ANY ONE of the following a)[ ] Cognitive impairment b)[ ] Syncope c)[ ] Heart failure d)[ ] Chest pain e)[ ] Dyspnea f)[ ] Other findings suggesting inadequate perfusion (eg, peripheral or myocardial ischemia, end organ dysfunction) [ ]VIII. High-risk low platelet count [ ]IX. Suspected variceal cause of bleeding as indicated by ANY ONE of the following(27)(28): a)[ ] Known varices b)[ ] Hepatomegaly or splenomegaly c)[ ] Ascites d)[ ] Jaundice or scleral icterus e)[ ] History of liver disease (eg, cirrhosis) f)[ ] Physical findings of portal hypertension (eg, caput medusa) g)[ ] Comorbid disorder indicating risk for portal vein thrombosis (eg , abdominal surgery, sepsis, shock, exchange transfusion, prior umbilical vein catheterization) Extended stay may be needed until ALL of the following are present(20)(38)(47): [ ]a) Hemodynamic stability [ ]b) No evidence of active bleeding (eg, stable Hematocrit) [ ]c) Platelet count, prothrombin time, and partial thromboplastin time acceptable for next level of care [ ]d) Surgical or other acute intervention not needed [ ]e) Oral hydration and diet tolerated The original [employer] content created by [employer] has been revised. The portions of the content which have been revised are identified through the use of italic text or in bold, and [employer] has neither reviewed nor approved the modified material. All other unmodified content is copyright [facility]. Please see references footnoted in the original [facility] edition 2016 Admission Criteria Met?: Yes MIRA MEDINA May 09, 2017 00:43
[2017-05-09] MEDS: MORPHINE SULFATE 4 MG/ML DISP.SYRIN. IV PRN ×5 (01:08→15:14)
[2017-05-09 03:40] VITALS: BP 113/68
[2017-05-09 04:42] LABS: BASO % 0 % (0-3); EOS % 0 % (0-3); HEMATOCRIT 42.4 % (39.0-53.0); HEMOGLOBIN 13.9 g/dL (13.0-17.5); LYMPH # 1.2 x10^3/uL (1.0-4.8); LYMPH % 8 % (24-48); MEAN CORPUSCULAR HEMOGLOBIN 30 pg (25-35); MEAN CORPUSCULAR HGB CONC 33 g/dL (31-37); MEAN CORPUSCULAR VOLUME 93 fL (79-100); MONO % 2 % (0-9); NEUT % 90 % (31-73); PLATELET COUNT 217 x10^3/uL (140-400); RED BLOOD COUNT 4.58 x10^6/uL (4.30-5.70); RED CELL DISTRIBUTION WIDTH 13.1 % (11.5-14.5); WHITE BLOOD COUNT 14.2 x10^3/uL (4.0-11.0)
[2017-05-09 05:10] LABS: CALCIUM 8.8 mg/dL (8.5-10.1); CREATININE 1.4 mg/dL (0.7-1.3); GFR 58.7
[2017-05-09 07:00] VITALS: BP 114/69
[2017-05-09] MEDS: ALBUTEROL SULFATE 2.5 MG/3 ML NEBU. NEB SCH ×4 (08:00→21:41)
[2017-05-09] MEDS: BUDESONIDE 0.5 MG/2 ML NEBU. NEB SCH ×2 (08:00→21:41)
[2017-05-09] MEDS ORDERED: NON FORMULARY ITEM (Fluticasone/Salmeterol (Advair 500-50 Diskus) 1 PUFF) IH SCH (09:00)
[2017-05-09] MEDS ORDERED: MESALAMINE 1.2 GM TABLET.DR PO SCH (09:00)
[2017-05-09] MEDS ORDERED: ALBUTEROL SULFATE 8GM INHALER. INH SCH (09:00)
[2017-05-09] MEDS: TOPIRAMATE 100 MG TABLET. PO SCH ×3 (09:32→21:11)
[2017-05-09] MEDS: PANTOPRAZOLE 40 MG TABLET.DR. PO SCH ×2 (09:32→15:14)
[2017-05-09] MEDS: ASPIRIN ENTERIC COATED 81 MG TABLET.DR. PO SCH (09:32)
[2017-05-09] MEDS: levETIRAcetam 500 MG TABLET PO SCH ×2 (09:33→21:11)
[2017-05-09] MEDS: CYCLOBENZAPRINE 10 MG TABLET. PO SCH ×3 (09:33→21:11)
[2017-05-09] MEDS: PREGABALIN 75 MG CAPSULE PO SCH ×2 (09:33→21:11)
[2017-05-09 09:37] LABS: NEG OBC FOB NEG; POS OBC FOB POS
--- NOTE | 2017-05-09 10:49 | PDOC ---
Subjective: Subjective: Still upper abd pain. Tolerating clears. No further bleeding. 1 stool since arrival - mucousy. Objective: Vital Signs: Vital Signs Date Time Temp Pulse Resp B/P (MAP) Pulse Ox O2 Delivery O2 Flow Rate FiO2 05/09/17 09:40 93 Room Air 05/09/17 07:00 97.7 82 20 114/69 (84) 97.7 Labs: Laboratory Tests Test 05/08/17 14:30 05/08/17 14:45 05/09/17 03:35 05/09/17 08:40 White Blood Count 17.4 x10^3/uL 14.2 x10^3/uL Red Blood Count 4.59 x10^6/uL 4.58 x10^6/uL Hemoglobin 13.9 g/dL 13.9 g/dL Hematocrit 42.3 % 42.4 % Mean Corpuscular Volume 92 fL 93 fL Mean Corpuscular Hemoglobin 30 pg 30 pg Mean Corpuscular Hemoglobin Concent 33 g/dL 33 g/dL Red Cell Distribution Width 13.1 % 13.1 % Platelet Count 236 x10^3/uL 217 x10^3/uL Neutrophils (%) (Auto) 81 % 90 % Lymphocytes (%) (Auto) 13 % 8 % Monocytes (%) (Auto) 5 % 2 % Eosinophils (%) (Auto) 0 % 0 % Basophils (%) (Auto) 1 % 0 % Neutrophils # (Auto) 14.1 x10^3uL 12.8 x10^3uL Lymphocytes # (Auto) 2.2 x10^3/uL 1.2 x10^3/uL Monocytes # (Auto) 0.8 x10^3/uL 0.2 x10^3/uL Eosinophils # (Auto) 0.0 x10^3/uL 0.0 x10^3/uL Basophils # (Auto) 0.2 x10^3/uL 0.0 x10^3/uL Segmented Neutrophils % 81 % Band Neutrophils % 3 % Lymphocytes % 15 % Monocytes % 1 % Platelet Estimate Adequate Urine Collection Type Void Urine Color Straw Urine Clarity Clear Urine pH 6.5 Urine Specific [place] 1.010 Urine Protein Negative mg/dL Urine Glucose (UA) Negative mg/dL Urine Ketones (Stick) Negative mg/dL Urine Blood Negative Urine Nitrite Negative Urine Bilirubin Negative Urine Urobilinogen Dipstick 0.2 mg/dL Urine Leukocyte Esterase Negative Urine RBC 0 /HPF Urine WBC 0 /HPF Urine Squamous Epithelial Cells Occ /LPF Urine Bacteria 0 /HPF Sodium Level 144 mmol/L 142 mmol/L Potassium Level 4.4 mmol/L 4.0 mmol/L Chloride Level 107 mmol/L 105 mmol/L Carbon Dioxide Level 24 mmol/L 23 mmol/L Anion Gap 13 16 mmol/L 14 Blood Urea Nitrogen 24 mg/dL 21 mg/dL Creatinine 1.3 mg/dL 1.4 mg/dL Estimated GFR (Cockcroft-Gault) 64.0 58.7 BUN/Creatinine Ratio 18 Glucose Level 91 mg/dL 88 mg/dL 120 mg/dL Calcium Level 9.1 mg/dL 8.8 mg/dL Total Bilirubin 0.1 mg/dL Aspartate Amino Transf (AST/SGOT) 10 U/L Alanine Aminotransferase (ALT/SGPT) 37 U/L Alkaline Phosphatase 87 U/L Total Protein 6.9 g/dL Albumin 3.7 g/dL Albumin/Globulin Ratio 1.2 Bedside Hemoglobin 13.9 g/dL Bedside Hematocrit 41 % Bedside Sodium 143 mmol/L Bedside Potassium 4.1 mmol/L Bedside Chloride 109 mmol/L Bedside Total CO2 22 mmol/L Bedside Blood Urea Nitrogen 24 mg/dL Bedside Creatinine 1.3 mg/dL Bedside Ionized Calcium (Vic) 1.24 mmol/L Stool Occult Blood Negative PE: GEN: NAD, sitting up in bed LUNGS: clear HEART: RRR ABD: tenderness across upper abd NEURO/PSYCH: A & O 3 A/P: Upper abd pain - ongoing H/o Crohn's -last colonoscopy normal in 2016 -on Apriso and prednisone recently -received IV steroid x 1 in ER Recent C Diff infection, diarrhea -fecal occult negative (reported bloody diarrhea) -C Diff, O&P, stool cx in process Leukocytosis - improved -- ?CT ?continue steroids Not on vanc, will defer to ID. DERRELL AGUIRRE May 09, 2017 10:49
[2017-05-09 11:00] VITALS: BP 112/71
--- NOTE | 2017-05-09 11:46 | PDOC ---
Infectious Disease Note ROS ROS Vital Sign Vital Signs Vital Signs Date Time Temp Pulse Resp B/P (MAP) Pulse Ox O2 Delivery O2 Flow Rate FiO2 05/09/17 09:40 93 Room Air 05/09/17 07:00 97.7 82 20 114/69 (84) 97.7 Labs Lab Laboratory Tests Test 05/08/17 14:30 05/08/17 14:45 05/09/17 03:35 05/09/17 08:40 White Blood Count 17.4 x10^3/uL (4.0-11.0) 14.2 x10^3/uL (4.0-11.0) Red Blood Count 4.59 x10^6/uL (4.30-5.70) 4.58 x10^6/uL (4.30-5.70) Hemoglobin 13.9 g/dL (13.0-17.5) 13.9 g/dL (13.0-17.5) Hematocrit 42.3 % (39.0-53.0) 42.4 % (39.0-53.0) Mean Corpuscular Volume 92 fL (79-100) 93 fL (79-100) Mean Corpuscular Hemoglobin 30 pg (25-35) 30 pg (25-35) Mean Corpuscular Hemoglobin Concent 33 g/dL (31-37) 33 g/dL (31-37) Red Cell Distribution Width 13.1 % (11.5-14.5) 13.1 % (11.5-14.5) Platelet Count 236 x10^3/uL (140-400) 217 x10^3/uL (140-400) Neutrophils (%) (Auto) 81 % (31-73) 90 % (31-73) Lymphocytes (%) (Auto) 13 % (24-48) 8 % (24-48) Monocytes (%) (Auto) 5 % (0-9) 2 % (0-9) Eosinophils (%) (Auto) 0 % (0-3) 0 % (0-3) Basophils (%) (Auto) 1 % (0-3) 0 % (0-3) Neutrophils # (Auto) 14.1 x10^3uL (1.8-7.7) 12.8 x10^3uL (1.8-7.7) Lymphocytes # (Auto) 2.2 x10^3/uL (1.0-4.8) 1.2 x10^3/uL (1.0-4.8) Monocytes # (Auto) 0.8 x10^3/uL (0.0-1.1) 0.2 x10^3/uL (0.0-1.1) Eosinophils # (Auto) 0.0 x10^3/uL (0.0-0.7) 0.0 x10^3/uL (0.0-0.7) Basophils # (Auto) 0.2 x10^3/uL (0.0-0.2) 0.0 x10^3/uL (0.0-0.2) Segmented Neutrophils % 81 % (35-66) Band Neutrophils % 3 % (0-9) Lymphocytes % 15 % (24-48) Monocytes % 1 % (0-10) Platelet Estimate Adequate (ADEQUATE) Urine Collection Type Void Urine Color Straw Urine Clarity Clear Urine pH 6.5 Urine Specific [place] 1.010 Urine Protein Negative mg/dL (NEG-TRACE) Urine Glucose (UA) Negative mg/dL (NEG) Urine Ketones (Stick) Negative mg/dL (NEG) Urine Blood Negative (NEG) Urine Nitrite Negative (NEG) Urine Bilirubin Negative (NEG) Urine Urobilinogen Dipstick 0.2 mg/dL (0.2 mg/dL) Urine Leukocyte Esterase Negative (NEG) Urine RBC 0 /HPF (0-2) Urine WBC 0 /HPF (0-4) Urine Squamous Epithelial Cells Occ /LPF Urine Bacteria 0 /HPF (0-FEW) Sodium Level 144 mmol/L (136-145) 142 mmol/L (136-145) Potassium Level 4.4 mmol/L (3.5-5.1) 4.0 mmol/L (3.5-5.1) Chloride Level 107 mmol/L (98-107) 105 mmol/L (98-107) Carbon Dioxide Level 24 mmol/L (21-32) 23 mmol/L (21-32) Anion Gap 13 (6-14) 16 mmol/L (6-14) 14 (6-14) Blood Urea Nitrogen 24 mg/dL (8-26) 21 mg/dL (8-26) Creatinine 1.3 mg/dL (0.7-1.3) 1.4 mg/dL (0.7-1.3) Estimated GFR (Cockcroft-Gault) 64.0 58.7 BUN/Creatinine Ratio 18 (6-20) Glucose Level 91 mg/dL (70-99) 88 mg/dL (70-99) 120 mg/dL (70-99) Calcium Level 9.1 mg/dL (8.5-10.1) 8.8 mg/dL (8.5-10.1) Total Bilirubin 0.1 mg/dL (0.2-1.0) Aspartate Amino Transf (AST/SGOT) 10 U/L (15-37) Alanine Aminotransferase (ALT/SGPT) 37 U/L (16-63) Alkaline Phosphatase 87 U/L (46-116) Total Protein 6.9 g/dL (6.4-8.2) Albumin 3.7 g/dL (3.4-5.0) Albumin/Globulin Ratio 1.2 (1.0-1.7) Bedside Hemoglobin 13.9 g/dL (14-18) Bedside Hematocrit 41 % (37-52) Bedside Sodium 143 mmol/L (135-145) Bedside Potassium 4.1 mmol/L (3.5-5.0) Bedside Chloride 109 mmol/L (98-110) Bedside Total CO2 22 mmol/L (23-32) Bedside Blood Urea Nitrogen 24 mg/dL (8-26) Bedside Creatinine 1.3 mg/dL (0.5-1.4) Bedside Ionized Calcium (Vic) 1.24 mmol/L (1.13-1.32) Stool Occult Blood Negative (NEG) Objective Assessment Crohns disease with ? flare Recent C-diff 04/19 was on Vanc when he began to feel ill Abx allergies PCN - anaphylaxis but tolerates Cephalosporins. Sulfa - anaphylaxis H/o recurrent LLE cellulitis for which he will take Keflex Leukocytosis -improved Plan Plan of Care most likely crohns flare as he is responding to Steroids however, given immunosuppression now with steroids and recent C-diff will cont po Vancuntil C- diff returns F/u labs and cults Thank you # [id number] TL HECK MD May 09, 2017 11:46
[2017-05-09] MEDS: VANCOMYCIN 125 MG/2.5 ML ORAL SOLUTION. PO SCH ×3 (12:39→21:10)
[2017-05-09 15:00] VITALS: BP 129/74
[2017-05-09] MEDS ORDERED: ACETAMINOPHEN 325 MG TABLET. PO PRN (15:15)
[2017-05-09] MEDS ORDERED: ONDANSETRON PF 4 MG/2 ML VIAL. IV PRN (15:15)
[2017-05-09] MEDS ORDERED: hydrALAZINE 20 MG/ML VIAL. IVP PRN (15:15)
[2017-05-09] MEDS ORDERED: DOCUSATE SODIUM 100 MG CAPSULE. PO PRN (15:15)
[2017-05-09] MEDS ORDERED: traMADol 50 MG TABLET PO PRN (15:15)
--- NOTE | 2017-05-09 15:17 | PDOC ---
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 H/O MILD CVA GERD depression, anxiety HTN H/O TIA h/o COPD seizure like activity with h/o non epileptic seizures morbid obesity plan; fu with gi, meds for crohns held, steroid held fu with ID, on vanco for now, cdiff pending, keflex held cont other home meds clear liquid diet gi ppx History of Present Illness History of Present Illness fobt neg still abd pain with tenderness BM today with mucus, mild blood in it, hb stable cdiff pending ROS: no fever, chills, sob or chest pain Vitals Vitals Vital Signs Date Time Temp Pulse Resp B/P (MAP) Pulse Ox O2 Delivery O2 Flow Rate FiO2 05/09/17 15:00 97.6 91 20 129/74 (92) 98 Room Air 97.6 Physical Exam General: Alert, Oriented X3, Cooperative Heart: Regular rate, Normal S1, Normal S2 Lungs: Clear Abdomen: Normal bowel sounds, Soft, Other (mild middle abd tenderness) Extremities: No clubbing, No cyanosis Skin: No rashes Labs LABS Laboratory Tests Test 05/09/17 03:35 05/09/17 08:40 White Blood Count 14.2 x10^3/uL (4.0-11.0) Red Blood Count 4.58 x10^6/uL (4.30-5.70) Hemoglobin 13.9 g/dL (13.0-17.5) Hematocrit 42.4 % (39.0-53.0) Mean Corpuscular Volume 93 fL (79-100) Mean Corpuscular Hemoglobin 30 pg (25-35) Mean Corpuscular Hemoglobin Concent 33 g/dL (31-37) Red Cell Distribution Width 13.1 % (11.5-14.5) Platelet Count 217 x10^3/uL (140-400) Neutrophils (%) (Auto) 90 % (31-73) Lymphocytes (%) (Auto) 8 % (24-48) Monocytes (%) (Auto) 2 % (0-9) Eosinophils (%) (Auto) 0 % (0-3) Basophils (%) (Auto) 0 % (0-3) Neutrophils # (Auto) 12.8 x10^3uL (1.8-7.7) Lymphocytes # (Auto) 1.2 x10^3/uL (1.0-4.8) Monocytes # (Auto) 0.2 x10^3/uL (0.0-1.1) Eosinophils # (Auto) 0.0 x10^3/uL (0.0-0.7) Basophils # (Auto) 0.0 x10^3/uL (0.0-0.2) Sodium Level 142 mmol/L (136-145) Potassium Level 4.0 mmol/L (3.5-5.1) Chloride Level 105 mmol/L (98-107) Carbon Dioxide Level 23 mmol/L (21-32) Anion Gap 14 (6-14) Blood Urea Nitrogen 21 mg/dL (8-26) Creatinine 1.4 mg/dL (0.7-1.3) Estimated GFR (Cockcroft-Gault) 58.7 Glucose Level 120 mg/dL (70-99) Calcium Level 8.8 mg/dL (8.5-10.1) Stool Occult Blood Negative (NEG) Assessment and Plan Assessmemt and Plan Problems Medical Problems: (1) Abdominal pain Status: Acute (2) Rectal bleeding Status: Acute Problems: Comment Review of Relevant I have reviewed the following items ganesh (where applicable) has been applied. Labs Laboratory Tests Test 05/08/17 14:30 05/08/17 14:45 05/09/17 03:35 05/09/17 08:40 White Blood Count 17.4 x10^3/uL (4.0-11.0) 14.2 x10^3/uL (4.0-11.0) Red Blood Count 4.59 x10^6/uL (4.30-5.70) 4.58 x10^6/uL (4.30-5.70) Hemoglobin 13.9 g/dL (13.0-17.5) 13.9 g/dL (13.0-17.5) Hematocrit 42.3 % (39.0-53.0) 42.4 % (39.0-53.0) Mean Corpuscular Volume 92 fL (79-100) 93 fL (79-100) Mean Corpuscular Hemoglobin 30 pg (25-35) 30 pg (25-35) Mean Corpuscular Hemoglobin Concent 33 g/dL (31-37) 33 g/dL (31-37) Red Cell Distribution Width 13.1 % (11.5-14.5) 13.1 % (11.5-14.5) Platelet Count 236 x10^3/uL (140-400) 217 x10^3/uL (140-400) Neutrophils (%) (Auto) 81 % (31-73) 90 % (31-73) Lymphocytes (%) (Auto) 13 % (24-48) 8 % (24-48) Monocytes (%) (Auto) 5 % (0-9) 2 % (0-9) Eosinophils (%) (Auto) 0 % (0-3) 0 % (0-3) Basophils (%) (Auto) 1 % (0-3) 0 % (0-3) Neutrophils # (Auto) 14.1 x10^3uL (1.8-7.7) 12.8 x10^3uL (1.8-7.7) Lymphocytes # (Auto) 2.2 x10^3/uL (1.0-4.8) 1.2 x10^3/uL (1.0-4.8) Monocytes # (Auto) 0.8 x10^3/uL (0.0-1.1) 0.2 x10^3/uL (0.0-1.1) Eosinophils # (Auto) 0.0 x10^3/uL (0.0-0.7) 0.0 x10^3/uL (0.0-0.7) Basophils # (Auto) 0.2 x10^3/uL (0.0-0.2) 0.0 x10^3/uL (0.0-0.2) Segmented Neutrophils % 81 % (35-66) Band Neutrophils % 3 % (0-9) Lymphocytes % 15 % (24-48) Monocytes % 1 % (0-10) Platelet Estimate Adequate (ADEQUATE) Urine Collection Type Void Urine Color Straw Urine Clarity Clear Urine pH 6.5 Urine Specific [place] 1.010 Urine Protein Negative mg/dL (NEG-TRACE) Urine Glucose (UA) Negative mg/dL (NEG) Urine Ketones (Stick) Negative mg/dL (NEG) Urine Blood Negative (NEG) Urine Nitrite Negative (NEG) Urine Bilirubin Negative (NEG) Urine Urobilinogen Dipstick 0.2 mg/dL (0.2 mg/dL) Urine Leukocyte Esterase Negative (NEG) Urine RBC 0 /HPF (0-2) Urine WBC 0 /HPF (0-4) Urine Squamous Epithelial Cells Occ /LPF Urine Bacteria 0 /HPF (0-FEW) Sodium Level 144 mmol/L (136-145) 142 mmol/L (136-145) Potassium Level 4.4 mmol/L (3.5-5.1) 4.0 mmol/L (3.5-5.1) Chloride Level 107 mmol/L (98-107) 105 mmol/L (98-107) Carbon Dioxide Level 24 mmol/L (21-32) 23 mmol/L (21-32) Anion Gap 13 (6-14) 16 mmol/L (6-14) 14 (6-14) Blood Urea Nitrogen 24 mg/dL (8-26) 21 mg/dL (8-26) Creatinine 1.3 mg/dL (0.7-1.3) 1.4 mg/dL (0.7-1.3) Estimated GFR (Cockcroft-Gault) 64.0 58.7 BUN/Creatinine Ratio 18 (6-20) Glucose Level 91 mg/dL (70-99) 88 mg/dL (70-99) 120 mg/dL (70-99) Calcium Level 9.1 mg/dL (8.5-10.1) 8.8 mg/dL (8.5-10.1) Total Bilirubin 0.1 mg/dL (0.2-1.0) Aspartate Amino Transf (AST/SGOT) 10 U/L (15-37) Alanine Aminotransferase (ALT/SGPT) 37 U/L (16-63) Alkaline Phosphatase 87 U/L (46-116) Total Protein 6.9 g/dL (6.4-8.2) Albumin 3.7 g/dL (3.4-5.0) Albumin/Globulin Ratio 1.2 (1.0-1.7) Bedside Hemoglobin 13.9 g/dL (14-18) Bedside Hematocrit 41 % (37-52) Bedside Sodium 143 mmol/L (135-145) Bedside Potassium 4.1 mmol/L (3.5-5.0) Bedside Chloride 109 mmol/L (98-110) Bedside Total CO2 22 mmol/L (23-32) Bedside Blood Urea Nitrogen 24 mg/dL (8-26) Bedside Creatinine 1.3 mg/dL (0.5-1.4) Bedside Ionized Calcium (Vic) 1.24 mmol/L (1.13-1.32) Stool Occult Blood Negative (NEG) Laboratory Tests Test 05/09/17 03:35 05/09/17 08:40 White Blood Count 14.2 x10^3/uL (4.0-11.0) Red Blood Count 4.58 x10^6/uL (4.30-5.70) Hemoglobin 13.9 g/dL (13.0-17.5) Hematocrit 42.4 % (39.0-53.0) Mean Corpuscular Volume 93 fL (79-100) Mean Corpuscular Hemoglobin 30 pg (25-35) Mean Corpuscular Hemoglobin Concent 33 g/dL (31-37) Red Cell Distribution Width 13.1 % (11.5-14.5) Platelet Count 217 x10^3/uL (140-400) Neutrophils (%) (Auto) 90 % (31-73) Lymphocytes (%) (Auto) 8 % (24-48) Monocytes (%) (Auto) 2 % (0-9) Eosinophils (%) (Auto) 0 % (0-3) Basophils (%) (Auto) 0 % (0-3) Neutrophils # (Auto) 12.8 x10^3uL (1.8-7.7) Lymphocytes # (Auto) 1.2 x10^3/uL (1.0-4.8) Monocytes # (Auto) 0.2 x10^3/uL (0.0-1.1) Eosinophils # (Auto) 0.0 x10^3/uL (0.0-0.7) Basophils # (Auto) 0.0 x10^3/uL (0.0-0.2) Sodium Level 142 mmol/L (136-145) Potassium Level 4.0 mmol/L (3.5-5.1) Chloride Level 105 mmol/L (98-107) Carbon Dioxide Level 23 mmol/L (21-32) Anion Gap 14 (6-14) Blood Urea Nitrogen 21 mg/dL (8-26) Creatinine 1.4 mg/dL (0.7-1.3) Estimated GFR (Cockcroft-Gault) 58.7 Glucose Level 120 mg/dL (70-99) Calcium Level 8.8 mg/dL (8.5-10.1) Stool Occult Blood Negative (NEG) Medications Current Medications Morphine Sulfate 5 mg 1X ONCE IV Last administered on 05/08/17 15:55; Start 05/08/17 at 15:00; Stop 05/08/17 at 15:01; Status DC Ondansetron HCl (Zofran) 4 mg PRN Q8HRS PRN IV NAUSEA/VOMITING; Start 05/08/17 at 16:15; Stop 05/08/17 at 21:57; Status DC Morphine Sulfate 4 mg PRN Q2HR PRN IV PAIN Last administered on 05/09/17 12:41 ; Start 05/08/17 at 16:15; Stop 05/09/17 at 16:14 Vancomycin HCl 125 mg [id number] PO Last administered on 05/08/17 20:35; Start at 21:00; Stop 05/08/17 at 21:55; Status DC Pantoprazole Sodium (Protonix) 40 mg DAILYAC PO Last administered on 05/08/17 19:43; Start 05/08/17 at 17:00; Stop 05/09/17 at 07:12; Status DC Vancomycin HCl 125 mg 1X ONCE PO Last administered on 05/08/17 17:31; Start 05/08/17 at 16:45; Stop 05/08/17 at 16:46; Status DC Mesalamine (Lialda) 2.4 gm DAILY PO ; Start 05/09/17 at 09:00; Stop 05/09/17 at 09:00; Status DC Albuterol Sulfate (Ventolin Hfa) 2 puff QID INH ; Start 05/09/17 at 09:00; Status UNV Albuterol Sulfate (Ventolin Neb Soln) 2.5 mg RTQID NEB ; Start 05/09/17 at 08:00 Aspirin (Ecotrin) 81 mg DAILY PO Last administered on 05/09/17 09:32; Start at 09:00 Cyclobenzaprine HCl (Flexeril) 10 mg TID PO Last administered on 05/09/17 14: 25; Start 05/08/17 at 22:00 Acetaminophen/ Hydrocodone Bitart (Lortab 7.5/325) 1 tab PRN Q6HRS PRN PO PAIN ; Start 05/08/17 at 22:00 Ondansetron HCl (Zofran Odt) 4 mg PRN Q8HRS PRN PO nausea; Start 05/08/17 at 22 :00 Pantoprazole Sodium (Protonix) 40 mg BIDBFRMEAL PO Last administered on 09:32; Start 05/09/17 at 07:30 Pregabalin (Lyrica) 75 mg BID PO Last administered on 05/09/17 09:33; Start at 22:00 Topiramate (Topamax) 100 mg TID PO Last administered on 05/09/17 14:25; Start 05/08/17 at 22:00 Non-Formulary Medication 1 puff BID IH ; Start 05/09/17 at 09:00; Status UNV Levetiracetam (Keppra) 1,000 mg BID PO Last administered on 05/09/17 09:33; Start 05/08/17 at 22:00 Non-Formulary Medication 2 cap HS PO ; Start 05/09/17 at 21:00; Status UNV Methylprednisolone Sodium Succinate (SOLU-Medrol 125MG VIAL) 125 mg 1X ONCE IV Last administered on 05/08/17 22:35; Start 05/08/17 at 22:00; Stop 05/08/17 at 22:01; Status DC Budesonide (Pulmicort) 0.5 mg RTBID NEB ; Start 05/09/17 at 08:00 Vancomycin HCl 125 mg [id number] PO Last administered on 05/09/17 12:39; Start at 12:00 Active Scripts Active Keppra (Levetiracetam) 1,000 Mg Tablet 1 Tab PO BID Hydrocodone-Apap 7.5-325 (Hydrocodone Bit/Acetaminophen) 1 Each Tablet 1 Tab PO PRN Q6HRS PRN Zofran Odt (Ondansetron) 4 Mg Tab.rapdis 1 Tab SL Q8HRS Reported Albuterol Sulfate Neb Soln (Albuterol Sulfate) 2.5 Mg/3 Ml Vial.neb 2.5 Mg NEB QID Prednisone 10 Mg Tablet 10 Mg PO BID Cephalexin 500 Mg Capsule 2 Cap PO QID Apriso (Mesalamine) 0.375 Gm Cap.er.24h 2 Cap PO HS Cyanocobalamin Injection (Cyanocobalamin (Vitamin B-12)) 1,000 Mcg/1 Ml Vial 1 Ml IM WEEKLY Topamax (Topiramate) 100 Mg Tablet 1 Tab PO TID Cyclobenzaprine Hcl 10 Mg Tablet 10 Mg PO TID Lyrica (Pregabalin) 75 Mg Capsule 1 Cap PO BID Advair 500-50 Diskus (Fluticasone/Salmeterol) 1 Each Disk.w.dev 1 Puff IH BID Albuterol Sulfate Hfa Inhaler (Albuterol Sulfate) 8.5 Gm Hfa.aer.ad 2 Puff INH QID Protonix (Pantoprazole Sodium) 40 Mg Tablet. 40 Mg PO BID Aspir 81 (Aspirin) 81 Mg Tablet.dr 81 Mg PO DAILY Vitals/I & O Vital Sign - Last 24 Hours 05/08/17 05/08/17 05/08/17 05/08/17 15:55 16:00 17:00 17:34 Pulse 88 86 88 Resp 16 24 14 16 B/P (MAP) 131/75 (93) 137/74 (95) 139/79 (99) Pulse Ox 97 98 99 98 O2 Delivery Room Air Room Air Room Air Room Air 05/08/17 05/08/17 05/08/17 05/08/17 18:15 18:46 18:47 19:40 Temp 98.7 98.7 98.3 98.7 98.7 98.3 Pulse 81 81 82 Resp 14 19 19 18 B/P (MAP) 139/73 (95) 139/73 (95) 121/73 (89) Pulse Ox 97 96 96 96 O2 Delivery Room Air Room Air Room Air Room Air 05/08/17 05/08/17 05/09/17 05/09/17 20:00 22:40 03:40 07:00 Temp 98.0 98.1 97.7 98.0 98.1 97.7 Pulse 80 87 82 Resp 16 18 20 B/P (MAP) 121/75 (90) 113/68 (83) 114/69 (84) Pulse Ox 94 93 94 O2 Delivery Room Air Room Air Room Air Room Air 05/09/17 05/09/17 05/09/17 05/09/17 08:00 09:40 11:00 12:41 Temp 97.9 97.9 Pulse 97 Resp 18 B/P (MAP) 112/71 (85) Pulse Ox 93 94 94 O2 Delivery Room Air Room Air Room Air Room Air 05/09/17 05/09/17 13:42 15:00 Temp 97.6 97.6 Pulse 91 Resp 20 B/P (MAP) 129/74 (92) Pulse Ox 94 98 O2 Delivery Room Air Room Air FLORY HAMMOND MD May 09, 2017 15:17
[2017-05-09] MEDS ORDERED: POLYETHYLENE GLYCOL 3350 238 GM POWDER PO ONE (16:00)
--- NOTE | 2017-05-09 17:15 | CONS ---
DATE OF CONSULTATION: 05/09/2017 ROOM: 653. REQUESTING PHYSICIAN: Dr. Dominga Ramirez MD. REASON FOR CONSULTATION: Leukocytosis, history of C. diff. HISTORY OF PRESENT ILLNESS: The patient is a pleasant 32-year-old gentleman with history of Crohn's disease for approximately 17 years. Recently on 04/19/2017 was found to have a positive C. diff and he had been taking the oral vancomycin, which he was continuing up until this past 05/06/2017. While taking the C. diff, he began to have abdominal discomfort and then on Sunday, this somewhat worsened, but on Sunday described 4-6 loose watery stools with increasing amounts of bright red blood and periumbilical pain. No gross fevers or chills, but he had no nausea or vomiting. He presented to [facility]. White blood cell count was with 81% neutrophils, but he has been afebrile and his blood pressure has not been low. Hemoglobin was stable. Dr. Lennon was consulted in the ER who recommended admitting. Stool studies have been obtained. He did receive 2 doses of oral vancomycin, he states and stool studies are currently pending. Currently, he states he is feeling somewhat better. No problems passing the urine. He does have a history of recurrent left lower extremity cellulitis for which he is followed by Dr. Arias at and takes periodic cephalexin. PAST MEDICAL HISTORY: Positive for congestive heart failure, pericarditis, hypertension, hyperlipidemia, asthma, history of previous right hemispheric CVA, history of seizures, TIAs, gastroesophageal reflux disease, pyloric stenosis, Crohn's, C. diff, MRSA and his left knee was infected, lower extremity left cellulitis, recurrent nature of left eye blindness, history of left knee arthroscopy and previous heart catheterization as well as tibial plateau repair. REVIEW OF SYSTEMS: Otherwise negative except for mentioned above. ALLERGIES: Listed as PENICILLIN which causes anaphylaxis, but he has tolerated cephalexin and cephalosporins. SULFA is also listed causing anaphylactic type reaction. SOCIAL HISTORY: Quit smoking 7 years ago. No alcohol in a year. FAMILY HISTORY: Positive for breast cancer, Crohn's disease, diabetes, hypertension and coronary artery disease. CURRENT MEDICATIONS: Include albuterol, aspirin, Pulmicort, Flexeril, Keppra, , Solu-Medrol x 1, Protonix, Lyrica, Topamax, vancomycin oral x 2 doses given and mesalamine. PHYSICAL EXAMINATION: VITAL SIGNS: He is afebrile, temperature 97.9, pulse 97, respirations 18, blood pressure 112/71, satting 94% on room air. CONSTITUTIONAL: He is pleasant. He is cooperative, in no acute distress. He is obese. HEENT: Pupils are equal and reactive. He has normal conjunctivae. Oral cavity, pharynx was clear. NECK: Supple, no JVD. LUNGS: Clear to auscultation. HEART: S1, S2. ABDOMEN: Obese, soft, mildly tender with positive bowel sounds. EXTREMITIES: Without clubbing, cyanosis. He has a well-healed scar over his left knee. There is no gross edema. SKIN: Warm to touch without signs of rash. NEUROLOGIC: He is nonfocal, moves all extremities. PSYCHIATRIC: Affect is appropriate. LABORATORY VALUES: White count 14.2, hemoglobin 13.9, platelets of 217 with 90% neutrophils. Creatinine of 1.4, glucose 120. Normal liver function study tests. Urinalysis was clean. Stool occult blood was negative. Abdominal x-ray was negative. IMPRESSION: 1. Crohn's disease with questionable flare. 2. Recent Clostridium difficile, on the , was on vancomycin when he began to feel ill. 3. Antibiotic allergies with PENICILLIN causing anaphylaxis, but he tolerates cephalosporins, SULFA, also caused anaphylaxis. 4. History of recurrent left lower extremity cellulitis for which he will take cephalexin. 5. Leukocytosis has improved. RECOMMENDATIONS: Most likely, this represents a Crohn's flare. As he has responded to steroids; however, now he is more immunosuppressed and his recent C. diff we will continue p.o. vancomycin until C. diff returns. We will follow up on labs and cultures. Thank you for allowing us to participate in the patient's care. If you have any questions, please do not hesitate to contact me. TL HECK MD DR: ANDREW/cecilio JOB#: [id number] / [id number]
[2017-05-09] MEDS: MORPHINE SULFATE 2 MG/ML DISP.SYRIN. IV PRN ×2 (18:57→22:48)
[2017-05-09 19:42] VITALS: BP 123/82
[2017-05-09] MEDS: MESALAMINE PO SCH (21:11)
[2017-05-09 23:00] VITALS: BP 122/76
[2017-05-10] MEDS: MORPHINE SULFATE 2 MG/ML DISP.SYRIN. IV PRN ×4 (02:57→15:41)
[2017-05-10 05:17] LABS: BASO # 0.1 x10^3/uL (0.0-0.2); BASO % 0 % (0-3); EOS % 0 % (0-3); HEMATOCRIT 41.9 % (39.0-53.0); LYMPH # 3.9 x10^3/uL (1.0-4.8); LYMPH % 22 % (24-48); MEAN CORPUSCULAR HEMOGLOBIN 31 pg (25-35); MEAN CORPUSCULAR HGB CONC 34 g/dL (31-37); MEAN CORPUSCULAR VOLUME 91 fL (79-100); MONO % 6 % (0-9); NEUT % 71 % (31-73); PLATELET COUNT 229 x10^3/uL (140-400); RED BLOOD COUNT 4.59 x10^6/uL (4.30-5.70); RED CELL DISTRIBUTION WIDTH 13.6 % (11.5-14.5); WHITE BLOOD COUNT 17.7 x10^3/uL (4.0-11.0)
[2017-05-10 05:42] LABS: CALCIUM 8.7 mg/dL (8.5-10.1); CREATININE 1.4 mg/dL (0.7-1.3); GFR 58.7; POTASSIUM 3.3 mmol/L (3.5-5.1)
[2017-05-10 06:54] VITALS: BP 104/60
[2017-05-10] MEDS: ALBUTEROL SULFATE 2.5 MG/3 ML NEBU. NEB SCH ×4 (07:23→19:57)
[2017-05-10] MEDS: BUDESONIDE 0.5 MG/2 ML NEBU. NEB SCH ×2 (07:23→19:57)
[2017-05-10] MEDS: CYCLOBENZAPRINE 10 MG TABLET. PO SCH ×3 (09:00→21:40)
[2017-05-10] MEDS: TOPIRAMATE 100 MG TABLET. PO SCH ×3 (09:00→21:40)
[2017-05-10] MEDS: VANCOMYCIN 125 MG/2.5 ML ORAL SOLUTION. PO SCH ×2 (09:00→13:00)
[2017-05-10] MEDS ORDERED: POTASSIUM CHLORIDE 20 MEQ TABLET.ER. PO ONE ×2 (09:45→15:45)
[2017-05-10 10:52] VITALS: BP 100/64
--- NOTE | 2017-05-10 10:58 | PDOC ---
Infectious Disease Note Subjective Subjective Doing about the same. Loose stools but had bowel prep ROS ROS GEN: Denies fevers, chills, sweats HEENT: Denies blurred vision, sore throat CV: Denies chest pain RESP: Denies shortness of air, cough GI: Denies v but has some abd pain NEURO: Denies confusion, dizziness MSK: Denies weakness, joint pain/swelling Vital Sign Vital Signs Vital Signs Date Time Temp Pulse Resp B/P (MAP) Pulse Ox O2 Delivery O2 Flow Rate FiO2 05/10/17 10:52 98.0 98 18 100/64 (76) 94 Room Air 98.0 Physical Exam PHYSICAL EXAM GENERAL: NAD, Alert HEENT: PERRL, OC/OP - clear NECK: Supple, no JVD, no LN LUNGS: Clear HEART: S1S2, no gallop, no murmur ABD: Soft, mild tender and distension, no rebound, Obese EXT: No edema, no cyanosis [employer]: Alert, oriented x 3, no focal neurologic deficit SKIN: No rash IV: ok Labs Lab Laboratory Tests Test 05/10/17 04:00 White Blood Count 17.7 x10^3/uL (4.0-11.0) Red Blood Count 4.59 x10^6/uL (4.30-5.70) Hemoglobin 14.0 g/dL (13.0-17.5) Hematocrit 41.9 % (39.0-53.0) Mean Corpuscular Volume 91 fL (79-100) Mean Corpuscular Hemoglobin 31 pg (25-35) Mean Corpuscular Hemoglobin Concent 34 g/dL (31-37) Red Cell Distribution Width 13.6 % (11.5-14.5) Platelet Count 229 x10^3/uL (140-400) Neutrophils (%) (Auto) 71 % (31-73) Lymphocytes (%) (Auto) 22 % (24-48) Monocytes (%) (Auto) 6 % (0-9) Eosinophils (%) (Auto) 0 % (0-3) Basophils (%) (Auto) 0 % (0-3) Neutrophils # (Auto) 12.6 x10^3uL (1.8-7.7) Lymphocytes # (Auto) 3.9 x10^3/uL (1.0-4.8) Monocytes # (Auto) 1.1 x10^3/uL (0.0-1.1) Eosinophils # (Auto) 0.0 x10^3/uL (0.0-0.7) Basophils # (Auto) 0.1 x10^3/uL (0.0-0.2) Sodium Level 141 mmol/L (136-145) Potassium Level 3.3 mmol/L (3.5-5.1) Chloride Level 104 mmol/L (98-107) Carbon Dioxide Level 25 mmol/L (21-32) Anion Gap 12 (6-14) Blood Urea Nitrogen 19 mg/dL (8-26) Creatinine 1.4 mg/dL (0.7-1.3) Estimated GFR (Cockcroft-Gault) 58.7 Glucose Level 93 mg/dL (70-99) Calcium Level 8.7 mg/dL (8.5-10.1) Objective Assessment Crohns disease with ? flare Recent C-diff 04/19 was on Vanc when he began to feel ill Abx allergies PCN - anaphylaxis but tolerates Cephalosporins. Sulfa - anaphylaxis H/o recurrent LLE cellulitis for which he will take Keflex Leukocytosis -improved Plan Plan of Care most likely crohns flare as he is responding to Steroids however, given immunosuppression now with steroids and recent C-diff will cont po Vanc until colonoscopy r/o active disease F/u labs and cults TL HECK MD May 10, 2017 10:58
--- NOTE | 2017-05-10 13:53 | PDOC ---
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 H/O MILD CVA GERD depression, anxiety HTN H/O TIA h/o COPD seizure like activity with h/o non epileptic seizures morbid obesity hypokalemia plan; fu with gi, meds for crohns held, steroid held fu with ID, on vanco for now, cdiff neg, keflex held cont other home meds clear liquid diet gi ppx colonoscopy 05/10 as per GI replete k History of Present Illness History of Present Illness fobt neg still abd pain with tenderness cont having diarrhea with bowel prep tho, cont having some bloody stool cdiff neg ROS: no fever, chills, sob or chest pain Vitals Vitals Vital Signs Date Time Temp Pulse Resp B/P (MAP) Pulse Ox O2 Delivery O2 Flow Rate FiO2 05/10/17 13:38 98.5 86 20 98 98.5 05/10/17 11:10 Room Air 05/10/17 10:52 100/64 (76) Physical Exam General: Alert, Oriented X3, Cooperative Heart: Regular rate, Normal S1, Normal S2 Lungs: Clear Abdomen: Normal bowel sounds, Soft, Other (mild middle abd tenderness) Extremities: No clubbing, No cyanosis Skin: No rashes Labs LABS Laboratory Tests Test 05/10/17 04:00 White Blood Count 17.7 x10^3/uL (4.0-11.0) Red Blood Count 4.59 x10^6/uL (4.30-5.70) Hemoglobin 14.0 g/dL (13.0-17.5) Hematocrit 41.9 % (39.0-53.0) Mean Corpuscular Volume 91 fL (79-100) Mean Corpuscular Hemoglobin 31 pg (25-35) Mean Corpuscular Hemoglobin Concent 34 g/dL (31-37) Red Cell Distribution Width 13.6 % (11.5-14.5) Platelet Count 229 x10^3/uL (140-400) Neutrophils (%) (Auto) 71 % (31-73) Lymphocytes (%) (Auto) 22 % (24-48) Monocytes (%) (Auto) 6 % (0-9) Eosinophils (%) (Auto) 0 % (0-3) Basophils (%) (Auto) 0 % (0-3) Neutrophils # (Auto) 12.6 x10^3uL (1.8-7.7) Lymphocytes # (Auto) 3.9 x10^3/uL (1.0-4.8) Monocytes # (Auto) 1.1 x10^3/uL (0.0-1.1) Eosinophils # (Auto) 0.0 x10^3/uL (0.0-0.7) Basophils # (Auto) 0.1 x10^3/uL (0.0-0.2) Sodium Level 141 mmol/L (136-145) Potassium Level 3.3 mmol/L (3.5-5.1) Chloride Level 104 mmol/L (98-107) Carbon Dioxide Level 25 mmol/L (21-32) Anion Gap 12 (6-14) Blood Urea Nitrogen 19 mg/dL (8-26) Creatinine 1.4 mg/dL (0.7-1.3) Estimated GFR (Cockcroft-Gault) 58.7 Glucose Level 93 mg/dL (70-99) Calcium Level 8.7 mg/dL (8.5-10.1) Assessment and Plan Assessmemt and Plan Problems Medical Problems: (1) Abdominal pain Status: Acute (2) Rectal bleeding Status: Acute Problems: Comment Review of Relevant I have reviewed the following items ganesh (where applicable) has been applied. Labs Laboratory Tests Test 05/08/17 14:30 05/08/17 14:45 05/09/17 03:35 05/09/17 08:40 White Blood Count 17.4 x10^3/uL (4.0-11.0) 14.2 x10^3/uL (4.0-11.0) Red Blood Count 4.59 x10^6/uL (4.30-5.70) 4.58 x10^6/uL (4.30-5.70) Hemoglobin 13.9 g/dL (13.0-17.5) 13.9 g/dL (13.0-17.5) Hematocrit 42.3 % (39.0-53.0) 42.4 % (39.0-53.0) Mean Corpuscular Volume 92 fL (79-100) 93 fL (79-100) Mean Corpuscular Hemoglobin 30 pg (25-35) 30 pg (25-35) Mean Corpuscular Hemoglobin Concent 33 g/dL (31-37) 33 g/dL (31-37) Red Cell Distribution Width 13.1 % (11.5-14.5) 13.1 % (11.5-14.5) Platelet Count 236 x10^3/uL (140-400) 217 x10^3/uL (140-400) Neutrophils (%) (Auto) 81 % (31-73) 90 % (31-73) Lymphocytes (%) (Auto) 13 % (24-48) 8 % (24-48) Monocytes (%) (Auto) 5 % (0-9) 2 % (0-9) Eosinophils (%) (Auto) 0 % (0-3) 0 % (0-3) Basophils (%) (Auto) 1 % (0-3) 0 % (0-3) Neutrophils # (Auto) 14.1 x10^3uL (1.8-7.7) 12.8 x10^3uL (1.8-7.7) Lymphocytes # (Auto) 2.2 x10^3/uL (1.0-4.8) 1.2 x10^3/uL (1.0-4.8) Monocytes # (Auto) 0.8 x10^3/uL (0.0-1.1) 0.2 x10^3/uL (0.0-1.1) Eosinophils # (Auto) 0.0 x10^3/uL (0.0-0.7) 0.0 x10^3/uL (0.0-0.7) Basophils # (Auto) 0.2 x10^3/uL (0.0-0.2) 0.0 x10^3/uL (0.0-0.2) Segmented Neutrophils % 81 % (35-66) Band Neutrophils % 3 % (0-9) Lymphocytes % 15 % (24-48) Monocytes % 1 % (0-10) Platelet Estimate Adequate (ADEQUATE) Urine Collection Type Void Urine Color Straw Urine Clarity Clear Urine pH 6.5 Urine Specific [place] 1.010 Urine Protein Negative mg/dL (NEG-TRACE) Urine Glucose (UA) Negative mg/dL (NEG) Urine Ketones (Stick) Negative mg/dL (NEG) Urine Blood Negative (NEG) Urine Nitrite Negative (NEG) Urine Bilirubin Negative (NEG) Urine Urobilinogen Dipstick 0.2 mg/dL (0.2 mg/dL) Urine Leukocyte Esterase Negative (NEG) Urine RBC 0 /HPF (0-2) Urine WBC 0 /HPF (0-4) Urine Squamous Epithelial Cells Occ /LPF Urine Bacteria 0 /HPF (0-FEW) Sodium Level 144 mmol/L (136-145) 142 mmol/L (136-145) Potassium Level 4.4 mmol/L (3.5-5.1) 4.0 mmol/L (3.5-5.1) Chloride Level 107 mmol/L (98-107) 105 mmol/L (98-107) Carbon Dioxide Level 24 mmol/L (21-32) 23 mmol/L (21-32) Anion Gap 13 (6-14) 16 mmol/L (6-14) 14 (6-14) Blood Urea Nitrogen 24 mg/dL (8-26) 21 mg/dL (8-26) Creatinine 1.3 mg/dL (0.7-1.3) 1.4 mg/dL (0.7-1.3) Estimated GFR (Cockcroft-Gault) 64.0 58.7 BUN/Creatinine Ratio 18 (6-20) Glucose Level 91 mg/dL (70-99) 88 mg/dL (70-99) 120 mg/dL (70-99) Calcium Level 9.1 mg/dL (8.5-10.1) 8.8 mg/dL (8.5-10.1) Total Bilirubin 0.1 mg/dL (0.2-1.0) Aspartate Amino Transf (AST/SGOT) 10 U/L (15-37) Alanine Aminotransferase (ALT/SGPT) 37 U/L (16-63) Alkaline Phosphatase 87 U/L (46-116) Total Protein 6.9 g/dL (6.4-8.2) Albumin 3.7 g/dL (3.4-5.0) Albumin/Globulin Ratio 1.2 (1.0-1.7) Bedside Hemoglobin 13.9 g/dL (14-18) Bedside Hematocrit 41 % (37-52) Bedside Sodium 143 mmol/L (135-145) Bedside Potassium 4.1 mmol/L (3.5-5.0) Bedside Chloride 109 mmol/L (98-110) Bedside Total CO2 22 mmol/L (23-32) Bedside Blood Urea Nitrogen 24 mg/dL (8-26) Bedside Creatinine 1.3 mg/dL (0.5-1.4) Bedside Ionized Calcium (Vic) 1.24 mmol/L (1.13-1.32) Stool Occult Blood Negative (NEG) Clostridium difficile Toxin (PCR) Negative (Negative) Test 05/10/17 04:00 White Blood Count 17.7 x10^3/uL (4.0-11.0) Red Blood Count 4.59 x10^6/uL (4.30-5.70) Hemoglobin 14.0 g/dL (13.0-17.5) Hematocrit 41.9 % (39.0-53.0) Mean Corpuscular Volume 91 fL (79-100) Mean Corpuscular Hemoglobin 31 pg (25-35) Mean Corpuscular Hemoglobin Concent 34 g/dL (31-37) Red Cell Distribution Width 13.6 % (11.5-14.5) Platelet Count 229 x10^3/uL (140-400) Neutrophils (%) (Auto) 71 % (31-73) Lymphocytes (%) (Auto) 22 % (24-48) Monocytes (%) (Auto) 6 % (0-9) Eosinophils (%) (Auto) 0 % (0-3) Basophils (%) (Auto) 0 % (0-3) Neutrophils # (Auto) 12.6 x10^3uL (1.8-7.7) Lymphocytes # (Auto) 3.9 x10^3/uL (1.0-4.8) Monocytes # (Auto) 1.1 x10^3/uL (0.0-1.1) Eosinophils # (Auto) 0.0 x10^3/uL (0.0-0.7) Basophils # (Auto) 0.1 x10^3/uL (0.0-0.2) Sodium Level 141 mmol/L (136-145) Potassium Level 3.3 mmol/L (3.5-5.1) Chloride Level 104 mmol/L (98-107) Carbon Dioxide Level 25 mmol/L (21-32) Anion Gap 12 (6-14) Blood Urea Nitrogen 19 mg/dL (8-26) Creatinine 1.4 mg/dL (0.7-1.3) Estimated GFR (Cockcroft-Gault) 58.7 Glucose Level 93 mg/dL (70-99) Calcium Level 8.7 mg/dL (8.5-10.1) Laboratory Tests Test 05/10/17 04:00 White Blood Count 17.7 x10^3/uL (4.0-11.0) Red Blood Count 4.59 x10^6/uL (4.30-5.70) Hemoglobin 14.0 g/dL (13.0-17.5) Hematocrit 41.9 % (39.0-53.0) Mean Corpuscular Volume 91 fL (79-100) Mean Corpuscular Hemoglobin 31 pg (25-35) Mean Corpuscular Hemoglobin Concent 34 g/dL (31-37) Red Cell Distribution Width 13.6 % (11.5-14.5) Platelet Count 229 x10^3/uL (140-400) Neutrophils (%) (Auto) 71 % (31-73) Lymphocytes (%) (Auto) 22 % (24-48) Monocytes (%) (Auto) 6 % (0-9) Eosinophils (%) (Auto) 0 % (0-3) Basophils (%) (Auto) 0 % (0-3) Neutrophils # (Auto) 12.6 x10^3uL (1.8-7.7) Lymphocytes # (Auto) 3.9 x10^3/uL (1.0-4.8) Monocytes # (Auto) 1.1 x10^3/uL (0.0-1.1) Eosinophils # (Auto) 0.0 x10^3/uL (0.0-0.7) Basophils # (Auto) 0.1 x10^3/uL (0.0-0.2) Sodium Level 141 mmol/L (136-145) Potassium Level 3.3 mmol/L (3.5-5.1) Chloride Level 104 mmol/L (98-107) Carbon Dioxide Level 25 mmol/L (21-32) Anion Gap 12 (6-14) Blood Urea Nitrogen 19 mg/dL (8-26) Creatinine 1.4 mg/dL (0.7-1.3) Estimated GFR (Cockcroft-Gault) 58.7 Glucose Level 93 mg/dL (70-99) Calcium Level 8.7 mg/dL (8.5-10.1) Medications Current Medications Morphine Sulfate 5 mg 1X ONCE IV Last administered on 05/08/17 15:55; Start 05/08/17 at 15:00; Stop 05/08/17 at 15:01; Status DC Ondansetron HCl (Zofran) 4 mg PRN Q8HRS PRN IV NAUSEA/VOMITING; Start 05/08/17 at 16:15; Stop 05/08/17 at 21:57; Status DC Morphine Sulfate 4 mg PRN Q2HR PRN IV PAIN Last administered on 05/09/17 15:14 ; Start 05/08/17 at 16:15; Stop 05/09/17 at 16:14; Status DC Vancomycin HCl 125 mg [id number] PO Last administered on 05/08/17 20:35; Start at 21:00; Stop 05/08/17 at 21:55; Status DC Pantoprazole Sodium (Protonix) 40 mg DAILYAC PO Last administered on 05/08/17 19:43; Start 05/08/17 at 17:00; Stop 05/09/17 at 07:12; Status DC Vancomycin HCl 125 mg 1X ONCE PO Last administered on 05/08/17 17:31; Start 05/08/17 at 16:45; Stop 05/08/17 at 16:46; Status DC Mesalamine (Lialda) 2.4 gm DAILY PO ; Start 05/09/17 at 09:00; Stop 05/09/17 at 09:00; Status DC Albuterol Sulfate (Ventolin Hfa) 2 puff QID INH ; Start 05/09/17 at 09:00; Status UNV Albuterol Sulfate (Ventolin Neb Soln) 2.5 mg RTQID NEB Last administered on 11:09; Start 05/09/17 at 08:00 Aspirin (Ecotrin) 81 mg DAILY PO Last administered on 05/09/17 09:32; Start at 09:00 Cyclobenzaprine HCl (Flexeril) 10 mg TID PO Last administered on 05/09/17 21: 11; Start 05/08/17 at 22:00 Acetaminophen/ Hydrocodone Bitart (Lortab 7.5/325) 1 tab PRN Q6HRS PRN PO PAIN ; Start 05/08/17 at 22:00 Ondansetron HCl (Zofran Odt) 4 mg PRN Q8HRS PRN PO nausea; Start 05/08/17 at 22 :00 Pantoprazole Sodium (Protonix) 40 mg BIDBFRMEAL PO Last administered on 15:14; Start 05/09/17 at 07:30 Pregabalin (Lyrica) 75 mg BID PO Last administered on 05/09/17 21:11; Start at 22:00 Topiramate (Topamax) 100 mg TID PO Last administered on 05/09/17 21:11; Start 05/08/17 at 22:00 Non-Formulary Medication 1 puff BID IH ; Start 05/09/17 at 09:00; Status UNV Levetiracetam (Keppra) 1,000 mg BID PO Last administered on 05/09/17 21:11; Start 05/08/17 at 22:00 Non-Formulary Medication 2 cap HS PO Last administered on 05/09/17 21:11; Start 05/09/17 at 21:00 Methylprednisolone Sodium Succinate (SOLU-Medrol 125MG VIAL) 125 mg 1X ONCE IV Last administered on 05/08/17 22:35; Start 05/08/17 at 22:00; Stop 05/08/17 at 22:01; Status DC Budesonide (Pulmicort) 0.5 mg RTBID NEB Last administered on 05/10/17 07:23; Start 05/09/17 at 08:00 Vancomycin HCl 125 mg [id number] PO Last administered on 05/09/17 21:10; Start at 12:00 Polyethylene Glycol (miraLAX Powder BULK BOTTLE) 238 gm 1X ONCE PO Last administered on 05/09/17 16:13; Start 05/09/17 at 16:00; Stop 05/09/17 at 16:01 ; Status DC Acetaminophen (Tylenol) 650 mg PRN Q6HRS PRN PO FEVER; Start 05/09/17 at 15:15 Ondansetron HCl (Zofran) 4 mg PRN Q6HRS PRN IV NAUSEA/VOMITING; Start 05/09/17 at 15:15 Morphine Sulfate 2 mg PRN Q2HR PRN IV PAIN Last administered on 05/10/17t 11:07 ; Start 05/09/17 at 15:15 Tramadol HCl (Ultram) 50 mg PRN Q6HRS PRN PO PAIN; Start 05/09/17 at 15:15 Hydralazine HCl (Apresoline) 10 mg PRN Q4HRS PRN IVP ELEVATED BP, SEE COMMENTS ; Start 05/09/17 at 15:15 Docusate Sodium (Colace) 100 mg PRN DAILY PRN PO CONSTIPATION; Start 05/09/17 at 15:15 Potassium Chloride (Klor-Con) 40 meq 1X ONCE PO ; Start 05/10/17 at 09:45; Stop 05/10/17 at 09:46; Status DC Active Scripts Active Keppra (Levetiracetam) 1,000 Mg Tablet 1 Tab PO BID Hydrocodone-Apap 7.5-325 (Hydrocodone Bit/Acetaminophen) 1 Each Tablet 1 Tab PO PRN Q6HRS PRN Zofran Odt (Ondansetron) 4 Mg Tab.rapdis 1 Tab SL Q8HRS Reported Albuterol Sulfate Neb Soln (Albuterol Sulfate) 2.5 Mg/3 Ml Vial.neb 2.5 Mg NEB QID Prednisone 10 Mg Tablet 10 Mg PO BID Cephalexin 500 Mg Capsule 2 Cap PO QID Apriso (Mesalamine) 0.375 Gm Cap.er.24h 2 Cap PO HS Cyanocobalamin Injection (Cyanocobalamin (Vitamin B-12)) 1,000 Mcg/1 Ml Vial 1 Ml IM WEEKLY Topamax (Topiramate) 100 Mg Tablet 1 Tab PO TID Cyclobenzaprine Hcl 10 Mg Tablet 10 Mg PO TID Lyrica (Pregabalin) 75 Mg Capsule 1 Cap PO BID Advair 500-50 Diskus (Fluticasone/Salmeterol) 1 Each Disk.w.dev 1 Puff IH BID Albuterol Sulfate Hfa Inhaler (Albuterol Sulfate) 8.5 Gm Hfa.aer.ad 2 Puff INH QID Protonix (Pantoprazole Sodium) 40 Mg Tablet.dr 40 Mg PO BID Aspir 81 (Aspirin) 81 Mg Tablet.dr 81 Mg PO DAILY Vitals/I & O Vital Sign - Last 24 Hours 05/09/17 05/09/17 05/09/17 05/09/17 15:00 15:14 16:13 18:57 Temp 97.6 97.6 Pulse 91 Resp 20 16 B/P (MAP) 129/74 (92) Pulse Ox 98 98 98 98 O2 Delivery Room Air Room Air Room Air Room Air 05/09/17 05/09/17 05/09/17 05/09/17 19:42 20:00 21:43 21:44 Temp 98.3 98.3 Pulse 103 Resp 18 B/P (MAP) 123/82 (96) Pulse Ox 95 95 95 O2 Delivery Room Air Room Air Room Air Room Air 05/09/17 05/10/17 05/10/17 05/10/17 23:00 06:54 07:24 08:00 Temp 97.6 97.9 97.6 97.9 Pulse 105 83 Resp 18 18 B/P (MAP) 122/76 (91) 104/60 (75) Pulse Ox 92 93 95 O2 Delivery Room Air Room Air Room Air Room Air 05/10/17 05/10/17 05/10/17 05/10/17 08:02 10:52 11:07 11:09 Temp 98.0 98.0 Pulse 98 Resp 18 B/P (MAP) 100/64 (76) Pulse Ox 95 94 94 O2 Delivery Room Air Room Air Room Air Room Air 05/10/17 05/10/17 11:10 13:38 Temp 98.5 98.5 Pulse 86 Resp 20 Pulse Ox 94 98 O2 Delivery Room Air FLORY HAMMOND MD May 10, 2017 13:53
[2017-05-10] MEDS ORDERED: PROPOFOL 40 ML IV ONE (14:17)
--- NOTE | 2017-05-10 14:41 | PDOC4 ---
Operative Note Operative Note Colonoscopy with biopsy Meds propofol per anesthesia Pre-op dx rectal bleeding/diarrhea/hx Crohn's disease Post-op dx internal hemorrhoids ascending colon diverticulosis s/p terminal ileum and random colon biopsies Plan advance diet stop prednisone and vancomycin start colestid 5 grams daily AVERY SMITH MD May 10, 2017 14:41
[2017-05-10] MEDS: levETIRAcetam 500 MG TABLET PO SCH ×2 (15:42→21:42)
[2017-05-10] MEDS: PANTOPRAZOLE 40 MG TABLET.DR. PO SCH ×2 (15:42→16:30)
[2017-05-10] MEDS: PREGABALIN 75 MG CAPSULE PO SCH ×2 (15:42→21:39)
[2017-05-10] MEDS: ASPIRIN ENTERIC COATED 81 MG TABLET.DR. PO SCH (15:43)
[2017-05-10 19:32] VITALS: BP 110/72
[2017-05-10] MEDS: HYDROcodone/APAP 7.5/325MG 1 TAB TABLET PO PRN (21:40)
[2017-05-10] MEDS: MESALAMINE PO SCH (21:41)
[2017-05-10 23:11] VITALS: BP 118/69
[2017-05-11 03:05] VITALS: BP 110/64
[2017-05-11 04:41] LABS: BASO # 0.1 x10^3/uL (0.0-0.2); BASO % 1 % (0-3); EOS % 1 % (0-3); HEMATOCRIT 42.5 % (39.0-53.0); LYMPH # 3.4 x10^3/uL (1.0-4.8); LYMPH % 25 % (24-48); MEAN CORPUSCULAR HEMOGLOBIN 31 pg (25-35); MEAN CORPUSCULAR HGB CONC 33 g/dL (31-37); MEAN CORPUSCULAR VOLUME 93 fL (79-100); MONO % 6 % (0-9); NEUT % 68 % (31-73); PLATELET COUNT 217 x10^3/uL (140-400); RED BLOOD COUNT 4.59 x10^6/uL (4.30-5.70); RED CELL DISTRIBUTION WIDTH 13.1 % (11.5-14.5); WHITE BLOOD COUNT 13.3 x10^3/uL (4.0-11.0)
[2017-05-11 04:59] LABS: CALCIUM 8.5 mg/dL (8.5-10.1); CREATININE 1.3 mg/dL (0.7-1.3); POTASSIUM 3.6 mmol/L (3.5-5.1)
[2017-05-11] MEDS: HYDROcodone/APAP 7.5/325MG 1 TAB TABLET PO PRN (05:51)
[2017-05-11] MEDS: PANTOPRAZOLE 40 MG TABLET.DR. PO SCH (05:51)
[2017-05-11 07:00] VITALS: BP 103/70
[2017-05-11] MEDS: BUDESONIDE 0.5 MG/2 ML NEBU. NEB SCH (08:00)
[2017-05-11] MEDS: ALBUTEROL SULFATE 2.5 MG/3 ML NEBU. NEB SCH (08:00)
[2017-05-11] MEDS: TOPIRAMATE 100 MG TABLET. PO SCH (08:22)
[2017-05-11] MEDS: ASPIRIN ENTERIC COATED 81 MG TABLET.DR. PO SCH (08:22)
[2017-05-11] MEDS: PREGABALIN 75 MG CAPSULE PO SCH (08:22)
[2017-05-11] MEDS: CYCLOBENZAPRINE 10 MG TABLET. PO SCH (08:23)
[2017-05-11] MEDS: levETIRAcetam 500 MG TABLET PO SCH (08:23)
--- NOTE | 2017-05-11 09:26 | PDOC ---
Subjective: Subjective: Reports two loose brown stools. Feeling better. Objective: Vital Signs: Vital Signs Date Time Temp Pulse Resp B/P (MAP) Pulse Ox O2 Delivery O2 Flow Rate FiO2 05/11/17 08:00 Room Air 05/11/17 07:00 97.7 97 18 103/70 (81) 95 97.7 05/10/17 16:24 2.0 Labs: Laboratory Tests Test 05/11/17 04:32 White Blood Count 13.3 x10^3/uL Red Blood Count 4.59 x10^6/uL Hemoglobin 14.0 g/dL Hematocrit 42.5 % Mean Corpuscular Volume 93 fL Mean Corpuscular Hemoglobin 31 pg Mean Corpuscular Hemoglobin Concent 33 g/dL Red Cell Distribution Width 13.1 % Platelet Count 217 x10^3/uL Neutrophils (%) (Auto) 68 % Lymphocytes (%) (Auto) 25 % Monocytes (%) (Auto) 6 % Eosinophils (%) (Auto) 1 % Basophils (%) (Auto) 1 % Neutrophils # (Auto) 9.0 x10^3uL Lymphocytes # (Auto) 3.4 x10^3/uL Monocytes # (Auto) 0.8 x10^3/uL Eosinophils # (Auto) 0.1 x10^3/uL Basophils # (Auto) 0.1 x10^3/uL Sodium Level 142 mmol/L Potassium Level 3.6 mmol/L Chloride Level 106 mmol/L Carbon Dioxide Level 24 mmol/L Anion Gap 12 Blood Urea Nitrogen 17 mg/dL Creatinine 1.3 mg/dL Estimated GFR (Cockcroft-Gault) 64.0 Glucose Level 107 mg/dL Calcium Level 8.5 mg/dL Imaging: Colonoscopy 05/10/17: internal hemorrhoids, ascending colon diverticulosis, s/p terminal ileum and random colon biopsies. PE: GEN: NAD, walking around room w/ walker LUNGS: clear HEART: RRR ABD: soft, much less tender NEURO/PSYCH: A & O 3 A/P: Upper abd pain - better H/o Crohn's - normal colonoscopy as above Recent C Diff infection - negative this admission Diarrhea - resolving Leukocytosis - improved -- DC per primary. No need for steroids or vanc. Can continue Apriso and try Colestid if diarrhea still and issue. Follow-up in the office for biopsy results. DERRELL AGUIRRE 1, 2017 09:25
[2017-05-11] MEDS ORDERED: COLESTIPOL HCL 5 GM PACKET PO SCH (10:00)
[2017-05-11 10:59] VITALS: BP 110/69
[2017-05-11] MEDS ORDERED: COLE5PAC PO (11:55)
--- NOTE | 2017-05-11 12:00 | PDOC3 ---
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 H/O MILD CVA GERD depression, anxiety HTN H/O TIA h/o COPD seizure like activity with h/o non epileptic seizures morbid obesity hypokalemia Problems: Final Diagnosis CONSULTS gi id Brief Hospital Course Mr. 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 He said he was diagnosed with crohns dz 1999, on mesalamine and prednisone now, also had recent cdiff and finished vanco 2days ago. Colonoscopy didnot show crohns dz nor cdiff, and stool cdiff PCR neg. dc home with colestid, diarrhea better, no rectal bleeding, Hb normal. hold prednisone, cont mesalamine, hold keflex, fu with gi next week for bx path and fu with dr. Juana ROBINS in for keflex. dc time 35min General: Alert, Oriented X3, Cooperative Heart: Regular rate, Normal S1, Normal S2 Lungs: Clear Abdomen: Normal bowel sounds, Soft, Other (mild middle abd tenderness) Extremities: No clubbing, No cyanosis Skin: No rashes Patient History: Family history: Asthma G8 BROTHER Family history: Cardiovascular disease (situation) 33 FATHER 32 MOTHER Family history: Diabetes mellitus (situation) G8 BROTHER 33 FATHER 32 MOTHER Family history: Diabetes mellitus (situation) G8 BROTHER 33 FATHER 32 MOTHER Family history: Hypertension (situation) 33 FATHER 32 MOTHER Problems: Disposition home CONDITION AT DISCHARGE: Improved Diet regular Scheduled Albuterol Sulfate (Albuterol Sulfate Hfa Inhaler), 2 PUFF INH QID, (Reported) Albuterol Sulfate (Albuterol Sulfate Neb Soln), 2.5 MG NEB QID, (Reported) Aspirin (Aspir 81), 81 MG PO DAILY, (Reported) Colestipol Hcl (Colestid), 5 GM PO DAILY10 Cyclobenzaprine Hcl (Cyclobenzaprine Hcl), 10 MG PO TID, (Reported) Fluticasone/Salmeterol (Advair 500-50 Diskus), 1 PUFF IH BID, (Reported) Levetiracetam (Keppra), 1 TAB PO BID Mesalamine (Apriso), 2 CAP PO HS, (Reported) Ondansetron (Zofran Odt), 1 TAB SL Q8HRS Pantoprazole Sodium (Protonix), 40 MG PO BID, (Reported) Pregabalin (Lyrica), 1 CAP PO BID, (Reported) Topiramate (Topamax), 1 TAB PO TID, (Reported) Scheduled PRN Hydrocodone Bit/Acetaminophen (Hydrocodone-Apap 7.5-325 ), 1 TAB PO PRN Q6HRS PRN for PAIN Discontinued Medications Cephalexin (Cephalexin), 2 CAP PO QID, (Reported) Cyanocobalamin (Vitamin B-12) (Cyanocobalamin Injection), 1 ML IM WEEKLY, ( Reported) Meloxicam (Meloxicam), 1 TAB PO DAILY, (Reported) Meloxicam (Mobic), 1 TAB PO DAILY, (Reported) Prednisone (Prednisone), 10 MG PO BID, (Reported) Follow Up gi in 1 week FLORY HAMMOND MD May 11, 2017 12:00
--- NOTE | 2017-05-15 10:23 | PATHOLOGY ---
PATHOLOGY REPORT * * * * * * * * FINAL DIAGNOSIS: A. Small bowel, terminal ileum, biopsy: - Small bowel mucosa with no significant histopathologic diagnosis. B. Colon, random biopsies: - Colonic mucosa with no significant histopathologic diagnosis. (SKM:[place]; 05/15/2017) REPORT ELECTRONICALLY SIGNED BY: Tiara Escudero M.D. DATE/TIME: 05/15/2017 10:22 * * * * * * * * GROSS PATHOLOGY: A. Received in formalin labeled "Laureano Rivera, terminal ileum biopsy," are multiple segments of sol soft tissue measuring from 0.1 up to 0.3 cm in maximum dimension. The specimen is submitted entirely in cassette A1. B. Received in formalin labeled "random colon biopsies, r/o microscopic colitis," are multiple segments of sol soft tissue measuring from 0.1 up to 0.3 cm in maximum dimension. The specimen is submitted entirely in cassette B1. (JPM; 05/11/17) INITIAL CPT CODE(S): A; 15821 B; 41449 Professional services [place] [place] [address] Technical services performed by [facility] at [address] [place] [address] [address] [address]. SPECIMEN(S) RECEIVED: A.Terminal ileum biopsy B.Random colon biopsy, r/o microscopic colitis CLINICAL HISTORY: History of Crohn's, diarrhea PATIENT: LAUREANO RIVERA /AGE: 7 1985 (Age: 32) PATIENT #: [id number] ALT CASE #: SPECIMEN COLLECTION DATE: 05/10/2017 SPECIMEN RECEIVED DATE: 05/11/2017 [facility] - [address] [place] [address] - PHONE: [phone] * * * END OF REPORT * * *
== END 2017-05-11 12:25 | disposition home or self-care (01) | DRG 394 ==
LOC: ER 13:12 → 6 SOUTH 16:00
PROVIDERS: ADMIT Internal Medicine Hematology & Oncology; ATTEND Internal Medicine Hematology & Oncology
PROC: 0DBB8ZX Excision of Ileum, Via Natural or Artificial Opening Endoscopic, Diagnostic (ICD-10-PCS; principal; 2017-05-10 14:30)
PROC: 0DBE8ZX Excision of Large Intestine, Via Natural or Artificial Opening Endoscopic, Diagnostic (ICD-10-PCS; 2017-05-10 14:30)
DX: K64.8 Other hemorrhoids (principal); L03.115 Cellulitis of right lower limb; K50.90 Crohn's disease, unspecified, without complications; I13.0 Hypertensive heart and chronic kidney disease with heart failure and stage 1 through stage 4 chronic kidney disease, or unspecified chronic kidney disease; I50.9 Heart failure, unspecified; R56.9 Unspecified convulsions; E66.2 Morbid (severe) obesity with alveolar hypoventilation; L03.116 Cellulitis of left lower limb; Z68.41 Body mass index [BMI] 40.0-44.9, adult; N18.3 Chronic kidney disease, stage 3 (moderate); R19.7 Diarrhea, unspecified; F32.9 Major depressive disorder, single episode, unspecified; F41.9 Anxiety disorder, unspecified; E78.5 Hyperlipidemia, unspecified; E87.6 Hypokalemia; J44.9 Chronic obstructive pulmonary disease, unspecified; K21.9 Gastro-esophageal reflux disease without esophagitis; K57.30 Diverticulosis of large intestine without perforation or abscess without bleeding; Z88.0 Allergy status to penicillin; Z88.2 Allergy status to sulfonamides; Z87.891 Personal history of nicotine dependence; Z86.73 Personal history of transient ischemic attack (TIA), and cerebral infarction without residual deficits; Z86.14 Personal history of Methicillin resistant Staphylococcus aureus infection; Z82.5 Family history of asthma and other chronic lower respiratory diseases; Z83.71 Family history of colonic polyps; Z83.3 Family history of diabetes mellitus; Z82.49 Family history of ischemic heart disease and other diseases of the circulatory system; Z80.3 Family history of malignant neoplasm of breast
CPT/HCPCS: 36415; 74020; 80047; 80048; 80053; 81001; 82274; 85007; 85025; 87045; 87177; 87324; 94250; 94640; 94760; 96374; J2270; J2704; J2930; J7613; J7626; 99285-25

== ENCOUNTER 2017-06-06 16:04 | Emergency (ER) | payer SELFPAY ==
[~2017-06-06] VITALS: Ht 177.8 cm; Wt 136.1 kg
[~2017-06-06 16:04] MED LIST changes: +ALBU2.5V5 NEB; +COLE5PAC PO; +PRED-220 PO
[2017-06-06] MEDS ORDERED: fentaNYL PF VIAL 100 MCG/2 ML VIAL IV ONE (17:00)
[2017-06-06] MEDS ORDERED: ONDANSETRON PF 4 MG/2 ML VIAL. IV ONE (17:00)
--- NOTE | 2017-06-06 17:08 | EKG ---
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
--- NOTE | 2017-06-06 17:17 | PHYS DOC ---
Past Medical History Past Medical History: CAD, CHF, COPD, CVA, Hypertension, [place], MRSA, Seizure, TIA Additional Past Medical Histor: CROHN'S DZ, C-DIFF, CELLULITIS, PERICARDITIS Past Surgical History: Other Additional Past Surgical Histo: L KNEE SX X 2, PYLORIC STENOSIS SX Alcohol Use: None Drug Use: None Adult General Chief Complaint Chief Complaint: MECHANICAL FALL HPI HPI Patient is a 32 year old male history is true of CAD, COPD, congestive heart failure, seizure disorder who presents with dizziness or syncope and collapse. Patient states he felt dizzy and fell forward landing a sweat on hardwood floor while at home. Patient denies headache, chest pain shortness breath, palpitations are 2 dizzy episodes. Denies seizure activity for after fall. No urinary incontinence or oral abrasions. Patient states he frequently has dizzy episodes is unable to her prior to fall. Patient currently complains of facial pain, headache, chest wall pain. No other acute symptoms or complaints Review of Systems Review of Systems Review symptoms as per history of present illness. All other review symptoms are negative. Current Medications Current Medications Current Medications Medications (Trade) Dose Ordered Sig/Linda Start Time Stop Time Status Last Admin Dose Admin Acetaminophen/ Hydrocodone Bitart (Lortab 5/325) 1 tab 1X ONCE 06/06/17 19:15 06/06/17 19:16 DC 06/06/17 19:18 1 TAB Fentanyl Citrate (Fentanyl 2ml Vial) 150 mcg 1X ONCE 06/06/17 17:00 06/06/17 17:01 DC 06/06/17 17:24 150 MCG Ondansetron HCl (Zofran) 4 mg 1X ONCE 06/06/17 17:00 06/06/17 17:01 DC 06/06/17 17:23 4 MG Allergies Allergies Allergies Coded Allergies Type Severity Reaction Last Updated Verified Penicillins Allergy Intermediate Takes Keflex at home chronically 05/10/17 Yes Sulfa (Sulfonamide Antibiotics) Allergy Intermediate 05/10/17 Yes Physical Exam Physical Exam Constitutional: Well developed, well nourished, no acute distress, non-toxic appearance. [] HENT: Normocephalic, atraumatic, bilateral external ears normal, oropharynx moist, no oral exudates, nose normal. [] Eyes: PERRLA, EOMI, conjunctiva normal, no discharge. [] Neck: Normal range of motion, rigid cervical collar in place. [] Cardiovascular:Heart rate regular rhythm, no murmur [] Lungs & Thorax: Bilateral breath sounds clear to auscultation anterior and anterior chest wall tenderness, no subcutaneous emphysema bony crepitus [] Abdomen: Bowel sounds normal, soft, no tenderness, no masses, no pulsatile masses. [] Skin: Warm, dry, no erythema, no rash. [] Back: No tenderness, no CVA tenderness. [] Extremities: No tenderness, no cyanosis, no clubbing, ROM intact, no edema. [] Neurologic: Alert and oriented X 3, normal motor function, normal sensory function, no focal deficits noted. [] Psychologic: Affect normal, judgement normal, mood normal. [] Current Patient Data Vital Signs Vital Signs Date Time Temp Pulse Resp B/P (MAP) Pulse Ox O2 Delivery O2 Flow Rate FiO2 06/06/17 19:00 90 18 110/55 (73) 96 Room Air 06/06/17 16:17 98.3 98.3 Lab Values Laboratory Tests Test 06/06/17 17:27 Glucose (Fingerstick) 68 mg/dL (70-99) L EKG EKG [] Radiology/Procedures Radiology/Procedures [CT head/cervical spine/chest x-ray: No acute injury per radiology report] Course & Med Decision Making Course & Med Decision Making Pertinent Labs and Imaging studies reviewed. (See chart for details) [Typical closed head injury directions given. PCP follow-up..] Dragon Disclaimer Dragon Disclaimer This electronic medical record was generated, in whole or in part, using a voice recognition dictation system. Departure Departure Impression: Primary Impression: Closed head injury Additional Impression: Dizziness Disposition: 01 HOME, SELF-CARE Referrals: LOBO WILLIAMSON (PCP) Patient Instructions: Head Injury, Adult, [id number] Problem Qualifiers DAMION DAHL DO Jun 06, 2017 17:17
--- NOTE | 2017-06-06 17:33 | RAD ---
PQRS Compliance Statement: One or more of the following individualized dose reduction techniques were utilized for this examination: 1. Automated exposure control 2. Adjustment of the mA and/or kV according to patient size 3. Use of iterative reconstruction technique CT head and cervical spine without contrast 06/06/2017 5:10 PM INDICATION: Fall from standing COMPARISON: CT head and cervical spine January 28, 2017 TECHNIQUE: Multiple axial CT images of the head were obtained from skull base through the vertex without intravenous contrast. Multiple axial CT images of the cervical spine were obtained without intravenous contrast. Coronal and sagittal reformats are provided. FINDINGS: Head: Ventricles, sulci and basal cisterns are within normal limits. There is no hydrocephalus. Dolan-white matter differentiation is normal. There is no acute intracranial hemorrhage. There is no mass, mass effect or midline shift. Posterior fossa is normal in appearance. Visualized portions of the orbits are normal. Paranasal sinuses are well aerated. Mastoid air cells are well aerated. Scalp and calvaria are normal. Cervical spine: Alignment of the cervical spine is normal. Circumscribed sclerotic focus involving the C2 vertebral body suggestive of a bone island. Skull base is intact. Craniocervical junction is normal in appearance. Atlantoaxial articulation is normal. Vertebral body heights are maintained without evidence for acute fracture. Facet joints are within normal limits. No significant osseous neural foraminal stenosis. No significant osseous spinal canal stenosis. Transverse foramen are intact. There is no prevertebral soft tissue swelling. Thyroid gland is normal in appearance. Visualized portions of the lung apices are normal without evidence for suspicious pulmonary nodule or infiltrate. IMPRESSION: 1. No acute intracranial hemorrhage. 2. No acute fracture or malalignment of the cervical spine. Electronically signed by: Sary Negrete MD (06/06/2017 5:30 PM) [facility]
[2017-06-06 19:00] VITALS: BP 110/55
[2017-06-06] MEDS ORDERED: HYDROcodone/APAP 5/325MG 1 TAB TABLET PO ONE (19:15)
--- NOTE | 2017-06-07 08:03 | RAD ---
EXAM: Chest one view. HISTORY: Trauma, fall, chest pain. COMPARISON: 02/22/2017. FINDINGS: A frontal view of the chest is obtained. There are inspiration is small with mild left basilar atelectasis. There is no pneumothorax or pleural effusion. The heart is not enlarged. IMPRESSION: 1. Small inspiration with left basilar atelectasis.
== END 2017-06-06 19:20 | disposition left against medical advice (07) ==
LOC: ER 16:04
DX: S09.90XA Unspecified injury of head, initial encounter (principal); I25.10 Atherosclerotic heart disease of native coronary artery without angina pectoris; I11.0 Hypertensive heart disease with heart failure; I50.9 Heart failure, unspecified; I25.2 Old myocardial infarction; J44.9 Chronic obstructive pulmonary disease, unspecified; G40.909 Epilepsy, unspecified, not intractable, without status epilepticus; Z88.0 Allergy status to penicillin; Z88.2 Allergy status to sulfonamides; Z86.73 Personal history of transient ischemic attack (TIA), and cerebral infarction without residual deficits; W18.39XA Other fall on same level, initial encounter; Y93.89 Activity, other specified; Y92.009 Unspecified place in unspecified non-institutional (private) residence as the place of occurrence of the external cause; Y99.8 Other external cause status
CPT/HCPCS: 70450; 71010; 72125; 82962; 93005; 96374; 96375; 99285; J2405; J3010

== ENCOUNTER 2017-06-11 04:52 | Emergency (ER) | payer SELFPAY ==
[~2017-06-11] VITALS: Ht 180.3 cm; Wt 136.1 kg
[~2017-06-11 04:52] MED LIST changes: -NAPR500T3 PO; +NAPR500T4 PO
--- NOTE | 2017-06-11 05:33 | PHYS DOC ---
Past Medical History Past Medical History: CAD, CHF, COPD, CVA, Hypertension, [place], MRSA, Seizure, TIA Additional Past Medical Histor: CROHN'S DZ, C-DIFF, CELLULITIS, PERICARDITIS Past Surgical History: Other Additional Past Surgical Histo: L KNEE SX X 2, PYLORIC STENOSIS SX Alcohol Use: None Drug Use: None Adult General Chief Complaint Chief Complaint: MECHANICAL FALL HPI HPI Patient is a 32 year old male who presents after a fall after feeling dizzy, patient states he hit his a forehead is complaining of forehead pain as well as some upper back pain. There was no seizure today. Patient has had multiple episodes like this in the past and is currently being worked up for them so far no pulsatile results from evaluation. Patient denies any focal weakness or numbness. Review of Systems Review of Systems Constitutional: Denies fever or chills [] Eyes: Denies change in visual acuity, redness, or eye pain [] HENT: Denies nasal congestion or sore throat. Pain of the forehead Respiratory: Denies cough or shortness of breath [] Cardiovascular: No chest pain GI: Denies abdominal pain, nausea, vomiting, bloody stools or diarrhea [] : Denies dysuria or hematuria [] Musculoskeletal: Yes to upper back pain Integument: Denies rash or skin lesions [] Neurologic: Denies headache, focal weakness or sensory changes [] ] Allergies Allergies Allergies Coded Allergies Type Severity Reaction Last Updated Verified Penicillins Allergy Intermediate Takes Keflex at home chronically 05/10/17 Yes Sulfa (Sulfonamide Antibiotics) Allergy Intermediate 05/10/17 Yes Physical Exam Physical Exam Constitutional: Well developed, well nourished, no acute distress, non-toxic appearance. [] HENT: Normocephalic, atraumatic, no signs of basilar skull fracture, oropharynx moist, no oral exudates or trauma, nose normal. [] Eyes: , EOMI, conjunctiva normal, no discharge. [] Neck: Normal range of motion, no tenderness, supple, no stridor. No step-offs Cardiovascular:Heart rate regular rhythm, no murmur no chest deformity, no tenderness to palpation Lungs & Thorax: Bilateral breath sounds clear to auscultation, no tachypnea Abdomen: Bowel sounds normal, soft, no tenderness, no masses, no pulsatile masses. [] Skin: Warm, dry, no erythema, no rash. No ecchymosis, no bruising Back: Mild upper back tenderness on the right side at the level of the trapezius muscle, no CVA tenderness. No step-offs Extremities: No tenderness, no cyanosis, no deformity, ROM intact, no edema. [] Neurologic: Alert and oriented X 3, normal motor function,, no focal deficits noted. [] Psychologic: Affect normal, judgement normal, mood normal. [] Current Patient Data Vital Signs Vital Signs Date Time Temp Pulse Resp B/P (MAP) Pulse Ox O2 Delivery O2 Flow Rate FiO2 06/11/17 04:54 98.9 83 18 141/74 (96) 99 Room Air 98.9 EKG EKG 0530 87, SR, no stemi[] Radiology/Procedures Radiology/Procedures [] Course & Med Decision Making Course & Med Decision Making Pertinent Labs and Imaging studies reviewed. (See chart for details) [] Dragon Disclaimer Dragon Disclaimer This electronic medical record was generated, in whole or in part, using a voice recognition dictation system. Departure Departure Impression: Primary Impression: Closed head injury Additional Impressions: Musculoskeletal pain Dizziness Dehydration Disposition: HOME, SELF-CARE Condition: STABLE Referrals: LOBO WILLIAMSON (PCP) Please see your PCP in one to 2 days for recheck and reevaluation, these discuss this ED visit Patient Instructions: Dehydration, Adult, Dizziness, Head Injury, Adult, Musculoskeletal Pain Scripts Naproxen (NAPROXEN) 375 Mg Tablet 1 TAB PO TID for 7 Days, #21 TAB 0 Refills Prov: Garrett BURNETT MD 06/11/17 Problem Qualifiers Garrett BURNETT MD Jun 11, 2017 05:33
[2017-06-11 06:05] LABS: POTASSIUM ISTAT 3.8 mmol/L (3.5-5.0)
[2017-06-11 06:06] VITALS: BP 136/67
[2017-06-11] MEDS ORDERED: NAPR-695 PO (06:08)
--- NOTE | 2017-06-11 06:15 | EKG ---
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
== END 2017-06-11 06:15 | disposition home or self-care (01) ==
LOC: ER 04:52
DX: S09.90XA Unspecified injury of head, initial encounter (principal); M54.6 Pain in thoracic spine; R42 Dizziness and giddiness; E86.0 Dehydration; I25.10 Atherosclerotic heart disease of native coronary artery without angina pectoris; I50.9 Heart failure, unspecified; J44.9 Chronic obstructive pulmonary disease, unspecified; I11.0 Hypertensive heart disease with heart failure; I25.2 Old myocardial infarction; Z86.73 Personal history of transient ischemic attack (TIA), and cerebral infarction without residual deficits; Z88.0 Allergy status to penicillin; Z88.2 Allergy status to sulfonamides; W19.XXXA Unspecified fall, initial encounter; Y93.89 Activity, other specified; Y92.89 Other specified places as the place of occurrence of the external cause; Y99.8 Other external cause status
CPT/HCPCS: 36415; 80047; 85014; 85018; 93005; 99284-25

== ENCOUNTER 2017-06-20 05:32 | Emergency (ER) | payer SELFPAY ==
[~2017-06-20] VITALS: Ht 180.3 cm; Wt 135.6 kg
[~2017-06-20 05:32] MED LIST changes: +NAPR-695 PO
--- NOTE | 2017-06-20 05:52 | PHYS DOC ---
Past Medical History Past Medical History: CAD, CHF, COPD, CVA, Hypertension, [place], MRSA, Seizure, TIA Additional Past Medical Histor: CROHN'S DZ, C-DIFF, CELLULITIS, PERICARDITIS Past Surgical History: Other Additional Past Surgical Histo: L KNEE SX X 2, PYLORIC STENOSIS SX Alcohol Use: None Drug Use: None Adult General Chief Complaint Chief Complaint: DIARRHEA HPI HPI Patient is a 32 year old male presenting to the emergency department for evaluation of abdominal pain diarrhea bloody stools and a syncopal episode. Patient says that he has been having watery stools for the past one week and since yesterday he has been having dark black stools with epigastric abdominal pain and today while he was on the toilet he had a syncopal episode. He felt dizzy and lightheaded prior to the syncopal episode. He says that he has had a history of ulcers and he takes NSAIDs but does not drink alcohol on a regular basis. He has a history of Crohn's disease as well as C. difficile one month ago and was treated and had a colonoscopy in his workup is negative. He follows with a physician in [place] and he has seen GI Dr. Isaac. He is in no obvious distress. Review of Systems Review of Systems Constitutional: Denies fever or chills [] Eyes: Denies change in visual acuity, redness, or eye pain [] HENT: Denies nasal congestion or sore throat [] Respiratory: Denies cough or shortness of breath [] Cardiovascular: No additional information not addressed in HPI [] GI: + abdominal pain, nausea. No vomiting. + bloody stools, diarrhea [] : Denies dysuria or hematuria [] Musculoskeletal: Denies back pain or joint pain [] Integument: Denies rash or skin lesions [] Neurologic: Denies headache, focal weakness or sensory changes [] Current Medications Current Medications Current Medications Medications (Trade) Dose Ordered Sig/Linda Start Time Stop Time Status Last Admin Dose Admin Morphine Sulfate 5 mg 1X ONCE 06/20/17 06:00 06/20/17 06:01 DC 06/20/17 06:22 5 MG Ondansetron HCl (Zofran) 8 mg 1X ONCE 06/20/17 06:00 06/20/17 06:01 DC 06/20/17 06:23 8 MG Sodium Chloride 1,000 ml @ 1,000 mls/hr 1X ONCE 06/20/17 06:45 06/20/17 07:36 DC Allergies Allergies Allergies Coded Allergies Type Severity Reaction Last Updated Verified Penicillins Allergy Intermediate Takes Keflex at home chronically 05/10/17 Yes Sulfa (Sulfonamide Antibiotics) Allergy Intermediate 05/10/17 Yes Physical Exam Physical Exam Constitutional: Well developed, well nourished, no acute distress, non-toxic appearance. [] HENT: Normocephalic, atraumatic, bilateral external ears normal, oropharynx moist, no oral exudates, nose normal. [] Eyes: PERRLA, EOMI, conjunctiva normal, no discharge. [] Neck: Normal range of motion, no tenderness, supple, no stridor. [] Cardiovascular:Heart rate regular rhythm, no murmur [] Lungs & Thorax: Bilateral breath sounds clear to auscultation [] Abdomen: Bowel sounds normal, soft, + epigastric tenderness, no rebound or guarding, no masses, no pulsatile masses. Rectal exam revealed no tenderness in his stool appeared to be a light brown color to me. Skin: Warm, dry, no erythema, no rash. [] Back: No tenderness, no CVA tenderness. [] Extremities: No tenderness, no cyanosis, no clubbing, ROM intact, no edema. [] Neurologic: Alert and oriented X 3, normal motor function, normal sensory function, no focal deficits noted. [] Current Patient Data Vital Signs Vital Signs Date Time Temp Pulse Resp B/P (MAP) Pulse Ox O2 Delivery O2 Flow Rate FiO2 06/20/17 06:22 20 98 06/20/17 05:50 98.2 81 109/71 (84) Room Air 98.2 Lab Values Laboratory Tests Test 06/20/17 05:45 06/20/17 06:20 06/20/17 06:22 Stool Occult Blood Positive (NEG) White Blood Count 12.9 x10^3/uL (4.0-11.0) H Red Blood Count 4.72 x10^6/uL (4.30-5.70) Hemoglobin 14.4 g/dL (13.0-17.5) Hematocrit 42.7 % (39.0-53.0) Mean Corpuscular Volume 91 fL (79-100) Mean Corpuscular Hemoglobin 30 pg (25-35) Mean Corpuscular Hemoglobin Concent 34 g/dL (31-37) Red Cell Distribution Width 13.4 % (11.5-14.5) Platelet Count 273 x10^3/uL (140-400) Neutrophils (%) (Auto) 73 % (31-73) Lymphocytes (%) (Auto) 18 % (24-48) L Monocytes (%) (Auto) 6 % (0-9) Eosinophils (%) (Auto) 2 % (0-3) Basophils (%) (Auto) 1 % (0-3) Neutrophils # (Auto) 9.4 x10^3uL (1.8-7.7) H Lymphocytes # (Auto) 2.4 x10^3/uL (1.0-4.8) Monocytes # (Auto) 0.7 x10^3/uL (0.0-1.1) Eosinophils # (Auto) 0.2 x10^3/uL (0.0-0.7) Basophils # (Auto) 0.1 x10^3/uL (0.0-0.2) Prothrombin Time 12.9 SEC (11.7-14.0) Prothrombin Time INR 1.0 (0.8-1.1) PTT 32 SEC (24-38) Sodium Level 143 mmol/L (136-145) Potassium Level 4.1 mmol/L (3.5-5.1) Chloride Level 107 mmol/L (98-107) Carbon Dioxide Level 25 mmol/L (21-32) Anion Gap 11 (6-14) Blood Urea Nitrogen 21 mg/dL (8-26) Creatinine 1.2 mg/dL (0.7-1.3) Estimated GFR (Cockcroft-Gault) 70.2 BUN/Creatinine Ratio 18 (6-20) Glucose Level 91 mg/dL (70-99) Calcium Level 9.2 mg/dL (8.5-10.1) Magnesium Level 1.9 mg/dL (1.8-2.4) Total Bilirubin 0.2 mg/dL (0.2-1.0) Aspartate Amino Transferase (AST) 16 U/L (15-37) Alanine Aminotransferase (ALT) 36 U/L (16-63) Alkaline Phosphatase 97 U/L (46-116) Total Protein 7.5 g/dL (6.4-8.2) Albumin 3.8 g/dL (3.4-5.0) Albumin/Globulin Ratio 1.0 (1.0-1.7) Lipase 159 U/L (73-393) Ethyl Alcohol Level < 10 mg/dL (0-10) Laboratory Tests 06/20/17 06:20 Laboratory Tests 06/20/17 06:22 EKG EKG [] Radiology/Procedures Radiology/Procedures [] Course & Med Decision Making Course & Med Decision Making Patient with possible GI bleed from an upper source. He will get workup including labs Hemoccult and will have his pain and nausea treated. Will transfer care to Dr. Randhawa and have her disposition the patient appropriately. Patient with history of Crohn's and abdominal pain, diarrhea with blood in stool. Fecal occult was positive but hemoglobin is stable. Patient reports his diarrhea similar to prior ED if infection. We do not have the results from a C. difficile study but patient's labs and vitals did not show requirement for admission. Patient states he has antiemetics at home, we'll treat with Flagyl pending results. Patient is to follow-up with Dr. Lennon and return precautions given. Dragon Disclaimer Dragon Disclaimer This electronic medical record was generated, in whole or in part, using a voice recognition dictation system. Departure Departure Impression: Primary Impression: Abdominal pain Additional Impression: Diarrhea Disposition: HOME, SELF-CARE Condition: STABLE Referrals: LOBO WILLIAMSON (PCP) Scripts Metronidazole (FLAGYL) 500 Mg Tablet 500 MG PO TID for 10 Days, #30 TAB Prov: ARIA RANDHAWA MD 06/20/17 Problem Qualifiers Primary Impression: Abdominal pain Abdominal location: epigastric Qualified Codes: R10.13 - Epigastric pain MILVIA STONER DO Jun 20, 2017 05:52 ARIA RANDHAWA MD Jun 20, 2017 07:46
[2017-06-20] MEDS ORDERED: ONDANSETRON PF 4 MG/2 ML VIAL. IV ONE (06:00)
[2017-06-20] MEDS ORDERED: MORPHINE SULFATE 10 MG/ML VIAL. IV ONE (06:00)
[2017-06-20] MEDS ORDERED: IV NORMAL SALINE 1000ML BAG 1,000 ML IV ONE ×2 (06:00→06:45)
[2017-06-20 06:34] LABS: NEG OBC FOB NEG
[2017-06-20 06:35] LABS: POS OBC FOB POS
[2017-06-20 06:41] LABS: CALCIUM 9.2 mg/dL (8.5-10.1); CREATININE 1.2 mg/dL (0.7-1.3); GFR 70.2; POTASSIUM 4.1 mmol/L (3.5-5.1)
[2017-06-20 06:46] LABS: ALBUMIN 3.8 g/dL (3.4-5.0); MAGNESIUM 1.9 mg/dL (1.8-2.4); TOTAL BILIRUBIN 0.2 mg/dL (0.2-1.0); TOTAL PROTEIN 7.5 g/dL (6.4-8.2)
[2017-06-20 06:51] LABS: BASO # 0.1 x10^3/uL (0.0-0.2); BASO % 1 % (0-3); EOS % 2 % (0-3); HEMATOCRIT 42.7 % (39.0-53.0); HEMOGLOBIN 14.4 g/dL (13.0-17.5); LYMPH # 2.4 x10^3/uL (1.0-4.8); LYMPH % 18 % (24-48); MEAN CORPUSCULAR HEMOGLOBIN 30 pg (25-35); MEAN CORPUSCULAR HGB CONC 34 g/dL (31-37); MEAN CORPUSCULAR VOLUME 91 fL (79-100); MONO % 6 % (0-9); NEUT % 73 % (31-73); PLATELET COUNT 273 x10^3/uL (140-400); RED BLOOD COUNT 4.72 x10^6/uL (4.30-5.70); RED CELL DISTRIBUTION WIDTH 13.4 % (11.5-14.5); WHITE BLOOD COUNT 12.9 x10^3/uL (4.0-11.0)
[2017-06-20 07:05] LABS: PROTHROMBIN TIME PATIENT 12.9 SEC (11.7-14.0)
[2017-06-20 07:23] VITALS: BP 115/58
[2017-06-20] MEDS ORDERED: METR500T PO (07:43)
[2017-06-20 08:07] LABS: BILIRUBIN,URINE NEGATIVE (NEG); GLUCOSE,URINE NEGATIVE (NEG); NITRITE,URINE NEGATIVE (NEG); PROTEIN,URINE NEGATIVE (NEG-TRACE); UROBILINOGEN,URINE 0.2 mg/dL (0.2 mg/dL)
[2017-06-20 08:10] LABS: BARBITURATES NEG (NEG); BENZODIAZEPINES NEG (NEG); CANNABINOIDS NEG (NEG); COCAINE NEG (NEG); METHADONE NEG (NEG); OPIATES POS (NEG); PHENCYCLIDINE NEG (NEG)
[2017-06-20 08:12] LABS: BACTERIA,URINE 0 /HPF (0-FEW); RBC,URINE 0 /HPF (0-2); SQUAMOUS EPITHELIAL CELL,UR FEW /LPF; WBC,URINE 0 /HPF (0-4)
--- NOTE | 2017-06-20 09:42 | EKG ---
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
== END 2017-06-20 08:05 | disposition home or self-care (01) ==
LOC: ER 05:32
DX: R10.13 Epigastric pain (principal); R19.7 Diarrhea, unspecified; K92.1 Melena; I11.0 Hypertensive heart disease with heart failure; I50.9 Heart failure, unspecified; I25.10 Atherosclerotic heart disease of native coronary artery without angina pectoris; J44.9 Chronic obstructive pulmonary disease, unspecified; I25.2 Old myocardial infarction; Z86.14 Personal history of Methicillin resistant Staphylococcus aureus infection; Z88.0 Allergy status to penicillin; Z88.2 Allergy status to sulfonamides; Z86.73 Personal history of transient ischemic attack (TIA), and cerebral infarction without residual deficits; Z87.19 Personal history of other diseases of the digestive system
CPT/HCPCS: 36415; 80053; 80307; 81001; 82274; 83690; 83735; 85025; 85610; 85730; 86850; 86900; 86901; 93005; 96361; 96374; 96375; 99285; G0480; J2270; J2405; J7030; G0479

== ENCOUNTER → 2017-07-02 | Outpatient (CLI) | payer SELFPAY ==
[2017-06-20 07:23] VITALS: BP 115/58
[~2017-07-02] MED LIST changes: +METR500T PO
[2017-07-02 15:39] LABS: BASO # 0.1 x10^3/uL (0.0-0.2); BASO % 1 % (0-3); EOS % 2 % (0-3); HEMATOCRIT 44.8 % (39.0-53.0); LYMPH # 2.2 x10^3/uL (1.0-4.8); LYMPH % 20 % (24-48); MEAN CORPUSCULAR HEMOGLOBIN 30 pg (25-35); MEAN CORPUSCULAR HGB CONC 33 g/dL (31-37); MEAN CORPUSCULAR VOLUME 91 fL (79-100); MONO % 7 % (0-9); NEUT % 71 % (31-73); PLATELET COUNT 273 x10^3/uL (140-400); RED BLOOD COUNT 4.95 x10^6/uL (4.30-5.70); RED CELL DISTRIBUTION WIDTH 13.2 % (11.5-14.5); WHITE BLOOD COUNT 11.4 x10^3/uL (4.0-11.0)
[2017-07-02 15:59] LABS: ALBUMIN 3.7 g/dL (3.4-5.0); ALBUMIN/GLOBULIN RATIO 0.9 (1.0-1.7); CALCIUM 8.8 mg/dL (8.5-10.1); CREATININE 1.3 mg/dL (0.7-1.3); POTASSIUM 4.8 mmol/L (3.5-5.1); TOTAL BILIRUBIN 0.2 mg/dL (0.2-1.0); TOTAL PROTEIN 7.6 g/dL (6.4-8.2)
[2017-07-02 16:09] LABS: FREE T4 0.77 ng/dL (0.76-1.46)
== END | disposition home or self-care (01) ==
LOC: LAB 15:17
PROVIDERS: ATTEND Internal Medicine Gastroenterology
DX: K92.1 Melena (principal); D64.89 Other specified anemias
CPT/HCPCS: 36415; 80053; 84439; 84443; 85025

== ENCOUNTER 2017-07-03 14:41 | Emergency (ER) | payer SELFPAY ==
[~2017-07-03] VITALS: Ht 180.3 cm; Wt 136.1 kg
[2017-07-03] MEDS ORDERED: ONDANSETRON PF 4 MG/2 ML VIAL. IV ONE (15:15)
[2017-07-03] MEDS ORDERED: IV NORMAL SALINE 1000ML BAG 1,000 ML IV ONE (15:15)
[2017-07-03] MEDS ORDERED: HYDROmorphone 2 MG/ML VIAL IV ONE (15:15)
--- NOTE | 2017-07-03 15:17 | PHYS DOC ---
Past Medical History Past Medical History: CAD, CHF, COPD, CVA, Hypertension, SD, MRSA, Seizure, TIA Additional Past Medical Histor: CROHN'S DZ, C-DIFF, CELLULITIS, PERICARDITIS Past Surgical History: Other Additional Past Surgical Histo: L KNEE SX X 2, PYLORIC STENOSIS SX Alcohol Use: None Drug Use: None Adult General Chief Complaint Chief Complaint: RECTAL BLEED HPI HPI Patient is a 32 year old male who presents with 3 week history of progressive increasing moderately severe generalized abdominal pain, nausea, no vomiting, diarrhea stools with blood and abdominal cramping that is diffuse in nature. denies fever. Typical presentation for his Crohn's exacerbation which she does take medications for that and he has responded well to steroids in the past. Over the summer he did get treated for C. difficile colitis for 6 weeks with oral vancomycin. Surgical history includes pyloric stenosis as an infant no bowel surgery no cholecystectomy no appendectomy. His PCP is Dr. Williamson and GI doctor is Dr. Ceja. Review of Systems Review of Systems Constitutional: Denies fever or chills [] Eyes: Denies change in visual acuity, redness, or eye pain [] HENT: Denies nasal congestion or sore throat [] Respiratory: Denies cough or shortness of breath [] Cardiovascular: No additional information not addressed in HPI [] GI: Positive for nausea bloody stools and abdominal cramping; no vomiting[] : Denies dysuria or hematuria [] Musculoskeletal: Denies back pain or joint pain [] Integument: Denies rash or skin lesions [] Neurologic: Denies headache, focal weakness or sensory changes [] Endocrine: Denies polyuria or polydipsia [] All systems negative except as mentioned in the history present illness Current Medications Current Medications Current Medications Medications (Trade) Dose Ordered Sig/Linda Start Time Stop Time Status Last Admin Dose Admin Hydromorphone HCl (Dilaudid) 1 mg 1X ONCE 07/03/17 15:15 07/03/17 15:16 DC 07/03/17 15:21 1 MG Info (Do NOT chart on this entry -- for MONITORING) 1 each PRN DAILY PRN 07/03/17 15:45 07/03/17 17:47 DC Iohexol (Omnipaque 300 Mg/ml) 75 ml 1X ONCE 07/03/17 15:30 07/03/17 15:31 DC 07/03/17 15:36 75 ML Ondansetron HCl (Zofran) 4 mg 1X ONCE 07/03/17 15:15 07/03/17 15:16 DC 07/03/17 15:20 4 MG Sodium Chloride 1,000 ml @ 1,000 mls/hr 1X ONCE 07/03/17 15:15 07/03/17 16:14 DC 07/03/17 15:20 1,000 MLS/HR Allergies Allergies Allergies Coded Allergies Type Severity Reaction Last Updated Verified Penicillins Allergy Intermediate Takes Keflex at home chronically 05/10/17 Yes Sulfa (Sulfonamide Antibiotics) Allergy Intermediate 05/10/17 Yes Physical Exam Physical Exam Constitutional: Well developed, well nourished, no acute distress, non-toxic appearance. [] HENT: Normocephalic, atraumatic, bilateral external ears normal, oropharynx moist, no oral exudates, nose normal. [] Eyes: PERRLA, EOMI, conjunctiva normal, no discharge. [] Neck: Normal range of motion, no tenderness, supple, no stridor. [] Cardiovascular:Heart rate regular rhythm, no murmur [] Lungs & Thorax: Bilateral breath sounds clear to auscultation [] Abdomen: Bowel sounds normal, soft, moderate tenderness poorly localized and diffuse, no masses, no pulsatile masses; no rebound tenderness. [] Skin: Warm, dry, no erythema, no rash. [] Back: No tenderness, no CVA tenderness. [] Extremities: No tenderness, no cyanosis, no clubbing, ROM intact, no edema. [] Neurologic: Alert and oriented X 3, normal motor function, normal sensory function, no focal deficits noted. [] Psychologic: Affect normal, judgement normal, mood normal. [] Current Patient Data Vital Signs Vital Signs Date Time Temp Pulse Resp B/P (MAP) Pulse Ox O2 Delivery O2 Flow Rate FiO2 07/03/17 16:49 90 20 150/68 (95) 96 Room Air 07/03/17 14:50 98.1 98.1 Lab Values Laboratory Tests Test 07/03/17 15:10 07/03/17 15:30 White Blood Count 11.4 x10^3/uL (4.0-11.0) H Red Blood Count 4.75 x10^6/uL (4.30-5.70) Hemoglobin 14.3 g/dL (13.0-17.5) Hematocrit 42.8 % (39.0-53.0) Mean Corpuscular Volume 90 fL (79-100) Mean Corpuscular Hemoglobin 30 pg (25-35) Mean Corpuscular Hemoglobin Concent 33 g/dL (31-37) Red Cell Distribution Width 13.2 % (11.5-14.5) Platelet Count 269 x10^3/uL (140-400) Neutrophils (%) (Auto) 72 % (31-73) Lymphocytes (%) (Auto) 19 % (24-48) L Monocytes (%) (Auto) 7 % (0-9) Eosinophils (%) (Auto) 1 % (0-3) Basophils (%) (Auto) 1 % (0-3) Neutrophils # (Auto) 8.2 x10^3uL (1.8-7.7) H Lymphocytes # (Auto) 2.2 x10^3/uL (1.0-4.8) Monocytes # (Auto) 0.8 x10^3/uL (0.0-1.1) Eosinophils # (Auto) 0.1 x10^3/uL (0.0-0.7) Basophils # (Auto) 0.1 x10^3/uL (0.0-0.2) Sodium Level 142 mmol/L (136-145) Potassium Level 3.9 mmol/L (3.5-5.1) Chloride Level 106 mmol/L (98-107) Carbon Dioxide Level 24 mmol/L (21-32) Anion Gap 12 (6-14) Blood Urea Nitrogen 14 mg/dL (8-26) Creatinine 1.2 mg/dL (0.7-1.3) Estimated GFR (Cockcroft-Gault) 70.2 BUN/Creatinine Ratio 12 (6-20) Glucose Level 94 mg/dL (70-99) Calcium Level 9.0 mg/dL (8.5-10.1) Total Bilirubin 0.4 mg/dL (0.2-1.0) Aspartate Amino Transferase (AST) 19 U/L (15-37) Alanine Aminotransferase (ALT) 38 U/L (16-63) Alkaline Phosphatase 101 U/L (46-116) Total Protein 7.7 g/dL (6.4-8.2) Albumin 3.9 g/dL (3.4-5.0) Albumin/Globulin Ratio 1.0 (1.0-1.7) Lipase 120 U/L (73-393) Urine Collection Type Unknown Urine Color Yellow Urine Clarity Clear Urine pH 6.5 Urine Specific Anderson 1.010 Urine Protein Negative mg/dL (NEG-TRACE) Urine Glucose (UA) Negative mg/dL (NEG) Urine Ketones (Stick) Negative mg/dL (NEG) Urine Blood Negative (NEG) Urine Nitrite Negative (NEG) Urine Bilirubin Negative (NEG) Urine Urobilinogen Dipstick 0.2 mg/dL (0.2 mg/dL) Urine Leukocyte Esterase Negative (NEG) Urine RBC 0 /HPF (0-2) Urine WBC 0 /HPF (0-4) Urine Squamous Epithelial Cells Few /LPF Urine Bacteria 0 /HPF (0-FEW) Laboratory Tests 07/03/17 15:10 Laboratory Tests 07/03/17 15:10 EKG EKG [] Radiology/Procedures Radiology/Procedures CT scan abdomen and pelvis[ normal and negative per radiology.] Course & Med Decision Making Course & Med Decision Making Pertinent Labs and Imaging studies reviewed. (See chart for details) []Plan of care will be to treat symptoms with IV fluids, pain meds and nausea meds, check labs, and obtain CT scan abdomen and pelvis. 1638 PM agent feels improved benign abdominal exam discussed normal labs and CT scan. Plan to obtain stool culture and C. difficile testing prior to dismissal. Plan to start patient on metronidazole and advised close follow-up with Dr. Ceja in the next 24-48 hours. Dragon Disclaimer Dragon Disclaimer This electronic medical record was generated, in whole or in part, using a voice recognition dictation system. Departure Departure Impression: Primary Impression: Infectious colitis Additional Impression: Exacerbation of Crohn's disease Disposition: HOME, SELF-CARE Condition: STABLE Referrals: LOBO WILLIAMSON (PCP) Patient Instructions: Colitis Scripts Metronidazole (FLAGYL) 500 Mg Tablet 500 MG PO TID for 10 Days, #30 TAB 0 Refills Prov: KAREN PHAN MD 07/03/17 Problem Qualifiers KAREN PHAN MD Jul 03, 2017 15:17
[2017-07-03 15:21] LABS: BASO # 0.1 x10^3/uL (0.0-0.2); BASO % 1 % (0-3); EOS % 1 % (0-3); HEMATOCRIT 42.8 % (39.0-53.0); HEMOGLOBIN 14.3 g/dL (13.0-17.5); LYMPH # 2.2 x10^3/uL (1.0-4.8); LYMPH % 19 % (24-48); MEAN CORPUSCULAR HEMOGLOBIN 30 pg (25-35); MEAN CORPUSCULAR HGB CONC 33 g/dL (31-37); MEAN CORPUSCULAR VOLUME 90 fL (79-100); MONO % 7 % (0-9); NEUT % 72 % (31-73); PLATELET COUNT 269 x10^3/uL (140-400); RED BLOOD COUNT 4.75 x10^6/uL (4.30-5.70); RED CELL DISTRIBUTION WIDTH 13.2 % (11.5-14.5); WHITE BLOOD COUNT 11.4 x10^3/uL (4.0-11.0)
[2017-07-03] MEDS ORDERED: IOHEXOL 300 MG/ML 75 ML VIAL IV ONE (15:30)
[2017-07-03] MEDS ORDERED: CONTRAST GIVEN MC PRN (15:45)
[2017-07-03 15:51] LABS: CREATININE 1.2 mg/dL (0.7-1.3); GFR 70.2; POTASSIUM 3.9 mmol/L (3.5-5.1)
[2017-07-03 15:56] LABS: BILIRUBIN,URINE NEGATIVE (NEG); GLUCOSE,URINE NEGATIVE (NEG); NITRITE,URINE NEGATIVE (NEG); PH,URINE 6.5; PROTEIN,URINE NEGATIVE (NEG-TRACE); UROBILINOGEN,URINE 0.2 mg/dL (0.2 mg/dL)
[2017-07-03 15:56] LABS: ALBUMIN 3.9 g/dL (3.4-5.0); TOTAL BILIRUBIN 0.4 mg/dL (0.2-1.0); TOTAL PROTEIN 7.7 g/dL (6.4-8.2)
[2017-07-03 16:09] LABS: BACTERIA,URINE 0 /HPF (0-FEW); RBC,URINE 0 /HPF (0-2); SQUAMOUS EPITHELIAL CELL,UR FEW /LPF; WBC,URINE 0 /HPF (0-4)
--- NOTE | 2017-07-03 16:14 | RAD ---
CT of the abdomen and pelvis with contrast, 07/03/2017: History: Abdominal pain, Crohn's disease Multidetector CT imaging was performed following an IV bolus injection of iodinated contrast material. No oral contrast material was administered for this study. Comparison is made to an exam from 05/24/2013. There is mild linear scarring or atelectasis in the left base. No hepatic mass or bile duct dilatation is evident. The gallbladder is unremarkable. The pancreas shows no abnormality. The spleen is of normal size. No renal or adrenal abnormality is detected. The abdominal aorta is unremarkable. No abdominal or pelvic adenopathy is seen. The bowel loops are not dilated. The appendix is visualized and shows no abnormality. No free air or free fluid is evident in the abdomen or pelvis. IMPRESSION: No acute abdominal or pelvic abnormality is detected. PQRS Compliance Statement: One or more of the following individualized dose reduction techniques were utilized for this examination: 1. Automated exposure control 2. Adjustment of the mA and/or kV according to patient size 3. Use of iterative reconstruction technique
[2017-07-03] MEDS ORDERED: METR500T PO (16:43)
[2017-07-03 16:49] VITALS: BP 150/68
--- NOTE | 2017-07-04 06:15 | EKG ---
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
== END 2017-07-03 17:45 | disposition home or self-care (01) ==
LOC: ER 14:41
DX: A09 Infectious gastroenteritis and colitis, unspecified (principal); K50.90 Crohn's disease, unspecified, without complications; I11.0 Hypertensive heart disease with heart failure; I50.9 Heart failure, unspecified; I25.10 Atherosclerotic heart disease of native coronary artery without angina pectoris; J44.9 Chronic obstructive pulmonary disease, unspecified; Z86.73 Personal history of transient ischemic attack (TIA), and cerebral infarction without residual deficits; Z86.14 Personal history of Methicillin resistant Staphylococcus aureus infection; I25.2 Old myocardial infarction; Z88.0 Allergy status to penicillin; Z88.2 Allergy status to sulfonamides
CPT/HCPCS: 36415; 74177; 80053; 81001; 83690; 85025; 93005; 96361; 96374; 96375; 99285; J1170; J2405; J7030; Q9967

== ENCOUNTER 2017-08-09 17:08 | Emergency (ER) | payer SELFPAY ==
[~2017-08-09] VITALS: Ht 180.3 cm; Wt 138.8 kg
[~2017-08-09 17:08] MED LIST changes: +AZIT250T6 PO
[2017-08-09 17:20] VITALS: BP 138/70
--- NOTE | 2017-08-09 17:28 | PHYS DOC ---
Past Medical History Past Medical History: CAD, CHF, COPD, CVA, Hypertension, [place], MRSA, Seizure, TIA Additional Past Medical Histor: CROHN'S DZ, C-DIFF, CELLULITIS, PERICARDITIS, pulmonary htn Past Surgical History: Other Additional Past Surgical Histo: L KNEE SX X 2, PYLORIC STENOSIS SX Alcohol Use: None Drug Use: None Adult General Chief Complaint Chief Complaint: ANKLE PROBLEM HPI HPI Patient is a 32 year old male presents to the emergency department with complaints of left ankle pain. Patient states that when did he do that at 4 PM thank you approximate hour half prior to arrival he was riding in his wheelchair return to close the gate his left ankle became caught between the wheelchair foot rest in the gate post. He states the ankle did not twist but he did hear a crunching sound. He is here seeking further evaluation of his left ankle pain. Review of Systems Review of Systems Constitutional: Denies fever or chills [] Eyes: Denies change in visual acuity, redness, or eye pain [] HENT: Denies nasal congestion or sore throat [] Respiratory: Denies cough or shortness of breath [] Cardiovascular: No additional information not addressed in HPI [] GI: Denies abdominal pain, nausea, vomiting, bloody stools or diarrhea [] : Denies dysuria or hematuria [] Musculoskeletal: Left ankle pain Integument: Denies rash or skin lesions [] Neurologic: Denies headache, focal weakness or sensory changes [] Endocrine: Denies polyuria or polydipsia [] All other systems were reviewed and found to be within normal limits, except as documented in this note. Current Medications Current Medications Current Medications Medications (Trade) Dose Ordered Sig/Linda Start Time Stop Time Status Last Admin Dose Admin Ketorolac Tromethamine (Toradol Im) 60 mg 1X ONCE 08/09/17 17:30 08/09/17 17:31 DC 08/09/17 17:29 60 MG Allergies Allergies Allergies Coded Allergies Type Severity Reaction Last Updated Verified Penicillins Allergy Intermediate Takes Keflex at home chronically 05/10/17 Yes Sulfa (Sulfonamide Antibiotics) Allergy Intermediate 05/10/17 Yes Physical Exam Physical Exam Constitutional: Well developed, well nourished, no acute distress, non-toxic appearance. [] Cardiovascular:Heart rate regular rhythm, no murmur [] Lungs & Thorax: Bilateral breath sounds clear to auscultation [] Skin: Warm, dry, no erythema, no rash. [] Extremities: Left lower extremity exam, left knee exam (exam unremarkable. The left ankle is without swelling, no ecchymosis, no erythema. There is no evidence of recent trauma. He has no tenderness to palpate over the lateral or medial malleolus. The Achilles tendon is intact. No swelling. Or vascular intact distally. Neurologic: Alert and oriented X 3, normal motor function, normal sensory function Current Patient Data Vital Signs Vital Signs Date Time Temp Pulse Resp B/P (MAP) Pulse Ox O2 Delivery O2 Flow Rate FiO2 08/09/17 17:20 97.9 108 20 98 Room Air 97.9 EKG EKG [] Radiology/Procedures Radiology/Procedures left ankle Xray reviewed, no acute bony abnormality[] Course & Med Decision Making Course & Med Decision Making ROBERT bandage placed by nursing staff. NVI post placement. No evidence of compartment syndrome. Pt tolerated well Pertinent Labs and Imaging studies reviewed. (See chart for details) [] Dragon Disclaimer Dragon Disclaimer This electronic medical record was generated, in whole or in part, using a voice recognition dictation system. Departure Departure Impression: Primary Impression: Left ankle pain Disposition: HOME, SELF-CARE Condition: STABLE Referrals: LOBO WILLIAMSON (PCP) Patient Instructions: Ankle Pain Additional Instructions: Robert bandage as tolerated. Ice to the affected area for 24 hours, every 4 hours for 15 minutes. After 24 hours and may alternate with moist heat. Elevate. Ibuprofen [id number] as labeled and is indicated for symptom management. Continue present medication regimen. Follow up with her primary care provider in 3-5 days, sooner proms rise. Problem Qualifiers Primary Impression: Left ankle pain Chronicity: acute Qualified Codes: M25.572 - Pain in left ankle and joints of left foot RAS AGUSTIN APRN Aug 09, 2017 17:28
[2017-08-09] MEDS ORDERED: KETOROLAC 60 MG/2 ML INJ. IM ONE (17:30)
--- NOTE | 2017-08-10 08:19 | RAD ---
ANKLE LEFT 3V Clinical Indication: pain ankle after trapping between wheelchair and gate Comparison: Ankle radiograph dated 07/03/2016. Findings: No acute fracture or malalignment. The joint spaces are maintained. Bony mineralization is normal for the patient's age. Mild soft tissue swelling of the ankle. No radiopaque foreign body. IMPRESSION: 1. No acute fracture or malalignment. 2. Mild soft tissue swelling of the ankle.
== END 2017-08-09 18:01 | disposition home or self-care (01) ==
LOC: ER 17:08
DX: M25.572 Pain in left ankle and joints of left foot (principal); I25.10 Atherosclerotic heart disease of native coronary artery without angina pectoris; I11.0 Hypertensive heart disease with heart failure; I50.9 Heart failure, unspecified; J44.9 Chronic obstructive pulmonary disease, unspecified; I25.2 Old myocardial infarction; Z86.73 Personal history of transient ischemic attack (TIA), and cerebral infarction without residual deficits; Z88.0 Allergy status to penicillin; Z88.2 Allergy status to sulfonamides
CPT/HCPCS: 73610; 96372; 99284; J1885

== ENCOUNTER 2017-09-14 15:32 | Emergency (ER) | payer SELFPAY ==
[2017-09-14 16:41] LABS: ADD MAN DIFF? NO
[2017-09-14 16:44] LABS: BASO % 1 % (0-3); EOS # 0.2 x10^3/uL (0.0-0.7); EOS % 3 % (0-3); HEMATOCRIT 43.3 % (39.0-53.0); HEMOGLOBIN 14.5 g/dL (13.0-17.5); LYMPH # 2.3 x10^3/uL (1.0-4.8); LYMPH % 25 % (24-48); MEAN CORPUSCULAR HEMOGLOBIN 31 pg (25-35); MEAN CORPUSCULAR HGB CONC 33 g/dL (31-37); MEAN CORPUSCULAR VOLUME 91 fL (79-100); MONO # 0.7 x10^3/uL (0.0-1.1); MONO % 7 % (0-9); NEUT # 5.8 x10^3uL (1.8-7.7); NEUT % 64 % (31-73); PLATELET COUNT 242 x10^3/uL (140-400); RED BLOOD COUNT 4.75 x10^6/uL (4.30-5.70); RED CELL DISTRIBUTION WIDTH 13.1 % (11.5-14.5)
[2017-09-14] MEDS ORDERED: CONTRAST GIVEN MC (17:00)
[2017-09-14 17:14] LABS: ANION GAP 12 (6-14); BLOOD UREA NITROGEN 14 mg/dL (8-26); BUN/CREATININE RATIO 13 (6-20); CALCIUM 8.8 mg/dL (8.5-10.1); CARBON DIOXIDE 24 mmol/L (21-32); CHLORIDE 106 mmol/L (98-107); CREATININE 1.1 mg/dL (0.7-1.3); GFR 77.6; GLUCOSE 95 mg/dL (70-99); POTASSIUM 3.9 mmol/L (3.5-5.1); SODIUM 142 mmol/L (136-145)
[2017-09-14 17:20] LABS: ALBUMIN 3.7 g/dL (3.4-5.0); ALBUMIN/GLOBULIN RATIO 1.1 (1.0-1.7); ALK PHOS 91 U/L (46-116); ALT (SGPT) 29 U/L (16-63); AST (SGOT) 17 U/L (15-37); TOTAL BILIRUBIN 0.2 mg/dL (0.2-1.0); TOTAL PROTEIN 7.1 g/dL (6.4-8.2)
[2017-09-14 17:26] LABS: NT-PRO BNP 39 pg/mL (0-124)
[2017-09-14 17:28] LABS: TROPONINI < 0.017 ng/mL (0.000-0.055)
[2017-09-14] MEDS: IOHEXOL 300 MG/ML 100ML VIAL. IV (17:48)
[2017-09-14] MEDS ORDERED: fentaNYL PF VIAL 100 MCG/2 ML VIAL (18:46)
[2017-09-14] MEDS: fentaNYL PF VIAL 100 MCG/2 ML VIAL IV (18:49)
== END 2017-09-14 20:36 | disposition home or self-care (01) ==
LOC: ER 15:32
DX: R07.89 Other chest pain (principal); I25.10 Atherosclerotic heart disease of native coronary artery without angina pectoris; I11.0 Hypertensive heart disease with heart failure; I50.9 Heart failure, unspecified; I25.2 Old myocardial infarction; I27.20 Pulmonary hypertension, unspecified; J44.9 Chronic obstructive pulmonary disease, unspecified; Z88.0 Allergy status to penicillin; Z86.73 Personal history of transient ischemic attack (TIA), and cerebral infarction without residual deficits; Z88.2 Allergy status to sulfonamides
CPT/HCPCS: 36415; 71045; 71275; 80053; 83880; 84484; 85025; 93005; 96374; 99285-25; J3010; Q9967

== ENCOUNTER 2019-05-23 06:05 | Day surgery (SDC) | payer OTHER ==
[~2019-05-23] VITALS: Ht 179.7 cm; Wt 127.0 kg
[~2019-05-23 06:05] MED LIST changes: +CYAN-25 IM; +GABA-585 PO; +HYDR-2145 PO; -HYDR-2758 PO; +HYDR-2761 PO; -HYDR-2762 PO; +HYDR-2765 PO; +HYDR-3164 PO; +HYDR-3165 PO; -HYDR-965 PO; -HYDR-971 PO; +LACT1CAP8 PO; +LEVE500T56 PO; -LINE600T PO; +LINE600T37 PO; +MESA800T9 PO; +MULT1TAB52 PO; +NAPR-514 PO; -NAPR500T4 PO; -OXYC-323 PO; -OXYC10TA45 PO; +OXYC10TA46 PO; +OXYC1TAB15 PO; -PANT40TA3 PO; +PANT40TA77 PO
[2019-05-23] MEDS ORDERED: PROCHLORPERAZINE 10 MG/2 ML VIAL. IV PRN (07:00)
[2019-05-23] MEDS ORDERED: HYDROmorphone 2 MG/ML VIAL IV PRN (07:00)
[2019-05-23] MEDS ORDERED: IV RINGERS,LACTATED 1000ML 1,000 ML IV SCH (07:00)
[2019-05-23] MEDS ORDERED: MORPHINE SULFATE 2 MG/ML VIAL. IV PRN (07:00)
[2019-05-23] MEDS ORDERED: LIDOCAINE 2% PF 5 ML VIAL. ONE (07:00)
[2019-05-23] MEDS ORDERED: PROPOFOL 20 ML IV ONE (07:00)
[2019-05-23] MEDS ORDERED: LIDOCAINE 1% PF 2 ML VIAL. ID PRN (07:00)
[2019-05-23] MEDS ORDERED: fentaNYL PF VIAL 100 MCG/2 ML VIAL IV PRN ×2 (07:00)
[2019-05-23] MEDS ORDERED: SUCCINYLCHOLINE 200 MG/10 ML VIAL. ONE (07:01)
[2019-05-23] MEDS ORDERED: fentaNYL PF VIAL 100 MCG/2 ML VIAL ONE (07:01)
[2019-05-23] MEDS ORDERED: ROCURONIUM 50 MG/5 ML VIAL. ONE (07:01)
[2019-05-23] MEDS ORDERED: EPINEPHrine VIAL 30 MG/30 ML VIAL ONE (07:06)
[2019-05-23] MEDS ORDERED: MIDAZOLAM HCL/PF 2 MG/2 ML VIAL. ONE (07:11)
[2019-05-23] MEDS ORDERED: EPINEPHrine 1 MG/ML VIAL ONE (07:11)
[2019-05-23] MEDS ORDERED: BUPIVACAINE MPF 0.75% 30 ML VIAL. ONE (07:11)
[2019-05-23] MEDS ORDERED: IV NORMAL SALINE 1000ML BAG 1,000 ML IV SCH (07:15)
[2019-05-23 07:32] LABS: CREATININE 1.3 mg/dL (0.7-1.3); GFR 63.2; POTASSIUM 3.8 mmol/L (3.5-5.1)
[2019-05-23] MEDS ORDERED: CLINDAMYCIN 900MG PREMIX 50 ML IV ONE (07:41)
[2019-05-23] MEDS ORDERED: OXYC1TAB22 PO (07:48)
--- NOTE | 2019-05-23 07:50 | DISCH ---
DISCHARGE INSTRUCTIONS Condition on Discharge Condition on Discharge: Stable Activity After Discharge Activity Instructions for Disc: Other, see below (arm in immobilizer at nig httime, may remove for gentle pendulum exercises no stretching or lifting away from body fine motor use only with elbow at side) Lifting Instructions after Dis: No heavy lifting Driving Instructions after Dis: Do not drive today Diet after Discharge Diet after Discharge: Regular Diet Texture: Regular Liquid Texture: Thin Liquid Swallowing Supervision: None needed Wound Incision Care Wound/Incision Care: Change dressing (a remove dressing in 2 days january then s jeannie no soaking until follow-up visit) Contacting the after DC Call your doctor for: Concerns you may have Follow-Up Follow up with: Dr. Peterson 10 days Treatment/Equipment after DC Adaptive Equipment Issued: None ARIES PETERSON MD May 23, 2019 07:50
[2019-05-23] MEDS ORDERED: DESFLURANE 61 TO 120 MINUTES IH ONE (08:13)
[2019-05-23] MEDS ORDERED: ONDANSETRON PF 4 MG/2 ML VIAL. ONE (08:13)
[2019-05-23] MEDS ORDERED: DEXAMETHASONE SOD PHOS 4 MG/ML VIAL ONE (08:13)
[2019-05-23] MEDS ORDERED: CLINDAMYCIN 900MG PREMIX 50 ML IV PRN (08:30)
[2019-05-23] MEDS ORDERED: NEOSTIGMINE METHYLSULFATE 5 MG/5 ML SYRINGE. ONE (08:40)
[2019-05-23] MEDS ORDERED: GLYCOPYRROLATE 1 MG/5 ML VIAL. ONE (08:40)
[2019-05-23] MEDS ORDERED: oxyCODONE/APAP 10/325 1 TAB TABLET PO ONE (10:30)
[2019-05-23 11:40] VITALS: BP 115/80
--- NOTE | 2019-05-23 17:53 | PDOC4 ---
Operative Note Operative Note Date of surgery: 05/23/2019 Preoperative diagnosis: Right shoulder anterior instability Postoperative diagnosis: Same with type I SLAP tear and well-preserved glenohumeral joint Operative procedure: Right shoulder arthroscopy with arthroscopic Bankart repair and debridement type I SLAP tear Surgeon: Kristen Anesthesia: Gen. plus scalene block Estimated blood loss: 10 mL Complications: None Operative indications: Please see my detailed clinic note for operative indications noting that patient has had ongoing right shoulder instability with MRI showing no bony deficits. Further he is very limited by other left-sided limitations weakness in lower extremity problems due to previous complications of surgery and is quite dependent on his right arm and very limited by the ongoing instability. I had gone over with him the possibility of operative treatment and the fact that arthroscopic treatment has been shown to be as efficacious as open surgery with his examination and findings. We talked about the possibility of infection continued instability nerve or blood vessel damage medical or other anesthetic complications among others all his questions were answered and he wished to proceed with surgical evaluation and treatment. Operative text: Patient was identified procedure verified patient placed in the supine position on the operating table. After adequate amounts of general anesthesia plus pre-existing scalene block were obtained he was placed decubitus right side up all bony prominences were well-padded and the right shoulder was examined under anesthesia found to have full range of motion and isolated anterior-inferior instability without multidirectional instability findings. The right shoulder was then prepped and draped in standard sterile fashion placed in the arthroscopic arm moser with a total of 15 pounds of traction after timeout was performed patient procedure identified and verified a standard posterior portal was established an anterior portal established using spinal needle localization and the shoulder joint was systematically examined. He was noted to have a pendulous inferior capsule and type I SLAP tear which was debrided back to stable tissue subscapularis in the remainder the rotator cuff insertion was intact biceps was noted to be free from any fraying or subluxation. The labrum and anterior-inferior capsule was detached from approximately the 3 o'clock position to 7 o'clock position and the anterior-inferior glenoid was debrided back to bleeding bony tissue with the arthroscopic bur. Anchors were then placed at the 5 o'clock position and anterior-inferior capsule advanced from approximately the 6 o'clock position and secured slightly upon the glenoid face with an all suture anchor. This process was repeated at approximately the 4 o'clock position where the capsule advanced from about the 5 o'clock position. A labral bumper was reconstructed on the anterior-inferior glenoid face and stability was restored with only minimal restriction of terminal external rotation in abduction. The joint was drained of arthroscopic fluid portals closed with nylon suture sterile dressings were applied patient was placed in immobilizer extirpated transferred to postop holding in stable condition having tolerated procedure well ARIES FALLON MD May 23, 2019 17:53
[2019-05-24] MEDS ORDERED: CLINDAMYCIN 900MG PREMIX 50 ML IV PRN (06:00)
== END 2019-05-23 11:42 | disposition home or self-care (01) ==
LOC: SURG 06:05
PROVIDERS: ATTEND Orthopaedic Surgery
DX: S43.431A Superior glenoid labrum lesion of right shoulder, initial encounter (principal); K21.9 Gastro-esophageal reflux disease without esophagitis; D64.9 Anemia, unspecified; J44.9 Chronic obstructive pulmonary disease, unspecified; N18.9 Chronic kidney disease, unspecified; I50.9 Heart failure, unspecified; Z86.14 Personal history of Methicillin resistant Staphylococcus aureus infection; Z86.73 Personal history of transient ischemic attack (TIA), and cerebral infarction without residual deficits; Z98.890 Other specified postprocedural states; Z87.891 Personal history of nicotine dependence; Z72.89 Other problems related to lifestyle; Z88.1 Allergy status to other antibiotic agents; Z88.0 Allergy status to penicillin; X58.XXXA Exposure to other specified factors, initial encounter; Y93.89 Activity, other specified; Y92.89 Other specified places as the place of occurrence of the external cause; Y99.8 Other external cause status
CPT/HCPCS: 29806; 36415; 80048; A7015; C1713; J0171; J0330; J1100; J2001; J2250; J2405; J2704; J2710; J3010; J3490

== ENCOUNTER → 2019-06-05 | Outpatient (CLI) | payer OTHER ==
[2019-05-23 11:40] VITALS: BP 115/80
[~2019-06-05] MED LIST changes: +IOHEXOL 240 MG/ML 50ML VIAL. PO ONE; +IOHEXOL 300 MG/ML 100ML VIAL. IV ONE; +LINE600T12 PO; -LINE600T37 PO; +OXYC1TAB22 PO
--- NOTE | 2019-06-05 17:08 | KCIC ---
EXAM: Abdomen and pelvis CT with intravenous contrast. HISTORY: Pain and bloody stool. TECHNIQUE: Computed tomographic images of the abdomen and pelvis were obtained following the administration of 100 cc Omnipaque 300 intravenous contrast. Multiplanar reformatting was performed. *One or more of the following individualized dose reduction techniques were utilized for this examination: 1. Automated exposure control. 2. Adjustment of the mA and/or kV according to patient size. 3. Use of iterative reconstruction technique. COMPARISON: 07/03/2017. FINDINGS: Evaluation of the lower thorax demonstrates posterior dependent and basilar atelectasis. There is no infiltrate or pleural effusion. The heart is normal in size. There is hepatomegaly and hepatic steatosis. No suspicious hepatic lesion is seen. The gallbladder, pancreas and adrenal glands are unremarkable. There is a splenule adjacent to a mildly enlarged spleen, likely within normal limits for patient body habitus. The stomach is unremarkable. There is a suspected small left extrarenal pelvis. There is no hydronephrosis. No solid or cystic renal lesion is seen. The urinary bladder is unremarkable. There is no appendicitis. There are a few distal colonic diverticula. There is no evidence of diverticulitis. There is no clear bowel wall thickening to suggest enteritis or colitis. There is stranding at the root of mesentery and there are multiple prominent mesenteric lymph nodes, a nonspecific finding. No suspicious retroperitoneal lymph node is seen. The aorta is normal in caliber. There is no suspicious osseous lesion. There are few benign bone islands. 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 IMPRESSION: 1. Colonic diverticulosis without convincing diverticulitis. There is also no convincing enteritis or colitis. 2. Hepatomegaly and hepatic steatosis. 3. Mild splenomegaly, likely within normal limits for patient body habitus. 4. Stable nonspecificfatty stranding at the root of the mesentery with associated prominent mesenteric lymph nodes. The possibility of mesenteric panniculitis is not excluded. Electronically signed by: Dominique Anguiano MD (06/05/2019 5:05 PM) [place] [id number]
== END | disposition home or self-care (01) ==
LOC: KCIC CT 11:54
PROVIDERS: ATTEND Physician Assistant
DX: K57.30 Diverticulosis of large intestine without perforation or abscess without bleeding (principal); K76.0 Fatty (change of) liver, not elsewhere classified; R16.2 Hepatomegaly with splenomegaly, not elsewhere classified; J98.11 Atelectasis; I10 Essential (primary) hypertension; Z87.891 Personal history of nicotine dependence
CPT/HCPCS: 74177

== ENCOUNTER → 2019-07-11 | Day surgery (SDC) | payer MEDICAID, OTHER ==
[~2019-07-11] MED LIST changes: -IOHEXOL 240 MG/ML 50ML VIAL. PO ONE; -IOHEXOL 300 MG/ML 100ML VIAL. IV ONE; +IV RINGERS,LACTATED 1000ML 1,000 ML IV SCH; +LIDOCAINE 2% PF 5 ML VIAL. ONE; +PROPOFOL 60 ML IV ONE
[2019-07-11 09:29] VITALS: BP 120/60
--- NOTE | 2019-07-14 23:06 | PATHOLOGY ---
[facility] Accession Number: [id number] . 01 Material submitted: . PART A: esophagus - DISTAL ESOPHAGUS. Modifiers: distal PART B: ileum - TERMINAL ILEUM BX PART C: colon - RANDOM COLON BX . 01 Clinical history: . Abdominal pain . 02 Diagnosis: A. "Distal esophagus R/O Aguilar's", biopsy: - Esophageal squamous mucosa with reactive changes; no significant inflammation (including eosinophils), glandular epithelium or dysplasia seen. . B. "Terminal ileum BX", biopsy: - Small bowel mucosa with reactive changes and prominent reactive-appearing lymphoid aggregates; no evidence of active ileitis. . C. "Random colon BX diarrhea", biopsy: - Colonic mucosa with mild reactive changes and focal active colitis; no dysplasia seen. (See comment). . (CLW:belén; 07/14/2019) [facility] 07/14/2019 1228 Local . 02 Comment: Focal active colitis can be seen in resolving infectious-type colitis, incidentally with bowel preparation and quiescent chronic idiopathic inflammatory bowel disease. No increased chronic inflammation or chronic architectural changes are identified. Clinical and endoscopic correlation is recommended. (CLW:belén; 07/14/2019) . 02 Electronically signed: . Dina Grant MD, Pathologist NPI- [id number] . 01 Gross description: . A. Received in formalin labeled "Henre, Billy, distal esophagus, rule out Aguliar's," are 4 segments of sol soft tissue measuring 1.2 x 1.0 x 0.3 cm in aggregate dimensions and ranging from 0.3 to 0.6 cm in maximum dimension. The specimen is submitted entirely in cassette A1. . B. Received in formalin labeled "Henre, [place], terminal ileum BX," are 2 segments of sol soft tissue measuring 0.8 x 0.2 x 0.2 cm in aggregate dimensions and measuring 0.4 cm each in maximum dimension. The specimen is submitted entirely in cassette B1. . C. Received in formalin labeled "Henre, [place], random colon BX diarrhea," are multiple segments of sol soft tissue measuring 1.7 x 0.8 x 0.1 cm in aggregate dimensions. The specimen is filtered and entirely submitted in cassette C1. (TSD; 07/11/2019) TOB/TOB 07/11/2019 2137 Local . 02 Pathologist provided ICD-10: K52.9, R10.9 . 02 CPT . 264565, 111536, 179395 Specimen Comment: A courtesy copy of this report has been sent to [phone], [phone] Specimen Comment: [id number] Specimen Comment: Report sent to / DR WILLIAMSON Performed at: 01 [facility] [address], [place] [id number] MD Harpreet Phillips MD Phone: [phone] Performed at: 02 [facility] [address] [place], [place] [id number] MD Ángel Carter MD Phone: [phone]
== END | disposition home or self-care (01) ==
LOC: ENDOS 07:11
PROVIDERS: ATTEND Internal Medicine Gastroenterology
DX: K62.5 Hemorrhage of anus and rectum (principal); K21.0 Gastro-esophageal reflux disease with esophagitis; K50.10 Crohn's disease of large intestine without complications; K57.30 Diverticulosis of large intestine without perforation or abscess without bleeding; K64.0 First degree hemorrhoids; K27.9 Peptic ulcer, site unspecified, unspecified as acute or chronic, without hemorrhage or perforation; E78.00 Pure hypercholesterolemia, unspecified; F32.9 Major depressive disorder, single episode, unspecified; J44.9 Chronic obstructive pulmonary disease, unspecified; F15.90 Other stimulant use, unspecified, uncomplicated; Z98.890 Other specified postprocedural states; Z88.1 Allergy status to other antibiotic agents; Z88.0 Allergy status to penicillin; Z88.8 Allergy status to other drugs, medicaments and biological substances; Z86.010 Personal history of colon polyps; Z86.73 Personal history of transient ischemic attack (TIA), and cerebral infarction without residual deficits; Z72.89 Other problems related to lifestyle; Z87.891 Personal history of nicotine dependence; Z79.82 Long term (current) use of aspirin
CPT/HCPCS: 43239; 45380; 88305; J2001; J2704

== ENCOUNTER → 2019-10-02 | Outpatient (CLI) | payer MEDICAID ==
[2019-07-11 09:29] VITALS: BP 120/60
[~2019-10-02] MED LIST changes: -IV RINGERS,LACTATED 1000ML 1,000 ML IV SCH; -LIDOCAINE 2% PF 5 ML VIAL. ONE; +MECL-75 PO; -MECL25TA3 PO; -PROPOFOL 60 ML IV ONE
--- NOTE | 2019-10-02 12:07 | KCIC ---
MRI study of the left shoulder without contrast Clinical indications: Left shoulder pain. Progression of shoulder pain and limited range of motion. TECHNIQUE: Noncontrast MRI sequences of the left shoulder were performed in all 3 planes. FINDINGS: No bone contusion or fracture or marrow infiltrative process is seen. No subdeltoid or subacromial bursitis is evident. There is mild increased signal within the supraspinatus and infraspinatus tendons consistent with mild tendinosis. No complete tear or high-grade partial tear of the rotator cuff is seen. The subscapularis tendon is intact. Tendon of the long head of the biceps is intact. No muscle atrophy is seen. The AC joint is unremarkable. Type II acromial process is seen. The glenoid labrum is intact and no paralabral ganglion cyst is seen. The glenohumeral joint is unremarkable. No glenohumeral joint effusion is seen. IMPRESSION: Mild tendinosis of the rotator cuff. No other significant abnormality is seen. Electronically signed by: Andrews Rivers MD (10/02/2019 12:05 PM) [id number]
== END | disposition home or self-care (01) ==
LOC: KCIC MRI 10:45
PROVIDERS: ATTEND Orthopaedic Surgery
DX: M75.82 Other shoulder lesions, left shoulder (principal); Z98.890 Other specified postprocedural states
CPT/HCPCS: 73221

== ENCOUNTER 2019-10-20 13:59 | Emergency (ER) | payer MEDICAID ==
[~2019-10-20] VITALS: Ht 180.3 cm; Wt 140.0 kg
--- NOTE | 2019-10-20 14:58 | PHYS DOC ---
Past Medical History Past Medical History: CAD, CHF, COPD, CVA, Hypertension, [place], MRSA, Seizure, TIA Additional Past Medical Histor: CROHN'S DZ, C-DIFF, CELLULITIS, PERICARDITIS,pulmonary htn Past Surgical History: Other Additional Past Surgical Histo: L KNEE SX X 2, PYLORIC STENOSIS SX Smoking Status: Former Smoker Alcohol Use: None Drug Use: None Adult General Chief Complaint Chief Complaint: SHOULDER INJURY HPI HPI Patient is a 34 year old male who presents with a trauma that occurred yesterday afternoon. The patient was working and a cow hit a gate and he flew in the air. The patient denies loss of consciousness, denies any blood thinner use. The patient does report nausea, and dizziness since the incident. He also is reporting right knee pain, right shoulder pain. He is also having abdominal pain and hip pain. Rates his pain as 7 out of 10 in severity and sharp. Complete ROS were reviewed and found to be within normal limits, except as documented in the HPI Current Medications Current Medications Current Medications Medications (Trade) Dose Ordered Sig/Linda Start Time Stop Time Status Last Admin Dose Admin Fentanyl Citrate (Fentanyl 2ml Vial) 75 mcg 1X STAT 10/20/19 14:48 10/20/19 14:59 DC 10/20/19 15:26 75 MCG Info (CONTRAST GIVEN -- Rx MONITORING) 1 each PRN DAILY PRN 10/20/19 16:00 10/22/19 15:59 Iohexol (Omnipaque 300 Mg/ml) 75 ml 1X ONCE 10/20/19 16:00 10/20/19 16:01 DC 10/20/19 16:08 75 ML Morphine Sulfate (Morphine Sulfate) 5 mg 1X STAT 10/20/19 16:43 10/20/19 16:45 DC 10/20/19 17:01 5 MG Ondansetron HCl (Zofran) 4 mg 1X ONCE 10/20/19 16:45 10/20/19 16:46 DC 10/20/19 17:00 4 MG Allergies Allergies Allergies Coded Allergies Type Severity Reaction Last Updated Verified Penicillins Allergy Intermediate Takes Keflex at home chronically 07/11/19 Yes Sulfa (Sulfonamide Antibiotics) Allergy Intermediate 07/11/19 Yes Physical Exam Physical Exam Constitutional: Well developed, well nourished, no acute distress, non-toxic appearance. [] HENT: Normocephalic, atraumatic, bilateral external ears normal, oropharynx moist, no oral exudates, nose normal. [] Eyes: PERRLA, EOMI, conjunctiva normal, no discharge. [] Neck: Normal range of motion, no tenderness, supple, no stridor. [] Cardiovascular:Heart rate regular rhythm, no murmur [] Lungs & Thorax: Bilateral breath sounds clear to auscultation [] Abdomen: Bowel sounds normal, soft, diffuse tenderness of palpation, no masses, no pulsatile masses. [] Skin: Warm, dry, no erythema, no rash. [] Back: No tenderness, no CVA tenderness. [] Extremities: Tenderness to R knee, Shoulder, and hip. Neurologic: Alert and oriented X 3, normal motor function, normal sensory function, no focal deficits noted. [] Psychologic: Affect normal, judgement normal, mood normal. [] Current Patient Data Vital Signs Vital Signs Date Time Temp Pulse Resp B/P (MAP) Pulse Ox O2 Delivery O2 Flow Rate FiO2 10/20/19 17:01 16 98 Room Air 10/20/19 14:30 99.1 112 168/93 (118) 99.1 Lab Values Laboratory Tests Test 10/20/19 15:14 10/20/19 16:36 White Blood Count 10.6 x10^3/uL (4.0-11.0) Red Blood Count 4.88 x10^6/uL (4.30-5.70) Hemoglobin 15.3 g/dL (13.0-17.5) Hematocrit 44.8 % (39.0-53.0) Mean Corpuscular Volume 92 fL (79-100) Mean Corpuscular Hemoglobin 32 pg (25-35) Mean Corpuscular Hemoglobin Concent 34 g/dL (31-37) Red Cell Distribution Width 13.2 % (11.5-14.5) Platelet Count 276 x10^3/uL (140-400) Neutrophils (%) (Auto) 70 % (31-73) Lymphocytes (%) (Auto) 19 % (24-48) L Monocytes (%) (Auto) 8 % (0-9) Eosinophils (%) (Auto) 3 % (0-3) Basophils (%) (Auto) 1 % (0-3) Neutrophils # (Auto) 7.5 x10^3/uL (1.8-7.7) Lymphocytes # (Auto) 2.0 x10^3/uL (1.0-4.8) Monocytes # (Auto) 0.8 x10^3/uL (0.0-1.1) Eosinophils # (Auto) 0.3 x10^3/uL (0.0-0.7) Basophils # (Auto) 0.1 x10^3/uL (0.0-0.2) Prothrombin Time 12.7 SEC (11.7-14.0) Prothrombin Time INR 1.0 (0.8-1.1) Activated Partial Thromboplast Time 34 SEC (24-38) Sodium Level 140 mmol/L (136-145) Potassium Level 3.9 mmol/L (3.5-5.1) Chloride Level 102 mmol/L (98-107) Carbon Dioxide Level 26 mmol/L (21-32) Anion Gap 12 (6-14) Blood Urea Nitrogen 21 mg/dL (8-26) Creatinine 1.3 mg/dL (0.7-1.3) Estimated GFR (Cockcroft-Gault) 63.2 BUN/Creatinine Ratio 16 (6-20) Glucose Level 119 mg/dL (70-99) H Calcium Level 9.2 mg/dL (8.5-10.1) Total Bilirubin 0.4 mg/dL (0.2-1.0) Aspartate Amino Transferase (AST) 63 U/L (15-37) H Alanine Aminotransferase (ALT) 132 U/L (16-63) H Alkaline Phosphatase 111 U/L (46-116) Total Protein 7.5 g/dL (6.4-8.2) Albumin 4.0 g/dL (3.4-5.0) Albumin/Globulin Ratio 1.1 (1.0-1.7) Urine Color Yellow Urine Clarity Clear Urine pH 6.5 Urine Specific [place] 1.015 Urine Protein Negative mg/dL (NEG-TRACE) Urine Glucose (UA) Negative mg/dL (NEG) Urine Ketones (Stick) Negative mg/dL (NEG) Urine Blood Negative (NEG) Urine Nitrite Negative (NEG) Urine Bilirubin Negative (NEG) Urine Urobilinogen Dipstick 0.2 mg/dL (0.2 mg/dL) Urine Leukocyte Esterase Negative (NEG) Urine RBC 0 /HPF (0-2) Urine WBC Occ /HPF (0-4) Urine Squamous Epithelial Cells Occ /LPF Urine Bacteria 0 /HPF (0-FEW) Laboratory Tests 10/20/19 15:14 Laboratory Tests 10/20/19 15:14 EKG EKG [] Radiology/Procedures Radiology/Procedures [facility] [address] [place] [address] IMAGING REPORT Signed PATIENT: LAUREANO JONES ACCOUNT: [id number] : 1985 LOCATION: ER AGE: 34 SEX: M EXAM STATUS: REG ER ORD. PHYSICIAN: CAROLINA BARRY APRN REASON: TRAUMA. PROCEDURE: CT THORACIC SPINE RECONSTRUCT Exam: CT thoracic spine without contrast INDICATION: Trauma TECHNIQUE: Sequential axial images through the thoracic spine obtained without IV contrast. Sagittal and coronal reformatted images were reconstructed from the axial data and reviewed. Comparisons: None FINDINGS: Vertebral body heights and alignment are well-maintained. Fracture to the thoracic spine is not identified. Redemonstration of bone island within the T5 vertebral body. No significant spondylotic change in the thoracic spine. Visualized paraspinal soft tissues are unremarkable. IMPRESSION: Negative CT T spine for acute traumatic injury. Exposure: One or more of the following in the visualized dose reduction techniques were utilized for this examination: 1. Automated exposure control 2. Adjustment of the MA and/or KV according to patient size 3. Use of iterative of reconstructive technique Electronically signed by: Shakira Cadet MD (10/20/2019 5:10 PM) [id number] DICTATED and SIGNED BY: SHAKIRA CADET MD DATE: 10/20/19 1710 [facility] [address] [place] [address] IMAGING REPORT Signed PATIENT: LAUREANO JONES ACCOUNT: [id number] : 1985 LOCATION: ER AGE: 34 SEX: M EXAM STATUS: REG ER ORD. PHYSICIAN: CAROLINA BARRY APRN REASON: TRAUMA. PROCEDURE: CT LUMBAR SPINE RECONSTRUCTION Exam: CT lumbar spine without contrast INDICATION: Trauma TECHNIQUE: Sequential axial images through the lumbar spine obtained without IV contrast. Sagittal and coronal reformatted images were reconstructed from the axial data and reviewed. Comparisons: None FINDINGS: Vertebral body heights and alignment are well-maintained. Fracture to the lumbar spine is not identified. No significant spondylotic change in the lumbar spine. Visualized paraspinal soft tissues are unremarkable. IMPRESSION: Negative CT L-spine for acute traumatic injury. Exposure: One or more of the following in the visualized dose reduction techniques were utilized for this examination: 1. Automated exposure control 2. Adjustment of the MA and/or KV according to patient size 3. Use of iterative of reconstructive technique Electronically signed by: Shakira Cadet MD (10/20/2019 5:13 PM) [id number] DICTATED and SIGNED BY: SHAKIRA CADET MD DATE: 10/20/19 1713 [facility] [address] [place] [address] IMAGING REPORT Signed PATIENT: LAUREANO JONES ACCOUNT: [id number] : 1985 LOCATION: ER AGE: 34 SEX: M EXAM STATUS: REG ER ORD. PHYSICIAN: CAROLINA BARRY APRN REASON: TRAUMA PROCEDURE: CT CHEST ABD PELVIS W/CONTRAST Study: CT chest, abdomen and pelvis with contrast INDICATION: Trauma. COMPARISON: CT abdomen/pelvis 06/05/2019; CT chest 09/14/2017 TECHNIQUE: Helical CT imaging performed of the chest, abdomen and pelvis after the intravenous administration of 75 cc Omnipaque 300. Coronal and sagittal reformats were obtained. One or more of the following individualized dose reduction techniques were utilized for this examination: 1. Automated exposure control 2. Adjustment of the mA and/or kV according to patient size 3. Use of iterative reconstruction technique. FINDINGS: CT Chest: The study is degraded secondary to the patient's arms at their side resulting in streak artifact. The visualized great vessels are unremarkable. Unremarkable aorta. No retrosternal hematoma or significant volume pericardial fluid. No pneumomediastinum. Mild basilar volume loss. No traumatic injury to the lungs. No large body wall hematoma. No displaced rib fracture. Thoracic vertebral body height and alignment is maintained. Small bone island within the T5 vertebral body. Intact sternum. CT Abdomen/Pelvis: The study is degraded secondary to the patient's arms at their side resulting in streak artifact. Hepatic steatosis. Unremarkable gallbladder and biliary tree. Unchanged appearance of the pancreas. No traumatic injury to the spleen. Unremarkable adrenal glands. Unremarkable kidneys and collecting system. Unremarkable colon and appendix. Unremarkable small bowel and stomach. Unremarkable major vasculature and unchanged size of scattered lymph nodes. No free air or free fluid. Redemonstrated and unchanged haziness of the upper abdominal mesentery. No large body wall hematoma. Symmetric musculature. No change in vertebral body height or alignment. No acute fracture seen throughout the pelvis. IMPRESSION: CT Chest: 1. No acute abnormality. CT Abdomen/Pelvis: 1. No acute abnormality. 2. Hepatic steatosis. Electronically signed by: MIKE NOGUEIRA MD (10/20/2019 4:44 PM) [id number] DICTATED and SIGNED BY: MIKE NOGUEIRA MD DATE: 10/20/19 1644 [facility] [address] [place] [address] IMAGING REPORT Signed PATIENT: LAUREANO JONES ACCOUNT: [id number] : 1985 LOCATION: ER AGE: 34 SEX: M EXAM STATUS: REG ER ORD. PHYSICIAN: CAROLINA BARRY APRN REASON: trauma. pt states getting ran over by cow x1 day ago PROCEDURE: KNEE RIGHT 3V Indications: Trauma. The patient got run over by a cow one day ago. Pain. Three-view right shoulder study: No acute fracture or dislocation or lytic process is evident. No AC joint separation is evident. IMPRESSION: No acute fracture. Three-view right knee study: No acute fracture or dislocation or lytic process is seen. No significant joint effusion is seen. IMPRESSION: No acute fracture. 2 view right hip study: No acute fracture or dislocation or lytic process is evident. IMPRESSION: No acute fracture. Electronically signed by: Andrews Rivers MD (10/20/2019 4:38 PM) [facility] DICTATED and SIGNED BY: ANDREWS RIVERS MD DATE: 10/20/19 1638 [address] [place] [address] IMAGING REPORT Signed PATIENT: LAUREANO JONES ACCOUNT: [id number] : 1985 LOCATION: ER AGE: 34 SEX: M EXAM STATUS: REG ER ORD. PHYSICIAN: CAROLINA BARRY APRN REASON: trauma. pt states getting ran over by cow x1 day ago PROCEDURE: HIP RIGHT 2 VIEW Indications: Trauma. The patient got run over by a cow one day ago. Pain. Three-view right shoulder study: No acute fracture or dislocation or lytic process is evident. No AC joint separation is evident. IMPRESSION: No acute fracture. Three-view right knee study: No acute fracture or dislocation or lytic process is seen. No significant joint effusion is seen. IMPRESSION: No acute fracture. 2 view right hip study: No acute fracture or dislocation or lytic process is evident. IMPRESSION: No acute fracture. Electronically signed by: Andrews Rivers MD (10/20/2019 4:38 PM) [facility] DICTATED and SIGNED BY: ANDREWS RIVERS MD DATE: 10/20/19 1638 [][facility] [address] [place] [address] IMAGING REPORT Signed PATIENT: LAUREANO JONES ACCOUNT: [id number] : 1985 LOCATION: ER AGE: 34 SEX: M EXAM STATUS: REG ER ORD. PHYSICIAN: CAROLINA BARRY APRN REASON: trauma PROCEDURE: CT HEAD AND CERVICAL SPINE WO CT HEAD WITHOUT CONTRAST 10/20/2019 4:02 PM Indication: Trauma Comparison: None available Procedure: Multidetector CT imaging of the head was performed without the administration of contrast. Findings: There is no evidence of acute intracranial hemorrhage. There is no evidence of acute territorial infarction. Please note that CT is limited for evaluation of acute ischemia. No mass effect or midline shift is identified . The ventricles and basilar cisterns have an appropriate appearance. No abnormal extra-axial fluid collections are seen. No acute osseous changes are identified. Impression: No evidence of acute intracranial abnormality CT cervical spine without contrast. 10/20/2019 4:02 PM Indication:Trauma Comparison Study: None available Technique: Multidetector CT imaging of the cervical spine was obtained without administration of contrast. Findings: There is no evidence of acute fracture or alignment abnormality of the cervical spine. Vertebral body heights and disc spaces are maintained. The atlantoaxial articulation is within normal limits. There is no prevertebral soft tissue swelling. Soft tissues are otherwise unremarkable. No bony compromise of the spinal canal is seen. Impression: No evidence of acute fracture or alignment abnormality of the cervical spine CT DOSING PQRS STATEMENT: One or more of the following individualized dose reduction techniques were utilized for this examination: 1. Automated exposure control 2. Adjustment of the mA and/or kV according to patient size 3. Use of iterative reconstruction technique Electronically signed by: Reji Mathis MD (10/20/2019 4:36 PM) [id number] DICTATED and SIGNED BY: REJI MATHIS MD DATE: 10/20/19 1636 Course & Med Decision Making Course & Med Decision Making Pertinent Labs and Imaging studies reviewed. (See chart for details) Will get labs, imaging, and give supportive care. Workup is unremarkable. Will d/c home. Dragon Disclaimer Dragon Disclaimer This electronic medical record was generated, in whole or in part, using a voice recognition dictation system. Departure Departure Impression: Primary Impression: Trauma Additional Impression: Concussion Disposition: HOME, SELF-CARE Condition: STABLE Referrals: LOBO WILLIAMSON (PCP) Patient Instructions: Blunt Trauma Additional Instructions: Thank you for visiting [facility]. We appreciate you trusting us with your care. If any additional problems come up don't hesitate to return to visit us. Please follow up with your primary care provider so they can plan additional care if needed and know about the problem that you had. If symptoms worsen come back to the Emergency Department. Any concerning symptoms that start such as chest pain, shortness of air, weakness or numbness on one side of the body, running high fevers or any other concerning symptoms return to the ER. Please fill your medications at any pharmacy and follow the prescription instructions. PATIENT TAKE-HOME INSTRUCTIONS ([facility]) INFORMATION FOR ADULTS You have been examined for a head injury and possible concussion. Take time off from work or school for days or until you and your health hearing care professional think you are able to return to your usual routine. Further instructions from your health hearing care professional: When should I return to the hospital emergency department? Sometimes serious problems develop after a head injury. Return immediately to the emergency department if you experience any of the following symptoms: ? Repeated vomiting ? Headache that gets worse and does not go away ? Loss of consciousness or unable to stay awake during times you would normally be awake ? Getting more confused, restless, or agitated ? Convulsions or seizures ? Difficulty walking or difficulty with balance ? Weakness or numbness ? Difficulty with your vision Most of all, if you have any symptom that concerns you, your family members, or friends, dont delay, see a doctor right away. Q&A. Some questions and answers about brain injuries Q. What is a concussion? A. A concussion is a type of traumatic brain injury (TBI). It is caused by a bump, blow, or jolt to the head or body that causes the head and brain to move quickly back and forth. Some of the ways you can get a concussion are when you hit your head during a fall, car crash, or sports injury. Health lead care manager sometime refer to concussions as mild? brain injuries because they are usually not life-threatening. Even so, their effects can be serious. Q. What should I expect once I'm home from the hospital? A. Most people with a concussion recover quickly and fully. During recovery, it is important to know that many people have a range of symptoms. Some symptoms may appear right away, while others may not be noticed for hours or even days after the injury. You may not realize you have problems until you try to do your usual activities again. Below is a list of some of the symptoms you may have: Thinking/ Remembering Difficulty thinking clearly Feeling slowed down Difficulty concentrating Difficulty remembering new information Physical Headache Nausea or vomiting (early on) Sensitivity to noise or light Feeling tired, having no energy Fuzzy or blurry vision Dizziness Balance problems Emotional/ Mood Irritability Sadness More emotional Nervousness or anxiety Sleep Sleeping more than usual Sleeping less than usual Trouble falling asleep These postconcussive? symptoms can be part of the normal healing process and are generally not signs of permanent damage or serious health problems. Most symptoms go away over time without any treatment. It is easy to become upset or afraid if you dont know what to expect or if you are having problems. Keep talking with your doctor and others about how you are feeling. Tell your health hearing care professional if you do not think you are getting better. Q. What can I do to feel better? A. Getting plenty of rest and sleep helps the brain to heal. Do not try to do too much too fast. As you start to feel better, you can slowly and gradually return to your usual routine. Here are some other tips to help you get better: Avoid activities that are physically demanding (e.g., sports, heavy ho usecleaning, exercising) or require a lot of thinking or concentration (e.g., working on the computer, playing video games). Ignoring your symptoms and toughing it out? often makes symptoms worse. Ask your health hearing care professional when you can safely drive a car, ride a bike, or operate heavy equipment. Do not drink alcohol. Q. What if I don't feel better after a week? A. If you do not feel back to normal within one week, see a health hearing care professional who has experience treating brain injuries. Q. Should I tell my work about my injury? A. If your injury was work-related, make sure you report it right away to your employer and your workers compensation office. Q. When can I return to sports and recreational activities? A. Do not return to sports and recreational activities before talking to your health hearing care professional. A repeat concussion that occurs before the brain has fully healed can be very dangerous and may slow your recovery or increase the chance for long-term problems. Q. How can I avoid a concussion in the future? A. There are many ways to minimize the risk of a concussion and other injuries: Wear a seat belt and use a safety seat for children. Wear a helmet that fits properly when biking, riding a motorcycle, skating, skiing, horseback riding, or playing contact sports. Prevent falls in the home by: Using grab bars in the bathroom and handrails by stairs. Placing non-slip mats in the bathtub and on floors. Removing trip hazards in the house. Improving lighting. Installing safety huston by stairs and safety guards by windows to protect young children in your home. For more information about concussion, please visit www.cdc.gov/Concussion. This fact sheet is part of the Centers for Disease Control and Preventions (CDC) Heads Up? series of publications and is based on the 2008 Clinical Policy: Neuroimaging and Decisionmaking in Adult Mild Traumatic Brain Injury in the Acute Setting, jointly produced by CDC and ACEP Scripts Ondansetron (ONDANSETRON ODT) 4 Mg Tab.rapdis 1 TAB PO PRN Q6-8HRS PRN for NAUSEA, #20 TAB Prov: CAROLINA BARRY APRN 10/20/19 Orphenadrine Citrate (ORPHENADRINE CITRATE) 100 Mg Tablet.er 100 MG PO BID PRN for MUSCLE PAIN for 5 Days, #10 TAB.SR Prov: CAROLINA BARRY APRN 10/20/19 Problem Qualifiers Additional Impression: Concussion Encounter type: initial encounter Loss of consciousness presence/duration: without LOC Qualified Codes: S06.0X0A - Concussion without loss of consciousness, initial encounter CAROLINA BARRY APRN Oct 20, 2019 14:58
[2019-10-20] MEDS: ONDANSETRON PF 4 MG/2 ML VIAL. IV STA (15:23)
[2019-10-20] MEDS: fentaNYL PF VIAL 100 MCG/2 ML VIAL IV STA (15:26)
[2019-10-20 15:36] LABS: CALCIUM 9.2 mg/dL (8.5-10.1); CREATININE 1.3 mg/dL (0.7-1.3); GFR 63.2; POTASSIUM 3.9 mmol/L (3.5-5.1)
[2019-10-20 15:42] LABS: ALBUMIN/GLOBULIN RATIO 1.1 (1.0-1.7); TOTAL BILIRUBIN 0.4 mg/dL (0.2-1.0); TOTAL PROTEIN 7.5 g/dL (6.4-8.2)
[2019-10-20 15:46] LABS: PROTHROMBIN TIME PATIENT 12.7 SEC (11.7-14.0)
[2019-10-20 15:59] LABS: BASO # 0.1 x10^3/uL (0.0-0.2); BASO % 1 % (0-3); EOS # 0.3 x10^3/uL (0.0-0.7); EOS % 3 % (0-3); HEMATOCRIT 44.8 % (39.0-53.0); HEMOGLOBIN 15.3 g/dL (13.0-17.5); LYMPH % 19 % (24-48); MEAN CORPUSCULAR HEMOGLOBIN 32 pg (25-35); MEAN CORPUSCULAR HGB CONC 34 g/dL (31-37); MEAN CORPUSCULAR VOLUME 92 fL (79-100); MONO # 0.8 x10^3/uL (0.0-1.1); MONO % 8 % (0-9); NEUT # 7.5 x10^3/uL (1.8-7.7); NEUT % 70 % (31-73); PLATELET COUNT 276 x10^3/uL (140-400); RED BLOOD COUNT 4.88 x10^6/uL (4.30-5.70); RED CELL DISTRIBUTION WIDTH 13.2 % (11.5-14.5); WHITE BLOOD COUNT 10.6 x10^3/uL (4.0-11.0)
[2019-10-20] MEDS ORDERED: CONTRAST GIVEN. MC PRN (16:00)
[2019-10-20] MEDS: IOHEXOL 300 MG/ML 100ML VIAL. IV ONE (16:08)
--- NOTE | 2019-10-20 16:39 | RAD ---
CT HEAD WITHOUT CONTRAST 10/20/2019 4:02 PM Indication: Trauma Comparison: None available Procedure: Multidetector CT imaging of the head was performed without the administration of contrast. Findings: There is no evidence of acute intracranial hemorrhage. There is no evidence of acute territorial infarction. Please note that CT is limited for evaluation of acute ischemia. No mass effect or midline shift is identified . The ventricles and basilar cisterns have an appropriate appearance. No abnormal extra-axial fluid collections are seen. No acute osseous changes are identified. Impression: No evidence of acute intracranial abnormality CT cervical spine without contrast. 10/20/2019 4:02 PM Indication:Trauma Comparison Study: None available Technique: Multidetector CT imaging of the cervical spine was obtained without administration of contrast. Findings: There is no evidence of acute fracture or alignment abnormality of the cervical spine. Vertebral body heights and disc spaces are maintained. The atlantoaxial articulation is within normal limits. There is no prevertebral soft tissue swelling. Soft tissues are otherwise unremarkable. No bony compromise of the spinal canal is seen. Impression: No evidence of acute fracture or alignment abnormality of the cervical spine CT DOSING PQRS STATEMENT: One or more of the following individualized dose reduction techniques were utilized for this examination: 1. Automated exposure control 2. Adjustment of the mA and/or kV according to patient size 3. Use of iterative reconstruction technique Electronically signed by: Reji Mathis MD (10/20/2019 4:36 PM) [facility]
--- NOTE | 2019-10-20 16:41 | RAD ---
Indications: Trauma. The patient got run over by a cow one day ago. Pain. Three-view right shoulder study: No acute fracture or dislocation or lytic process is evident. No AC joint separation is evident. IMPRESSION: No acute fracture. Three-view right knee study: No acute fracture or dislocation or lytic process is seen. No significant joint effusion is seen. IMPRESSION: No acute fracture. 2 view right hip study: No acute fracture or dislocation or lytic process is evident. IMPRESSION: No acute fracture. Electronically signed by: Andrews Rivers MD (10/20/2019 4:38 PM) [facility]
--- NOTE | 2019-10-20 16:46 | RAD ---
Study: CT chest, abdomen and pelvis with contrast INDICATION: Trauma. COMPARISON: CT abdomen/pelvis 06/05/2019; CT chest 09/14/2017 TECHNIQUE: Helical CT imaging performed of the chest, abdomen and pelvis after the intravenous administration of 75 cc Omnipaque 300. Coronal and sagittal reformats were obtained. One or more of the following individualized dose reduction techniques were utilized for this examination: 1. Automated exposure control 2. Adjustment of the mA and/or kV according to patient size 3. Use of iterative reconstruction technique. FINDINGS: CT Chest: The study is degraded secondary to the patient's arms at their side resulting in streak artifact. The visualized great vessels are unremarkable. Unremarkable aorta. No retrosternal hematoma or significant volume pericardial fluid. No pneumomediastinum. Mild basilar volume loss. No traumatic injury to the lungs. No large body wall hematoma. No displaced rib fracture. Thoracic vertebral body height and alignment is maintained. Small bone island within the T5 vertebral body. Intact sternum. CT Abdomen/Pelvis: The study is degraded secondary to the patient's arms at their side resulting in streak artifact. Hepatic steatosis. Unremarkable gallbladder and biliary tree. Unchanged appearance of the pancreas. No traumatic injury to the spleen. Unremarkable adrenal glands. Unremarkable kidneys and collecting system. Unremarkable colon and appendix. Unremarkable small bowel and stomach. Unremarkable major vasculature and unchanged size of scattered lymph nodes. No free air or free fluid. Redemonstrated and unchanged haziness of the upper abdominal mesentery. No large body wall hematoma. Symmetric musculature. No change in vertebral body height or alignment. No acute fracture seen throughout the pelvis. IMPRESSION: CT Chest: 1. No acute abnormality. CT Abdomen/Pelvis: 1. No acute abnormality. 2. Hepatic steatosis. Electronically signed by: MIKE NOGUEIRA MD (10/20/2019 4:44 PM) [id number]
[2019-10-20 16:54] LABS: BILIRUBIN,URINE NEGATIVE (NEG); CLARITY,URINE CLEAR; COLOR,URINE YELLOW; NITRITE,URINE NEGATIVE (NEG); PH,URINE 6.5; PROTEIN,URINE NEGATIVE (NEG-TRACE); UROBILINOGEN,URINE 0.2 mg/dL (0.2 mg/dL)
[2019-10-20 17:00] VITALS: BP 114/59
[2019-10-20] MEDS: ONDANSETRON PF 4 MG/2 ML VIAL. IV ONE (17:00)
[2019-10-20] MEDS: MORPHINE SULFATE 10 MG/ML VIAL. IV STA (17:01)
[2019-10-20 17:06] LABS: BACTERIA,URINE 0 /HPF (0-FEW); RBC,URINE 0 /HPF (0-2); SQUAMOUS EPITHELIAL CELL,UR OCC /LPF; WBC,URINE OCC /HPF (0-4)
--- NOTE | 2019-10-20 17:14 | RAD ---
Exam: CT thoracic spine without contrast INDICATION: Trauma TECHNIQUE: Sequential axial images through the thoracic spine obtained without IV contrast. Sagittal and coronal reformatted images were reconstructed from the axial data and reviewed. Comparisons: None FINDINGS: Vertebral body heights and alignment are well-maintained. Fracture to the thoracic spine is not identified. Redemonstration of bone island within the T5 vertebral body. No significant spondylotic change in the thoracic spine. Visualized paraspinal soft tissues are unremarkable. IMPRESSION: Negative CT T spine for acute traumatic injury. Exposure: One or more of the following in the visualized dose reduction techniques were utilized for this examination: 1. Automated exposure control 2. Adjustment of the MA and/or KV according to patient size 3. Use of iterative of reconstructive technique Electronically signed by: Shakira Vera MD (10/20/2019 5:10 PM) [id number]
--- NOTE | 2019-10-20 17:16 | RAD ---
Exam: CT lumbar spine without contrast INDICATION: Trauma TECHNIQUE: Sequential axial images through the lumbar spine obtained without IV contrast. Sagittal and coronal reformatted images were reconstructed from the axial data and reviewed. Comparisons: None FINDINGS: Vertebral body heights and alignment are well-maintained. Fracture to the lumbar spine is not identified. No significant spondylotic change in the lumbar spine. Visualized paraspinal soft tissues are unremarkable. IMPRESSION: Negative CT L-spine for acute traumatic injury. Exposure: One or more of the following in the visualized dose reduction techniques were utilized for this examination: 1. Automated exposure control 2. Adjustment of the MA and/or KV according to patient size 3. Use of iterative of reconstructive technique Electronically signed by: Shakira Vera MD (10/20/2019 5:13 PM) [id number]
[2019-10-20] MEDS ORDERED: ORPH100T PO (17:23)
[2019-10-20] MEDS ORDERED: ONDA4TAB12 PO (17:24)
== END 2019-10-20 17:33 | disposition home or self-care (01) ==
LOC: ER 13:59
DX: S06.0X0A Concussion without loss of consciousness, initial encounter (principal); R42 Dizziness and giddiness; M25.561 Pain in right knee; R10.84 Generalized abdominal pain; M25.551 Pain in right hip; M25.511 Pain in right shoulder; I11.0 Hypertensive heart disease with heart failure; I50.9 Heart failure, unspecified; I25.2 Old myocardial infarction; I25.10 Atherosclerotic heart disease of native coronary artery without angina pectoris; Z86.73 Personal history of transient ischemic attack (TIA), and cerebral infarction without residual deficits; Z86.14 Personal history of Methicillin resistant Staphylococcus aureus infection; Z87.891 Personal history of nicotine dependence; Z88.0 Allergy status to penicillin; Z88.2 Allergy status to sulfonamides; W55.22XA Struck by cow, initial encounter; Y93.89 Activity, other specified; Y92.69 Other specified industrial and construction area as the place of occurrence of the external cause; Y99.0 Civilian activity done for income or pay
CPT/HCPCS: 36415; 70450; 71260; 72125; 73030; 73502; 73562; 74177; 80053; 81001; 85025; 85610; 85730; 96374; 96375; 96376; 99285; J2270; J2405; J3010; Q9967

== ENCOUNTER 2019-11-06 11:04 | Emergency (ER) | payer MEDICAID ==
[~2019-11-06] VITALS: Ht 180.3 cm; Wt 139.0 kg
[~2019-11-06 11:04] MED LIST changes: +ONDA4TAB12 PO; +ORPH100T PO
[2019-11-06] MEDS ORDERED: METOCLOPRAMIDE HCL 10 MG/2 ML VIAL. IVP ONE (11:45)
[2019-11-06] MEDS ORDERED: IV NORMAL SALINE 1000ML BAG 1,000 ML IV ONE (11:45)
[2019-11-06] MEDS ORDERED: diphenhydrAMINE 50 MG/ML VIAL IVP ONE (11:45)
[2019-11-06] MEDS ORDERED: MORPHINE SULFATE 4 MG/ML VIAL. IV ONE ×2 (11:45→14:30)
[2019-11-06 11:53] LABS: BASO # 0.1 x10^3/uL (0.0-0.2); BASO % 1 % (0-3); EOS # 0.4 x10^3/uL (0.0-0.7); EOS % 3 % (0-3); HEMATOCRIT 44.5 % (39.0-53.0); HEMOGLOBIN 15.2 g/dL (13.0-17.5); LYMPH # 1.8 x10^3/uL (1.0-4.8); LYMPH % 16 % (24-48); MEAN CORPUSCULAR HEMOGLOBIN 32 pg (25-35); MEAN CORPUSCULAR HGB CONC 34 g/dL (31-37); MEAN CORPUSCULAR VOLUME 92 fL (79-100); MONO # 0.7 x10^3/uL (0.0-1.1); MONO % 7 % (0-9); NEUT # 8.3 x10^3/uL (1.8-7.7); NEUT % 73 % (31-73); PLATELET COUNT 241 x10^3/uL (140-400); RED BLOOD COUNT 4.82 x10^6/uL (4.30-5.70); RED CELL DISTRIBUTION WIDTH 13.3 % (11.5-14.5); WHITE BLOOD COUNT 11.4 x10^3/uL (4.0-11.0)
[2019-11-06 12:06] LABS: PROTHROMBIN TIME PATIENT 13.1 SEC (11.7-14.0)
--- NOTE | 2019-11-06 12:51 | EKG ---
[facility] [address] [place] [address] Test Date: 2019-11-06 Test Time: 11:31:52 Pat Name: LAUREANO JONES Department: Room: Gender: M [employer] Maker: : 1985 Requested By: KACY BAHENA Order Number: [id number] Reading MD: Measurements Intervals [place] Rate: 105 P: -71 ND: 118 QRS: 43 QRSD: 98 T: -38 QT: 360 QTc: 480 Interpretive Statements SINUS TACHYCARDIA T ABNORMALITY IN INFERIOR LEADS ABNORMAL ECG RI6.01 No previous ECG available for comparison
[2019-11-06 12:52] LABS: CALCIUM 9.2 mg/dL (8.5-10.1); CREATININE 1.2 mg/dL (0.7-1.3); GFR 69.3; POTASSIUM 3.5 mmol/L (3.5-5.1)
[2019-11-06 12:53] LABS: BILIRUBIN,URINE NEGATIVE (NEG); CLARITY,URINE CLEAR; COLOR,URINE YELLOW; NITRITE,URINE NEGATIVE (NEG); PROTEIN,URINE NEGATIVE (NEG-TRACE); UROBILINOGEN,URINE 0.2 mg/dL (0.2 mg/dL)
[2019-11-06 12:56] LABS: ALBUMIN 3.6 g/dL (3.4-5.0); TOTAL BILIRUBIN 0.3 mg/dL (0.2-1.0); TOTAL PROTEIN 7.3 g/dL (6.4-8.2)
[2019-11-06 13:07] LABS: BACTERIA,URINE 0 /HPF (0-FEW); RBC,URINE 0 /HPF (0-2); SQUAMOUS EPITHELIAL CELL,UR OCC /LPF; WBC,URINE 0 /HPF (0-4)
--- NOTE | 2019-11-06 13:11 | PHYS DOC ---
Past Medical History Past Medical History: CAD, CHF, COPD, CVA, Hypertension, NC, MRSA, Seizure, TIA, Other Additional Past Medical Histor: CROHN'S DZ,C- DIFF,CELLULITIS,PERICARDITIS,pulmonary htn Past Surgical History: Other Additional Past Surgical Histo: L KNEE SX X 2, PYLORIC STENOSIS SX, RT shoulder sx Smoking Status: Former Smoker Alcohol Use: Sober Drug Use: None Adult General Chief Complaint Chief Complaint: TARRY STOOL HPI HPI Patient is a 34 year old male who presents with complaint of generalized abdominal pain for the last few weeks. Patient also indicates that he has been having some loose stools for the last few days and complains that he has been a little bit lightheaded. Patient rates his pain in his abdomen at an 8 out of 10 and states that it is all over. He also indicates that he has been having some nausea. He describes pain as cramping.[] Review of Systems Review of Systems Constitutional: Denies fever or chills [] Respiratory: Denies cough or shortness of breath [] Cardiovascular: No additional information not addressed in HPI [] GI: Complains of generalized abdominal pain with nausea. Complains of loose dark, tarry stools [] Integument: Denies rash or skin lesions [] Neurologic: Denies headache, focal weakness or sensory changes [] All other systems were reviewed and found to be within normal limits, except as documented in this note. Current Medications Current Medications Current Medications Medications (Trade) Dose Ordered Sig/Linda Start Time Stop Time Status Last Admin Dose Admin Diphenhydramine HCl (Benadryl) 25 mg 1X ONCE 11/06/19 11:45 11/06/19 11:46 DC 11/06/19 11:51 25 MG Info (CONTRAST GIVEN -- Rx MONITORING) 1 each PRN DAILY PRN 11/06/19 14:30 11/08/19 14:29 Iohexol (Omnipaque 300 Mg/ml) 75 ml 1X ONCE 11/06/19 15:00 11/06/19 15:01 DC 11/06/19 14:25 75 ML Metoclopramide HCl (Reglan Vial) 10 mg 1X ONCE 11/06/19 11:45 11/06/19 11:46 DC 11/06/19 11:51 10 MG Morphine Sulfate (Morphine Sulfate) 4 mg 1X ONCE 11/06/19 14:30 11/06/19 14:31 DC 11/06/19 14:39 4 MG Sodium Chloride 1,000 ml @ 1,000 mls/hr 1X ONCE 11/06/19 11:45 11/06/19 12:44 DC 11/06/19 12:11 1,000 MLS/HR Allergies Allergies Allergies Coded Allergies Type Severity Reaction Last Updated Verified Penicillins Allergy Intermediate Takes Keflex at home chronically 07/11/19 Yes Sulfa (Sulfonamide Antibiotics) Allergy Intermediate 07/11/19 Yes Physical Exam Physical Exam Constitutional: Well developed, well nourished, no acute distress, non-toxic appearance. [] HENT: Normocephalic, atraumatic, bilateral external ears normal, oropharynx moist, no oral exudates, nose normal. [] Eyes: PERRLA, EOMI, conjunctiva normal, no discharge. [] Neck: Normal range of motion, no tenderness, supple, no stridor. [] Cardiovascular: Regular rate and rhythm[] Lungs & Thorax: Bilateral breath sounds clear to auscultation [] Abdomen: Bowel sounds normal, soft, with generalized tenderness. [] Skin: Warm, dry, no erythema, no rash. [] Extremities: No tenderness, no cyanosis, no clubbing, ROM intact. [] Neurologic: Alert and oriented X 3, no focal deficits noted. [] Current Patient Data Vital Signs Vital Signs Date Time Temp Pulse Resp B/P (MAP) Pulse Ox O2 Delivery O2 Flow Rate FiO2 11/06/19 13:00 86 18 117/69 (85) 95 Room Air 11/06/19 11:16 98.3 98.3 Lab Values Laboratory Tests Test 11/06/19 11:45 11/06/19 12:23 11/06/19 12:45 White Blood Count 11.4 x10^3/uL (4.0-11.0) H Red Blood Count 4.82 x10^6/uL (4.30-5.70) Hemoglobin 15.2 g/dL (13.0-17.5) Hematocrit 44.5 % (39.0-53.0) Mean Corpuscular Volume 92 fL (79-100) Mean Corpuscular Hemoglobin 32 pg (25-35) Mean Corpuscular Hemoglobin Concent 34 g/dL (31-37) Red Cell Distribution Width 13.3 % (11.5-14.5) Platelet Count 241 x10^3/uL (140-400) Neutrophils (%) (Auto) 73 % (31-73) Lymphocytes (%) (Auto) 16 % (24-48) L Monocytes (%) (Auto) 7 % (0-9) Eosinophils (%) (Auto) 3 % (0-3) Basophils (%) (Auto) 1 % (0-3) Neutrophils # (Auto) 8.3 x10^3/uL (1.8-7.7) H Lymphocytes # (Auto) 1.8 x10^3/uL (1.0-4.8) Monocytes # (Auto) 0.7 x10^3/uL (0.0-1.1) Eosinophils # (Auto) 0.4 x10^3/uL (0.0-0.7) Basophils # (Auto) 0.1 x10^3/uL (0.0-0.2) Prothrombin Time 13.1 SEC (11.7-14.0) Prothrombin Time INR 1.0 (0.8-1.1) Activated Partial Thromboplast Time 32 SEC (24-38) Sodium Level 140 mmol/L (136-145) Potassium Level 3.5 mmol/L (3.5-5.1) Chloride Level 105 mmol/L (98-107) Carbon Dioxide Level 24 mmol/L (21-32) Anion Gap 11 (6-14) Blood Urea Nitrogen 20 mg/dL (8-26) Creatinine 1.2 mg/dL (0.7-1.3) Estimated GFR (Cockcroft-Gault) 69.3 BUN/Creatinine Ratio 17 (6-20) Glucose Level 121 mg/dL (70-99) H Calcium Level 9.2 mg/dL (8.5-10.1) Total Bilirubin 0.3 mg/dL (0.2-1.0) Aspartate Amino Transferase (AST) 57 U/L (15-37) H Alanine Aminotransferase (ALT) 145 U/L (16-63) H Alkaline Phosphatase 98 U/L (46-116) Total Protein 7.3 g/dL (6.4-8.2) Albumin 3.6 g/dL (3.4-5.0) Albumin/Globulin Ratio 1.0 (1.0-1.7) Urine Collection Type Unknown Urine Color Yellow Urine Clarity Clear Urine pH 6.0 Urine Specific [place] 1.010 Urine Protein Negative mg/dL (NEG-TRACE) Urine Glucose (UA) Negative mg/dL (NEG) Urine Ketones (Stick) Negative mg/dL (NEG) Urine Blood Negative (NEG) Urine Nitrite Negative (NEG) Urine Bilirubin Negative (NEG) Urine Urobilinogen Dipstick 0.2 mg/dL (0.2 mg/dL) Urine Leukocyte Esterase Negative (NEG) Urine RBC 0 /HPF (0-2) Urine WBC 0 /HPF (0-4) Urine Squamous Epithelial Cells Occ /LPF Urine Bacteria 0 /HPF (0-FEW) Laboratory Tests 11/06/19 11:45 Laboratory Tests 11/06/19 12:23 EKG EKG [] Radiology/Procedures Radiology/Procedures [] Impressions: PROCEDURE: CT ABD PELV W/ IV CONTRST ONLY INDICATION: Abdomen pain COMPARISON: October 20, 2019 TECHNIQUE: Axial CT images obtained through the abdomen and pelvis with contrast. One or more of the following individualized dose reduction techniques were utilized for this examination: 1. Automated exposure control; 2. Adjustment of the mA and/or kV according to patient size; 3. Use of iterative reconstruction technique. FINDINGS: Abdominal aorta is not aneurysmal. Suspected small fat-containing inguinal hernias. Liver is low density. No peripancreatic fluid collection. Spleen unremarkable. Mildly prominent left renal pelvis urinary bladder is partially distended. No right-sided hydronephrosis. No periappendiceal inflammatory changes. No dilated loops of bowel to suggest obstruction. There is some edema within the mesentery with scattered prominent lymph nodes. Mild degenerative changes spine IMPRESSION: * No evidence of bowel bowel obstruction or appendicitis. * There are some mild haziness in the mesentery with prominent lymph nodes. Can be seen with causes such as mesenteric panniculitis. * Liver is low density. Nonspecific but can be seen with fatty infiltration. * Prominence of the left extrarenal pelvis again seen Electronically signed by: Elias Rolon MD (11/06/2019 2:54 PM) [facility] [place] DICTATED and SIGNED BY: ELIAS ROLON MD DATE: 11/06/19 1459 Course & Med Decision Making Course & Med Decision Making Pertinent Labs and Imaging studies reviewed. (See chart for details) [] Dragon Disclaimer Dragon Disclaimer This electronic medical record was generated, in whole or in part, using a voice recognition dictation system. Departure Departure Impression: Primary Impression: Abdominal pain Additional Impression: Loose stools Disposition: 01 HOME, SELF-CARE Condition: STABLE Referrals: LOBO WILLIAMSON (PCP) Patient Instructions: Abdominal Migraine Scripts Ondansetron (ONDANSETRON ODT) 4 Mg Tab.rapdis 1 TAB PO PRN Q6-8HRS PRN for NAUSEA, #15 TAB Prov: KACY BAHENA Jr. DO 11/06/19 Hydrocodone/Apap 5-325 (NORCO 5-325 TABLET) 1 Each Tablet 1-2 EACH PO PRN Q6HRS PRN for PAIN, #15 as needed for pain Prov: KACY BAHENA Jr. DO 11/06/19 Methylprednisolone (MEDROL) 4 Mg Tab.ds.pk 1 PKG PO UD, #1 PKG Prov: KACY BAHENA Jr. DO 11/06/19 Metronidazole (FLAGYL) 500 Mg Tablet 1 TAB PO TID, #30 TAB Prov: KACY BAHENA Jr. DO 11/06/19 Ciprofloxacin Hcl (CIPROFLOXACIN HCL) 500 Mg Tablet 1 TAB PO BID, #20 TAB Prov: KACY BAHENA Jr. DO 11/06/19 Problem Qualifiers Primary Impression: Abdominal pain Abdominal location: generalized Qualified Codes: R10.84 - Generalized abdominal pain KACY BAHENA Jr. DO Nov 06, 2019 13:11
[2019-11-06] MEDS ORDERED: CONTRAST GIVEN. MC PRN (14:30)
--- NOTE | 2019-11-06 14:57 | RAD ---
INDICATION: Abdomen pain COMPARISON: October 20, 2019 TECHNIQUE: Axial CT images obtained through the abdomen and pelvis with contrast. One or more of the following individualized dose reduction techniques were utilized for this examination: 1. Automated exposure control; 2. Adjustment of the mA and/or kV according to patient size; 3. Use of iterative reconstruction technique. FINDINGS: Abdominal aorta is not aneurysmal. Suspected small fat-containing inguinal hernias. Liver is low density. No peripancreatic fluid collection. Spleen unremarkable. Mildly prominent left renal pelvis urinary bladder is partially distended. No right-sided hydronephrosis. No periappendiceal inflammatory changes. No dilated loops of bowel to suggest obstruction. There is some edema within the mesentery with scattered prominent lymph nodes. Mild degenerative changes spine IMPRESSION: * No evidence of bowel bowel obstruction or appendicitis. * There are some mild haziness in the mesentery with prominent lymph nodes. Can be seen with causes such as mesenteric panniculitis. * Liver is low density. Nonspecific but can be seen with fatty infiltration. * Prominence of the left extrarenal pelvis again seen Electronically signed by: Filipe Rolon MD (11/06/2019 2:54 PM) [facility] [place]
[2019-11-06] MEDS ORDERED: IOHEXOL 300 MG/ML 100ML VIAL. IV ONE (15:00)
[2019-11-06 15:39] VITALS: BP 140/78
[2019-11-06] MEDS ORDERED: METH4TAB2 PO (15:48)
[2019-11-06] MEDS ORDERED: METR500T PO (15:48)
[2019-11-06] MEDS ORDERED: CIPR500T PO (15:48)
[2019-11-06] MEDS ORDERED: ONDA4TAB12 PO (15:48)
[2019-11-06] MEDS ORDERED: HYDR-3164 PO (15:48)
== END 2019-11-06 16:01 | disposition home or self-care (01) ==
LOC: ER 11:04
DX: R10.84 Generalized abdominal pain (principal); R19.7 Diarrhea, unspecified; R42 Dizziness and giddiness; J44.9 Chronic obstructive pulmonary disease, unspecified; I11.0 Hypertensive heart disease with heart failure; I50.9 Heart failure, unspecified; I25.10 Atherosclerotic heart disease of native coronary artery without angina pectoris; I25.2 Old myocardial infarction; Z86.73 Personal history of transient ischemic attack (TIA), and cerebral infarction without residual deficits; Z87.891 Personal history of nicotine dependence; Z88.0 Allergy status to penicillin; Z88.2 Allergy status to sulfonamides
CPT/HCPCS: 36415; 74177; 80053; 81001; 85025; 85610; 85730; 93005; 96361; 96374; 96375; 96376; 99285; J1200; J2270; J2765; J7030; Q9967

== ENCOUNTER → 2022-01-24 | Outpatient (CLI) | payer MEDICAID ==
[~2022-01-24] MED LIST changes: +CIPR500T2 PO; +CYCL10TA19 PO; -CYCL10TA2 PO; -DOXY100C2 PO; +DOXY100C3 PO; +METH4TAB2 PO; +MULT-445 PO; -MULT1TAB52 PO; +PREG-9 PO; -PREG75CA PO
--- NOTE | 2022-01-24 11:58 | KCIC ---
EXAM: Lumbar spine MRI without contrast. HISTORY: Pain. TECHNIQUE: Multiplanar, multisequence magnetic resonance imaging of the lumbar spine was performed wi thout contrast. COMPARISON: None. FINDINGS: There is no listhesis. There is endplate remodeling with Schmorl's node formation and disc desiccation at L5-S1. There is no acute or subacute fracture. There is no suspicious osseous lesion. The conus terminates at L1. At L1-L2 and L2-L3, there is no stenosis. At L3-L4, there is endplate remodeling. There is abutment or near abutment of the exiting left L3 ner ve root. At L4-L5, there is a shallow left foraminal to extra foraminal disc protrusion superimposed on endpla te remodeling. There is abutment or near abutment of the exiting left L4 nerve root. There is mild ce ntral canal stenosis. At L5-S1, there is a disc bulge and endplate remodeling. There is mild right facet arthropathy. There is mild bilateral foraminal stenosis with abutment or near abutment of the exiting L5 nerve roots. T here is narrowing of the left lateral recess. IMPRESSION: Degenerative change involving the lower lumbar spine, described in detail above. Electronically signed by: Dominique Anguiano MD (01/24/2022 11:56 AM) [facility]
== END ==
LOC: KCIC MRI 09:42
PROVIDERS: ATTEND Physician Assistant
DX: M47.817 Spondylosis without myelopathy or radiculopathy, lumbosacral region (principal); M51.27 Other intervertebral disc displacement, lumbosacral region; M48.07 Spinal stenosis, lumbosacral region; M51.47 Schmorl's nodes, lumbosacral region
CPT/HCPCS: 72148